=== PATIENT | female | born 1965 | race Caucasian/White ===

== ENCOUNTER 2019-10-27 08:00 | Outpatient (RCR) | payer BC, OTHER, SELFPAY ==
[2019-10-11 11:02] VITALS: BP 152/89; PULSE 72; RESP 18; TEMP 37.6; BMI 33.0
--- NOTE | 2019-10-11 12:11 | HP.PCM_ITS ---
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 Status: Acute Current Visit: Yes Code(s): Z92.29 - Personal history of other drug therapy (3) Peripheral arterial occlusive disease Status: Acute Current Visit: Yes Code(s): I77.9 - Disorder of arteries and arterioles, unspecified (4) Partial traumatic amputation of left foot Status: Acute Current Visit: Yes Code(s): S98.922A - Partial traumatic amputation of left foot, level unspecified, initial encounter (5) Smoking addiction Status: Acute Current Visit: Yes Code(s): F17.200 - Nicotine dependence, unspecified, uncomplicated (6) Nonhealing nonsurgical wound with necrosis of bone Status: Acute Current Visit: Yes Code(s): T14.8XXA - Other injury of unspecified body region, initial encounter; M87.9 - Osteonecrosis, unspecified (7) Infected wound Status: Acute Current Visit: Yes Code(s): T14.8XXA - Other injury of unspecified body region, initial encounter; L08.9 - Local infection of the skin and subcutaneous tissue, unspecified History of Present Illness Date of Service: 10/11/19 Chief Complaint: Follow-up on a left dorsal foot nonhealing surgical wound History of Wound: This is a 54-year-old white female that in approximately December 2016 had partial amputation of the left foot top of the ball of the foot through the toes removed. Her vascular study showed good posterior pedal pulses but no dorsal pulse or circulation to the toes. They think this was an involved with the blood clot that was in her lower leg. Eventually the toes became gangrene and the amputated. Because there was infection in the wound they did not close the dorsal foot and then a week later went back after IV antibiotics and reclosed the dorsal foot. All closed except the one little section that dehisced and his case stayed open this for the last 3 years. Patient was sent to Dr. Daniels a plastic surgeon that saw her and 2018 and was going to do a graft but never got back to her. He did start her on a wound VAC back in June through September 2018. Her insurance changed and she had to lose the wound VAC and then he never got back or there was miscommunication about the graft that was supposed to be done this last December. She and her daughter have been doing dressing changes through Dr. Guadarrama in [place] her family doctor and he did an x-ray of the foot and an MRI and found that there was no damage to the bone and we are waiting for the records. Also were going to the hospital for dressing changes and using Aquacel silver but never moisturizing it so the wound is extremely dry. Today we are going to change everything and put her on collagen and Adaptic and have her see Dr. Zaragoza next week and me the following week and in between we will have her start metronidazole for the distinct odor that is coming from the wound. we attained cultures today. We will also get records from all of her previous visits. Past Medical History Past Medical History: Nonhealing surgical wound left dorsal foot. Infected left dorsal foot long-term use of blood thinners. Chronic DVTs peripheral arterial occlusive disease Urschel amputation of the left foot Allergies/Adverse Reactions: Allergies codeine Allergy (Verified 10/11/19 10:58) Nausea Home Medications: Ambulatory Orders Medication Instructions Recorded Albuterol Aerosols [Ventolin 2.5 mg INHALATION Q6H PRN PRN 10/11/19 Aerosols] Atorvastatin Calcium 40 mg PO DAILY 10/11/19 Gabapentin [Neurontin] 300 mg PO 4X/DAY 10/11/19 Warfarin [Coumadin ([facility])] 2.5 mg PO QODAY 10/11/19 Warfarin [Coumadin ([facility])] 5 mg PO QODAY 10/11/19 Smoking Status: Former smoker Review of Systems Constitutional: Denies: Chills, Fever Eyes: Denies: Blurred vision, Drainage, Pain HEENT: Denies: Difficulty Hearing, Difficulty Swallowing, Sore Throat, Visual Changes Cardiovascular: Denies: Chest Pain, Palpitations, Syncope Respiratory: Denies: Cough, Shortness of Breath Gastrointestinal: Denies: Abdominal Pain, Nausea, Vomiting Genitourinary: Denies: Dysuria, Frequency Musculoskeletal: Denies: Joint Pain, Muscle pain Skin: Reports: Wounds - Left dorsal foot. Denies: Jaundice, Rash Neurological: Denies: Balance problems, Change in Speech, Difficulty swallowing, Focal weakness Psychiatric: Denies: Anxiety, Depression Endocrine: Denies: Change in Body Habitus Hematologic/ Lymphatic: Denies: Adenopathy - Physical Exam Vital Signs Temp Pulse Resp BP 99.6 F H 72 18 152/89 H 10/11/19 11:02 10/11/19 11:02 10/11/19 11:02 10/11/19 11:02 General: Oriented x3, Cooperative, Well developed HEENT: Atraumatic, PERRLA Oral: Moist Mucosa Neck: Supple, No JVD Lungs: Clear to auscultation, Normal air movement Cardiovascular: Regular rate, Regular Rhythm Abdomen: Bowel Sounds Present, Soft, Non Tender, No Hepato-splenomegaly Extremities: No clubbing, No edema, - - Left dorsal nonhealing surgical wound Wound Measurements and Assessment WC - Nurse 1 - General Ulcer Measurement Start: 10/11/19 10:53 Freq: Status: Active Protocol: Activity Type Activity Date Activity User E-Sign Co-Sign Detail Recorded Client Recorded Date Recorded By Document 10/11/19 11:02 [id number] 10/11/19 11:13 RB 10/11/19 11:02 Wound Center Nurse 1 [Ulcer Assessment] 1. L foot dorsal -Combined with other wound No -Current Size (cm) - Length 0.6 -Current Size (cm) - Width 0.5 -Current Size (cm) - Depth 0.3 -Total Square Cm 0.30 -Photo Taken Yes -Tunneling No -Undermining/Tunneling No -Circular Undermining No -Exudate Amt Small -Exudate Type Serosanguineous -Wound Margin Thickened & Rolled Under -Granulation Amt Small (1-33%) -Granulation Quality [place] -Slough/Fibrin Yes -Necrosis Amt Medium (34-66%) -Necrotic Tissue Type Eschar -Structure Exposed N/A -Texture (Shital-wound Skin Appearance) Assessed, Scarring -Moisture (Shital-wound Skin Appearance Assessed ) -Color (Shital-wound Skin Appearance) Assessed -Temperature (Shital-wound Skin No Abnormality Appearance) (Pt Warm) -Tenderness on Palpation (Shital-wound No Skin Appearance) -Ulcer Cleansing Wound Cleanser -Foul Odor after Cleansing No -Anesthetic Used 5% Lidocaine Gel [Edema Assessment] -Lower Limb Edema Present Yes -Right Calf (cm) 34.6 -Right Ankle (cm) 20.1 -Left Calf (cm) 34.1 -Left Ankle (cm) 19.1 WC - Nurse 2 - General Ulcer CM Notes Start: 10/11/19 10:53 Freq: Status: Active Protocol: Activity Type Activity Date Activity User E-Sign Co-Sign Detail Recorded Client Recorded Date Recorded By Document 10/11/19 11:34 MW [id number] 10/11/19 11:42 MW 10/11/19 11:34 Wound Center Nurse 2 [Procedure/Treatment] 1. L foot dorsal -Time 11:34 -Correct Patient Yes -Correct Side, Site, Position Yes -Correct Procedure Yes -Procedure Performed Yes -Type of Procedure Debridement -Clinical Debridement Subcutaneous -Post Debridement Size (cm) - Length 0.8 -Post Debridement Size (cm) - Width 0.8 -Post Debridement Size (cm) - Depth 0.3 -Total Square Cm 0.64 -Wound/Ulcer Outcome Not Healed -Ulcer Cleansing Rinsed/ Irrigated with Saline -Foul Odor after Cleansing No -Bioengineered Tissue No -Bleeding Controlled with Pressure -Offloading No -Treatment Response Procedure Tolerated Well [See Physician Procedure note for Specifics] Pain Scale: 0-10 Numeric [Pain] -Is Patient Pain Free? Yes Musculoskeletal: No Tenderness to Palpation of Joints or Extremities Lymphatic: No Cervical, Supraclavicular, or Inguinal Adenopathy Neurological: Cranial nerves II-XII grossly intact, Neuro grossly intact Psych/Mental Status: Normal Affect, Appropriate Debridement Note Post-Debridement Measurements/Treatment WC - Nurse 2 - General Ulcer CM Notes Start: 10/11/19 10:53 Freq: Status: Active Protocol: Activity Type Activity Date Activity User E-Sign Co-Sign Detail Recorded Client Recorded Date Recorded By Document 10/11/19 11:34 MW [id number] 10/11/19 11:42 MW 10/11/19 11:34 Wound Center Nurse 2 1. L foot dorsal -Time 11:34 -Correct Patient Yes -Correct Side, Site, Position Yes -Correct Procedure Yes -Procedure Performed Yes -Type of Procedure Debridement -Clinical Debridement Subcutaneous -Post Debridement Size (cm) - Length 0.8 -Post Debridement Size (cm) - Width 0.8 -Post Debridement Size (cm) - Depth 0.3 -Total Square Cm 0.64 -Wound/Ulcer Outcome Not Healed -Ulcer Cleansing Rinsed/ Irrigated with Saline -Foul Odor after Cleansing No -Bioengineered Tissue No -Bleeding Controlled with Pressure -Offloading No -Treatment Response Procedure Tolerated Well Pain Scale: 0-10 Numeric Is Patient Pain Free? 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 Ducted wound. Peripheral arterial occlusive disease. Long-term use of Coumadin. Chronic DVTs Plan: Wash foot and leg with Hibiclens. Apply hydrogel to open area cover with Adaptic gauze and tape day. Follow up [address] Lombardi. Follow-up in 2 weeks with Linda. We will obtain old records from family doctor and hospitalization
[2019-10-18 09:46] VITALS: BP 136/76; PULSE 72; RESP 16; TEMP 37; BMI 33.0
--- NOTE | 2019-10-18 10:20 | BON_PTH ---
PATIENT: ONDINA GAMINO LOC: [facility] U#:[id number] AGE/SX: 54/F ROOM: RE10/27/[address]: Dr. Mackenzie Manzano DPM : 1965 BED: DIS: 10/28/2019 SPEC #: [id number] RECD: 10/18/19 10:44 STATUS: CEDRIC REScar #: [id number] MERLYN: 10/18/19 10:[address]: Mackenzie Manzano DEPT: SURGICAL PATHOLOGY RECD BY: Ant Garber ENTERED: 10/18/19 12:22 SP TYPE: Bone OTHR DR: Dr. Darion Forbes MD Tissues: Bone of foot, NOS Procedures: Decalcification bone/plaque Surgery Specimen Level V HEADER OPERATION: Bone excision from right dorsal foot PRE-OP DIAGNOSIS: Nonhealing right foot ulcer, osteomyelitis TISSUE SUBMITTED: Bone biopsy right foot MICROSCOPIC DIAGNOSIS Bone of right foot, biopsy: Acute osteomyelitis. Fragment of skin with no significant pathologic change. AM:spenser 10/19/19 MICROSCOPIC DESCRIPTION Slides are reviewed. GROSS DESCRIPTION Received in fixative is one container labeled with the patient's name and designated right bone biopsy. The specimen consists of multiple fragments of bone that in aggregate measure 0.7 x 0.3 x 0.1 cm. The entire specimen is submitted in one cassette after decalcification. / SJ:spenser 10/18/19 TC:2 CPT: 48470, 48800
--- NOTE | 2019-10-18 10:55 | PN.PCM_ITS ---
(1) Chronic ulcer of left foot with necrosis of bone Status: Chronic Current Visit: Yes Code(s): L97.524 - Non-pressure chronic ulcer of other part of left foot with necrosis of bone (2) Osteomyelitis of left foot Status: Chronic Current Visit: Yes Code(s): M86.9 - Osteomyelitis, unspecified (3) Leg edema Status: Chronic Current Visit: Yes Code(s): R60.0 - Localized edema (4) Venous insufficiency Status: Suspected Current Visit: Yes Code(s): I87.2 - Venous insufficiency (chronic) (peripheral) (5) Malnutrition Status: Suspected Current Visit: Yes Code(s): E46 - Unspecified protein- calorie malnutrition (6) Deep vein thrombophlebitis of left leg Status: Chronic Current Visit: Yes Code(s): I80.202 - Phlebitis and thrombophlebitis of unspecified deep vessels of left lower extremity (7) 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 Status: Chronic Current Visit: Yes Code(s): Z92.29 - Personal history of other drug therapy (8) Partial traumatic amputation of left foot Status: Acute Current Visit: Yes Code(s): S98.922A - Partial traumatic amputation of left foot, level unspecified, initial encounter (9) Peripheral arterial occlusive disease Status: Suspected Current Visit: Yes Code(s): I77.9 - Disorder of arteries and arterioles, unspecified (10) Smoking addiction Status: Chronic Current Visit: Yes Code(s): F17.200 - Nicotine dependence, unspecified, uncomplicated Type of Wound Date of Service: 10/18/19 Chief Complaint: Follow-up on a left dorsal foot nonhealing ulcer History of Wound: This is a 54-year-old white female that in approximately December 2016 had chronic foot condition inlcuding wounds with subsequent transmetatarsal amputation of the left foot. Eventually the toes became gangrene and then amputated. Because there was infection in the wound they did not close the dorsal foot and then a week later went back after IV antibiotics and reclosed the dorsal foot. All closed except the one little section that te isced and his case stayed open this for the last 3 years. Patient was sent to Dr. Daniels a plastic surgeon that saw her. This patient was also seen by motorboat mechanic Dr. Jordan and Dr. Restrepo with several surgeries ranging from advanced wound healing product application such as epi cord and Integra bilayer matrix and bone biopsies. Relates Dr. Guadarrama in [place] her family doctor and he did an x-ray of the foot and an MRI within the past month. Her previous bone biopsies from 01/06/2018 were consistent with acute and chronic osteomyelitis and she relates she completed a course of a PICC line. This patient denies previous intervention or evaluation with the vascular specialist or motorboat mechanic. However there is different information reviewed in her medical record. Some of her medical records did come in for review and I do not see the vascular noninvasive arterial report. Per other record review it appears that she initially had critical limb ischemia and had vascular intervention in October 2017 including thrombolytic therapy with percutaneous angioplasty to the left anterior tibial, popliteal, and superficial femoral arteries. It is noted her past medical history on file includes chronic obstructive pulmonary disease, DVT and chronic Coumadin, hyperlipidemia, and peripheral vascular disease. When interviewed about anterior breast and proceeding with hyperbaric oxygen therapy she is concerned she may be claustrophobic. She is amendable to think about this over the next week. Progress of Wound: Stable - Physical Exam Vital Signs Temp Pulse Resp BP 98.6 F 72 16 136/76 H 10/18/19 09:46 10/18/19 09:46 10/18/19 09:46 10/18/19 09:46 General: Alert, Oriented x3, Cooperative, No apparent distress HEENT: Atraumatic Extremities: No cyanosis, Capillary Refill Less than 3 Seconds - Dorsal and plantar transmetatarsal amputation site, No Calf Tenderness - Negative Lucy and Ogmez sign, Diminished Peripheral Pulses - non palpable DP, left and 1/4 PT left, Edema - Mild with some varicosities left lower extremity, - - Active range of motion of left ankle is noted. Transmetatarsal amputation left. There is pain to palpation to the lateral peroneal area and lateral foot as she is subjectively reporting. Compartments soft to palpate. No laxity or increased warmth noted to the remainder of the left foot ankle or leg. No bogginess or fluctuance on palpation Skin: Ulcer/ Wound - There is no purulence, streaking, odor or ecchymosis noted. There is a full-thickness skin discontinuity with exposed black discolored soft bone to the dorsal left foot. There is some peripheral inflammation with pink discoloration I would not describe this as an infectious erythema at this time. Her skin is very atrophic, hairless. No other ulcers are noted. Wound Measurements and Assessment - Nurse 1 - General Ulcer Measurement Start: 10/11/19 10:53 Freq: Status: Active Protocol: Activity Type Activity Date Activity User E-Sign Co-Sign Detail Recorded Client Recorded Date Recorded By Document 10/18/19 09:46 [facility] [id number] 10/18/19 09:48 [facility] 10/18/19 09:46 Wound Center Nurse 1 [Ulcer Assessment] 1. L foot dorsal -Combined with other wound No -Current Size (cm) - Length 0.6 -Current Size (cm) - Width 0.7 -Current Size (cm) - Depth 0.3 -Total Square Cm 0.42 -Photo Taken No -Epithelialization None Present -Tunneling No -Undermining/Tunneling No -Circular Undermining No -Exudate Amt Small -Exudate Type Serous -Wound Margin Distinct, Outline Attached -Granulation Amt None Present (0 %) -Slough/Fibrin Yes -Necrosis Amt Large (67-100%) -Necrotic Tissue Type Adherent Slough -Structure Exposed Bone -Texture (Shital-wound Skin Appearance) Assessed, Scarring -Moisture (Shital-wound Skin Appearance Assessed ) -Color (Shital-wound Skin Appearance) Assessed, Erythema -Temperature (Shital-wound Skin No Abnormality Appearance) (Pt Warm) -Tenderness on Palpation (Shital-wound No Skin Appearance) -Ulcer Cleansing Rinsed/ Irrigated with Saline -Foul Odor after Cleansing No -Anesthetic Used 5% Lidocaine Gel - Nurse 2 - General Ulcer CM Notes Start: 10/11/19 10:53 Freq: Status: Active Protocol: Activity Type Activity Date Activity User E-Sign Co-Sign Detail Recorded Client Recorded Date Recorded By Document 10/18/19 10:39 [id number] 10/18/19 10:40 10/18/19 10:39 Wound Center Nurse 2 [Procedure/Treatment] -Time 10:39 -Correct Patient Yes -Correct Side, Site, Position Yes -Correct Procedure Yes -Procedure Performed Yes -Type of Procedure Debridement -Clinical Debridement Bone -Post Debridement Size (cm) - Length 0.7 -Post Debridement Size (cm) - Width 0.8 -Post Debridement Size (cm) - Depth 0.3 -Total Square Cm 0.56 -Wound/Ulcer Outcome Not Healed -Ulcer Cleansing Rinsed/ Irrigated with Saline -Foul Odor after Cleansing No -Bioengineered Tissue No -Bleeding Controlled with Pressure -Offloading No -Treatment Response Procedure Tolerated Well [See Physician Procedure note for Specifics] Pain Scale: 0-10 Numeric [Pain] -Is Patient Pain Free? Yes Musculoskeletal: No Tenderness to Palpation of Joints or Extremities, Muscle Wasting Neurological: - - Lack of normal epicritic sensation light touch consistent with neuropathy and it is and she is on gabapentin Psych/Mental Status: Normal Affect, Appropriate Debridement Note Post-Debridement Measurements/Treatment WC - Nurse 2 - General Ulcer CM Notes Start: 10/11/19 10:53 Freq: Status: Active Protocol: Activity Type Activity Date Activity User E-Sign Co-Sign Detail Recorded Client Recorded Date Recorded By Document 10/11/19 11:34 MW [id number] 10/11/19 11:42 MW Document 10/18/19 10:39 [id number] 10/18/19 10:40 10/11/19 10/18/19 11:34 10:39 Wound Center Nurse 2 1. L foot dorsal -Time 11:34 10:39 -Correct Patient Yes Yes -Correct Side, Site, Position Yes Yes -Correct Procedure Yes Yes -Procedure Performed Yes Yes -Type of Procedure Debridement Debridement -Clinical Debridement Subcutaneous Bone -Post Debridement Size (cm) - Length 0.8 0.7 -Post Debridement Size (cm) - Width 0.8 0.8 -Post Debridement Size (cm) - Depth 0.3 0.3 -Total Square Cm 0.64 0.56 -Wound/Ulcer Outcome Not Healed Not Healed -Ulcer Cleansing Rinsed/ Rinsed/ Irrigated with Irrigated with Saline Saline -Foul Odor after Cleansing No No -Bioengineered Tissue No No -Bleeding Controlled with Pressure Pressure -Offloading No No -Treatment Response Procedure Procedure Tolerated Well Tolerated Well Pain Scale: 0-10 Numeric Is Patient Pain Free? 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 Chronic osteomyelitis left foot. Peripheral arterial occlusive disease with prior intervention in 2017. Long-term use of Coumadin. Chronic DVTs. Malnutrition suspected. Left transmetatarsal amputation with delayed healing Plan: I reviewed and discussed with case, her previous medical records, and her recent microbiology report. To wash foot gently with soap and water. There does not appear to be any local acute signs of infection today and she was advised to complete her oral Flagyl. Her cultures did demonstrate strep and Pseudomonas. If her local signs of infection progress and she has systemic illness additional antibiotics will be considered. The devitalized tissue was excised including bone and this was sent for pathology and microbiology updated bone cultures. I would like to review her x-rays and recent MRI and these reports have already been requested but have not been received. The CD imaging will be requested as well. Clinically I suspect osteomyelitis and talked about surgical debridements as well as hyperbaric oxygen therapy and infectious disease updated referral. I would like to start with the bone biopsy today and a more aggressive local debridement was performed medically. We will gather the remainder of the information and consider if she is a candidate for hyperbaric oxygen therapy. I discussed the indications anticipated application and healing time. She is concerned she may be a little claustrophobic but would consider this treatment. She will think about this over the next week. Transportation requirements were discussed. If she elects to proceed forward she will go forward diagnostic data screening with a chest x-ray, EKG and clearance to proceed forward. Her history of peripheral vascular disease with critical limb ischemia and prior intervention 2017 as noted. An updated arterial venous study was ordered today to check her current status. Additional intervention or reevaluation by vascular specialist may be warranted. We will start with this test. Also pending these results more aggressive compression therapy and debridement will be considered and implemented. I recommend updating her lab work including CBC, CMP, ESR, CRP, and prealbumin to understand her baseline medical status, inflammatory nutrition status. She was also advised to offload the ulcer to keep pressure and friction to optimize healing. To avoid wearing shoes that press on the site and excessive walking activity. An aperture pad was fabricated to place around the ulcer site as well. To discontinue smoking activity. To maintain a healthy diet that is well-balanced and have adequate protein to optimize healing. Additional medical records will be requested as noted and her other outside facility notes were reviewed and placed in the paper chart. She will return to clinic next Wednesday in which door and I will follow along with her. The consultation is appreciated. To continue with hydrogel to open area cover with Adaptic gauze and tape daily basis.
[2019-10-18 12:01] LABS: Erythrocyte Sedimentation Rate 17 mm/hr (0-30)
[2019-10-18 12:04] LABS: Absolute Lymphocyte Count 3.19 X10^3/uL (0.83-4.51); Absolute Neutrophil Count 4.4 X10^3/uL (2.0-7.7); Basophil# 0.09 X10^3/uL; Eosinophil# 0.24 X10^3/uL; Eosinophils% 2.8 % (0-5); Hematocrit 47.3 % (37-47); Hemoglobin 15.5 g/dL (12.0-15.0); Lymphocyte # 3.19 X10^3/ul (4.0); Lymphocyte % 37.1 % (19-41); Mean Corp Hgb Conc 32.8 g/dL (32-36); Mean Corpuscular Hgb 31.6 pg (27.0-32.0); Mean Corpuscular Volume 96.3 fL (81-99); Mean Platelet Vol. 10.2 fl (6.2-12.0); Monocyte# 0.63 X10^3/uL; Monocyte% 7.3 % (0-10); NRBC Flagged by Analyzer 0 % (0-5); Neutrophil # 4.42 X10^3/uL (2.7-7.7); Neutrophil % 51.6 % (47-70); Platelet Count 380 K/mm3 (150-450); RBC Distribution Width CV 15.3 % (11.6-14.6); RBC Distribution Width SD 54.6 fl (35.1-43.9); Red Blood Count 4.91 M/mm3 (4.2-5.4); White Blood Count 8.6 K/mm3 (4.4-11.0)
[2019-10-18 12:54] LABS: ALB/GLOB Ratio 0.8 RATIO (0.9-2.4); AST(SGOT) 27 U/L (15-37); Alanine Aminotransfer ALT/SGPT 29 U/L (13-56); Albumin, Serum 3.3 g/dL (3.2-5.0); Alkaline Phosphatase 187 U/L (45-117); Anion Gap 5 (5-15); BUN 7 mg/dL (7-18); BUN/Creat Ratio 8.4 RATIO (10-20); Calcium,Total 8.8 mg/dL (8.5-10.1); Chloride 107 mmol/L (98-107); Creatinine, Serum 0.84 mg/dL (0.55-1.02); EST Glomerular Filtration Rate 76 mL/min (>60); Est Glom Filt Rate - Afr Amer 92 mL/min (>60); Estimated Creatinine Clearance 59.12 ml/min; Globulin 4.3 g/dL (2.2-4.2); Glucose 83 mg/dL (74-106); Potassium 4.3 mmol/L (3.5-5.1); Prealbumin 20.4 mg/dL (20.0-40.0); Protein, Total 7.6 g/dL (6.4-8.2); Sodium Level 140 mmol/L (136-145)
[2019-10-25 11:19] VITALS: BP 133/86; PULSE 81; RESP 18; TEMP 36.8; BMI 33.0
--- NOTE | 2019-10-25 12:42 | PN.PCM_ITS ---
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 Current Visit: Yes Code(s): Z92.29 - Personal history of other drug therapy (3) Peripheral arterial occlusive disease Status: Suspected Current Visit: Yes Code(s): I77.9 - Disorder of arteries and arterioles, unspecified (4) Partial traumatic amputation of left foot Status: Acute Current Visit: Yes Code(s): S98.922A - Partial traumatic amputation of left foot, level unspecified, initial encounter (5) Smoking addiction Status: Chronic Current Visit: Yes Code(s): F17.200 - Nicotine dependence, unspecified, uncomplicated (6) Nonhealing nonsurgical wound with necrosis of bone Status: Acute Current Visit: Yes Code(s): T14.8XXA - Other injury of unspecified body region, initial encounter; M87.9 - Osteonecrosis, unspecified (7) Infected wound Status: Acute Current Visit: Yes Code(s): T14.8XXA - Other injury of unspecified body region, initial encounter; L08.9 - Local infection of the skin and subcutaneous tissue, unspecified (8) Osteomyelitis of left foot Status: Chronic Current Visit: Yes Code(s): M86.9 - Osteomyelitis, unspecified (9) Malnutrition Status: Suspected Current Visit: Yes Code(s): E46 - Unspecified protein- calorie malnutrition Type of Wound Date of Service: 10/25/19 Chief Complaint: Follow-up on a left dorsal foot nonhealing ulcer History of Wound: This is a 54-year-old white female that in approximately December 2016 had chronic foot condition inlcuding wounds with subsequent transmetatarsal amputation of the left foot. Eventually the toes became gangrene and then amputated. Because there was infection in the wound they did not close the dorsal foot and then a week later went back after IV antibiotics and reclosed the dorsal foot. All closed except the one little section that dehisced and his case stayed open this for the last 3 years. Patient was sent t samir Daniels a plastic surgeon that saw her. This patient was also seen by associate of science in nursing Dr. Jordan and Dr. Restrepo with several surgeries ranging from advanced wound healing product application such as epi cord and Integra bilayer matrix and bone biopsies. Relates Dr. Guadarrama in [place] her family doctor and he did an x-ray of the foot and an MRI within the past month. Her previous bone biopsies from 01/06/2018 were consistent with acute and chronic osteomyelitis and she relates she completed a course of a PICC line. This patient denies previous intervention or evaluation with the vascular specialist or associate of science in nursing. However there is different information reviewed in her medical record. Some of her medical records did come in for review and I do not see the vascular noninvasive arterial report. Per other record review it appears that she initially had critical limb ischemia and had vascular intervention in October 2017 including thrombolytic therapy with percutaneous angioplasty to the left anterior tibial, popliteal, and superficial femoral arteries. It is noted her past medical history on file includes chronic obstructive pulmonary disease, DVT and chronic Coumadin, hyperlipidemia, and peripheral vascular disease. When interviewed about anterior breast and proceeding with hyperbaric oxygen therapy she is concerned she may be claustrophobic. She is amendable to think about this over the next week. Progress of Wound: Courtesy consult. Bone biopsy came back positive for osteomyelitis patient is already on antibiotics from Dr. Zaragoza. Discussed with Dr. goodman will be getting her MRI to study it and consult with infectious disease next week - Physical Exam Vital Signs Temp Pulse Resp BP 98.2 F 81 18 133/86 H 10/25/19 11:19 10/25/19 11:19 10/25/19 11:19 10/25/19 11:19 General: Oriented x3, Cooperative, Well developed HEENT: Atraumatic, PERRLA Oral: Moist Mucosa Neck: Supple, No JVD Lungs: Clear to auscultation, Normal air movement Cardiovascular: Regular rate, Regular Rhythm Abdomen: Bowel Sounds Present, Soft, Non Tender, No Hepato-splenomegaly Extremities: No clubbing, No edema Wound Measurements and Assessment WC - Nurse 1 - General Ulcer Measurement Start: 10/11/19 10:53 Freq: Status: Active Protocol: Activity Type Activity Date Activity User E-Sign Co-Sign Detail Recorded Client Recorded Date Recorded By Document 10/25/19 11:19 DL [id number] 10/25/19 11:26 DL 10/25/19 11:19 Wound Center Nurse 1 [Ulcer Assessment] 1. L foot dorsal -Current Size (cm) - Length 0.6 -Current Size (cm) - Width 0.7 -Current Size (cm) - Depth 0.4 -Total Square Cm 0.42 -Photo Taken No -Exudate Amt Small -Exudate Type Yellow/Green -Wound Margin Thickened & Rolled Under -Granulation Amt None Present (0 %) -Necrosis Amt Large (67-100%) -Necrotic Tissue Type Adherent Slough -Structure Exposed Bone -Texture (Shital-wound Skin Appearance) Scarring -Moisture (Shital-wound Skin Appearance No Abnormality ) -Color (Shital-wound Skin Appearance) Erythema,Rubor -Temperature (Shital-wound Skin No Abnormality Appearance) (Pt Warm) -Tenderness on Palpation (Shital-wound No Skin Appearance) -Ulcer Cleansing Rinsed/ Irrigated with Saline -Foul Odor after Cleansing No -Anesthetic Used 5% Lidocaine Gel WC - Nurse 2 - General Ulcer CM Notes Start: 10/11/19 10:53 Freq: Status: Active Protocol: Activity Type Activity Date Activity User E-Sign Co-Sign Detail Recorded Client Recorded Date Recorded By Document 10/25/19 12:09 LUCIA [id number] 10/25/19 12:10 LUCIA 10/25/19 12:09 Wound Center Nurse 2 [Procedure/Treatment] -Time 12:09 -Correct Patient Yes -Correct Side, Site, Position Yes -Correct Procedure Yes -Procedure Performed Yes -Type of Procedure Debridement -Clinical Debridement Selective -Post Debridement Size (cm) - Length 0.9 -Post Debridement Size (cm) - Width 0.5 -Post Debridement Size (cm) - Depth 0.4 -Total Square Cm 0.45 -Wound/Ulcer Outcome Not Healed -Ulcer Cleansing Rinsed/ Irrigated with Saline -Foul Odor after Cleansing No -Bioengineered Tissue No -Bleeding Controlled with Pressure -Offloading Yes -Type of Offloading Surgical Shoe -Treatment Response Procedure Tolerated Well [See Physician Procedure note for Specifics] Pain Scale: 0-10 Numeric [Pain] -Is Patient Pain Free? Yes Musculoskeletal: No Tenderness to Palpation of Joints or Extremities Lymphatic: No Cervical, Supraclavicular, or Inguinal Adenopathy Neurological: Cranial nerves II-XII grossly intact, Neuro grossly intact Psych/Mental Status: Normal Affect, Appropriate Debridement Note Post-Debridement Measurements/Treatment WC - Nurse 2 - General Ulcer CM Notes Start: 10/11/19 10:53 Freq: Status: Active Protocol: Activity Type Activity Date Activity User E-Sign Co-Sign Detail Recorded Client Recorded Date Recorded By Document 10/11/19 11:34 MW [id number] 10/11/19 11:42 MW Document 10/18/19 10:39 JF [id number] 10/18/19 10:40 JF Document 10/25/19 12:09 JF [id number] 10/25/19 12:10 JF 10/11/19 10/18/19 10/25/19 11:34 10:39 12:09 Wound Center Nurse 2 1. L foot dorsal -Time 11:34 10:39 12:09 -Correct Patient Yes Yes Yes -Correct Side, Site, Position Yes Yes Yes -Correct Procedure Yes Yes Yes -Procedure Performed Yes Yes Yes -Type of Procedure Debridement Debridement Debridement -Clinical Debridement Subcutaneous Bone Selective -Post Debridement Size (cm) - Length 0.8 0.7 0.9 -Post Debridement Size (cm) - Width 0.8 0.8 0.5 -Post Debridement Size (cm) - Depth 0.3 0.3 0.4 -Total Square Cm 0.64 0.56 0.45 -Wound/Ulcer Outcome Not Healed Not Healed Not Healed -Ulcer Cleansing Rinsed/ Rinsed/ Rinsed/ Irrigated with Irrigated with Irrigated with Saline Saline Saline -Foul Odor after Cleansing No No No -Bioengineered Tissue No No No -Bleeding Controlled with Pressure Pressure Pressure -Offloading No No Yes -Type of Offloading Surgical Shoe -Treatment Response Procedure Procedure Procedure Tolerated Well Tolerated Well Tolerated Well Pain Scale: 0-10 Numeric Is Patient Pain Free? 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 Chronic osteomyelitis left foot. Peripheral arterial occlusive disease with prior intervention in 2017. Long-term use of Coumadin. Chronic DVTs. Malnutrition. Malnutrition suspected. Left transmetatarsal amputation with delayed healing Plan: I reviewed and discussed with case, her previous medical records, and her recent microbiology report. To wash foot gently with soap and water. There does not appear to be any local acute signs of infection today and she was advised to complete her oral Flagyl. Her cultures did demonstrate strep and Pseudomonas. If her local signs of infection progress and she has systemic illness additional antibiotics will be considered. The devitalized tissue was excised including bone and this was sent for pathology and microbiology updated bone cultures. I would like to review her x-rays and recent MRI and these reports have already been requested but have not been received. The CD imaging will be requested as well. Clinically I suspect osteomyelitis and talked about surgical debridements as well as hyperbaric oxygen therapy and infectious disease updated referral. I would like to start with the bone biopsy today and a more aggressive local debridement was performed medically. We will gather the remainder of the information and consider if she is a candidate for hyperbaric oxygen therapy. I discussed the indications anticipated application and healing time. She is concerned she may be a little claustrophobic but would consider this treatment. She will think about this over the next week. Transportation requirements were discussed. If she elects to proceed forward she will go forward diagnostic data screening with a chest x-ray, EKG and clearance to proceed forward. Her history of peripheral vascular disease with critical limb ischemia and prior intervention 2017 as noted. An updated arterial venous study was ordered today to check her current status. Additional intervention or reevaluation by vascular specialist may be warranted. We will start with this test. Also pending these results more aggressive compression therapy and debridement will be considered and implemented. I recommend updating her lab work including CBC, CMP, ESR, CRP, and prealbumin to understand her baseline medical status, inflammatory nutrition status. She was also advised to offload the ulcer to keep pressure and friction to optimize healing. To avoid wearing shoes that press on the site and excessive walking activity. An aperture pad was fabricated to place around the ulcer site as well. To discontinue smoking activity. To maintain a healthy diet that is well-balanced and have adequate protein to optimize healing. Additional medical records will be requested as noted and her other outside facility notes were reviewed and placed in the paper chart. She will return to clinic next Wednesday in which door and I will follow along with her. The consultation is appreciated. To continue with hydrogel to open area cover with Adaptic gauze and tape daily basis.
--- NOTE | 2019-10-27 08:19 | ART_ITS ---
Reason For Study: ULCER Procedure A bilateral lower extremity continuous wave Doppler with analog waveform analysis,segmental pressures,and ankle brachial indexes without exercise. Left Segmental Pressures Left brachial= 125mmHg. Left thigh = 145mmHg. Left calf = 126mmHg. Left posterior tibial artery = 90mmHg. The left posterior tibial artery waveforms are monophasic. Left dorsalis pedis artery = 0mmHg. The left dorsalis pedis waveforms are absent. Left digit = 0 mmHg. Right Segmental Pressures Right brachial= 113mmHg. Right thigh = 137mmHg. Right calf = 145mmHg. Right posterior tibial artery = 117mmHg. The right posterior tibial artery waveforms are biphasic. Right dorsalis pedis artery = 103mmHg. The right dorsalis pedis waveforms are biphasic. Right digit = 100 mmHg. Indices The right ankle brachial index by the posterior tibial artery is .94. The right ankle brachial index by the dorsalis pedis is .82. The right digital-brachial index is .8. No flow found in Left DPA. Amputation of all toes of left foot d/t infection. The left ankle brachial index by the posterior tibial artery is .72. Interpretation Summary Biphasic Doppler waveforms are noted at ankle level bilaterally. Pulse-volume recording waveform amplitudes are normal at all levels on the right, but diminished at ankle level on the left. The resting right ankle-brachial index is low-normal. The resting left ankle-brachial index is moderately diminished. The right digital-brachial index is normal. The left digital-brachial index was not determined, as the patient has previously undergone left toe amputations. There is no evidence of significant arterial occlusive disease in the right lower extremity. There is evidence of moderate arterial occlusive disease in the left lower extremity, with moderate impairment of arterial flow at ankle level on the left. Ordering Physician: Mackenzie Manzano Referring Physician: LILY QUIÑONES Performed By: Rebecca Leonard, RDCS, RVT
--- NOTE | 2019-10-27 08:19 | VDLE_ITS ---
Reason For Study: ULCER RIGHT LEFT CFV is compressible, spontaneous, phasic, CFV is compressible, spontaneous, phasic, competent and demonstrates normal competent, and demonstrates normal augmentation. augmentation. FV is compressible, spontaneous, phasic, FV is compressible, spontaneous, phasic, competent and demonstrates normal competent and demonstrates normal augmentation. augmentation. POP V is compressible, spontaneous, phasic, POP V is compressible, spontaneous, phasic, competent and demonstrates normal competent and demonstrates normal augmentation. augmentation. T/P Trunk is compressible. T/P Trunk is compressible. PTV is compressible. PTV is compressible. RT PerV is compressible. LT PerV is compressible. Rt GSV is competent and compressible Left GSV is competent and compressible throughout. throughout. RT SSV is competent and compressible Left SSV is competent and compressible throughout. throughout. Procedure Exam performed in department. A preliminary report was called and/or faxed to [facility]. Interpretation Summary Deep veins of the lower extremities are bilaterally patent and compressible segmentally. There is no evidence of deep vein thrombosis on either side. Valvular competence appears intact within the proximal deep venous systems bilaterally. The great saphenous veins appear bilaterally patent and compressible segmentally. Valvular competence appears to be intact segmentally within the great saphenous veins bilaterally. The small saphenous veins are patent and competent bilaterally. Ordering Physician: Mackenzie Manzano Referring Physician: KAVIN QUIÑONES Performed By: Rebecca Leonard, EDWIN, RVT
== END 2019-10-28 23:59 | disposition home or self-care (01) ==
LOC: CVS 08:00
PROVIDERS: Family Provider Family Medicine; PCP Family Medicine; Referring Provider Podiatrist; Visit Provider Podiatrist
DX: T81.89XA Other complications of procedures, not elsewhere classified, initial encounter (principal); I77.9 Disorder of arteries and arterioles, unspecified; F17.200 Nicotine dependence, unspecified, uncomplicated; L97.522 Non-pressure chronic ulcer of other part of left foot with fat layer exposed; M87.80 Other osteonecrosis, unspecified bone; Y83.9 Surgical procedure, unspecified as the cause of abnormal reaction of the patient, or of later complication, without mention of misadventure at the time of the procedure; Z89.432 Acquired absence of left foot; Z86.718 Personal history of other venous thrombosis and embolism; Z79.01 Long term (current) use of anticoagulants; J44.9 Chronic obstructive pulmonary disease, unspecified; E78.5 Hyperlipidemia, unspecified; M86.672 Other chronic osteomyelitis, left ankle and foot
CPT/HCPCS: 11042; 11044; 36415; 80053; 84134; 85025; 85652; 86140; 87070; 87075; 87077; 87176; 87186; 87205; 88304; 88307; 88311; 93923; 93970; 97597; 99203; G0463

== ENCOUNTER → 2019-11-15 14:33 | Outpatient (CLI) | payer BC, OTHER, SELFPAY ==
[2019-11-15 11:40] VITALS: BMI 33.0
[2019-11-15 15:34] LABS: Absolute Lymphocyte Count 3.08 X10^3/uL (0.83-4.51); Absolute Neutrophil Count 4.6 X10^3/uL (2.0-7.7); Basophil# 0.07 X10^3/uL; Basophil% 0.8 % (0-1); Eosinophil# 0.25 X10^3/uL; Hemoglobin 14.6 g/dL (12.0-15.0); Lymphocyte # 3.08 X10^3/ul (4.0); Lymphocyte % 36.6 % (19-41); Mean Corp Hgb Conc 33.2 g/dL (32-36); Mean Corpuscular Hgb 31.3 pg (27.0-32.0); Mean Corpuscular Volume 94.4 fL (81-99); Mean Platelet Vol. 9.9 fl (6.2-12.0); Monocyte# 0.43 X10^3/uL; Monocyte% 5.1 % (0-10); NRBC Flagged by Analyzer 0 % (0-5); Neutrophil # 4.58 X10^3/uL (2.7-7.7); Neutrophil % 54.4 % (47-70); Platelet Count 341 K/mm3 (150-450); RBC Distribution Width CV 14.9 % (11.6-14.6); Red Blood Count 4.66 M/mm3 (4.2-5.4); White Blood Count 8.4 K/mm3 (4.4-11.0)
[2019-11-15 15:48] LABS: International Normalized Ratio 1.6; Prothrombin Time (Protime)PT. 18.7 SECONDS (11.7-14.9)
[2019-11-15 15:58] LABS: ALB/GLOB Ratio 0.7 RATIO (0.9-2.4); AST(SGOT) 16 U/L (15-37); Alanine Aminotransfer ALT/SGPT 19 U/L (13-56); Albumin, Serum 3.2 g/dL (3.2-5.0); Alkaline Phosphatase 186 U/L (45-117); Anion Gap 5 (5-15); BUN 8 mg/dL (7-18); BUN/Creat Ratio 10.1 RATIO (10-20); Calcium,Total 8.6 mg/dL (8.5-10.1); Chloride 106 mmol/L (98-107); Creatinine, Serum 0.79 mg/dL (0.55-1.02); EST Glomerular Filtration Rate 81 mL/min (>60); Est Glom Filt Rate - Afr Amer 98 mL/min (>60); Globulin 4.3 g/dL (2.2-4.2); Glucose 82 mg/dL (74-106); Potassium 3.8 mmol/L (3.5-5.1); Protein, Total 7.5 g/dL (6.4-8.2); Sodium Level 138 mmol/L (136-145)
== END ==
PROVIDERS: Family Provider Family Medicine; PCP Family Medicine; Referring Provider Family Medicine; Visit Provider Family Medicine
DX: Z01.818 Encounter for other preprocedural examination (principal)
CPT/HCPCS: 36415; 80053; 85025; 85610

== ENCOUNTER 2019-11-24 14:04 | Day surgery (SDC) | payer BC, OTHER, SELFPAY ==
[2019-11-01 16:00] VITALS: BMI 33.0
[2019-11-15 11:40] VITALS: BMI 33.0
--- NOTE | 2019-11-24 14:40 | SUR.PREOP ---
Patient states she speaks to her [employer] Attorney when feeling down, speaks with daughter.
[2019-11-24 14:41] VITALS: BP 115/63; PULSE 64; RESP 18; TEMP 36.6; O2SAT 94; BMI 32.8
[2019-11-24 14:49] LABS: International Normalized Ratio 1.1; Prothrombin Time (Protime)PT. 13.5 SECONDS (11.7-14.9)
[2019-11-24] MEDS: Lactated Ringers 1,000 ML 100 ML IV (14:51)
--- NOTE | 2019-11-24 15:10 | RAD_ITS ---
STUDY: Fluoroscopically guided the procedure of the ulcer debridement at the level of the left foot. CLINICAL: Female, 54 years old. ULCER DEBRIDEMENT, BONE BX OF LEFT FOOT COMPARISON: None. FINDINGS: Fluoroscopy was provided for operative procedure of debridement at the level of the left foot. The radiologist was not present in the room. Total fluoroscopy time was 0 minutes and 06 seconds. One image was provided revealing postoperative changes and radiopaque metallic structure. RAD/Foot min 3 Views IMPRESSION: Fluoroscopically guided debridement procedure as described above. For details please see operative report. Electronically Signed: Mouna Snow MD at 0:50 EST , Service support ,
--- NOTE | 2019-11-24 15:35 | BONBX_PTH ---
PATIENT: ONDINA GAMINO LOC: [facility] [place] U#:[id number] AGE/SX: 54/F ROOM: RE11/24/[address]: Dr. Mackenzie Manzano DPM : 1965 BED: DIS: 11/24/2019 SPEC #: [id number] RECD: 11/24/19 16:54 STATUS: CEDRIC AMARILYS #: [id number] MERLYN: 11/24/19 15:[address]: Mackenzie Manzano DEPT: SURGICAL PATHOLOGY RECD BY: Amalia Escamilla ENTERED: 11/27/19 10:05 SP TYPE: Bone OTHR DR: Dr. Darion Forbes MD Tissues: Bone of foot, NOS Procedures: Decalcification bone/plaque Surgery Specimen Level V HEADER OPERATION: Ulcer debridement including bone, bone biopsy, and application PRE-OP DIAGNOSIS: Osteomyelitis, chronic ulcer left foot TISSUE SUBMITTED: Left foot bone biopsy MICROSCOPIC DIAGNOSIS Left foot bone, biopsy: Focal reactive change. No evidence of osteomyelitis. AM:spenser 12/04/19 MICROSCOPIC DESCRIPTION Slides are reviewed. GROSS DESCRIPTION Received in fixative is one container labeled with the patient's name and designated bone biopsy left foot. The specimen consists of multiple minute fragments of light slater bone that in aggregate measure 0.5 x 0.2 x 0.1 cm. The specimen is totally submitted in one cassette after decalcification. / AM:spenser 11/27/19 TC:5 CPT: 30132, 37980
[2019-11-24] MEDS: Bupivacaine Mpf 0.5% 30 ML VIAL (15:45)
[2019-11-24] MEDS: Cefazolin 2 GM in 0.9% Normal Saline 100 ML IV (16:08)
--- NOTE | 2019-11-24 16:25 | DCINST_ITS ---
Discharge Diet: No Restrictions Discharge Activity: May not drive while taking narcotic pain medications. Weight Bearing Status: No weight bearing Keep extremity elevated above heart level: Left Leg Call your doctor if your incision/area has: Continuous Slow Oozing, Sudden Increased Bleeding, Increased Pain/ Swelling, Increased Redness, Foul Smelling Discharge, Swelling at the incision site Call your doctor if you observe: Fever of 101 or Higher, Calf discomfort, Uncontrolled pain Cleanse incision/area with: Keep Dressing Clean & Dry, - - keep splint intact Additional Instructions: It is ok to resume Coumadin this evening. Allergies/Adverse Reactions: Allergies codeine Allergy (Verified 11/24/19 14:37) Nausea tramadol Adverse Reaction (Verified 11/24/19 14:37) Does not like weaning process Medications to take at Discharge Albuterol Aerosols [Ventolin Aerosols] 2.5 mg INHALATION Q6H PRN PRN 10/11/19 Atorvastatin Calcium 40 mg PO QHS 10/11/19 Gabapentin [Neurontin] 300 mg PO 4X/DAY 10/11/19 Warfarin [Coumadin ([facility])] 2.5 mg PO SUTUTHSA 10/11/19 Warfarin [Coumadin ([facility])] 5 mg PO [id number] 10/11/19 Primary Care Physician: Darion Forbes MD [Primary Care Provider] - Test Results: Test results from this visit will be discussed in further detail at your follow- up appointment, if applicable. Please Follow Up With: Mackenzie Manzano DPM When: 1 week at wound healing center. call [phone] sooner if questions. Proposed Discharge Date: 11/24/19
--- NOTE | 2019-11-24 16:29 | OP.PCM_ITS ---
Problem List (1) Osteomyelitis of left foot Status: Chronic Qualifiers: (2) Chronic ulcer of left foot with necrosis of bone Status: Chronic Report of Operation Date of Procedure: 11/24/19 Pre-Operative Diagnosis: Nonhealing left foot ulcer with necrosis of bone and osteomyelitis Post-Operative Diagnosis: Nonhealing left foot ulcer with necrosis of bone and osteomyelitis Surgery/Procedure Performed:: Debridement of left foot ulcer including bone, bone biopsy of left midfoot, and application of advanced wound healing product amniofill Description of Surgical Findings:: Hemostasis: No tourniquet utilized. Anatomic dissection performed. Hemostasis controlled Materials: Adaptic, 3-0 nylon, amniofill Specimens sent The patient tolerated the procedure and anesthesia well. She was transported to the PACU with vital signs stable and vascular status intact to the left foot. She will be discharged home upon continued stability. Intraoperative fluoroscopy was utilized to confirm appropriate placement of bone biopsy. No purulence or necrosis was noted. Her postoperative orders were entered electronically. harvest supervisor: none - surgeon: Mackenzie Manzano DPM. Respiratory Equipment Assistant: Maurilio Wood PGY1 Type of Anesthesia:: General, Local - Pre-operative: One-to-one mixture of 1% lidocaine plain and 0.5% Marcaine plain administered with local and full treated manner to dorsal foot and wound, 10 cc Specimen's removed: 1. Bone left foot sent to microbiology for aerobic, anaerobic, acid-fast, fungal. 2. Bone left foot sent to pathology Estimated Blood Loss (mL): <100 mL Description of Procedure: Indications: This 54-year-old female with significant past medical history of deep venous thrombosis, current smoker, peripheral vascular disease status post intervention including balloon angioplasty of the superficial femoral artery, popliteal artery, and anterior tibial artery on the left lower extremity and history of osteomyelitis with previous transmetatarsal amputation has been dealing with a chronic nonhealing ulcer to the dorsal aspect of the left foot that has been present since approximately December 2016. She was initially treated at [facility] and has recently transferred her care to the [place] wound healing center. She has failed other conservative comprehensive and advanced therapies including surgical debridements and application of advanced wound healing products. She had an x-ray which did not demonstrate jackie osseous destruction foreign body or fractures. MRI was non-diagnostic for osteomyelitis. Upon initial exam it was noted she had black exposed bone and this was removed with instrumentation in clinic and was sent for bone biopsy which was positive for osteomyelitis. Clinically there is no purulence on expression. She does have atrophic and hairless skin however the perfusion does demonstrate capillary fill time less than 3 seconds to the chapincito-ulcer site and it is warm to touch. Her recent updated ankle-brachial index also had an KEARA of over 0.7 to the left foot. Her preoperative clearance, history physical exam and diagnostic data including CBC, CMP, PT/INR, and EKG were reviewed. The preoperative indications, planned procedure, possible benefits, risk, complications, and anticipated healing time management were discussed in detail with the patient. Informed surgical consent and limb were signed. She understands risk and complications include but are not limited to the following: Pain, swelling, scarring, need for further surgery, infection, chronic pain, continued non healing, further amputation, blood clot, allergic reaction, recurrent ulceration, loss of limb, function, life, chronic pain. Answered all of her questions. Procedure in detail: The patient was transported to the operating room via cart and placed on the operating table in supine position. Final verification the patient, surgery, limb designation was performed via the timeout procedure. General anesthesia was initiated by the anesthesia team and preoperative local anesthetic was initiated by the podiatry team. Preoperative antibiotics were held until after she obtained her culture, then 2 g of Ancef were administered. The left lower extremity was prepped and draped in the usual aseptic manner and surgery began as the following: Attention was first directed to the dorsal aspect of the left foot in which the ulcer measuring 0.6 x 0.5 x 0.3 cm in size was identified with exposed white bone. The adjacent skin is adhered to the underlying bone and is friable and devitalized. A 15 blade scalpel was used to perform excisional debridement of devitalized subcutaneous, fibrous, biofilm, and slough. Additional underlying bone was resected that was prominent and directly visualized in the wound bed including devitalized soft bone. The post debridement ulcer measurement was 1.8 cm x 1.3 cm x 0.5 cm. Healthy hematogenous drainage was noted. There is no purulence or necrosis. The new wound margin was gently mobilized from the underlying midfoot bones utilizing a tenotomy scissor. It is noted all wound margins had a healthy bleeding tissue. Copious saline irrigation was performed. Next a bone biopsy from the second cuneiform was obtained with a Jamshidi needle under fluoroscopy guidance. This was successfully obtained and was sent to both microbiology and pathology. Care was taken to enter the jamshidi biopsy need from the margin of the wound that was not previously exposed to the external environment to avoid contamination. Copious saline irrigation was performed again. Next advanced wound healing product, amnio fill, was applied according to standard protocol to the open deficit. This was also packed under the wound margins and into the remaining open area. This was secured in place with Adaptic and 3-0 nylon. It is noted no tourniquet was utilized and pressure was used to maintain hemostasis. Next the postoperative dressing consisting of gauze, Kerlix, abdominal pad were applied. An additional posterior mold was applied in a well-padded neutral manner taking care to bolster and protect the recent operative dorsal foot site. This was applied to reduce motion tension to this surgical site. After procedure: The patient tolerated the procedure and anesthesia well. She was transported to the PACU with vital signs stable and vascular status intact to the left lower extremity. She was advised to ice if needed for pain and inflammation management. I do not recommend elevation. She was advised to keep her dressing and splint clean, dry, and intact until follow-up visit next week at the wound healing center. She was advised to avoid smoking activity to optimize healing. There is no purulence or necrosis noted from an intraoperative evaluation standpoint. Her pathology and microbiology specimen results are pending. To continue with proper nutrition optimize healing. She was advised she is able to resume Coumadin use this evening. Her postoperative orders were entered electronically. Mackenzie Manzano DPM, [facility] Grafts/Implants Used: 250 mL amniofill - Complications none - Admit VTE Documentation VTE Present on Admission: No VTE Mechan Device Prophylaxis: SCD's VTE Pharm Prophylaxis ordered?: Yes
[2019-11-24 16:39] VITALS: BP 115/63; BP 118/68; PULSE 79; RESP 16; TEMP 36.3; O2SAT 95
[2019-11-24 16:45] VITALS: BP 106/85; BP 115/63; PULSE 76; RESP 16; O2SAT 96
[2019-11-24 16:50] VITALS: BP 115/60; BP 115/63; PULSE 63; RESP 16; O2SAT 94
[2019-11-24 16:57] VITALS: BP 105/68; BP 115/63; PULSE 70; RESP 16; TEMP 36.2; O2SAT 94
[2019-11-24 17:30] VITALS: BP 115/63
== END 2019-11-24 17:38 | disposition home or self-care (01) ==
LOC: SDC 14:05 → AC 14:06
PROVIDERS: Family Provider Family Medicine; PCP Family Medicine; Referring Provider Podiatrist; Visit Provider Podiatrist
PROC: (CPT 11044; principal; 2019-11-24 15:20)
DX: L97.524 Non-pressure chronic ulcer of other part of left foot with necrosis of bone (principal); I73.9 Peripheral vascular disease, unspecified; J44.9 Chronic obstructive pulmonary disease, unspecified; E78.00 Pure hypercholesterolemia, unspecified; F17.210 Nicotine dependence, cigarettes, uncomplicated; Z78.0 Asymptomatic menopausal state; Z79.01 Long term (current) use of anticoagulants; Z79.899 Other long term (current) drug therapy; Z86.718 Personal history of other venous thrombosis and embolism; Z98.62 Peripheral vascular angioplasty status
CPT/HCPCS: 11044; 20220; 36415; 73630; 76000; 85610; 87015; 87070; 87075; 87102; 87116; 87176; 87205; 87206; 88307; 88311; J7120; J2405

== ENCOUNTER 2019-11-28 15:30 | Outpatient (RCR) | payer BC, OTHER, SELFPAY ==
[2019-10-25 11:19] VITALS: BMI 33.0
[2019-10-29 01:16] VITALS: BP 133/86; PULSE 81; RESP 18; TEMP 36.8
[2019-11-01 16:00] VITALS: BP 123/80; PULSE 82; RESP 16; TEMP 37.2; BMI 33.0
--- NOTE | 2019-11-01 17:21 | PCM.WC.PN ---
(1) Peripheral arterial occlusive disease Status: Suspected Current Visit: Yes Code(s): I77.9 - Disorder of arteries and arterioles, unspecified (2) Smoking addiction Status: Chronic Current Visit: Yes Code(s): F17.200 - Nicotine dependence, unspecified, uncomplicated (3) Nonhealing nonsurgical wound with necrosis of bone Status: Acute Current Visit: Yes Code(s): T14.8XXA - Other injury of unspecified body region, initial encounter; M87.9 - Osteonecrosis, unspecified (4) Osteomyelitis of left foot Status: Chronic Current Visit: Yes Qualifiers: Osteomyelitis type: subacute Qualified Code(s): M86.272 - Subacute osteomyelitis, left ankle and foot Code(s): M86.9 - Osteomyelitis, unspecified (5) Venous insufficiency Status: Suspected Current Visit: Yes Code(s): I87.2 - Venous insufficiency (chronic) (peripheral) (6) Malnutrition Status: Suspected Current Visit: Yes Code(s): E46 - Unspecified protein-calorie malnutrition (7) Chronic ulcer of left foot with necrosis of bone Status: Chronic Current Visit: Yes Code(s): L97.524 - Non-pressure chronic ulcer of other part of left foot with necrosis of bone Type of Wound Date of Service: 11/01/19 Chief Complaint: Follow-up on a left dorsal foot nonhealing ulcer History of Wound: This is a 54-year-old white female that in approximately December 2016 had chronic foot condition inlcuding wounds with subsequent transmetatarsal amputation of the left foot. Eventually the toes became gangrene and then amputated. Because there was infection in the wound they did not close the dorsal foot and then a week later went back after IV antibiotics and reclosed the dorsal foot. All closed except the one little section that dehisced and his case stayed open this for the last 3 years. Patient was sent to Dr. Daniels a plastic surgeon that saw her. This patient was also seen by filler leaf cutter long Dr. Jordan and Dr. Restrepo with several surgeries ranging from advanced wound healing product application such as epi cord and Integra bilayer matrix and bone biopsies. Relates Dr. Guadarrama in [place] her family doctor and he did an x-ray of the foot and an MRI within the past month. Her previous bone biopsies from 01/06/2018 were consistent with acute and chronic osteomyelitis and she relates she completed a course of a PICC line. This patient denies previous intervention or evaluation with the vascular specialist or filler leaf cutter long. However there is different information reviewed in her medical record. Some of her medical records did come in for review and I do not see the vascular noninvasive arterial report. Per other record review it appears that she initially had critical limb ischemia and had vascular intervention in October 2017 including thrombolytic therapy with percutaneous angioplasty to the left anterior tibial, popliteal, and superficial femoral arteries. It is noted her past medical history on file includes chronic obstructive pulmonary disease, DVT and chronic Coumadin, hyperlipidemia, and peripheral vascular disease. She is not able to proceed with hyperbaric oxygen therapy at this time due to inability to transport to Center daily without family assistance. She will continue to look into this as an option and also reports she is claustrophobic. She will continue to think about this option. She obtained her foot MRI as advised and would like to go over the results. Progress of Wound: Stable - Physical Exam Vital Signs Temp Pulse Resp BP 98.9 F 82 16 123/80 H 11/01/19 16:00 11/01/19 16:00 11/01/19 16:00 11/01/19 16:00 General: Alert, Oriented x3, Cooperative, No apparent distress HEENT: Atraumatic Extremities: Capillary Refill Less than 3 Seconds, No Calf Tenderness, Diminished Peripheral Pulses, Edema - Mild, Peripheral Pulses Normal Skin: Ulcer/ Wound - No purulence, erythema, streaking, odor, necrosis, maceration or acute infection. There is exposed bone this is no longer black or discolored actually appears fairly white and firm to touch. There is no laxity at the adjacent midfoot joints. The skin is peripherally atrophic and hairless and is very friable with lack of subcutaneous soft tissue substance. Wound Measurements and Assessment WC - Nurse 1 - General Ulcer Measurement Start: 11/01/19 16:00 Freq: Status: Active Protocol: Activity Type Activity Date Activity User E-Sign Co-Sign Detail Recorded Client Recorded Date Recorded By Document 11/01/19 16:00 BM [id number] 11/01/19 16:04 BMF 11/01/19 16:00 Wound Center Nurse 1 [Ulcer Assessment] 1. L foot dorsal -Combined with other wound No -Current Size (cm) - Length 0.5 -Current Size (cm) - Width 0.6 -Current Size (cm) - Depth 0.5 -Total Square Cm 0.30 -Photo Taken No -Epithelialization None Present -Tunneling No -Undermining/Tunneling No -Circular Undermining No -Exudate Amt Small -Exudate Type Purulent -Wound Margin Distinct, Outline Attached -Granulation Amt None Present (0 %) -Slough/Fibrin Yes -Necrosis Amt Large (67-100%) -Necrotic Tissue Type Adherent Slough -Texture (Shital-wound Skin Appearance) Assessed, Scarring -Moisture (Shital-wound Skin Appearance Assessed ) -Color (Shital-wound Skin Appearance) Assessed -Temperature (Shital-wound Skin No Abnormality Appearance) (Pt Warm) -Tenderness on Palpation (Shital-wound No Skin Appearance) -Ulcer Cleansing Rinsed/ Irrigated with Saline -Foul Odor after Cleansing No -Anesthetic Used 5% Lidocaine Gel WC - Nurse 2 - General Ulcer CM Notes Start: 11/01/19 16:00 Freq: Status: Active Protocol: Activity Type Activity Date Activity User E-Sign Co-Sign Detail Recorded Client Recorded Date Recorded By Document 11/01/19 16:27 JF [id number] 11/01/19 16:29 11/01/19 16:27 Wound Center Nurse 2 [Procedure/Treatment] -Time 16:29 -Correct Patient Yes -Correct Side, Site, Position Yes -Correct Procedure Yes -Procedure Performed Yes -Type of Procedure Debridement -Clinical Debridement Subcutaneous -Post Debridement Size (cm) - Length 0.6 -Post Debridement Size (cm) - Width 0.6 -Post Debridement Size (cm) - Depth 0.5 -Total Square Cm 0.36 -Wound/Ulcer Outcome Not Healed -Ulcer Cleansing Rinsed/ Irrigated with Saline -Foul Odor after Cleansing No -Bioengineered Tissue No -Bleeding Controlled with Pressure -Offloading No -Treatment Response Procedure Tolerated Well [See Physician Procedure note for Specifics] Pain Scale: 0-10 Numeric [Pain] -Is Patient Pain Free? Yes Musculoskeletal: No Tenderness to Palpation of Joints or Extremities, Muscle Wasting, - - Transmetatarsal amputation of the proximal left Lymphatic: - Neurological: - - Lack of normal epicritic sensation light touch consistent with neuropathy Psych/Mental Status: Normal Affect, Appropriate Debridement Note Post-Debridement Measurements/Treatment WC - Nurse 2 - General Ulcer CM Notes Start: 11/01/19 16:00 Freq: Status: Active Protocol: Activity Type Activity Date Activity User E-Sign Co-Sign Detail Recorded Client Recorded Date Recorded By Document 11/01/19 16:27 JF [id number] 11/01/19 16:29 JF 11/01/19 16:27 Wound Center Nurse 2 1. L foot dorsal -Time 16:29 -Correct Patient Yes -Correct Side, Site, Position Yes -Correct Procedure Yes -Procedure Performed Yes -Type of Procedure Debridement -Clinical Debridement Subcutaneous -Post Debridement Size (cm) - Length 0.6 -Post Debridement Size (cm) - Width 0.6 -Post Debridement Size (cm) - Depth 0.5 -Total Square Cm 0.36 -Wound/Ulcer Outcome Not Healed -Ulcer Cleansing Rinsed/ Irrigated with Saline -Foul Odor after Cleansing No -Bioengineered Tissue No -Bleeding Controlled with Pressure -Offloading No -Treatment Response Procedure Tolerated Well Pain Scale: 0-10 Numeric Is Patient Pain Free? Yes Wound debrided: dorsal foot Laterality: Left Wound Grade/Stage: grade 3 Type of Debridement: Excisional debridement Anesthesia Used: 5% Lidocaine Gel Depth: in the subcutaneous layer Percentage of wound debrided: 100 Instrument Used: #15 blade Tissue Removed: fibrous, devitalized subcutaneous, biofilm, slough Severity: Fat Layer Exposed Amount of bleeding with debridement: Mild Bleeding Controlled with: Pressure Patient tolerated procedure well Assessment/Plan Active Problems Smoking addiction (Chronic) Nonhealing nonsurgical wound with necrosis of bone (Acute) Osteomyelitis of left foot (Chronic) 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 Chronic osteomyelitis left foot. Peripheral arterial occlusive disease with prior intervention in 2017. Long-term use of Coumadin. Chronic DVTs. Malnutrition. Malnutrition suspected. Left transmetatarsal amputation with delayed healing Plan: I reviewed and discussed with case, her previous medical records, and her recent microbiology report. To wash foot gently with soap and water. There does not appear to be any local acute signs of infection today and she was advised to complete her oral Flagyl. Her cultures did demonstrate strep and Pseudomonas. If her local signs of infection progress and she has systemic illness additional antibiotics will be considered. The devitalized tissue was excised including bone and this was sent for pathology and microbiology updated bone cultures. Her microbiology report did demonstrate Pseudomonas and the pathology report was positive for acute osteomyelitis. I recommend she sees infectious disease next week. I have also reviewed her x-rays and recent MRI and these reports have already been requested but have not been received. There was no osseous destruction, bone marrow edema, or signs of definitive osteomyelitis on his imaging studies however this is suspected clinically. There are no bone spurs noted adjacent to the ulcer site either. She still hyperbaric oxygen therapy candidate and she will consider this as a future treatment. I would also like to start with the bone biopsy today and a more aggressive local debridement was performed with application of advanced wound healing product and possible closure. The indications, planned procedure, benefits, risks, complications, and anticipated healing time is were discussed in detail with the patient. She would like to proceed forward with this and she is advised surgical nurse practitioner will contact her. No guarantees were made. Answer questions. Risk and complications were discussed including but not limited to the following: Pain, swelling, scarring, continued delayed or nonhealing, infection, blood clot, allergic reaction, loss of limb, function, life. This is the same day surgery with MAC and local anesthesia. I discussed the indications, anticipated application and healing time. Answer questions. She will be contacted by the surgical nurse practitioner. She understands preoperative clearance and diagnostic data will be needed prior to proceeding. . Her history of peripheral vascular disease with critical limb ischemia and prior intervention 2017 as noted. An updated arterial venous study was ordered today to check her current status. Additional intervention or reevaluation by vascular specialist may be warranted. We will start with this test. Also pending these results more aggressive compression therapy and debridement will be considered and implemented. I recommend updating her lab work including CBC, CMP, ESR, CRP, and prealbumin to understand her baseline medical status, inflammatory nutrition status. Her labs are reviewed including white blood cell count of 8.6, ESR 17, C-reactive protein, prealbumin 20.4. She was also advised to offload the ulcer to keep pressure and friction to optimize healing. To avoid wearing shoes that press on the site and excessive walking activity. An aperture pad was fabricated to place around the ulcer site as well. To discontinue smoking activity. To maintain a healthy diet that is well-balanced and have adequate protein to optimize healing. Additional medical records will be requested as noted and her other outside facility notes were reviewed and placed in the paper chart. To continue with hydrogel to open area cover with Adaptic gauze and tape daily basis.
[2019-11-08 11:06] VITALS: BP 145/85; PULSE 78; RESP 16; TEMP 37; BMI 33.0
--- NOTE | 2019-11-08 12:31 | PN.PCM_ITS ---
(1) Peripheral arterial occlusive disease Status: Suspected Current Visit: Yes Code(s): I77.9 - Disorder of arteries and arterioles, unspecified (2) Smoking addiction Status: Chronic Current Visit: Yes Code(s): F17.200 - Nicotine dependence, unspecified, uncomplicated (3) Nonhealing nonsurgical wound with necrosis of bone Status: Acute Current Visit: Yes Code(s): T14.8XXA - Other injury of unspecified body region, initial encounter; M87.9 - Osteonecrosis, unspecified (4) Osteomyelitis of left foot Status: Chronic Current Visit: Yes Qualifiers: Osteomyelitis type: subacute Qualified Code(s): M86.272 - Subacute osteomyelitis, left ankle and foot Code(s): M86.9 - Osteomyelitis, unspecified (5) Venous insufficiency Status: Suspected Current Visit: Yes Code(s): I87.2 - Venous insufficiency (chronic) (peripheral) (6) Malnutrition Status: Suspected Current Visit: Yes Code(s): E46 - Unspecified protein- calorie malnutrition (7) Chronic ulcer of left foot with necrosis of bone Status: Chronic Current Visit: Yes Code(s): L97.524 - Non-pressure chronic ulcer of other part of left foot with necrosis of bone Type of Wound Date of Service: 11/08/19 Chief Complaint: Follow-up on a left dorsal foot nonhealing ulcer History of Wound: This is a 54-year-old white female that in approximately December 2016 had chronic foot condition inlcuding wounds with subsequent transmetatarsal amputation of the left foot. Eventually the toes became gangrene and then amputated. Because there was infection in the wound they did not close the dorsal foot and then a week later went back after IV antibiotics and reclosed the dorsal foot. All closed except the one little section that dehisced and his case stayed open this for the last 3 years. Patient was sent to Dr. Daniels a plastic surgeon that saw her. This patient was also seen by support architect Dr. Jordan and Dr. Restrepo with several surgeries ranging from advanced wound healing product application such as epi cord and Integra bilayer matrix and bone biopsies. Relates Dr. Guadarrama in [place] her family doctor and he did an x-ray of the foot and an MRI within the past month. Her previous bone biopsies from 01/06/2018 were consistent with acute and chronic osteomyelitis and she relates she completed a course of a PICC line. This patient denies previous intervention or evaluation with the vascular specialist or support architect. However there is different information reviewed in her medical record. Some of her medical records did come in for review and I do not see the vascular noninvasive arterial report. Per other record review it appears that she initially had critical limb ischemia and had vascular intervention in October 2017 including thrombolytic therapy with percutaneous angioplasty to the left anterior tibial, popliteal, and superficial femoral arteries. It is noted her past medical history on file includes chronic obstructive pulmonary disease, DVT and chronic Coumadin, hyperlipidemia, and peripheral vascular disease. She is not able to proceed with hyperbaric oxygen therapy at this time due to inability to transport to Center daily without family assistance. She will continue to look into this as an option and also reports she is claustrophobic. She will continue to think about this option and is currently not ready to proceed forward when asked again today. She had a prior MRI completed. She presents today to review surgical consents. Progress of Wound: Stable - Physical Exam Vital Signs Temp Pulse Resp BP 98.6 F 78 16 145/85 H 11/08/19 11:06 11/08/19 11:06 11/08/19 11:06 11/08/19 11:06 General: Alert, Oriented x3, Cooperative, No apparent distress HEENT: Atraumatic Extremities: No cyanosis, Capillary Refill Less than 3 Seconds, No Calf Tenderness - Negative Lucy and Gomez, Diminished Peripheral Pulses, Edema - Scant left lower extremity, - - Left transmetatarsal amputation Skin: Ulcer/ Wound - No purulence, erythema, string, odor, infection. Bone is exposed in the ulcer bed and is firm to touch. The adjacent skin to the ulcer site is invaginated atrophic and with mild hyperpigmentation. There is no eschar or jackie necrosis Wound Measurements and Assessment WC - Nurse 1 - General Ulcer Measurement Start: 11/01/19 16:00 Freq: Status: Active Protocol: Activity Type Activity Date Activity User E-Sign Co-Sign Detail Recorded Client Recorded Date Recorded By Document 11/08/19 11:06 [facility] [id number] 11/08/19 11:12 [facility] 11/08/19 11:06 Wound Center Nurse 1 [Ulcer Assessment] 1. L foot dorsal -Combined with other wound No -Current Size (cm) - Length 0.5 -Current Size (cm) - Width 0.5 -Current Size (cm) - Depth 0.4 -Total Square Cm 0.25 -Photo Taken No -Epithelialization None Present -Tunneling No -Undermining/Tunneling No -Circular Undermining No -Exudate Amt Small -Exudate Type Serous -Wound Margin Thickened -Granulation Amt Medium (34-66%) -Granulation Quality Red -Slough/Fibrin Yes -Necrosis Amt Small (1-33%) -Necrotic Tissue Type Adherent Slough -Structure Exposed Bone -Texture (Shital-wound Skin Appearance) Assessed, Scarring -Moisture (Shital-wound Skin Appearance Assessed ) -Color (Shital-wound Skin Appearance) Assessed, Erythema -Temperature (Shital-wound Skin No Abnormality Appearance) (Pt Warm) -Tenderness on Palpation (Shital-wound No Skin Appearance) -Ulcer Cleansing Rinsed/ Irrigated with Saline -Foul Odor after Cleansing No -Anesthetic Used 5% Lidocaine Gel WC - Nurse 2 - General Ulcer CM Notes Start: 11/01/19 16:00 Freq: Status: Active Protocol: Activity Type Activity Date Activity User E-Sign Co-Sign Detail Recorded Client Recorded Date Recorded By Document 11/08/19 11:32 LUC[facility] [id number] 11/08/19 11:38 LUCIA 11/08/19 11:32 Wound Center Nurse 2 [Procedure/Treatment] -Time 11:33 -Correct Patient Yes -Correct Side, Site, Position Yes -Correct Procedure Yes -Procedure Performed Yes -Type of Procedure Debridement -Clinical Debridement Subcutaneous -Post Debridement Size (cm) - Length 0.6 -Post Debridement Size (cm) - Width 0.5 -Post Debridement Size (cm) - Depth 0.4 -Total Square Cm 0.30 -Wound/Ulcer Outcome Not Healed -Ulcer Cleansing Rinsed/ Irrigated with Saline -Foul Odor after Cleansing No -Bioengineered Tissue No -Bleeding Controlled with Pressure -Offloading No -Treatment Response Procedure Tolerated Well [See Physician Procedure note for Specifics] Pain Scale: 0-10 Numeric [Pain] -Is Patient Pain Free? Yes Musculoskeletal: No Tenderness to Palpation of Joints or Extremities, Muscle Wasting Neurological: - - Lack of normal epicritic sensation light touch consistent with neuropathy status Psych/Mental Status: Normal Affect, Appropriate Debridement Note Post-Debridement Measurements/Treatment WC - Nurse 2 - General Ulcer CM Notes Start: 11/01/19 16:00 Freq: Status: Active Protocol: Activity Type Activity Date Activity User E-Sign Co-Sign Detail Recorded Client Recorded Date Recorded By Document 11/01/19 16:27 [id number] 11/01/19 16:29 Document 11/08/19 11:32 [id number] 11/08/19 11:38 11/01/19 11/08/19 16:27 11:32 Wound Center Nurse 2 1. L foot dorsal -Time 16:29 11:33 -Correct Patient Yes Yes -Correct Side, Site, Position Yes Yes -Correct Procedure Yes Yes -Procedure Performed Yes Yes -Type of Procedure Debridement Debridement -Clinical Debridement Subcutaneous Subcutaneous -Post Debridement Size (cm) - Length 0.6 0.6 -Post Debridement Size (cm) - Width 0.6 0.5 -Post Debridement Size (cm) - Depth 0.5 0.4 -Total Square Cm 0.36 0.30 -Wound/Ulcer Outcome Not Healed Not Healed -Ulcer Cleansing Rinsed/ Rinsed/ Irrigated with Irrigated with Saline Saline -Foul Odor after Cleansing No No -Bioengineered Tissue No No -Bleeding Controlled with Pressure Pressure -Offloading No No -Treatment Response Procedure Procedure Tolerated Well Tolerated Well Pain Scale: 0-10 Numeric Is Patient Pain Free? Yes Yes Wound debrided: dorsal foot Laterality: Left Type of Debridement: Excisional debridement Anesthesia Used: 5% Lidocaine Gel Depth: in the subcutaneous layer Percentage of wound debrided: 100 Instrument Used: #15 blade Tissue Removed: fibrous, devitalized subcutaneous, biofilm, slough Severity: Fat Layer Exposed Amount of bleeding with debridement: Mild Bleeding Controlled with: Pressure Patient tolerated procedure well Assessment/Plan Active Problems Smoking addiction (Chronic) Nonhealing nonsurgical wound with necrosis of bone (Acute) Osteomyelitis of left foot (Chronic) 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 Chronic osteomyelitis left foot. Peripheral arterial occlusive disease with prior intervention in 2017. Long-term use of Coumadin. Chronic DVTs. Malnutrition. Malnutrition suspected. Left transmetatarsal amputation with delayed healing Plan: I reviewed and discussed with case, her previous medical records, and her recent microbiology report. To wash foot gently with soap and water. There does not appear to be any local acute signs of infection today and additional antibiotics are not recommended today. Her previous cultures did demonstrate strep and Pseudomonas. If her local signs of infection progress and she has systemic illness additional antibiotics will be considered. The devitalized tissue was excised including bone and this was sent for pathology and microbiology updated bone cultures. Her microbiology report did demonstrate Pseudomonas and the pathology report was positive for acute osteomyelitis. I recommend she sees infectious disease prior to her surgical intervention; this was rescheduled. I have also reviewed her previous x-rays and recent MRI from another facility and these reports have already been requested but have not been received. There was no osseous destruction, bone marrow edema, or signs of definitive osteomyelitis on his imaging studies however this is suspected clinically. There are no bone spurs noted adjacent to the ulcer site either. She still hyperbaric oxygen therapy candidate and she will consider this as a future treatment. She is currently not ready to proceed at this time. We discussed returning to the operating room for excisional Versajet debridement, mechanical debridement of soft tissue and bone including a bone biopsy and application of advanced wound healing product. If the skin is able to be mobilized and direct closure with sutures is possible this will also be considered. I would like to apply advanced wound healing product amnio fill which is a placental and umbilical cord derived product. The indications, planned procedure, benefits, risks, complications, and anticipated healing time is were discussed in detail with the patient. She would like to proceed forward with this and she is advised surgical instrument repair specialist has contacted her and she is scheduled for 11/24/2019 at [facility]. No guarantees were made. A Risk and complications were discussed including but not limited to the following: Pain, swelling, scarring, continued delayed or nonhealing, infection, blood clot, allergic reaction, loss of limb, function, life. This is the same day surgery with MAC and local anesthesia. I discussed the indications, anticipated application and healing time. Answered her questions. The surgical consents were signed today. She understands preoperative clearance, history and physical exam, and diagnostic data will be needed prior to proceeding. . Her history of peripheral vascular disease with critical limb ischemia and prior intervention 2017 as noted. An updated arterial study was ordered previously to check her current status. The noninvasive arterial studies were completed on October 27, 2019 in which a left KEARA of 0.72 is noted without gross impairment of perfusion. Pending continue response, additional intervention or reevaluation by vascular specialist may be warranted. Also pending these results more aggressive compression therapy and debridement will be considered and implemented. I recommend updating her lab work including CBC, CMP, ESR, CRP, and prealbumin to understand her baseline medical status, inflammatory nutrition status. Her labs are reviewed including white blood cell count of 8.6, ESR 17, C-reactive protein, prealbumin 20.4. She was also advised to offload the ulcer to keep pressure and friction to optimize healing. To avoid wearing shoes that press on the site and excessive walking activity. An aperture pad was fabricated to place around the ulcer site as well. To discontinue smoking activity. To maintain a healthy diet that is well-balanced and have adequate protein to optimize healing. Additional medical records will be requested as noted and her other outside facility notes were reviewed and placed in the paper chart. To continue with hydrogel to open area cover with Adaptic gauze and tape daily basis. I also recommend immobilization with a cam walker to prevent tension on this ulcer site. A prescription order was provided for her to obtain this at the [facility]. She understands the indications and anticipated use. She will call to schedule an appointment to get fitted.
[2019-11-15 11:40] VITALS: BP 125/81; PULSE 78; RESP 18; TEMP 36.4; BMI 33.0
--- NOTE | 2019-11-15 13:36 | PCM.WC.PN ---
(1) Chronic ulcer of left foot with necrosis of bone Status: Chronic Code(s): L97.524 - Non-pressure chronic ulcer of other part of left foot with necrosis of bone (2) Osteomyelitis of left foot Status: Chronic Qualifiers: Osteomyelitis type: subacute Qualified Code(s): M86.272 - Subacute osteomyelitis, left ankle and foot Code(s): M86.9 - Osteomyelitis, unspecified (3) Nonhealing nonsurgical wound with necrosis of bone Status: Acute Code(s): T14.8XXA - Other injury of unspecified body region, initial encounter; M87.9 - Osteonecrosis, unspecified (4) Peripheral arterial occlusive disease Status: Suspected Code(s): I77.9 - Disorder of arteries and arterioles, unspecified (5) Smoking addiction Status: Chronic Code(s): F17.200 - Nicotine dependence, unspecified, uncomplicated (6) Venous insufficiency Status: Suspected Code(s): I87.2 - Venous insufficiency (chronic) (peripheral) (7) Malnutrition Status: Suspected Code(s): E46 - Unspecified protein-calorie malnutrition Type of Wound Date of Service: 11/15/19 Chief Complaint: Follow-up on a left dorsal foot nonhealing ulcer History of Wound: This is a 54-year-old white female that in approximately December 2016 had chronic foot condition inlcuding wounds with subsequent transmetatarsal amputation of the left foot. Eventually the toes became gangrene and then amputated. Because there was infection in the wound they did not close the dorsal foot and then a week later went back after IV antibiotics and reclosed the dorsal foot. All closed except the one little section that dehisced and his case stayed open this for the last 3 years. Patient was sent to Dr. Daniels a plastic surgeon that saw her. This patient was also seen by business systems manager Dr. Jordan and Dr. Restrepo with several surgeries ranging from advanced wound healing product application such as epi cord and Integra bilayer matrix and bone biopsies. Relates Dr. Guadarrama in [place] her family doctor and he did an x-ray of the foot and an MRI within the past month. Her previous bone biopsies from 01/06/2018 were consistent with acute and chronic osteomyelitis and she relates she completed a course of a PICC line. This patient denies previous intervention or evaluation with the vascular specialist or business systems manager. However there is different information reviewed in her medical record. Some of her medical records did come in for review and I do not see the vascular noninvasive arterial report. Per other record review it appears that she initially had critical limb ischemia and had vascular intervention in October 2017 including thrombolytic therapy with percutaneous angioplasty to the left anterior tibial, popliteal, and superficial femoral arteries. It is noted her past medical history on file includes chronic obstructive pulmonary disease, DVT and chronic Coumadin, hyperlipidemia, and peripheral vascular disease. She is not able to proceed with hyperbaric oxygen therapy at this time due to inability to transport to Center daily without family assistance. She will continue to look into this as an option and also reports she is claustrophobic. She will continue to think about this option and is currently not ready to proceed forward when asked again today. She had a prior MRI completed. She is ready to proceed with surgical intervention as previously arranged for November 24. Progress of Wound: Stable - Physical Exam Vital Signs Temp Pulse Resp BP 97.6 F L 78 18 125/81 H 11/15/19 11:40 11/15/19 11:40 11/15/19 11:40 11/15/19 11:40 General: Alert, Oriented x3, Cooperative, No apparent distress Extremities: No cyanosis, No edema, Capillary Refill Less than 3 Seconds, No Calf Tenderness, Diminished Peripheral Pulses Skin: Ulcer/ Wound - No purulence, erythema, streaking, odor. There is exposed dorsal foot bone noted that is not discolored today. Her adjacent skin is hairless, atrophic, and on palpable touch appears to be non-mobilized from the deeper structures. There is also some hyperpigmentation around this ulcer site. Wound Measurements and Assessment WC - Nurse 1 - General Ulcer Measurement Start: 11/01/19 16:00 Freq: Status: Active Protocol: Activity Type Activity Date Activity User E-Sign Co-Sign Detail Recorded Client Recorded Date Recorded By Document 11/15/19 11:40 DL [id number] 11/15/19 11:43 DL 11/15/19 11:40 Wound Center Nurse 1 [Ulcer Assessment] 1. L foot dorsal -Current Size (cm) - Length 0.6 -Current Size (cm) - Width 0.5 -Current Size (cm) - Depth 0.3 -Total Square Cm 0.30 -Photo Taken No -Exudate Amt Small -Exudate Type Serosanguineous -Wound Margin Distinct, Outline Attached -Granulation Amt Small (1-33%) -Granulation Quality Red -Necrosis Amt Small (1-33%) -Necrotic Tissue Type Adherent Slough -Structure Exposed Bone -Texture (Shital-wound Skin Appearance) Scarring -Moisture (Shital-wound Skin Appearance No Abnormality ) -Color (Shital-wound Skin Appearance) Rubor -Temperature (Shital-wound Skin No Abnormality Appearance) (Pt Warm) -Tenderness on Palpation (Shital-wound No Skin Appearance) -Ulcer Cleansing Wound Cleanser -Foul Odor after Cleansing No -Anesthetic Used 5% Lidocaine Gel WC - Nurse 2 - General Ulcer CM Notes Start: 11/01/19 16:00 Freq: Status: Active Protocol: Activity Type Activity Date Activity User E-Sign Co-Sign Detail Recorded Client Recorded Date Recorded By Document 11/15/19 12:14 [id number] 11/15/19 12:15 11/15/19 12:14 Wound Center Nurse 2 [Procedure/Treatment] -Time 12:15 -Correct Patient Yes -Correct Side, Site, Position Yes -Correct Procedure Yes -Procedure Performed Yes -Type of Procedure Debridement -Clinical Debridement Selective -Post Debridement Size (cm) - Length 0.6 -Post Debridement Size (cm) - Width 0.5 -Post Debridement Size (cm) - Depth 0.3 -Total Square Cm 0.30 -Wound/Ulcer Outcome Not Healed -Ulcer Cleansing Rinsed/ Irrigated with Saline -Foul Odor after Cleansing No -Bioengineered Tissue No -Bleeding Controlled with Pressure -Offloading No -Treatment Response Procedure Tolerated Well [See Physician Procedure note for Specifics] Pain Scale: 0-10 Numeric [Pain] -Is Patient Pain Free? Yes Musculoskeletal: No Tenderness to Palpation of Joints or Extremities, Muscle Wasting, - - Compartments soft to palpate left foot. Amputation noticed Neurological: - - Lack of normal epicritic sensation Psych/Mental Status: Normal Affect, Appropriate Debridement Note Post-Debridement Measurements/Treatment - Nurse 2 - General Ulcer CM Notes Start: 11/01/19 16:00 Freq: Status: Active Protocol: Activity Type Activity Date Activity User E-Sign Co-Sign Detail Recorded Client Recorded Date Recorded By Document 11/01/19 16:27 [id number] [id number] 11/01/19 16:29 Document 11/08/19 11:32 [id number] 11/08/19 11:38 Document 11/15/19 12:14 [id number] 11/15/19 12:15 11/01/19 11/08/19 11/15/19 16:27 11:32 12:14 Wound Center Nurse 2 1. L foot dorsal -Time 16:29 11:33 12:15 -Correct Patient Yes Yes Yes -Correct Side, Site, Position Yes Yes Yes -Correct Procedure Yes Yes Yes -Procedure Performed Yes Yes Yes -Type of Procedure Debridement Debridement Debridement -Clinical Debridement Subcutaneous Subcutaneous Selective -Post Debridement Size (cm) - Length 0.6 0.6 0.6 -Post Debridement Size (cm) - Width 0.6 0.5 0.5 -Post Debridement Size (cm) - Depth 0.5 0.4 0.3 -Total Square Cm 0.36 0.30 0.30 -Wound/Ulcer Outcome Not Healed Not Healed Not Healed -Ulcer Cleansing Rinsed/ Rinsed/ Rinsed/ Irrigated with Irrigated with Irrigated with Saline Saline Saline -Foul Odor after Cleansing No No No -Bioengineered Tissue No No No -Bleeding Controlled with Pressure Pressure Pressure -Offloading No No No -Treatment Response Procedure Procedure Procedure Tolerated Well Tolerated Well Tolerated Well Pain Scale: 0-10 Numeric Is Patient Pain Free? Yes Yes Yes Wound debrided: dorsal foot Laterality: Left Type of Debridement: Selective debridement Anesthesia Used: 5% Lidocaine Gel Depth: in the subcutaneous layer Percentage of wound debrided: 100 Instrument Used: #15 blade Tissue Removed: fibrous, devitalized tissue, biofilm, slough Severity: Fat Layer Exposed Amount of bleeding with debridement: Mild - scant Bleeding Controlled with: Compression and gauze Patient tolerated procedure well Assessment/Plan Assessment: Open surgical wound left dorsal foot. Chronic osteomyelitis left foot. Peripheral arterial occlusive disease with prior intervention in 2017. Long-term use of Coumadin. Chronic DVTs. Malnutrition. Malnutrition suspected. Left transmetatarsal amputation with delayed healing Plan: I reviewed and discussed with case, her previous medical records, and her recent microbiology report. To wash foot gently with soap and water. There does not appear to be any local acute signs of infection today and additional antibiotics are not recommended today. Her previous cultures did demonstrate strep and Pseudomonas. If her local signs of infection progress and she has systemic illness additional antibiotics will be considered. The devitalized tissue was excised including bone and this was sent for pathology and microbiology updated bone cultures. Her microbiology report did demonstrate Pseudomonas and the pathology report was positive for acute osteomyelitis. I recommend she sees infectious disease prior to her surgical intervention. This consultation was completed today and an antibiotic regimen was selected if needed after her cultures are reviewed from her updated bone biopsy will be performed in surgery. Is also be considered if she demonstrates return of localized symptoms prior to surgery. Different or additional antibiotics will be considered pending the culture results as well. The case was discussed with Dr. Gray and the consultation is greatly appreciated. I have also reviewed her previous x-rays and recent MRI from another facility and these reports have already been requested but have not been received. There was no osseous destruction, bone marrow edema, or signs of definitive osteomyelitis on his imaging studies however this is suspected clinically. There are no bone spurs noted adjacent to the ulcer site either. She still hyperbaric oxygen therapy candidate and she will consider this as a future treatment. She is currently not ready to proceed at this time. We discussed returning to the operating room for excisional Versajet debridement, mechanical debridement of soft tissue and bone including a bone biopsy and application of advanced wound healing product. If the skin is able to be mobilized and direct closure with sutures is possible and this will also be considered. I would like to apply advanced wound healing product amnio fill which is a placental and umbilical cord derived product. The indications, planned procedure, benefits, risks, complications, and anticipated healing time is were discussed in detail with the patient. She would like to proceed forward with this and she is advised medical surgical tech has contacted her and she is scheduled for 11/24/2019 at [facility]. No guarantees were made. She understands that risks and complications were discussed including but not limited to the following: Pain, swelling, scarring, continued delayed or nonhealing, infection, blood clot, allergic reaction, loss of limb, function, life. This is the same day surgery with MAC and local anesthesia. I discussed the indications, anticipated application and healing time. I answered her questions. The surgical consents were signed at her previous visit. She understands preoperative clearance, history and physical exam, and diagnostic data will be needed prior to proceeding. Pre-and intraoperative anticoagulation medication use was discussed with her medical provider and she will be informed on proper use during this time. She is scheduled for outpatient surgery at [facility] on November 24. . Her history of peripheral vascular disease with critical limb ischemia and prior intervention 2017 as noted. An updated arterial study was ordered previously to check her current status. The noninvasive arterial studies were completed on October 27, 2019 in which a left KEARA of 0.72 is noted without gross impairment of perfusion. Pending continue response, additional intervention or reevaluation by vascular specialist may be warranted. Also pending these results more aggressive compression therapy and debridement will be considered and implemented. I recommend updating her lab work including CBC, CMP, ESR, CRP, and prealbumin to understand her baseline medical status, inflammatory nutrition status. Her labs are reviewed including white blood cell count of 8.6, ESR 17, C-reactive protein, prealbumin 20.4. She was also advised to offload the ulcer to keep pressure and friction to optimize healing. To avoid wearing shoes that press on the site and excessive walking activity. An aperture pad was fabricated to place around the ulcer site as well. To discontinue smoking activity. To maintain a healthy diet that is well-balanced and have adequate protein to optimize healing. Additional medical records will be requested as noted and her other outside facility notes were reviewed and placed in the paper chart. To continue with hydrogel to open area cover with Adaptic gauze and tape daily basis. I also recommend immobilization with a cam walker to prevent tension on this ulcer site. A prescription order was provided for her to obtain this at the foot and ankle center. She understands the indications and anticipated use. She will call to schedule an appointment to get fitted.
--- NOTE | 2019-11-15 22:52 | PCM.HP.ID ---
Problem List (1) Osteomyelitis of left foot Status: Chronic Qualifiers: Osteomyelitis type: subacute Qualified Code(s): M86.272 - Subacute osteomyelitis, left ankle and foot Reason for Consult: osteo Consulted by: Dr. Manzano History of Present Illness: The patient is a 54 year old F with h/o L foot osteo requiring TMA and home picc with abx. Now follows at wound care center for ongoing L foot exposed bone and osteo. Bone had turned black. No fever or chills. No recent abx except for course of flagyl earlier this month. Additional history obtained from family at bedside. Plan is for surgical debridement next week. Full ROS performed and neg except as noted above. 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) Smoking addiction (Chronic) Osteomyelitis of left foot (Chronic) Leg edema (Chronic) Chronic ulcer of left foot with necrosis of bone (Chronic) Chronic ulcer of left foot with necrosis of bone (Chronic) Allergies/Adverse Reactions: Allergies codeine Allergy (Verified 10/11/19 10:58) Nausea Home Medications: Ambulatory Orders Medication Instructions Recorded Albuterol Aerosols [Ventolin 2.5 mg INHALATION Q6H PRN PRN 10/11/19 Aerosols] Atorvastatin Calcium 40 mg PO DAILY 10/11/19 Gabapentin [Neurontin] 300 mg PO 4X/DAY 10/11/19 Warfarin [Coumadin ([facility])] 2.5 mg PO QODAY 10/11/19 Warfarin [Coumadin ([facility])] 5 mg PO QODAY 10/11/19 - Social History Tobacco Use: cigarettes Vital Signs Temp Pulse Resp BP 97.6 F L 78 18 125/81 H 11/15/19 11:40 11/15/19 11:40 11/15/19 11:40 11/15/19 11:40 Oxygen Delivery Method Room Air Weight: 79.379 kg Body Mass Index (BMI) 33.0 - Other Studies Radiology: [] reviewed Other Studies: [] Route of nutrition/ use of supplements: [] Nutritional Intake: [] IV Site: [] Jean Catheter: [] - Physical Exam General: Alert, Oriented x3, Cooperative, No apparent distress HEENT: Atraumatic, EOMI Neck: Supple, No Nodes Lungs: Clear to auscultation, Normal air movement Cardiovascular: Regular rate, Regular Rhythm Abdomen: Soft, Non Tender, Non-Distended Extremities: No edema Skin: Ulcer/ Wound - L foot exposed bone, no cellulitis Musculoskeletal: No Tenderness to Palpation of Joints or Extremities Neurological: Cranial nerves II-XII grossly intact - Assessment/Plan Antibiotics: [] Assessment/Plan: [] Active and Suspected Problems Peripheral arterial occlusive disease (Suspected) Nonhealing nonsurgical wound with necrosis of bone (Acute) Venous insufficiency (Suspected) Malnutrition (Suspected) L foot osteo - recent wound cxs with Pseudomonas, Actinomyces, strep anginosus, anaerobes. Stable off of abx. Surgery for debridement and coverage planned for 11/24/[address] Manzano. Repeat cxs to be sent at that point. Would recommend po cipro 500mg bid and augmentin 875mg bid for 4-6 week course at that point; may need to be adjusted once cxs are finalized. Return to clinic in 3 weeks. Thank you for this referral. D/w Dr. Manzano.
[2019-11-28 15:49] VITALS: BP 128/83; PULSE 80; RESP 18; TEMP 37.3; BMI 33.0
--- NOTE | 2019-11-28 15:50 | WC ---
sutures and adaptic left in place of wound.
--- NOTE | 2019-11-28 16:30 | PN.PCM_ITS ---
(1) Chronic ulcer of left foot with necrosis of bone Status: Chronic Code(s): L97.524 - Non-pressure chronic ulcer of other part of left foot with necrosis of bone (2) Osteomyelitis of left foot Status: Chronic Qualifiers: Code(s): M86.9 - Osteomyelitis, unspecified (3) Nonhealing nonsurgical wound with necrosis of bone Status: Acute Code(s): T14.8XXA - Other injury of unspecified body region, initial encounter; M87.9 - Osteonecrosis, unspecified (4) Peripheral arterial occlusive disease Status: Suspected Code(s): I77.9 - Disorder of arteries and arterioles, unspecified (5) Smoking addiction Status: Chronic Code(s): F17.200 - Nicotine dependence, unspecified, uncomplicated (6) Venous insufficiency Status: Suspected Code(s): I87.2 - Venous insufficiency (chronic) (peripheral) (7) Malnutrition Status: Suspected Code(s): E46 - Unspecified protein-calorie malnutrition Type of Wound Date of Service: 11/28/19 Chief Complaint: Follow-up on a left dorsal foot nonhealing ulcer History of Wound: This is a 54-year-old white female that in approximately December 2016 had chronic foot condition inlcuding wounds with subsequent transmetatarsal amputation of the left foot. Eventually the toes became gangre ne and then amputated. Because there was infection in the wound they did not close the dorsal foot and then a week later went back after IV antibiotics and reclosed the dorsal foot. All closed except the one little section that dehisced and his case stayed open this for the last 3 years. Patient was sent to Dr. Daniels a plastic surgeon that saw her. This patient was also seen by supervisor whipped topping Dr. Jordan and Dr. Restrepo with several surgeries ranging from advanced wound healing product application such as epi cord and Integra bilayer matrix and bone biopsies. Relates Dr. Guadarrama in [place] her family doctor and he did an x-ray of the foot and an MRI within the past month. Her previous bone biopsies from 01/06/2018 were consistent with acute and chronic osteomyelitis and she relates she completed a course of a PICC line. This patient denies previous intervention or evaluation with the vascular specialist or supervisor whipped topping. However there is different information reviewed in her medical record. Per other record review it appears that she initially had critical limb ischemia and had vascular intervention in October 2017 including thrombolytic therapy with percutaneous angioplasty to the left anterior tibial, popliteal, and superficial femoral arteries. It is noted her past medical history on file includes chronic obstructive pulmonary disease, DVT and chronic Coumadin, hyperlipidemia, and peripheral vascular disease. She is not able to proceed with hyperbaric oxygen therapy at this time due to inability to transport to Center daily without family assistance. She will continue to look into this as an option and also reports she is claustrophobic. She will continue to think about this option and is currently not ready to proceed forward when asked again today. She had a pr ior MRI completed. She had surgical intervention performed at [facility] on November 24, 2019 in which ulcer debridement was performed, bone biopsy, and application of advanced wound healing product amnio fill. She denies fever, chill, nausea, vomiting. She has been wearing her splint and has kept her dressing intact as advised. Progress of Wound: Stable - Physical Exam Vital Signs Temp Pulse Resp BP 99.1 F 80 18 128/83 H 11/28/19 15:49 11/28/19 15:49 11/28/19 15:49 11/28/19 15:49 General: Alert, Oriented x3, Cooperative, No apparent distress Extremities: No cyanosis, Capillary Refill Less than 3 Seconds, No Calf Tenderness, Diminished Peripheral Pulses, Edema Skin: Ulcer/ Wound - No purulence, erythema, string, odor, infection. The advanced wound healing product has remained intact with overlying sutures Ada ptic. This appears to be incorporating and was not removed today. The adjacent skin is hairless and atrophic without necrosis or streaking. There are no new ulcers noted. Wound Measurements and Assessment WC - Nurse 1 - General Ulcer Measurement Start: 11/01/19 16:00 Freq: Status: Active Protocol: Activity Type Activity Date Activity User E-Sign Co-Sign Detail Recorded Client Recorded Date Recorded By Document 11/28/19 15:49 RB [id number] 11/28/19 15:54 RB 11/28/19 15:49 Wound Center Nurse 1 [Ulcer Assessment] 1. L foot dorsal -Exudate Amt Small -Exudate Type Serosanguineous -Wound Margin Flat & Intact -Texture (Shital-wound Skin Appearance) Assessed -Moisture (Shital-wound Skin Appearance Assessed ) -Color (Shital-wound Skin Appearance) Assessed -Temperature (Shital-wound Skin No Abnormality Appearance) (Pt Warm) -Tenderness on Palpation (Shital-wound No Skin Appearance) - Nurse 2 - General Ulcer CM Notes Start: 11/01/19 16:00 Freq: Status: Active Protocol: Activity Type Activity Date Activity User E-Sign Co-Sign Detail Recorded Client Recorded Date Recorded By Document 11/28/19 16:03 [id number] 11/28/19 16:05 11/28/19 16:03 Wound Center Nurse 2 [Procedure/Treatment] -Correct Patient No -Correct Side, Site, Position No -Correct Procedure No -Procedure Performed No -Wound/Ulcer Outcome Not Healed [See Physician Procedure note for Specifics] Pain Scale: 0-10 Numeric [Pain] -Is Patient Pain Free? Yes Musculoskeletal: No Tenderness to Palpation of Joints or Extremities, Muscle Wasting Neurological: - - Lack of normal epicritic sensation light touch consistent with neuropathy status Psych/Mental Status: Normal Affect, Appropriate Debridement Note Post-Debridement Measurements/Treatment - Nurse 2 - General Ulcer CM Notes Start: 11/01/19 16:00 Freq: Status: Active Protocol: Activity Type Activity Date Activity User E-Sign Co-Sign Detail Recorded Client Recorded Date Recorded By Document 11/01/19 16:27 [id number] 11/01/19 16:29 Document 11/08/19 11:32 [id number] 11/08/19 11:38 Document 11/15/19 12:14 [id number] 11/15/19 12:15 Document 11/28/19 16:03 [id number] 11/28/19 16:05 11/01/19 11/08/19 11/15/19 16:27 11:32 12:14 Wound Center Nurse 2 1. L foot dorsal -Time 16:29 11:33 12:15 -Correct Patient Yes Yes Yes -Correct Side, Site, Position Yes Yes Yes -Correct Procedure Yes Yes Yes -Procedure Performed Yes Yes Yes -Type of Procedure Debridement Debridement Debridement -Clinical Debridement Subcutaneous Subcutaneous Selective -Post Debridement Size (cm) - Length 0.6 0.6 0.6 -Post Debridement Size (cm) - Width 0.6 0.5 0.5 -Post Debridement Size (cm) - Depth 0.5 0.4 0.3 -Total Square Cm 0.36 0.30 0.30 -Wound/Ulcer Outcome Not Healed Not Healed Not Healed -Ulcer Cleansing Rinsed/ Rinsed/ Rinsed/ Irrigated with Irrigated with Irrigated with Saline Saline Saline -Foul Odor after Cleansing No No No -Bioengineered Tissue No No No -Bleeding Controlled with Pressure Pressure Pressure -Offloading No No No -Treatment Response Procedure Procedure Procedure Tolerated Well Tolerated Well Tolerated Well Pain Scale: 0-10 Numeric Is Patient Pain Free? Yes Yes Yes 11/28/19 16:03 Wound Center Nurse 2 1. L foot dorsal -Time -Correct Patient No -Correct Side, Site, Position No -Correct Procedure No -Procedure Performed No -Type of Procedure -Clinical Debridement -Post Debridement Size (cm) - Length -Post Debridement Size (cm) - Width -Post Debridement Size (cm) - Depth -Total Square Cm -Wound/Ulcer Outcome Not Healed -Ulcer Cleansing -Foul Odor after Cleansing -Bioengineered Tissue -Bleeding Controlled with -Offloading -Treatment Response Pain Scale: 0-10 Numeric Is Patient Pain Free? Yes No debridement was completed today Assessment/Plan Assessment: Status post left dorsal foot debridement with bone biopsy and application of advanced wound healing product amnio fill; 11/24/2019. Chronic osteomyelitis left foot. Peripheral arterial occlusive disease with prior intervention in 2017. Long-term use of Coumadin. Chronic DVTs. Malnutrition. Malnutrition suspected. Left transmetatarsal amputation with delayed healing Plan: I reviewed and discussed with case. Her recent surgical intervention is noted from 11/24/2018. The devitalized tissue was excised including bone and this was sent for pathology and microbiology and an additional deeper bone biopsy with the Jamshidi needle was obtained. So far the microbiology report is negative for bacterial growth. The pathology findings are still pending. Antibiotic administration will be considered pending these results and her clinical response. There are no local signs of infection today and she was reassured that it appears the advanced product is incorporating in as expected. A new secondary dressing was applied and she is advised to keep this clean and intact until follow-up next week. A new well-padded posterior mold was applied to prevent tension on the ulcer site. It is okay for her to transition to a cam walker at home but to remain nonweightbearing. She is also advised to be cautious and avoiding strap pressure over the ulcer site. She is previously known to infectious disease and input is greatly appreciated. I answered her questions. I also recommend she considers undergoing hyperbaric oxygen therapy treatment. She is not able to proceed forward at this time due to inability to arrive at the wound healing center on a daily basis. . Her history of peripher al vascular disease with critical limb ischemia and prior intervention 2017 as noted. An updated arterial study was ordered previously to check her current status. The noninvasive arterial studies were completed on October 27, 2019 in which a left KEARA of 0.72 is noted without gross impairment of perfusion. Pending continue response, additional intervention or reevaluation by vascular specialist may be warranted. Also pending these results more aggressive compression therapy and debridement will be considered and implemented. I recommend updating her lab work including CBC, CMP, ESR, CRP, and prealbumin to understand her baseline medical status, inflammatory nutrition status. Her labs are reviewed including white blood cell count of 8.6, ESR 17, C-reactive protein, prealbumin 20.4. She was also advised to offload the ulcer to keep pressure and friction to optimize healing. To avoid wearing shoes that press on the site and excessive walking activity. An aperture pad was fabricated to place around the ulcer site as well. To discontinue smoking activity. To maintain a healthy diet that is well-balanced and have adequate protein to optimize healing. To return to the wound healing center in 1 week or call sooner if she has any questions or concerns.
== END 2019-11-28 23:59 ==
LOC: WC 15:30
PROVIDERS: Family Provider Family Medicine; PCP Family Medicine; Referring Provider Podiatrist; Visit Provider Podiatrist
DX: T81.89XA Other complications of procedures, not elsewhere classified, initial encounter (principal); Y83.9 Surgical procedure, unspecified as the cause of abnormal reaction of the patient, or of later complication, without mention of misadventure at the time of the procedure; F17.200 Nicotine dependence, unspecified, uncomplicated; L97.522 Non-pressure chronic ulcer of other part of left foot with fat layer exposed; I77.9 Disorder of arteries and arterioles, unspecified; Z86.718 Personal history of other venous thrombosis and embolism; E78.5 Hyperlipidemia, unspecified; Z79.01 Long term (current) use of anticoagulants; J44.9 Chronic obstructive pulmonary disease, unspecified; M86.672 Other chronic osteomyelitis, left ankle and foot
CPT/HCPCS: 11042; 97597; 99213; G0463

== ENCOUNTER 2019-12-27 10:15 | Outpatient (RCR) | payer BC, OTHER, SELFPAY ==
[2019-11-29 00:53] VITALS: BP 128/83; PULSE 80; RESP 18; TEMP 37.3; BMI 32.8
[2019-12-13 10:08] VITALS: BP 124/68; PULSE 79; RESP 16; TEMP 36.3; BMI 32.8
--- NOTE | 2019-12-13 11:41 | PCM.WC.PN ---
(1) Chronic ulcer of left foot with necrosis of bone Status: Chronic Current Visit: Yes Code(s): L97.524 - Non-pressure chronic ulcer of other part of left foot with necrosis of bone (2) Peripheral arterial occlusive disease Status: Suspected Current Visit: Yes Code(s): I77.9 - Disorder of arteries and arterioles, unspecified (3) Partial traumatic amputation of left foot Status: Acute Current Visit: Yes Code(s): S98.922A - Partial traumatic amputation of left foot, level unspecified, initial encounter (4) Nonhealing nonsurgical wound with necrosis of bone Status: Acute Current Visit: Yes Code(s): T14.8XXA - Other injury of unspecified body region, initial encounter; M87.9 - Osteonecrosis, unspecified (5) Malnutrition Status: Suspected Current Visit: Yes Code(s): E46 - Unspecified protein-calorie malnutrition Type of Wound Date of Service: 12/13/19 Chief Complaint: Follow-up on a left dorsal foot nonhealing ulcer History of Wound: This is a 54-year-old white female that in approximately December 2016 had chronic foot condition in which she recently underwent recent operating room debridement with bone biopsy and application of advanced wound healing product to left foot at [facility]. Prior to her transfer of care to [facility] she has been undergoing a comprehensive wound healing plan at a different facility including vascular intervention, surgical debridements, infectious disease management, ect. Per other record review it appears that she had prior critical limb ischemia and had vascular intervention in October 2017 including thrombolytic therapy with percutaneous angioplasty to the left anterior tibial, popliteal, and superficial femoral arteries. It is noted her past medical history on file includes chronic obstructive pulmonary disease, DVT and chronic Coumadin, hyperlipidemia, and peripheral vascular disease. She relates her vascular surgeon has moved out of the state and she no longer would like to follow-up at that other facility. She is amendable to go for a local vascular surgery referral. She has been offloading as advised. She denies fever, chill, nausea, vomiting, loss of appetite. Progress of Wound: Stable - Physical Exam Vital Signs Temp Pulse Resp BP 97.4 F L 79 16 124/68 H 12/13/19 10:08 12/13/19 10:08 12/13/19 10:08 12/13/19 10:08 General: Alert, Oriented x3, Cooperative, No apparent distress HEENT: Atraumatic Extremities: No edema, Capillary Refill Less than 3 Seconds, No Calf Tenderness, Diminished Peripheral Pulses Skin: Ulcer/ Wound - No purulence, erythema, string, odor, infection. Part of the wound bed has some incorporating advanced wound healing products still noted and there is some exposed clean white bone noted at the proximal margin of the wound bed. This is not soft or discolored. The adjacent skin is hairless and atrophic. Wound Measurements and Assessment - Nurse 1 - General Ulcer Measurement Start: 12/13/19 10:08 Freq: Status: Active Protocol: Activity Type Activity Date Activity User E-Sign Co-Sign Detail Recorded Client Recorded Date Recorded By Document 12/13/19 10:08 [facility] [id number] 12/13/19 10:13 [facility] 12/13/19 10:08 Wound Center Nurse 1 [Ulcer Assessment] 1. L foot dorsal -Combined with other wound No -Current Size (cm) - Length 0.1 -Current Size (cm) - Width 0.1 -Current Size (cm) - Depth 0.1 -Total Square Cm 0.01 -Photo Taken No -Tunneling No -Undermining/Tunneling No -Circular Undermining No -Texture (Shital-wound Skin Appearance) Assessed, Scarring -Moisture (Shital-wound Skin Appearance Assessed,Dry/ ) Scaly -Color (Shital-wound Skin Appearance) Assessed -Temperature (Shital-wound Skin No Abnormality Appearance) (Pt Warm) -Tenderness on Palpation (Shital-wound Yes Skin Appearance) -Ulcer Cleansing soapy water -Foul Odor after Cleansing No -Anesthetic Used 4% Lidocaine Solution - Nurse 2 - General Ulcer CM Notes Start: 12/13/19 10:08 Freq: Status: Active Protocol: Activity Type Activity Date Activity User E-Sign Co-Sign Detail Recorded Client Recorded Date Recorded By Document 12/13/19 10:37 [id number] 12/13/19 10:42 12/13/19 10:37 Wound Center Nurse 2 [Procedure/Treatment] -Time 10:37 -Correct Patient Yes -Correct Side, Site, Position Yes -Correct Procedure Yes -Procedure Performed Yes -Type of Procedure Debridement -Clinical Debridement Subcutaneous -Post Debridement Size (cm) - Length 1.2 -Post Debridement Size (cm) - Width 1.2 -Post Debridement Size (cm) - Depth 0.8 -Total Square Cm 1.44 -Wound/Ulcer Outcome Not Healed -Ulcer Cleansing Rinsed/ Irrigated with Saline -Foul Odor after Cleansing No -Bioengineered Tissue No -Bleeding Controlled with Pressure -Offloading Yes -Type of Offloading Knee Walker -Treatment Response Procedure Tolerated Well [See Physician Procedure note for Specifics] Pain Scale: 0-10 Numeric [Pain] -Is Patient Pain Free? Yes Musculoskeletal: No Tenderness to Palpation of Joints or Extremities, Muscle Wasting, - - Transmetatarsal amputation left Neurological: - - Lack of normal epicritic sensation light touch is consistent with neuropathy status Psych/Mental Status: Normal Affect, Appropriate Debridement Note Post-Debridement Measurements/Treatment WC - Nurse 2 - General Ulcer CM Notes Start: 12/13/19 10:08 Freq: Status: Active Protocol: Activity Type Activity Date Activity User E-Sign Co-Sign Detail Recorded Client Recorded Date Recorded By Document 12/13/19 10:37 LUCIA [id number] 12/13/19 10:42 LUCIA 12/13/19 10:37 Wound Center Nurse 2 1. L foot dorsal -Time 10:37 -Correct Patient Yes -Correct Side, Site, Position Yes -Correct Procedure Yes -Procedure Performed Yes -Type of Procedure Debridement -Clinical Debridement Subcutaneous -Post Debridement Size (cm) - Length 1.2 -Post Debridement Size (cm) - Width 1.2 -Post Debridement Size (cm) - Depth 0.8 -Total Square Cm 1.44 -Wound/Ulcer Outcome Not Healed -Ulcer Cleansing Rinsed/ Irrigated with Saline -Foul Odor after Cleansing No -Bioengineered Tissue No -Bleeding Controlled with Pressure -Offloading Yes -Type of Offloading Knee Walker -Treatment Response Procedure Tolerated Well Pain Scale: 0-10 Numeric Is Patient Pain Free? Yes Wound debrided: dorsal foot Laterality: Left Type of Debridement: Excisional debridement Anesthesia Used: 5% Lidocaine Gel Depth: in the subcutaneous layer Percentage of wound debrided: 100 Instrument Used: #15 blade Tissue Removed: fibrous, devitalized subcutaneous, biofilm, slough Severity: Fat Layer Exposed Amount of bleeding with debridement: Mild Bleeding Controlled with: Pressure Patient tolerated procedure well Assessment/Plan Active Problems Partial traumatic amputation of left foot (Acute) Nonhealing nonsurgical wound with necrosis of bone (Acute) Chronic ulcer of left foot with necrosis of bone (Chronic) Assessment: Status post left dorsal foot debridement with bone biopsy and application of advanced wound healing product amnio fill; 11/24/2019. Chronic osteomyelitis left foot. Peripheral arterial occlusive disease with prior intervention in 2017. Long-term use of Coumadin. Chronic DVTs. Malnutrition. Malnutrition suspected. Left transmetatarsal amputation with delayed healing Plan: I reviewed and discussed with case. Her recent surgical intervention is noted from 11/24/2018. The devitalized tissue was excised including bone and this was sent for pathology and microbiology and an additional deeper bone biopsy with the Jamshidi needle was obtained. So far the microbiology report is negative for bacterial growth. The pathology findings were also negative for osteomyelitis. I do not recommend antibiotics at this time. There are no local signs of infection today and she was reassured that it appears the advanced product is incorporating in as expected. Debridement was performed as noted in the clinical panel. This was further covered with Adaptic and secured in place with Steri-Strips to allow continued cooperation of the remaining advanced wound healing product, amnio fill that was applied in the operating room. A new secondary dressing was applied and she is advised to keep this clean and intact until follow-up next week. It is okay for her to transition to a cam walker at home but to remain nonweightbearing. She is also advised to be cautious and avoiding strap pressure over the ulcer site. She is previously known to infectious disease and input is greatly appreciated. I answered her questions. . Her history of peripheral vascular disease with critical limb ischemia and prior intervention 2017 as noted. An updated arterial study was ordered previously to check her current status. The noninvasive arterial studies were completed on October 27, 2019 in which a left KEARA of 0.72 is noted without gross impairment of perfusion. Pending continue response, additional intervention or reevaluation by vascular specialist may be warranted. I recommend referral to Dr. Gomez at this time and she is amendable to proceed. An aperture pad was fabricated to place around the ulcer site as well. To discontinue smoking activity. To maintain a healthy diet that is well-balanced and have adequate protein to optimize healing. To return to the wound healing center in 1 week or call sooner if she has any questions or concerns.
[2019-12-20 10:20] VITALS: BP 143/78; PULSE 71; RESP 18; TEMP 36.1; BMI 32.8
--- NOTE | 2019-12-20 11:11 | PCM.WC.PN ---
(1) Chronic ulcer of left foot with necrosis of bone Status: Chronic Code(s): L97.524 - Non-pressure chronic ulcer of other part of left foot with necrosis of bone (2) Peripheral arterial occlusive disease Status: Suspected Code(s): I77.9 - Disorder of arteries and arterioles, unspecified (3) Partial traumatic amputation of left foot Status: Acute Code(s): S98.922A - Partial traumatic amputation of left foot, level unspecified, initial encounter (4) Nonhealing nonsurgical wound with necrosis of bone Status: Acute Code(s): T14.8XXA - Other injury of unspecified body region, initial encounter; M87.9 - Osteonecrosis, unspecified (5) Malnutrition Status: Suspected Code(s): E46 - Unspecified protein-calorie malnutrition Type of Wound Date of Service: 12/20/19 Chief Complaint: Follow-up on a left dorsal foot nonhealing ulcer History of Wound: This is a 54-year-old white female that in approximately December 2016 had chronic foot condition in which she recently underwent recent operating room debridement with bone biopsy and application of advanced wound healing product to left foot at [facility]. Prior to her transfer of care to [facility] she has been undergoing a comprehensive wound healing plan at a different facility including vascular intervention, surgical debridements, infectious disease management, ect. Per other record review it appears that she had prior critical limb ischemia and had vascular intervention in October 2017 including thrombolytic therapy with percutaneous angioplasty to the left anterior tibial, popliteal, and superficial femoral arteries. It is noted her past medical history on file includes chronic obstructive pulmonary disease, DVT and chronic Coumadin, hyperlipidemia, and peripheral vascular disease. She relates her vascular surgeon has moved out of the [facility] and she no longer would like to follow-up at that other facility. She is amendable to go for a local vascular surgery referral. This has not been completed yet. She has been offloading as advised. She denies fever, chill, nausea, vomiting, loss of appetite. Progress of Wound: Stable - Physical Exam Vital Signs Temp Pulse Resp BP 97 F L 71 18 143/78 H 12/20/19 10:20 12/20/19 10:20 12/20/19 10:20 12/20/19 10:20 General: Alert, Oriented x3, Cooperative, No apparent distress Extremities: No cyanosis, No edema, Capillary Refill Less than 3 Seconds, No Calf Tenderness, Diminished Peripheral Pulses Skin: Ulcer/ Wound - No purulence, erythema, string, odor, infection. Skin is atrophic. There is bone and joint (midfoot ) exposed in the wound bed it is healthy white and firm. Wound Measurements and Assessment WC - Nurse 1 - General Ulcer Measurement Start: 12/13/19 10:08 Freq: Status: Active Protocol: Activity Type Activity Date Activity User E-Sign Co-Sign Detail Recorded Client Recorded Date Recorded By Document 12/20/19 10:20 RB [id number] 12/20/19 10:22 RB 12/20/19 10:20 Wound Center Nurse 1 [Ulcer Assessment] 1. L foot dorsal -Combined with other wound No -Current Size (cm) - Length 1.7 -Current Size (cm) - Width 1.2 -Current Size (cm) - Depth 0.7 -Total Square Cm 2.04 -Tunneling No -Undermining/Tunneling No -Circular Undermining No -Exudate Amt Medium -Exudate Type Serosanguineous -Wound Margin Thickened & Rolled Under -Granulation Amt Medium (34-66%) -Granulation Quality [place] -Slough/Fibrin Yes -Necrosis Amt Small (1-33%) -Necrotic Tissue Type Adherent Slough -Structure Exposed N/A -Texture (Shital-wound Skin Appearance) Scarring -Moisture (Shital-wound Skin Appearance Assessed ) -Color (Shital-wound Skin Appearance) Assessed -Temperature (Shital-wound Skin No Abnormality Appearance) (Pt Warm) -Tenderness on Palpation (Shital-wound No Skin Appearance) -Ulcer Cleansing Wound Cleanser -Foul Odor after Cleansing No -Anesthetic Used 4% Lidocaine Solution - Nurse 2 - General Ulcer CM Notes Start: 12/13/19 10:08 Freq: Status: Active Protocol: Activity Type Activity Date Activity User E-Sign Co-Sign Detail Recorded Client Recorded Date Recorded By Document 12/20/19 10:31 LUCIA [id number] 12/20/19 10:31 LUCIA 12/20/19 10:31 Wound Center Nurse 2 [Procedure/Treatment] -Time 10:31 -Correct Patient Yes -Correct Side, Site, Position Yes -Correct Procedure Yes -Procedure Performed Yes -Type of Procedure Debridement -Clinical Debridement Selective -Post Debridement Size (cm) - Length 1.7 -Post Debridement Size (cm) - Width 1.2 -Post Debridement Size (cm) - Depth 0.7 -Total Square Cm 2.04 -Wound/Ulcer Outcome Not Healed -Ulcer Cleansing Rinsed/ Irrigated with Saline -Foul Odor after Cleansing No -Bioengineered Tissue No -Bleeding Controlled with Pressure -Offloading Yes -Type of Offloading Knee Walker -Treatment Response Procedure Tolerated Well [See Physician Procedure note for Specifics] Pain Scale: 0-10 Numeric [Pain] -Is Patient Pain Free? Yes Musculoskeletal: No Tenderness to Palpation of Joints or Extremities, Muscle Wasting, - - Left transmetatarsal amputation Neurological: Sensory exam intact to light touch and pain - Lack of normal epicritic sensation with debridement light touch Psych/Mental Status: Normal Affect, Appropriate Debridement Note Post-Debridement Measurements/Treatment WC - Nurse 2 - General Ulcer CM Notes Start: 12/13/19 10:08 Freq: Status: Active Protocol: Activity Type Activity Date Activity User E-Sign Co-Sign Detail Recorded Client Recorded Date Recorded By Document 12/13/19 10:37 [id number] 12/13/19 10:42 Document 12/20/19 10:31 [id number] 12/20/19 10:31 12/13/19 12/20/19 10:37 10:31 Wound Center Nurse 2 1. L foot dorsal -Time 10:37 10:31 -Correct Patient Yes Yes -Correct Side, Site, Position Yes Yes -Correct Procedure Yes Yes -Procedure Performed Yes Yes -Type of Procedure Debridement Debridement -Clinical Debridement Subcutaneous Selective -Post Debridement Size (cm) - Length 1.2 1.7 -Post Debridement Size (cm) - Width 1.2 1.2 -Post Debridement Size (cm) - Depth 0.8 0.7 -Total Square Cm 1.44 2.04 -Wound/Ulcer Outcome Not Healed Not Healed -Ulcer Cleansing Rinsed/ Rinsed/ Irrigated with Irrigated with Saline Saline -Foul Odor after Cleansing No No -Bioengineered Tissue No No -Bleeding Controlled with Pressure Pressure -Offloading Yes Yes -Type of Offloading Knee Walker Knee Walker -Treatment Response Procedure Procedure Tolerated Well Tolerated Well Pain Scale: 0-10 Numeric Is Patient Pain Free? Yes Yes Wound debrided: dorsal foot Laterality: Left Type of Debridement: Selective debridement Anesthesia Used: 5% Lidocaine Gel Depth: in the subcutaneous layer Percentage of wound debrided: 100 Instrument Used: #15 blade Tissue Removed: fibrous, devitalized tissue, biofilm, slough Severity: Fat Layer Exposed Amount of bleeding with debridement: Mild Bleeding Controlled with: Pressure Patient tolerated procedure well Assessment/Plan Assessment: Status post left dorsal foot debridement with bone biopsy and application of advanced wound healing product amnio fill; 11/24/2019. Chronic osteomyelitis left foot. Peripheral arterial occlusive disease with prior intervention in 2017. Long-term use of Coumadin. Chronic DVTs. Malnutrition. Malnutrition suspected. Left transmetatarsal amputation with delayed healing Plan: I reviewed and discussed with case. Her recent surgical intervention is noted from 11/24/2018. The devitalized tissue was excised including bone and this was sent for pathology and microbiology and an additional deeper bone biopsy with the Jamshidi needle was obtained. So far the microbiology report is negative for bacterial growth. The pathology findings were also negative for osteomyelitis. I do not recommend antibiotics at this time. There are no local signs of infection today and she was reassured that it appears the advanced product is incorporating in as expected. Debridement was performed as noted in the clinical panel. This was further covered with Aquacel. It is noted she had recent application of advanced wound healing product that was placental derived. I recommend application of collagen silver product that has increased tensile strength; [employer] primatrix [employer]. This is medically necessary for limb salvage and insurance prior authorization will be completed. She is at risk for continued limb loss condition. It is okay for her to transition to a cam walker at home but to remain nonweightbearing. She is also advised to be cautious and avoiding strap pressure over the ulcer site. She is previously known to infectious disease and input is greatly appreciated. It is noted she has discontinued CAM Walker use and we discussed the importance of resuming this to prevent tension on the ulcer while she is moving her limb around. I answered her questions. . Her history of peripheral vascular disease with critical limb ischemia and prior intervention 2017 as noted. An updated arterial study was ordered previously to check her current status. The noninvasive arterial studies were completed on October 27, 2019 in which a left KEARA of 0.72 is noted without gross impairment of perfusion. Pending continue response, additional intervention or reevaluation by vascular specialist may be warranted. I recommend referral to Dr. Gomez at this time and she is amendable to proceed. She is encouraged to proceed forward with the scheduled appointment. An aperture pad was fabricated to place around the ulcer site as well. To discontinue smoking activity. To maintain a healthy diet that is well-balanced and have adequate protein to optimize healing. To return to the wound healing center in 1 week or call sooner if she has any questions or concerns.
[2019-12-27 10:38] VITALS: BP 139/82; PULSE 76; RESP 18; TEMP 36.6; BMI 32.8
--- NOTE | 2019-12-27 13:51 | PN.PCM_ITS ---
(1) Chronic ulcer of left foot with necrosis of bone Status: Chronic Current Visit: Yes Code(s): L97.524 - Non-pressure chronic ulcer of other part of left foot with necrosis of bone (2) Peripheral arterial occlusive disease Status: Suspected Current Visit: Yes Code(s): I77.9 - Disorder of arteries and arterioles, unspecified (3) Partial traumatic amputation of left foot Status: Acute Current Visit: Yes Code(s): S98.922A - Partial traumatic amputation of left foot, level unspecified, initial encounter (4) Nonhealing nonsurgical wound with necrosis of bone Status: Acute Current Visit: Yes Code(s): T14.8XXA - Other injury of unspecified body region, initial encounter; M87.9 - Osteonecrosis, unspecified (5) Malnutrition Status: Suspected Current Visit: Yes Code(s): E46 - Unspecified protein- calorie malnutrition Type of Wound Date of Service: 12/27/19 Chief Complaint: Follow-up on a left dorsal foot nonhealing ulcer History of Wound: This is a 54-year-old white female that in approximately December 2016 had chronic foot condition in which she recently underwent recent operating room debridement with bone biopsy and application of advanced wound healing product to left foot at [facility]. Prior to her transfer of care to [facility] she has been undergoing a comprehensive wound healing plan at a different facility including vascular intervention, surgical debridements, infectious disease management, ect. Per other record review it appears that she had prior critical limb ischemia and had vascular intervention in October 2017 including thrombolytic therapy with percutaneous angioplasty to the left anterior tibial, popliteal, and superficial femoral arteries. It is noted her past medical history on file includes chronic obstructive pulmonary disease, DVT and chronic Coumadin, hyperlipidemia, and peripheral vascular disease. She relates her vascular surgeon has moved out of the state and she no longer would like to follow-up at that other facility. She is amendable to go for a local vascular surgery referral. This has not been completed yet. She has been offloading as advised. She denies fever, chill, nausea, vomiting, loss of appetite. She continues to smoke on a daily basis. Progress of Wound: Stable -improving at distal aspect - Physical Exam Vital Signs Temp Pulse Resp BP 97.8 F 76 18 139/82 H 12/27/19 10:38 12/27/19 10:38 12/27/19 10:38 12/27/19 10:38 General: Alert, Oriented x3, Cooperative, No apparent distress Extremities: No cyanosis, Capillary Refill Less than 3 Seconds, No Calf Tenderness, Diminished Peripheral Pulses, Edema Skin: Ulcer/ Wound - No purulence, erythema, string, odor, infection. There is some peripheral epithelialization and deep wound bed granular progression which is an improvement. There continues to be exposed white healthy firm bone to the proximal aspect and some midfoot joint is visualized. The adjacent skin is hairless and atrophic Wound Measurements and Assessment WC - Nurse 1 - General Ulcer Measurement Start: 12/13/19 10:08 Freq: Status: Active Protocol: Activity Type Activity Date Activity User E-Sign Co-Sign Detail Recorded Client Recorded Date Recorded By Document 12/27/19 10:38 RB [id number] 12/27/19 10:41 RB 12/27/19 10:38 Wound Center Nurse 1 [Ulcer Assessment] 1. L foot dorsal -Combined with other wound No -Current Size (cm) - Length 1.6 -Current Size (cm) - Width 1 -Current Size (cm) - Depth 0.6 -Total Square Cm 1.6 -Tunneling No -Undermining/Tunneling No -Circular Undermining No -Exudate Amt Medium -Exudate Type Serosanguineous -Wound Margin Thickened & Rolled Under -Granulation Amt Medium (34-66%) -Granulation Quality [place] -Slough/Fibrin Yes -Necrosis Amt Small (1-33%) -Necrotic Tissue Type Adherent Slough -Structure Exposed Bone -Texture (Shital-wound Skin Appearance) Scarring -Moisture (Shital-wound Skin Appearance Assessed ) -Color (Shital-wound Skin Appearance) Assessed -Temperature (Shital-wound Skin No Abnormality Appearance) (Pt Warm) -Tenderness on Palpation (Shital-wound No Skin Appearance) -Ulcer Cleansing Wound Cleanser -Foul Odor after Cleansing No -Anesthetic Used 5% Lidocaine Gel [Edema Assessment] -Lower Limb Edema Present Yes -Left Calf (cm) 33.4 -Left Ankle (cm) 18.6 WC - Nurse 2 - General Ulcer CM Notes Start: 12/13/19 10:08 Freq: Status: Active Protocol: Activity Type Activity Date Activity User E-Sign Co-Sign Detail Recorded Client Recorded Date Recorded By Document 12/27/19 10:54 [id number] 12/27/19 10:55 12/27/19 10:54 Wound Center Nurse 2 [Procedure/Treatment] 1. L foot dorsal -Time 10:54 -Correct Patient Yes -Correct Side, Site, Position Yes -Correct Procedure Yes -Procedure Performed Yes -Type of Procedure Debridement -Clinical Debridement Subcutaneous -Post Debridement Size (cm) - Length 1.6 -Post Debridement Size (cm) - Width 1.1 -Post Debridement Size (cm) - Depth 0.6 -Total Square Cm 1.76 -Wound/Ulcer Outcome Not Healed -Ulcer Cleansing Rinsed/ Irrigated with Saline -Foul Odor after Cleansing No -Bioengineered Tissue No -Bleeding Controlled with Pressure -Offloading Yes -Type of Offloading Knee Walker -Treatment Response Procedure Tolerated Well [See Physician Procedure note for Specifics] Pain Scale: 0-10 Numeric [Pain] -Is Patient Pain Free? Yes Musculoskeletal: No Tenderness to Palpation of Joints or Extremities, Muscle Wasting, - - Transmetatarsal amputation noted Neurological: - - Lack of normal epicritic sensation light touch Psych/Mental Status: Normal Affect, Appropriate Debridement Note Post-Debridement Measurements/Treatment WC - Nurse 2 - General Ulcer CM Notes Start: 12/13/19 10:08 Freq: Status: Active Protocol: Activity Type Activity Date Activity User E-Sign Co-Sign Detail Recorded Client Recorded Date Recorded By Document 12/13/19 10:37 [id number] 12/13/19 10:42 Document 12/20/19 10:31 [id number] 12/20/19 10:31 Document 12/27/19 10:54 [id number] 12/27/19 10:55 12/13/19 12/20/19 12/27/19 10:37 10:31 10:54 Wound Center Nurse 2 1. L foot dorsal -Time 10:37 10:31 10:54 -Correct Patient Yes Yes Yes -Correct Side, Site, Position Yes Yes Yes -Correct Procedure Yes Yes Yes -Procedure Performed Yes Yes Yes -Type of Procedure Debridement Debridement Debridement -Clinical Debridement Subcutaneous Selective Subcutaneous -Post Debridement Size (cm) - Length 1.2 1.7 1.6 -Post Debridement Size (cm) - Width 1.2 1.2 1.1 -Post Debridement Size (cm) - Depth 0.8 0.7 0.6 -Total Square Cm 1.44 2.04 1.76 -Wound/Ulcer Outcome Not Healed Not Healed Not Healed -Ulcer Cleansing Rinsed/ Rinsed/ Rinsed/ Irrigated with Irrigated with Irrigated with Saline Saline Saline -Foul Odor after Cleansing No No No -Bioengineered Tissue No No No -Bleeding Controlled with Pressure Pressure Pressure -Offloading Yes Yes Yes -Type of Offloading Knee Walker Knee Walker Knee Walker -Treatment Response Procedure Procedure Procedure Tolerated Well Tolerated Well Tolerated Well Pain Scale: 0-10 Numeric Is Patient Pain Free? Yes Yes Yes Wound debrided: dorsal foot Laterality: Left Type of Debridement: Excisional debridement Anesthesia Used: 5% Lidocaine Gel Depth: in the subcutaneous layer Percentage of wound debrided: 100 Instrument Used: #15 blade Tissue Removed: fibrous, devitalized subcutaneous, biofilm, slough Severity: Fat Layer Exposed Amount of bleeding with debridement: Mild Bleeding Controlled with: Pressure Patient tolerated procedure well Assessment/Plan Active Problems Partial traumatic amputation of left foot (Acute) Nonhealing nonsurgical wound with necrosis of bone (Acute) Chronic ulcer of left foot with necrosis of bone (Chronic) Assessment: Status post left dorsal foot debridement with bone biopsy and application of advanced wound healing product amnio fill; 11/24/2019. Chronic osteomyelitis left foot. Peripheral arterial occlusive disease with prior intervention in 2017. Long-term use of Coumadin. Chronic DVTs. Malnutrition. Malnutrition suspected. Left transmetatarsal amputation with delayed healing Plan: I reviewed and discussed with case. Her recent surgical intervention is noted from 11/24/2018. The devitalized tissue was excised including bone and this was sent for pathology and microbiology and an additional deeper bone biopsy with the Jamshidi needle was obtained. So far the microbiology report is negative for bacterial growth. The pathology findings were also negative for osteomyelitis. I do not recommend antibiotics at this time. There are no local signs of infection today and she was reassured that it appears the advanced product is incorporating in as expected. Debridement was performed as noted in the clinical panel. This was further covered with Aquacel. It is noted she had recent application of advanced wound healing product that was placental derived. I recommend application of collagen silver product that has increased tensile strength; [employer]. She was approved for this however her [id number] initial cost is too high and she is not able to proceed forward with this in outpatient setting. I offered to return to the operating room for additional debridement and application of advanced wound healing product in the operating room setting to help cover this exposed healthy bone and promote granulation tissue formation. A wound VAC such as a jazmine would also be considered in conjunction with this. We can also consider doing this procedure under local anesthetic. No need to confirm she is amendable to this to avoid further anesthesia and also to confirm if this epi-cord product is available for application in the surgical setting. This is medically necessary for limb salvage and insurance prior authorization will be completed. She is at risk for continued limb loss condition. It is okay for her to transition to a cam walker at home but to remain nonweightbearing. She is also advised to be cautious and avoiding strap pressure over the ulcer site. She is previously known to infectious disease and input is greatly appreciated. It is noted she has discontinued CAM Walker use and we discussed the importance of resuming this to prevent tension on the ulcer while she is moving her limb around. I answered her questions. . Her history of peripheral vascular disease with critical limb ischemia and prior intervention 2017 as noted. An updated arterial study was ordered previously to check her current status. The noninvasive arterial studies were completed on October 27, 2019 in which a left KEARA of 0.72 is noted without gross impairment of perfusion. Pending continue response, additional intervention or reevaluation by vascular specialist may be warranted. I recommend referral to Dr. Gomez at this time and she is amendable to proceed. She is encouraged to proceed forward with the scheduled appointment. An aperture pad was fabricated to place around the ulcer site as well. To discontinue smoking activity. To maintain a healthy diet that is well-balanced and have adequate protein to optimize healing. To return to the wound healing center in 1 week or call sooner if she has any questions or concerns.
== END 2019-12-29 23:59 ==
LOC: WC 10:15
PROVIDERS: Family Provider Family Medicine; PCP Family Medicine; Referring Provider Podiatrist; Visit Provider Podiatrist
DX: I73.9 Peripheral vascular disease, unspecified (principal); L97.512 Non-pressure chronic ulcer of other part of right foot with fat layer exposed; J44.9 Chronic obstructive pulmonary disease, unspecified; Z86.718 Personal history of other venous thrombosis and embolism; Z79.01 Long term (current) use of anticoagulants; E87.5 Hyperkalemia; M86.672 Other chronic osteomyelitis, left ankle and foot
CPT/HCPCS: 11042; 97597

== ENCOUNTER 2020-01-24 11:00 | Outpatient (RCR) | payer BC, OTHER, SELFPAY ==
[2019-12-30 00:48] VITALS: BP 139/82; PULSE 76; RESP 18; TEMP 36.6
[2020-01-03 09:50] VITALS: BP 110/72; PULSE 78; RESP 18; TEMP 36.9; BMI 32.8
--- NOTE | 2020-01-03 11:47 | PN.PCM_ITS ---
(1) Chronic ulcer of left foot with necrosis of bone Status: Chronic Current Visit: Yes Code(s): L97.524 - Non-pressure chronic ulcer of other part of left foot with necrosis of bone (2) Delayed wound healing Status: Acute Current Visit: Yes Code(s): T14.8XXD - Other injury of unspecified body region, subsequent encounter (3) Peripheral arterial occlusive disease Status: Suspected Current Visit: Yes Code(s): I77.9 - Disorder of arteries and arterioles, unspecified (4) Smoking addiction Status: Chronic Current Visit: Yes Code(s): F17.200 - Nicotine dependence, unspecified, uncomplicated (5) Malnutrition Status: Suspected Current Visit: Yes Code(s): E46 - Unspecified protein- calorie malnutrition (6) Non-compliance Status: Chronic Current Visit: Yes Code(s): Z91.19 - Patient's noncompliance with other medical treatment and regimen Type of Wound Date of Service: 01/03/20 Chief Complaint: Follow-up on a left dorsal foot nonhealing ulcer History of Wound: This is a 54-year-old white female that in approximately December 2016 had chronic foot condition in which she recently underwent recent operating room debridement with bone biopsy and application of advanced wound healing product to left foot at [facility]. Prior to her transfer of care to [facility] she has been undergoing a comprehensive wound healing plan at a different facility including vascular intervention, surgical debridements, infectious disease management, ect. Per other record review it appears that she had prior critical limb ischemia and had vascular intervention in October 2017 including thrombolytic therapy with percutaneous angioplasty to the left anterior tibial, popliteal, and superficial femoral arteries. It is noted her past medical history on file includes chronic obstructive pulmonary disease, DVT and chronic Coumadin, hyperlipidemia, and peripheral vascular disease. She relates her vascular surgeon has moved out of the state and she no longer would like to follow-up at that other facility. She is amendable to go for a local vascular surgery referral. This has not been completed yet. She has been offloading as advised. She denies fever, chill, nausea, vomiting, loss of appetite. She continues to smoke on a daily basis. She continues to avoid wearing her cam walker as recommended. She does not recall a lot of her prior treatment interventions and it is challenging to remember information. Progress of Wound: Stable -improving at distal aspect - Physical Exam Vital Signs Temp Pulse Resp BP 98.5 F 78 18 110/72 01/03/20 09:50 01/03/20 09:50 01/03/20 09:50 01/03/20 09:50 General: Alert, Oriented x3, Cooperative, No apparent distress Extremities: No cyanosis, Capillary Refill Less than 3 Seconds, No Calf Tenderness, Diminished Peripheral Pulses, Edema - Mild, - - Transmetatarsal amputation Skin: Ulcer/ Wound - No purulence, odor, necrosis, eschar, proximal streaking, adjacent bogginess or fluctuance noted. There is some distal continued granulation tissue. The proximal aspect of the wound does probe deep and there is visualized bone and joint which appears healthy and white in color Wound Measurements and Assessment WC - Nurse 1 - General Ulcer Measurement Start: 01/03/20 09:50 Freq: Status: Active Protocol: Activity Type Activity Date Activity User E-Sign Co-Sign Detail Recorded Client Recorded Date Recorded By Document 01/03/20 09:50 RB [id number] 01/03/20 09:52 RB 01/03/20 09:50 Wound Center Nurse 1 [Ulcer Assessment] 1. L foot dorsal -Combined with other wound No -Current Size (cm) - Length 1.9 -Current Size (cm) - Width 1 -Current Size (cm) - Depth 0.7 -Total Square Cm 1.9 -Tunneling No -Undermining/Tunneling No -Circular Undermining No -Exudate Amt Small -Exudate Type Serosanguineous -Wound Margin Thickened & Rolled Under -Granulation Amt Medium (34-66%) -Granulation Quality [place] -Slough/Fibrin Yes -Necrosis Amt Medium (34-66%) -Necrotic Tissue Type Adherent Slough -Structure Exposed N/A -Texture (Shital-wound Skin Appearance) Assessed -Moisture (Shital-wound Skin Appearance Assessed ) -Color (Shital-wound Skin Appearance) Assessed -Temperature (Shital-wound Skin No Abnormality Appearance) (Pt Warm) -Tenderness on Palpation (Shital-wound No Skin Appearance) -Ulcer Cleansing Wound Cleanser -Foul Odor after Cleansing No -Anesthetic Used 4% Lidocaine Solution WC - Nurse 2 - General Ulcer CM Notes Start: 01/03/20 09:50 Freq: Status: Active Protocol: Activity Type Activity Date Activity User E-Sign Co-Sign Detail Recorded Client Recorded Date Recorded By Document 01/03/20 10:01 JF [id number] 01/03/20 10:13 JF 01/03/20 10:01 Wound Center Nurse 2 [Procedure/Treatment] -Time 10:01 -Correct Patient Yes -Correct Side, Site, Position Yes -Correct Procedure Yes -Procedure Performed Yes -Type of Procedure Debridement -Clinical Debridement Subcutaneous -Post Debridement Size (cm) - Length 2.0 -Post Debridement Size (cm) - Width 1 -Post Debridement Size (cm) - Depth 0.7 -Total Square Cm 2.0 -Wound/Ulcer Outcome Not Healed -Ulcer Cleansing Rinsed/ Irrigated with Saline -Foul Odor after Cleansing No -Bioengineered Tissue No -Bleeding Controlled with Pressure -Offloading No -Treatment Response Procedure Tolerated Well [See Physician Procedure note for Specifics] Pain Scale: 0-10 Numeric [Pain] -Is Patient Pain Free? Yes Musculoskeletal: No Tenderness to Palpation of Joints or Extremities, Muscle Wasting Neurological: - - Lack of normal sensation to light touch Psych/Mental Status: Normal Affect, Appropriate Debridement Note Post-Debridement Measurements/Treatment - Nurse 2 - General Ulcer CM Notes Start: 01/03/20 09:50 Freq: Status: Active Protocol: Activity Type Activity Date Activity User E-Sign Co-Sign Detail Recorded Client Recorded Date Recorded By Document 01/03/20 10: JF [id number] 01/03/20 10:13 01/03/20 10:01 Wound Center Nurse 2 1. L foot dorsal -Time 10:01 -Correct Patient Yes -Correct Side, Site, Position Yes -Correct Procedure Yes -Procedure Performed Yes -Type of Procedure Debridement -Clinical Debridement Subcutaneous -Post Debridement Size (cm) - Length 2.0 -Post Debridement Size (cm) - Width 1 -Post Debridement Size (cm) - Depth 0.7 -Total Square Cm 2.0 -Wound/Ulcer Outcome Not Healed -Ulcer Cleansing Rinsed/ Irrigated with Saline -Foul Odor after Cleansing No -Bioengineered Tissue No -Bleeding Controlled with Pressure -Offloading No -Treatment Response Procedure Tolerated Well Pain Scale: 0-10 Numeric Is Patient Pain Free? Yes Wound debrided: dorsal foot Laterality: Left Type of Debridement: Excisional debridement Anesthesia Used: 5% Lidocaine Gel Depth: in the subcutaneous layer Percentage of wound debrided: 100 Instrument Used: #15 blade Tissue Removed: fibrous, devitalized subcutaneous, biofilm, slough Severity: Fat Layer Exposed Amount of bleeding with debridement: Mild Bleeding Controlled with: Pressure Patient tolerated procedure well Assessment/Plan Active Problems Non-compliance (Chronic) Delayed wound healing (Acute) Smoking addiction (Chronic) 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 Chronic osteomyelitis left foot. Peripheral arterial occlusive disease with prior intervention in 2017. Long-term use of Coumadin. Chronic DVT. Malnutrition suspected. Left tra nsmetatarsal amputation with delayed healing Plan: I reviewed and discussed with case. Her recent surgical intervention is noted from 11/24/2018. The devitalized tissue was excised including bone and this was sent for pathology and microbiology and an additional deeper bone biopsy with the Jamshidi needle was obtained. the microbiology report is negative for bacterial growth. The pathology findings were also negative for osteomyelitis. I do not recommend antibiotics at this time. There are no local signs of infection today. Debridement was performed as noted in the clinical panel. This was further covered with Aquacel. It is noted she had recent application of advanced wound healing product that was placental derived. 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 She is not being covered appropriately for this in the outpatient setting we will consider if there are additional operating room opportunities. She is amendable to proceed with this if there is better coverage under local anesthetic on a same-day surgery basis. Consents were signed today for this procedure and she demonstrates understanding of the indications, benefits, risk, complications, and anticipated healing time management. She understands this is a staged process and other wound care basic treatment recommendations need to be followed as well. She was approved for this however her [id number] initial cost is too high and she is not able to proceed forward with this in outpatient setting. In addition to advance mobility placement, I also recommend the application of a wound VAC such as a jazmine. This is medically necessary for limb salvage and insurance prior authorization will be completed. She is at risk for continued limb loss condition. It is okay for her to transition to a cam walker at home but to remain nonweightbearing most of the time. We discussed that it is okay for her to put her foot down for partial weightbearing for transfers and for limited walking in house. One of the main purpose is wearing a cam walker is to reduce tension applied on the adjacent ulcer skin to help promote healing. She is also advised to be cautious and avoiding strap pressure over the ulcer site. She is previously known to infectious disease and input is greatly appreciated. She is not demonstrating appropriate compliance with a cam walker immobilization or smoking cessation. We discussed the accountability needed from her at home in order to see more progress. The patient as well as her daughter are also struggling to remember previously reviewed information and expressed a lot of frustration with her prior care at [facility]. I recommend focusing on the current plan and encourage compliance. . Her history of peripheral vascular disease with critical limb ischemia and prior intervention 2017 as noted. An updated ar terial study was ordered previously to check her current status. The noninvasive arterial studies were completed on October 27, 2019 in which a left KEARA of 0.72 is noted without gross impairment of perfusion. I recommend referral to Dr. Gomez at this time and she is amendable to proceed. She is encouraged to proceed forward with the scheduled appointment. To maintain a healthy diet that is well-balanced and have adequate protein to optimize healing. It is noted she reports she drinks coffee a lot and only eats 1 meal a day if that. We discussed the importance of appropriate nutrition to allow her body to heal. I also offered her nutrition referral. We agreed we would like to focus on the vascular referral first. To return to the wound healing center in 1 week or call sooner if she has any questions or concerns.
[2020-01-10 09:48] VITALS: RESP 16; TEMP 35.9; BMI 32.8
--- NOTE | 2020-01-10 12:13 | PCM.WC.PN ---
(1) Chronic ulcer of left foot with necrosis of bone Status: Chronic Current Visit: Yes Code(s): L97.524 - Non-pressure chronic ulcer of other part of left foot with necrosis of bone (2) Delayed wound healing Status: Chronic Current Visit: Yes Code(s): T14.8XXD - Other injury of unspecified body region, subsequent encounter (3) Peripheral arterial occlusive disease Status: Chronic Current Visit: Yes Code(s): I77.9 - Disorder of arteries and arterioles, unspecified (4) Smoking addiction Status: Chronic Current Visit: Yes Code(s): F17.200 - Nicotine dependence, unspecified, uncomplicated (5) Malnutrition Status: Chronic Current Visit: Yes Code(s): E46 - Unspecified protein-calorie malnutrition (6) Non-compliance Status: Chronic Current Visit: Yes Code(s): Z91.19 - Patient's noncompliance with other medical treatment and regimen Type of Wound Date of Service: 01/10/20 Chief Complaint: Follow-up on a left dorsal foot nonhealing ulcer History of Wound: This is a 54-year-old white female that in approximately December 2016 had chronic foot condition in which she recently underwent recent operating room debridement with bone biopsy and application of advanced wound healing product to left foot at [facility]. Prior to her transfer of care to [facility] she has been undergoing a comprehensive wound healing plan at a different facility including vascular intervention, surgical debridements, infectious disease management, ect. Per other record review it appears that she had prior critical limb ischemia and had vascular intervention in October 2017 including thrombolytic therapy with percutaneous angioplasty to the left anterior tibial, popliteal, and superficial femoral arteries. It is noted her past medical history on file includes chronic obstructive pulmonary disease, DVT and chronic Coumadin, hyperlipidemia, and peripheral vascular disease. She relates her vascular surgeon has moved out of the state and she no longer would like to follow-up at that other facility. She is amendable to go for a local vascular surgery referral. This has not been completed yet. She has been offloading as advised. She denies fever, chill, nausea, vomiting, loss of appetite. She continues to smoke on a daily basis. She continues to avoid wearing her cam walker as recommended. She does not recall a lot of her prior treatment interventions and it is challenging to remember information. Progress of Wound: Stable -improving at distal aspect - Physical Exam Vital Signs Temp Pulse Resp BP 96.6 F L 78 16 110/72 01/10/20 09:48 01/03/20 09:50 01/10/20 09:48 01/03/20 09:50 General: Alert, Oriented x3, Cooperative, No apparent distress Extremities: No cyanosis, Capillary Refill Less than 3 Seconds, No Calf Tenderness, Diminished Peripheral Pulses, Edema - Mild Skin: Ulcer/ Wound - No purulence, erythema, streaking, odor, infection. There is no wound discoloration and the distal aspect continues to granulate and appears healthy. The proximal aspect has continued exposed bone and joint which is white, healthy, and firm. The adjacent skin is hairless and atrophic Wound Measurements and Assessment WC - Nurse 1 - General Ulcer Measurement Start: 01/03/20 09:50 Freq: Status: Active Protocol: Activity Type Activity Date Activity User E-Sign Co-Sign Detail Recorded Client Recorded Date Recorded By Document 01/10/20 09:48 [id number] 01/10/20 09:52 01/10/20 09:48 Wound Center Nurse 1 [Ulcer Assessment] 1. L foot dorsal -Combined with other wound No -Current Size (cm) - Length 1.3 -Current Size (cm) - Width 1.1 -Current Size (cm) - Depth 0.5 -Total Square Cm 1.43 -Photo Taken No -Epithelialization None Present -Tunneling No -Undermining/Tunneling No -Circular Undermining No -Exudate Amt Small -Exudate Type Serous -Wound Margin Distinct, Outline Attached -Granulation Amt Small (1-33%) -Granulation Quality Red -Slough/Fibrin Yes -Necrosis Amt Large (67-100%) -Necrotic Tissue Type Adherent Slough -Structure Exposed Bone -Texture (Shital-wound Skin Appearance) Assessed, Scarring -Moisture (Shital-wound Skin Appearance Assessed,Dry/ ) Scaly -Color (Shital-wound Skin Appearance) Assessed -Temperature (Shital-wound Skin No Abnormality Appearance) (Pt Warm) -Tenderness on Palpation (Shital-wound No Skin Appearance) -Ulcer Cleansing Rinsed/ Irrigated with Saline -Foul Odor after Cleansing No -Anesthetic Used 4% Lidocaine Solution WC - Nurse 2 - General Ulcer CM Notes Start: 01/03/20 09:50 Freq: Status: Active Protocol: Activity Type Activity Date Activity User E-Sign Co-Sign Detail Recorded Client Recorded Date Recorded By Document 01/10/20 10:23 [id number] 01/10/20 10:25 01/10/20 10:23 Wound Center Nurse 2 [Procedure/Treatment] -Time 10:24 -Correct Patient Yes -Correct Side, Site, Position Yes -Correct Procedure Yes -Procedure Performed Yes -Type of Procedure Debridement -Clinical Debridement Subcutaneous -Post Debridement Size (cm) - Length 1.3 -Post Debridement Size (cm) - Width 1.2 -Post Debridement Size (cm) - Depth 0.5 -Total Square Cm 1.56 -Wound/Ulcer Outcome Not Healed -Ulcer Cleansing Rinsed/ Irrigated with Saline -Foul Odor after Cleansing No -Bioengineered Tissue No -Bleeding Controlled with Pressure -Offloading Yes -Type of Offloading Knee Walker -Treatment Response Procedure Tolerated Well [See Physician Procedure note for Specifics] Pain Scale: 0-10 Numeric [Pain] -Is Patient Pain Free? Yes Musculoskeletal: No Tenderness to Palpation of Joints or Extremities, Muscle Wasting, - - Transmetatarsal amputation Neurological: - - Lack of normal epicritic sensation light touch Psych/Mental Status: Normal Affect, Appropriate, Depressed - Tearful Debridement Note Post-Debridement Measurements/Treatment WC - Nurse 2 - General Ulcer CM Notes Start: 01/03/20 09:50 Freq: Status: Active Protocol: Activity Type Activity Date Activity User E-Sign Co-Sign Detail Recorded Client Recorded Date Recorded By Document 01/03/20 10:01 [id number] 01/03/20 10:13 Document 01/10/20 10:23 [id number] 01/10/20 10:25 01/03/20 01/10/20 10:01 10:23 Wound Center Nurse 2 1. L foot dorsal -Time 10:01 10:24 -Correct Patient Yes Yes -Correct Side, Site, Position Yes Yes -Correct Procedure Yes Yes -Procedure Performed Yes Yes -Type of Procedure Debridement Debridement -Clinical Debridement Subcutaneous Subcutaneous -Post Debridement Size (cm) - Length 2.0 1.3 -Post Debridement Size (cm) - Width 1 1.2 -Post Debridement Size (cm) - Depth 0.7 0.5 -Total Square Cm 2.0 1.56 -Wound/Ulcer Outcome Not Healed Not Healed -Ulcer Cleansing Rinsed/ Rinsed/ Irrigated with Irrigated with Saline Saline -Foul Odor after Cleansing No No -Bioengineered Tissue No No -Bleeding Controlled with Pressure Pressure -Offloading No Yes -Type of Offloading Knee Walker -Treatment Response Procedure Procedure Tolerated Well Tolerated Well Pain Scale: 0-10 Numeric Is Patient Pain Free? Yes Yes Wound debrided: dorsal foot Laterality: Left Type of Debridement: Excisional debridement Anesthesia Used: 5% Lidocaine Gel Depth: in the subcutaneous layer Percentage of wound debrided: 100 Instrument Used: #15 blade Tissue Removed: Fibrous, devitalized subcutaneous, biofilm, slough Severity: Fat Layer Exposed Amount of bleeding with debridement: Mild Bleeding Controlled with: Pressure Patient tolerated procedure well Assessment/Plan Active Problems Non-compliance (Chronic) Delayed wound healing (Chronic) Peripheral arterial occlusive disease (Chronic) Smoking addiction (Chronic) Malnutrition (Chronic) 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 Chronic osteomyelitis left foot. Peripheral arterial occlusive disease with prior intervention in 2017. Long-term use of Coumadin. Chronic DVT. Malnutrition suspected. Left transmetatarsal amputation with delayed healing Plan: I reviewed and discussed with case. Her recent surgical intervention is noted from 11/24/2018. The devitalized tissue was excised including bone and this was sent for pathology and microbiology and an additional deeper bone biopsy with the Jamshidi needle was obtained. the microbiology report is negative for bacterial growth. The pathology findings were also negative for osteomyelitis. I do not recommend antibiotics at this time. There are no local signs of infection today. Debridement was performed as noted in the clinical panel. This was further covered with Aquacel. It is noted she had recent application of advanced wound healing product that was placental derived. 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 She is not being covered appropriately for this in the outpatient setting we will consider if there are additional operating room opportunities. She is amendable to proceed with this if there is better coverage under local anesthetic on a same-day surgery basis. It was confirmed the coverage is the same in both scenarios and therefore we will not proceed with this plan at this time. At this time, I recommend the application of a wound VAC such as a jazmine. This is medically necessary for limb salvage and insurance prior authorization will be completed. She is at risk for continued limb loss condition. Prior authorization will be started and I am hopeful we will be able to start this next week. It is okay for her to transition to a cam walker at home but to remain nonweightbearing most of the time. We discussed that it is okay for her to put her foot down for partial weightbearing for transfers and for limited walking in house. One of the main purpose is wearing a cam walker is to reduce tension applied on the adjacent ulcer skin to help promote healing. She is also advised to be cautious and avoiding strap pressure over the ulcer site. She is previously known to infectious disease and input is greatly appreciated. She is not demonstrating appropriate compliance with a cam walker immobilization or smoking cessation. We discussed the accountability needed from her at home in order to see more progress. . Her history of peripheral vascular disease with critical limb ischemia and prior intervention 2017 as noted. An updated arterial study was ordered previously to check her current status. The noninvasive arterial studies were completed on October 27, 2019 in which a left KEARA of 0.72 is noted without gross impairment of perfusion. I recommend referral to Dr. Gomez at this time and she is amendable to proceed. She is encouraged to proceed forward with the scheduled appointment. To maintain a healthy diet that is well-balanced and have adequate protein to optimize healing. It is noted she reports she drinks coffee a lot and only eats 1 meal a day if that. We discussed the importance of appropriate nutrition to allow her body to heal. I also offered her nutrition referral. We agreed we would like to focus on the vascular referral first. To return to the wound healing center in 1 week or call sooner if she has any questions or concerns.
[2020-01-17 11:16] VITALS: BP 132/79; PULSE 83; RESP 16; TEMP 36.3; BMI 32.8
--- NOTE | 2020-01-17 16:49 | PCM.WC.PN ---
(1) Chronic ulcer of left foot with necrosis of bone Status: Chronic Current Visit: Yes Code(s): L97.524 - Non-pressure chronic ulcer of other part of left foot with necrosis of bone (2) Delayed wound healing Status: Chronic Current Visit: Yes Code(s): T14.8XXD - Other injury of unspecified body region, subsequent encounter (3) Peripheral arterial occlusive disease Status: Chronic Current Visit: Yes Code(s): I77.9 - Disorder of arteries and arterioles, unspecified (4) Smoking addiction Status: Chronic Current Visit: Yes Code(s): F17.200 - Nicotine dependence, unspecified, uncomplicated (5) Malnutrition Status: Chronic Current Visit: Yes Code(s): E46 - Unspecified protein-calorie malnutrition (6) Non-compliance Status: Chronic Current Visit: Yes Code(s): Z91.19 - Patient's noncompliance with other medical treatment and regimen Type of Wound Date of Service: 01/17/20 Chief Complaint: Follow-up on a left dorsal foot nonhealing ulcer History of Wound: This is a [age]-year-old white female that in approximately December 2016 had chronic foot condition in which she recently underwent recent operating room debridement with bone biopsy and application of advanced wound healing product to left foot at [facility]. Prior to her transfer of care to [facility] she has been undergoing a comprehensive wound healing plan at a different facility including vascular intervention, surgical debridements, infectious disease management, ect. Per other record review it appears that she had prior critical limb ischemia and had vascular intervention in October 2017 including thrombolytic therapy with percutaneous angioplasty to the left anterior tibial, popliteal, and superficial femoral arteries. It is noted her past medical history on file includes chronic obstructive pulmonary disease, DVT and chronic Coumadin, hyperlipidemia, and peripheral vascular disease. She relates her vascular surgeon has moved out of the state and she no longer would like to follow-up at that other facility. She is amendable to go for a local vascular surgery referral. She follow-up with Dr. Gomez and has additional testing and surgical intervention planned. She is very happy with her tentative plan. She has been offloading as advised. She denies fever, chill, nausea, vomiting, loss of appetite. She continues to smoke on a daily basis. She continues to avoid wearing her cam walker as recommended. Progress of Wound: Stable -improving at distal aspect - Physical Exam Vital Signs Temp Pulse Resp BP 97.4 F L 83 16 132/79 H 01/17/20 11:16 01/17/20 11:16 01/17/20 11:16 01/17/20 11:16 General: Alert, Oriented x3, Cooperative, No apparent distress Extremities: No cyanosis, Capillary Refill Less than 3 Seconds, No Calf Tenderness, Diminished Peripheral Pulses, Edema Skin: Ulcer/ Wound - No purulence, erythema, streaking, odor, infection. There is still exposed bone and this is white and healthy in appearance. The adjacent skin is atrophic and hairless Wound Measurements and Assessment WC - Nurse 1 - General Ulcer Measurement Start: 01/03/20 09:50 Freq: Status: Active Protocol: Activity Type Activity Date Activity User E-Sign Co-Sign Detail Recorded Client Recorded Date Recorded By Document 01/17/20 11:16 [facility] [id number] 01/17/20 11:20 [facility] 01/17/20 11:16 Wound Center Nurse 1 [Ulcer Assessment] 1. L foot dorsal -Combined with other wound No -Current Size (cm) - Length 1.3 -Current Size (cm) - Width 0.7 -Current Size (cm) - Depth 0.4 -Total Square Cm 0.91 -Photo Taken No -Epithelialization None Present -Tunneling No -Undermining/Tunneling No -Circular Undermining No -Exudate Amt Small -Exudate Type Serosanguineous -Wound Margin Distinct, Outline Attached -Granulation Amt Small (1-33%) -Granulation Quality Red -Slough/Fibrin Yes -Necrosis Amt Large (67-100%) -Necrotic Tissue Type Adherent Slough -Texture (Shital-wound Skin Appearance) Assessed,Callus ,Scarring -Moisture (Shital-wound Skin Appearance Assessed,Dry/ ) Scaly -Temperature (Shital-wound Skin No Abnormality Appearance) (Pt Warm) -Tenderness on Palpation (Shital-wound No Skin Appearance) -Ulcer Cleansing Rinsed/ Irrigated with Saline -Foul Odor after Cleansing No -Anesthetic Used 5% Lidocaine Gel WC - Nurse 2 - General Ulcer CM Notes Start: 01/03/20 09:50 Freq: Status: Active Protocol: Activity Type Activity Date Activity User E-Sign Co-Sign Detail Recorded Client Recorded Date Recorded By Document 01/17/20 11:33 [id number] 01/17/20 11:39 01/17/20 11:33 Wound Center Nurse 2 [Procedure/Treatment] -Time 11:33 -Correct Patient Yes -Correct Side, Site, Position Yes -Correct Procedure Yes -Procedure Performed Yes -Type of Procedure Debridement -Clinical Debridement Subcutaneous -Post Debridement Size (cm) - Length 1.4 -Post Debridement Size (cm) - Width 0.8 -Post Debridement Size (cm) - Depth 0.4 -Total Square Cm 1.12 -Wound/Ulcer Outcome Not Healed -Ulcer Cleansing Rinsed/ Irrigated with Saline -Foul Odor after Cleansing No -Bioengineered Tissue No -Bleeding Controlled with Pressure -Offloading No -Treatment Response Procedure Tolerated Well [See Physician Procedure note for Specifics] Pain Scale: 0-10 Numeric [Pain] -Is Patient Pain Free? Yes Musculoskeletal: No Tenderness to Palpation of Joints or Extremities, Muscle Wasting Neurological: - - Lack of full epicritic sensation light touch Psych/Mental Status: Normal Affect, Appropriate Debridement Note Post-Debridement Measurements/Treatment WC - Nurse 2 - General Ulcer CM Notes Start: 01/03/20 09:50 Freq: Status: Active Protocol: Activity Type Activity Date Activity User E-Sign Co-Sign Detail Recorded Client Recorded Date Recorded By Document 01/03/20 10:01 [id number] 01/03/20 10:13 Document 01/10/20 10:23 [id number] 01/10/20 10:25 Document 01/17/20 11:33 [id number] 01/17/20 11:39 01/03/20 01/10/20 01/17/20 10:01 10:23 11:33 Wound Center Nurse 2 1. L foot dorsal -Time 10:01 10:24 11:33 -Correct Patient Yes Yes Yes -Correct Side, Site, Position Yes Yes Yes -Correct Procedure Yes Yes Yes -Procedure Performed Yes Yes Yes -Type of Procedure Debridement Debridement Debridement -Clinical Debridement Subcutaneous Subcutaneous Subcutaneous -Post Debridement Size (cm) - Length 2.0 1.3 1.4 -Post Debridement Size (cm) - Width 1 1.2 0.8 -Post Debridement Size (cm) - Depth 0.7 0.5 0.4 -Total Square Cm 2.0 1.56 1.12 -Wound/Ulcer Outcome Not Healed Not Healed Not Healed -Ulcer Cleansing Rinsed/ Rinsed/ Rinsed/ Irrigated with Irrigated with Irrigated with Saline Saline Saline -Foul Odor after Cleansing No No No -Bioengineered Tissue No No No -Bleeding Controlled with Pressure Pressure Pressure -Offloading No Yes No -Type of Offloading Knee Walker -Treatment Response Procedure Procedure Procedure Tolerated Well Tolerated Well Tolerated Well Pain Scale: 0-10 Numeric Is Patient Pain Free? Yes Yes Yes Wound debrided: dorsal foot Laterality: Left Type of Debridement: Selective debridement Anesthesia Used: 5% Lidocaine Gel Depth: Down to and including healthy tissue Percentage of wound debrided: 100 Instrument Used: #15 blade Tissue Removed: fibrous, devitalized tissue, biofilm, slough Severity: Necrosis of Bone Amount of bleeding with debridement: Mild Bleeding Controlled with: Pressure Patient tolerated procedure well Assessment/Plan Active Problems Non-compliance (Chronic) Delayed wound healing (Chronic) Peripheral arterial occlusive disease (Chronic) Smoking addiction (Chronic) Malnutrition (Chronic) 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 Chronic osteomyelitis left foot. Peripheral arterial occlusive disease with prior intervention in 2017. Long-term use of Coumadin. Chronic DVT. Malnutrition suspected. Left transmetatarsal amputation with delayed healing Plan: I reviewed and discussed with case. Her recent surgical intervention is noted from 11/24/2018. The devitalized tissue was excised including bone and this was sent for pathology and microbiology and an additional deeper bone biopsy with the Jamshidi needle was obtained. the microbiology report is negative for bacterial growth. The pathology findings were also negative for osteomyelitis. I do not recommend antibiotics at this time. There are no local signs of infection today. Debridement was performed as noted in the clinical panel. This was further covered with Aquacel. It is noted she had recent application of advanced wound healing product that was placental derived. 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 She is amendable to proceed with this if there is better coverage under local anesthetic on a same-day surgery basis. It was confirmed the coverage is the same in both scenarios and therefore we will not proceed with this plan at this time. At this time, I recommend the application of a wound VAC such as a jazmine. This is medically necessary for limb salvage and insurance prior authorization will be completed. She is at risk for continued limb loss condition. Prior authorization has been started and this is pending. It is okay for her to transition to a cam walker at home but to remain nonweightbearing most of the time. We discussed that it is okay for her to put her foot down for partial weightbearing for transfers and for limited walking in house. One of the main purpose is wearing a cam walker is to reduce tension applied on the adjacent ulcer skin to help promote healing. She is also advised to be cautious and avoiding strap pressure over the ulcer site. She is previously known to infectious disease and input is greatly appreciated. She is not demonstrating appropriate compliance with a cam walker immobilization or smoking cessation. We discussed the accountability needed from her at home in order to see more progress. . Her history of peripheral vascular disease with critical limb ischemia and prior intervention 2017 as noted. An updated arterial study was ordered previously to check her current status. The noninvasive arterial studies were completed on October 27, 2019 in which a left KEARA of 0.72 is noted without gross impairment of perfusion. I recommend referral to Dr. Gomez at this time and she is amendable to proceed. She followed up with her vascular surgery referral and plans to undergo additional testing and intervention. Dr. Gomez's evaluation greatly appreciated. To maintain a healthy diet that is well-balanced and have adequate protein to optimize healing. It is noted she reports she drinks coffee a lot and only eats 1 meal a day if that. We discussed the importance of appropriate nutrition to allow her body to heal. I also offered her nutrition referral. We agreed we would like to focus on the vascular referral first. To return to the wound healing center in 1 week or call sooner if she has any questions or concerns.
[2020-01-24 11:08] VITALS: BP 131/75; PULSE 70; RESP 18; TEMP 37.2; BMI 32.8
--- NOTE | 2020-01-24 23:32 | PN.PCM_ITS ---
(1) Chronic ulcer of left foot with necrosis of bone Status: Chronic Current Visit: Yes Code(s): L97.524 - Non-pressure chronic ulcer of other part of left foot with necrosis of bone (2) Delayed wound healing Status: Chronic Current Visit: Yes Code(s): T14.8XXD - Other injury of unspecified body region, subsequent encounter (3) Peripheral arterial occlusive disease Status: Chronic Current Visit: Yes Code(s): I77.9 - Disorder of arteries and arterioles, unspecified (4) Smoking addiction Status: Chronic Current Visit: Yes Code(s): F17.200 - Nicotine dependence, unspecified, uncomplicated (5) Malnutrition Status: Chronic Current Visit: Yes Code(s): E46 - Unspecified protein- calorie malnutrition (6) Non-compliance Status: Chronic Current Visit: Yes Code(s): Z91.19 - Patient's noncompliance with other medical treatment and regimen Type of Wound Date of Service: 01/24/20 Chief Complaint: Follow-up on a left dorsal foot nonhealing ulcer History of Wound: This is a 55-year-old white female that in approximately December 2016 had chronic foot condition in which she recently underwent recent operating room debridement with bone biopsy and application of advanced wound healing product to left foot at [facility]. Prior to her transfer of care to [facility] she has been undergoing a comprehensive wound healing plan at a different facility including vascular intervention, surgical debridements, infectious disease management, ect. Per other record review it appears that she had prior critical limb ischemia and had vascular intervention in October 2017 including thrombolytic therapy with percutaneous angioplasty to the left anterior tibial, popliteal, and superficial femoral arteries. It is noted her past medical history on file includes chronic obstructive pulmonary disease, DVT and chronic Coumadin, hyperlipidemia, and peripheral vascular disease. She relates her vascular surgeon has moved out of the state and she no longer would like to follow-up at that other facility. She is amendable to go for a local vascular surgery referral. She follow-up with Dr. Gomez and has additional testing and surgical intervention planned. She is very happy with her tentative plan. She has been offloading as advised. She denies fever, chill, nausea, vomiting, loss of appetite. She continues to smoke on a daily basis. She continues to avoid wearing her cam walker as recommended. Progress of Wound: Stable -improving at distal aspect - Physical Exam Vital Signs Temp Pulse Resp BP 99.0 F 70 18 131/75 H 01/24/20 11:08 01/24/20 11:08 01/24/20 11:08 01/24/20 11:08 General: Alert, Oriented x3, Cooperative, No apparent distress Extremities: No cyanosis, Capillary Refill Less than 3 Seconds, No Calf Tenderness, Diminished Peripheral Pulses, Edema - Mild Skin: Ulcer/ Wound - No purulence, erythema, string, odor, infection. The adjacent skin is hairless, thin, and without hair. She does have some exposed bone at the proximal aspect of the ulcer bed however this is reduced compared to prior visits. There is some peripheral granulation noted distally Wound Measurements and Assessment WC - Nurse 1 - General Ulcer Measurement Start: 01/03/20 09:50 Freq: Status: Active Protocol: Activity Type Activity Date Activity User E-Sign Co-Sign Detail Recorded Client Recorded Date Recorded By Document 01/24/20 11:08 DV [id number] 01/24/20 11:17 DV 01/24/20 11:08 Wound Center Nurse 1 [Ulcer Assessment] 1. L foot dorsal -Combined with other wound No -Current Size (cm) - Length 1.0 -Current Size (cm) - Width 0.4 -Current Size (cm) - Depth 0.5 -Total Square Cm 0.40 -Photo Taken No -Epithelialization None Present -Tunneling No -Undermining/Tunneling No -Circular Undermining No -Classification - Thickness Full Thickness without Exposed Support Structure -Exudate Amt Large -Exudate Type Yellow/Green -Wound Margin Thickened -Granulation Amt None Present (0 %) -Granulation Quality N/A -Slough/Fibrin No -Necrosis Amt Large (67-100%) -Necrotic Tissue Type Adherent Slough -Structure Exposed Bone,None/ Limited to Skin Breakdown -Texture (Shital-wound Skin Appearance) Assessed, Scarring -Moisture (Shital-wound Skin Appearance Assessed,Dry/ ) Scaly -Color (Shital-wound Skin Appearance) No Abnormality, Assessed -Temperature (Shital-wound Skin No Abnormality Appearance) (Pt Warm) -Tenderness on Palpation (Shital-wound No Skin Appearance) -Ulcer Cleansing Rinsed/ Irrigated with Saline -Foul Odor after Cleansing No -Anesthetic Used 4% Lidocaine Solution WC - Nurse 2 - General Ulcer CM Notes Start: 01/03/20 09:50 Freq: Status: Active Protocol: Activity Type Activity Date Activity User E-Sign Co-Sign Detail Recorded Client Recorded Date Recorded By Document 01/24/20 11:28 [id number] 01/24/20 11:30 01/24/20 11:28 Wound Center Nurse 2 [Procedure/Treatment] -Time 11:30 -Correct Patient Yes -Correct Side, Site, Position Yes -Correct Procedure Yes -Procedure Performed Yes -Type of Procedure Debridement -Clinical Debridement Subcutaneous -Post Debridement Size (cm) - Length 1 -Post Debridement Size (cm) - Width 0.5 -Post Debridement Size (cm) - Depth 0.5 -Total Square Cm 0.5 -Wound/Ulcer Outcome Not Healed -Ulcer Cleansing Rinsed/ Irrigated with Saline -Foul Odor after Cleansing No -Bioengineered Tissue No -Bleeding Controlled with Pressure -Offloading Yes -Type of Offloading Knee Walker -Treatment Response Procedure Tolerated Well [See Physician Procedure note for Specifics] Pain Scale: 0-10 Numeric [Pain] -Is Patient Pain Free? Yes Musculoskeletal: No Tenderness to Palpation of Joints or Extremities, Muscle Wasting, - - Transmetatarsal amputation left Neurological: Sensory exam intact to light touch and pain, - Psych/Mental Status: Normal Affect, Appropriate Debridement Note Post-Debridement Measurements/Treatment WC - Nurse 2 - General Ulcer CM Notes Start: 01/03/20 09:50 Freq: Status: Active Protocol: Activity Type Activity Date Activity User E-Sign Co-Sign Detail Recorded Client Recorded Date Recorded By Document 01/03/20 10:01 [id number] 01/03/20 10:13 Document 01/10/20 10:23 [id number] 01/10/20 10:25 Document 01/17/20 11:33 [id number] 01/17/20 11:39 Document 01/24/20 11:28 [id number] 01/24/20 11:30 01/03/20 01/10/20 01/17/20 10:01 10:23 11:33 Wound Center Nurse 2 1. L foot dorsal -Time 10:01 10:24 11:33 -Correct Patient Yes Yes Yes -Correct Side, Site, Position Yes Yes Yes -Correct Procedure Yes Yes Yes -Procedure Performed Yes Yes Yes -Type of Procedure Debridement Debridement Debridement -Clinical Debridement Subcutaneous Subcutaneous Subcutaneous -Post Debridement Size (cm) - Length 2.0 1.3 1.4 -Post Debridement Size (cm) - Width 1 1.2 0.8 -Post Debridement Size (cm) - Depth 0.7 0.5 0.4 -Total Square Cm 2.0 1.56 1.12 -Wound/Ulcer Outcome Not Healed Not Healed Not Healed -Ulcer Cleansing Rinsed/ Rinsed/ Rinsed/ Irrigated with Irrigated with Irrigated with Saline Saline Saline -Foul Odor after Cleansing No No No -Bioengineered Tissue No No No -Bleeding Controlled with Pressure Pressure Pressure -Offloading No Yes No -Type of Offloading Knee Walker -Treatment Response Procedure Procedure Procedure Tolerated Well Tolerated Well Tolerated Well Pain Scale: 0-10 Numeric Is Patient Pain Free? Yes Yes Yes 01/24/20 11:28 Wound Center Nurse 2 1. L foot dorsal -Time 11:30 -Correct Patient Yes -Correct Side, Site, Position Yes -Correct Procedure Yes -Procedure Performed Yes -Type of Procedure Debridement -Clinical Debridement Subcutaneous -Post Debridement Size (cm) - Length 1 -Post Debridement Size (cm) - Width 0.5 -Post Debridement Size (cm) - Depth 0.5 -Total Square Cm 0.5 -Wound/Ulcer Outcome Not Healed -Ulcer Cleansing Rinsed/ Irrigated with Saline -Foul Odor after Cleansing No -Bioengineered Tissue No -Bleeding Controlled with Pressure -Offloading Yes -Type of Offloading Knee Walker -Treatment Response Procedure Tolerated Well Pain Scale: 0-10 Numeric Is Patient Pain Free? Yes Wound debrided: dorsal foot Laterality: Left Type of Debridement: Excisional debridement Anesthesia Used: 5% Lidocaine Gel Depth: in the subcutaneous layer Percentage of wound debrided: 100 Instrument Used: #15 blade Tissue Removed: fibrous, devitalized subcutaneous, biofilm, slough Severity: Fat Layer Exposed Amount of bleeding with debridement: Mild Bleeding Controlled with: Pressure Patient tolerated procedure well Assessment/Plan Active Problems Non-compliance (Chronic) Delayed wound healing (Chronic) Peripheral arterial occlusive disease (Chronic) Smoking addiction (Chronic) Malnutrition (Chronic) 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 Chronic osteomyelitis left foot. Peripheral arterial occlusive disease with prior intervention in 2017. Long-term use of Coumadin. Chronic DVT. Malnutrition suspected. Left transmetatarsal amputation with delayed healing Plan: I reviewed and discussed with case. Her recent surgical intervention is noted from 11/24/2018. The devitalized tissue was excised including bone and this was sent for pathology and microbiology and an additional deeper bone biopsy with the Jamshidi needle was obtained. the microbiology report is negative for bacterial growth. The pathology findings were also negative for osteomyelitis. I do not recommend antibiotics at this time. There are no local signs of infection today. Debridement was performed as noted in the clinical panel. This was further covered with Aquacel. It is noted she had recent application of advanced wound healing product that was placental derived. 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 She is amendable to proceed with this if there is better coverage under local anesthetic on a same-day surgery basis. It was confirmed the coverage is the same in both scenarios and therefore we will not proceed with this plan at this time. At this time, I recommend the application of a wound VAC such as a jazmine. This is medically necessary for limb salvage and insurance prior authorization will be completed. She is at risk for continued limb loss condition. Prior authorization has been performed and this service was denied by insurance. We will continue with our current wound care plan. It is okay for her to transition to a cam walker at home but to remain nonweightbearing most of the time. We discussed that it is okay for her to put her foot down for partial weightbearing for transfers and for limited walking in house. One of the main purpose is wearing a cam walker is to reduce tension applied on the adjacent ulcer skin to help promote healing. She is also advised to be cautious and avoiding strap pressure over the ulcer site. She is previously known to infectious disease and input is greatly appreciated. She is not demonstrating appropriate compliance with a cam walker immobilization or smoking cessation. We discussed the accountability needed from her at home in order to see more progress. . Her history of peripheral vascular disease with critical limb ischemia and prior intervention 2017 as noted. An updated arterial study was ordered previously to check her current status. The noninvasive arterial studies were completed on October 27, 2019 in which a left KEARA of 0.72 is noted without gross impairment of perfusion. I recommend referral to Dr. Gomez at this time and she is amendable to proceed. She followed up with her vascular surgery referral and plans to undergo additional testing and intervention. Dr. Gomez's evaluation greatly appreciated. She was approved to get a CT performed for Dr. Gomez's surgical planning and will proceed as he recommends. To maintain a healthy diet that is well-balanced and have adequate protein to optimize healing. It is noted she reports she drinks coffee a lot and only eats 1 meal a day if that. We discussed the importance of appropriate nutrition to allow her body to heal. I also offered her nutrition referral. We agreed we would like to focus on the vascular referral first. To return to the wound healing center in 1 week or call sooner if she has any questions or concerns.
== END 2020-01-27 23:59 ==
LOC: WC 11:00
PROVIDERS: Family Provider Family Medicine; PCP Family Medicine; Referring Provider Podiatrist; Visit Provider Podiatrist
DX: I73.9 Peripheral vascular disease, unspecified (principal); F17.200 Nicotine dependence, unspecified, uncomplicated; E78.5 Hyperlipidemia, unspecified; J44.9 Chronic obstructive pulmonary disease, unspecified; L97.522 Non-pressure chronic ulcer of other part of left foot with fat layer exposed; M86.672 Other chronic osteomyelitis, left ankle and foot; L97.524 Non-pressure chronic ulcer of other part of left foot with necrosis of bone; Z91.19 Patient's noncompliance with other medical treatment and regimen; Z86.718 Personal history of other venous thrombosis and embolism; Z79.01 Long term (current) use of anticoagulants
CPT/HCPCS: 11042

== ENCOUNTER → 2020-01-31 11:45 | Outpatient (CLI) | payer BC, OTHER, SELFPAY ==
[2020-01-17 11:16] VITALS: BMI 32.8
[2020-01-31 11:14] VITALS: BMI 32.8
--- NOTE | 2020-01-31 11:51 | CT_ITS ---
STUDY: CTA OF THE ABDOMINAL AORTA AND BILATERAL LOWER EXTREMITIES REASON FOR EXAM: Female, 55 years old. ATHEROSCLEROSIS OF ARTERIES,LEG ULCERS RADIATION DOSAGE (If Supplied By Facility): CTDIvol = ( 7.96 ) mGy, DLP = ( 1297.03 ) mGycm TECHNIQUE: Axial CT angiography multi-detector data acquisition was obtained from the diaphragm to the feet following intravenous administration of 100 CC ISOVUE 370. Axial images and MIP images were reconstructed from the axial data set. Post-processing of the angiographic images was performed, with multiplanar reformation and 3D reconstruction. Individualized dose optimization techniques were used for this CT. TECHNICAL QUALITY: Good COMPARISON: None. Descriptors of Narrowing: None (0%) Mild (< 50%) Moderate (50-70%) Severe (70-90%) Subtotal/Total Occlusion (90-100%) Non-Evaluable (technically non-diagnostic FINDINGS: Abdominal aorta: Mild plaque of the infrarenal aorta mostly at the bifurcation without aneurysm, dissection or significant narrowing of the aortic lumen. Celiac and superior mesenteric arteries: No demonstrated narrowing. Inferior mesenteric artery: No demonstrated narrowing. Right renal artery(arteries): No demonstrated narrowing. Left renal artery(arteries): No demonstrated narrowing. Right common iliac artery: Mild plaque with less than 50% stenosis. Right external iliac artery: Mild plaque with less than 50% stenosis. Right internal iliac artery: Mild plaque with less than 50% stenosis. Left common iliac artery: Mild plaque with less than 50% stenosis. Left external iliac artery: Mild plaque with less than 50% stenosis. Left internal iliac artery: Mild plaque with less than 50% stenosis. RIGHT LOWER EXTREMITY Right common femoral artery: Mild plaque with less than 50% stenosis. Right profundus femoris: No demonstrated narrowing. Right superficial femoral: No demonstrated narrowing. Right popliteal artery: No demonstrated narrowing. Right tibioperoneal trunk: No demonstrated narrowing. Right anterior tibial artery: No demonstrated narrowing. Right posterior tibial artery: No demonstrated narrowing. Right peroneal artery: No demonstrated narrowing. LEFT LOWER EXTREMITY Left common femoral artery: Mild plaque with less than 50% stenosis. Left profundus femoris: No demonstrated narrowing. Left superficial femoral: No demonstrated narrowing. Left popliteal artery: No demonstrated narrowing. Left tibioperoneal trunk: No demonstrated narrowing. Left anterior tibial artery: Occluded proximally. Left posterior tibial artery: Occluded proximally. Distal reconstitution. Left peroneal artery: Patent to the ankle. Osteopenia left foot status post toe amputations. Ulceration of the foot stump. Calcified granuloma of the spleen. CT/CTA Abd w/Runoff W/WO Contrast IMPRESSION: Mild to moderate calcified plaque of the infrarenal aorta, mostly at the bifurcation without significant stenosis. Negative for a significant stenosis of the iliac arteries. Right lower extremity. Mild plaque of the common femoral artery with a patent profunda artery. Minimal superficial femoral artery with a patent popliteal artery and tibial peroneal trunk with 3 vessel runoff to the foot. Left lower extremity: Mild plaque of the common femoral artery with a patent profunda artery. Normal superficial femoral artery popliteal artery and tibioperoneal trunk. Normal peroneal artery to the foot and ankle. Anterior and posterior tibial arteries are occluded proximally with some distal reconstitution of the posterior tibial artery. Osteopenic left foot status post toe amputations. Ulceration of the stump. Electronically Signed: Jeimy Jones MD at 21:52 EST , Service support ,
== END ==
LOC: CT 11:47
PROVIDERS: PCP Family Medicine; Referring Provider Surgery Vascular Surgery; Visit Provider Surgery Vascular Surgery
DX: I70.245 Atherosclerosis of native arteries of left leg with ulceration of other part of foot (principal)
CPT/HCPCS: 75635; Q9967

== ENCOUNTER 2020-02-21 11:30 | Outpatient (RCR) | payer BC, OTHER, SELFPAY ==
[2020-01-28 00:36] VITALS: BP 131/75; PULSE 70; RESP 18; TEMP 37.2
[2020-01-31 11:14] VITALS: BP 119/73; PULSE 70; RESP 18; TEMP 36.3; BMI 32.8
--- NOTE | 2020-01-31 12:22 | PCM.WC.PN ---
(1) Delayed wound healing Status: Chronic Code(s): T14.8XXD - Other injury of unspecified body region, subsequent encounter (2) Peripheral arterial occlusive disease Status: Chronic Code(s): I77.9 - Disorder of arteries and arterioles, unspecified (3) Smoking addiction Status: Chronic Code(s): F17.200 - Nicotine dependence, unspecified, uncomplicated (4) Malnutrition Status: Chronic Code(s): E46 - Unspecified protein-calorie malnutrition (5) Chronic ulcer of left foot with necrosis of bone Status: Chronic Code(s): L97.524 - Non-pressure chronic ulcer of other part of left foot with necrosis of bone Type of Wound Date of Service: 01/31/20 Chief Complaint: Follow-up on a left dorsal foot nonhealing ulcer History of Wound: This is a 55-year-old white female that in approximately December 2016 had chronic foot condition in which she recently underwent recent operating room debridement with bone biopsy and application of advanced wound healing product to left foot at [facility]. Prior to her transfer of care to [facility] she has been undergoing a comprehensive wound healing plan at a different facility including vascular intervention, surgical debridements, infectious disease management, ect. Per other record review it appears that she had prior critical limb ischemia and had vascular intervention in October 2017 including thrombolytic therapy with percutaneous angioplasty to the left anterior tibial, popliteal, and superficial femoral arteries. It is noted her past medical history on file includes chronic obstructive pulmonary disease, DVT and chronic Coumadin, hyperlipidemia, and peripheral vascular disease. She relates her vascular surgeon has moved out of the state and she no longer would like to follow-up at that other facility. She is amendable to go for a local vascular surgery referral. She follow-up with Dr. Gomez and has additional testing and surgical intervention planned. She is actually scheduled for CT arterial exam today and is tentatively scheduling for an angiogram in the near future. She is very happy with her tentative plan. She has been offloading as advised. She denies fever, chill, nausea, vomiting, loss of appetite. She continues to smoke on a daily basis. She is with her dog today. Progress of Wound: Stable -improving at distal aspect - Physical Exam Vital Signs Temp Pulse Resp BP 97.4 F L 70 18 119/73 01/31/20 11:14 01/31/20 11:14 01/31/20 11:14 01/31/20 11:14 General: Alert, Oriented x3, Cooperative, No apparent distress Extremities: No cyanosis, Capillary Refill Less than 3 Seconds, No Calf Tenderness, Diminished Peripheral Pulses, Edema, - - Transmetatarsal amputation stump Skin: Ulcer/ Wound - No purulence, erythema tension, odor, infection. There is no exposed bone to the dorsal foot. There is continued peripheral epithelialization noted at the distal aspect. There is no jackie eschar. The adjacent skin is hairless and atrophic Wound Measurements and Assessment WC - Nurse 1 - General Ulcer Measurement Start: 01/31/20 11:14 Freq: Status: Active Protocol: Activity Type Activity Date Activity User E-Sign Co-Sign Detail Recorded Client Recorded Date Recorded By Document 01/31/20 11:14 DL [id number] 01/31/20 11:19 DL 01/31/20 11:14 Wound Center Nurse 1 [Ulcer Assessment] 1. L foot dorsal -Current Size (cm) - Length 0.8 -Current Size (cm) - Width 0.6 -Current Size (cm) - Depth 0.3 -Total Square Cm 0.48 -Photo Taken No -Exudate Amt Small -Exudate Type Yellow/Green -Wound Margin Thickened -Granulation Amt Small (1-33%) -Granulation Quality Atco -Necrosis Amt Large (67-100%) -Necrotic Tissue Type Adherent Slough -Structure Exposed Bone -Texture (Shital-wound Skin Appearance) Scarring -Moisture (Shital-wound Skin Appearance No Abnormality ) -Color (Shital-wound Skin Appearance) Rubor -Temperature (Shital-wound Skin No Abnormality Appearance) (Pt Warm) -Tenderness on Palpation (Shital-wound No Skin Appearance) -Ulcer Cleansing Rinsed/ Irrigated with Saline -Foul Odor after Cleansing No -Anesthetic Used 4% Lidocaine Solution WC - Nurse 2 - General Ulcer CM Notes Start: 01/31/20 11:14 Freq: Status: Active Protocol: Activity Type Activity Date Activity User E-Sign Co-Sign Detail Recorded Client Recorded Date Recorded By Document 01/31/20 11:26 LUCIA [id number] 01/31/20 11:28 LUCIA 01/31/20 11:26 Wound Center Nurse 2 [Procedure/Treatment] -Time 11:27 -Correct Patient Yes -Correct Side, Site, Position Yes -Correct Procedure Yes -Procedure Performed Yes -Type of Procedure Debridement -Clinical Debridement Subcutaneous -Post Debridement Size (cm) - Length 1.0 -Post Debridement Size (cm) - Width 0.5 -Post Debridement Size (cm) - Depth 0.4 -Total Square Cm 0.50 -Wound/Ulcer Outcome Not Healed -Ulcer Cleansing Rinsed/ Irrigated with Saline -Foul Odor after Cleansing No -Bioengineered Tissue No -Bleeding Controlled with Pressure -Offloading Yes -Type of Offloading Camwalker -Treatment Response Procedure Tolerated Well [See Physician Procedure note for Specifics] Pain Scale: 0-10 Numeric [Pain] -Is Patient Pain Free? Yes Musculoskeletal: No Tenderness to Palpation of Joints or Extremities, Muscle Wasting, - - Compartment soft to palpation Neurological: Sensory exam intact to light touch and pain Psych/Mental Status: Normal Affect, Appropriate Debridement Note Post-Debridement Measurements/Treatment WC - Nurse 2 - General Ulcer CM Notes Start: 01/31/20 11:14 Freq: Status: Active Protocol: Activity Type Activity Date Activity User E-Sign Co-Sign Detail Recorded Client Recorded Date Recorded By Document 01/31/20 11:26 LUCIA [id number] 01/31/20 11:28 LUCIA 01/31/20 11:26 Wound Center Nurse 2 1. L foot dorsal -Time 11:27 -Correct Patient Yes -Correct Side, Site, Position Yes -Correct Procedure Yes -Procedure Performed Yes -Type of Procedure Debridement -Clinical Debridement Subcutaneous -Post Debridement Size (cm) - Length 1.0 -Post Debridement Size (cm) - Width 0.5 -Post Debridement Size (cm) - Depth 0.4 -Total Square Cm 0.50 -Wound/Ulcer Outcome Not Healed -Ulcer Cleansing Rinsed/ Irrigated with Saline -Foul Odor after Cleansing No -Bioengineered Tissue No -Bleeding Controlled with Pressure -Offloading Yes -Type of Offloading Camwalker -Treatment Response Procedure Tolerated Well Pain Scale: 0-10 Numeric Is Patient Pain Free? Yes Wound debrided: dorsal foot Laterality: Left Type of Debridement: Excisional debridement Anesthesia Used: 5% Lidocaine Gel Depth: in the subcutaneous layer Percentage of wound debrided: 100 Instrument Used: #15 blade Tissue Removed: fibrous, devitalized subcuteaneous, biofilm, slough Severity: Fat Layer Exposed Amount of bleeding with debridement: Mild Bleeding Controlled with: Pressure Patient tolerated procedure well Assessment/Plan Assessment: Open surgical wound left dorsal foot. Chronic osteomyelitis left foot. Peripheral arterial occlusive disease with prior intervention in 2017. Long-term use of Coumadin. Chronic DVT. Malnutrition suspected. Left transmetatarsal amputation with delayed healing Plan: I reviewed and discussed with case. Her recent surgical intervention is noted from 11/24/2018. The devitalized tissue was excised including bone and this was sent for pathology and microbiology and an additional deeper bone biopsy with the Jamshidi needle was obtained. the microbiology report is negative for bacterial growth. The pathology findings were also negative for osteomyelitis. I do not recommend antibiotics at this time. There are no local signs of infection today. Debridement was performed as noted in the clinical panel. This was further covered with Aquacel. It is noted she had recent application of advanced wound healing product that was placental derived. 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 She is amendable to proceed with this if there is better coverage under local anesthetic on a same-day surgery basis. It was confirmed the coverage is the same in both scenarios and therefore we will not proceed with this plan at this time. I offered her negative pressure therapy and this was not approved by her insurance either. We will continue with our current wound care plan. It is okay for her to transition to a cam walker at home but to remain nonweightbearing most of the time. We discussed that it is okay for her to put her foot down for partial weightbearing for transfers and for limited walking in house. One of the main purpose is wearing a cam walker is to reduce tension applied on the adjacent ulcer skin to help promote healing. She is also advised to be cautious and avoiding strap pressure over the ulcer site. She is previously known to infectious disease and input is greatly appreciated. She is not demonstrating appropriate compliance with a cam walker immobilization or smoking cessation. We discussed the accountability needed from her at home in order to see more progress. . Her history of peripheral vascular disease with critical limb ischemia and prior intervention 2017 as noted. An updated arterial study was ordered previously to check her current status. The noninvasive arterial studies were completed on October 27, 2019 in which a left KEARA of 0.72 is noted without gross impairment of perfusion. I recommend referral to Dr. Gomez at this time and she is amendable to proceed. She followed up with her vascular surgery referral and plans to undergo additional testing (CT) and intervention (angiogram). Dr. Gomez's evaluation greatly appreciated. To maintain a healthy diet that is well-balanced and have adequate protein to optimize healing. It is noted she reports she drinks coffee a lot and only eats 1 meal a day if that. We discussed the importance of appropriate nutrition to allow her body to heal. I also offered her nutrition referral. We agreed we would like to focus on the vascular referral first. To return to the wound healing center in 1 week or call sooner if she has any questions or concerns.
[2020-02-07 11:10] VITALS: BP 118/82; PULSE 71; RESP 18; TEMP 36.2; BMI 32.8
--- NOTE | 2020-02-07 13:14 | PCM.WC.PN ---
(1) Chronic ulcer of left foot with necrosis of bone Status: Chronic Code(s): L97.524 - Non-pressure chronic ulcer of other part of left foot with necrosis of bone (2) Delayed wound healing Status: Chronic Code(s): T14.8XXD - Other injury of unspecified body region, subsequent encounter (3) Peripheral arterial occlusive disease Status: Chronic Code(s): I77.9 - Disorder of arteries and arterioles, unspecified (4) Smoking addiction Status: Chronic Code(s): F17.200 - Nicotine dependence, unspecified, uncomplicated (5) Malnutrition Status: Chronic Code(s): E46 - Unspecified protein-calorie malnutrition Type of Wound Date of Service: 02/07/20 Chief Complaint: Follow-up on a left dorsal foot nonhealing ulcer History of Wound: This is a 55-year-old white female that in approximately December 2016 had chronic foot condition in which she recently underwent recent operating room debridement with bone biopsy and application of advanced wound healing product to left foot at [facility]. Prior to her transfer of care to [facility] she has been undergoing a comprehensive wound healing plan at a different facility including vascular intervention, surgical debridements, infectious disease management, ect. Per other record review it appears that she had prior critical limb ischemia and had vascular intervention in October 2017 including thrombolytic therapy with percutaneous angioplasty to the left anterior tibial, popliteal, and superficial femoral arteries. It is noted her past medical history on file includes chronic obstructive pulmonary disease, DVT and chronic Coumadin, hyperlipidemia, and peripheral vascular disease. She relates her vascular surgeon has moved out of the state and she no longer would like to follow-up at that other facility. She is amendable to go for a local vascular surgery referral. She follow-up with Dr. Gomez and has additional testing and surgical intervention planned. She is actually scheduled for CT arterial exam today and is tentatively scheduling for an angiogram in the near future. She is very happy with her tentative plan. She has been offloading as advised. She denies fever, chill, nausea, vomiting, loss of appetite. She continues to smoke on a daily basis. She is with her daughter today. Progress of Wound: Stable -improving at distal aspect - Physical Exam Vital Signs Temp Pulse Resp BP 97.1 F L 71 18 118/82 H 02/07/20 11:10 02/07/20 11:10 02/07/20 11:10 02/07/20 11:10 General: Alert, Oriented x3, Cooperative, No apparent distress Extremities: No cyanosis, Capillary Refill Less than 3 Seconds, No Calf Tenderness, Diminished Peripheral Pulses, Edema Skin: Ulcer/ Wound - no redness, no odor, no purulence noted. bone is exposed . there is minor distal granulation tissue, - - peripheral skin is atrophic Wound Measurements and Assessment WC - Nurse 1 - General Ulcer Measurement Start: 01/31/20 11:14 Freq: Status: Active Protocol: Activity Type Activity Date Activity User E-Sign Co-Sign Detail Recorded Client Recorded Date Recorded By Document 02/07/20 11:10 RB [id number] 02/07/20 11:13 RB 02/07/20 11:10 Wound Center Nurse 1 [Ulcer Assessment] 1. L foot dorsal -Combined with other wound No -Current Size (cm) - Length 0.9 -Current Size (cm) - Width 0.5 -Current Size (cm) - Depth 0.4 -Total Square Cm 0.45 -Tunneling No -Undermining/Tunneling No -Circular Undermining No -Exudate Amt Small -Exudate Type Serosanguineous -Wound Margin Thickened -Granulation Amt Medium (34-66%) -Granulation Quality [place] -Slough/Fibrin Yes -Necrosis Amt Small (1-33%) -Necrotic Tissue Type Adherent Slough -Structure Exposed N/A -Texture (Shital-wound Skin Appearance) Assessed, Scarring -Moisture (Shital-wound Skin Appearance Assessed ) -Color (Shital-wound Skin Appearance) Assessed -Temperature (Shital-wound Skin No Abnormality Appearance) (Pt Warm) -Tenderness on Palpation (Shital-wound No Skin Appearance) -Ulcer Cleansing Wound Cleanser -Foul Odor after Cleansing No -Anesthetic Used 5% Lidocaine Gel WC - Nurse 2 - General Ulcer CM Notes Start: 01/31/20 11:14 Freq: Status: Active Protocol: Activity Type Activity Date Activity User E-Sign Co-Sign Detail Recorded Client Recorded Date Recorded By Document 02/07/20 11:21 LUCIA [id number] 02/07/20 11:24 JF 02/07/20 11:21 Wound Center Nurse 2 [Procedure/Treatment] -Time 11:22 -Correct Patient Yes -Correct Side, Site, Position Yes -Correct Procedure Yes -Procedure Performed Yes -Type of Procedure Debridement -Clinical Debridement Subcutaneous -Post Debridement Size (cm) - Length 1.0 -Post Debridement Size (cm) - Width 0.4 -Post Debridement Size (cm) - Depth 0.3 -Total Square Cm 0.40 -Wound/Ulcer Outcome Not Healed -Ulcer Cleansing Rinsed/ Irrigated with Saline -Foul Odor after Cleansing No -Bioengineered Tissue No -Bleeding Controlled with Pressure -Offloading Yes -Type of Offloading Knee Walker -Treatment Response Procedure Tolerated Well [See Physician Procedure note for Specifics] Pain Scale: 0-10 Numeric [Pain] -Is Patient Pain Free? Yes Musculoskeletal: No Tenderness to Palpation of Joints or Extremities, Muscle Wasting Neurological: Sensory exam intact to light touch and pain Psych/Mental Status: Normal Affect, Appropriate Debridement Note Post-Debridement Measurements/Treatment WC - Nurse 2 - General Ulcer CM Notes Start: 01/31/20 11:14 Freq: Status: Active Protocol: Activity Type Activity Date Activity User E-Sign Co-Sign Detail Recorded Client Recorded Date Recorded By Document 01/31/20 11:26 [id number] 01/31/20 11:28 Document 02/07/20 11:21 [id number] 02/07/20 11:24 01/31/20 02/07/20 11:26 11:21 Wound Center Nurse 2 1. L foot dorsal -Time 11:27 11:22 -Correct Patient Yes Yes -Correct Side, Site, Position Yes Yes -Correct Procedure Yes Yes -Procedure Performed Yes Yes -Type of Procedure Debridement Debridement -Clinical Debridement Subcutaneous Subcutaneous -Post Debridement Size (cm) - Length 1.0 1.0 -Post Debridement Size (cm) - Width 0.5 0.4 -Post Debridement Size (cm) - Depth 0.4 0.3 -Total Square Cm 0.50 0.40 -Wound/Ulcer Outcome Not Healed Not Healed -Ulcer Cleansing Rinsed/ Rinsed/ Irrigated with Irrigated with Saline Saline -Foul Odor after Cleansing No No -Bioengineered Tissue No No -Bleeding Controlled with Pressure Pressure -Offloading Yes Yes -Type of Offloading Camwalker Knee Walker -Treatment Response Procedure Procedure Tolerated Well Tolerated Well Pain Scale: 0-10 Numeric Is Patient Pain Free? Yes Yes Wound debrided: dorsal foot Laterality: Left Type of Debridement: Excisional debridement Anesthesia Used: 5% Lidocaine Gel Depth: in the subcutaneous layer Percentage of wound debrided: 100 Instrument Used: #15 blade Tissue Removed: fibrous, devitalized subcutaneous, biofilm, slough Severity: Fat Layer Exposed Amount of bleeding with debridement: Mild Bleeding Controlled with: Compression and gauze Assessment/Plan Assessment: Open surgical wound left dorsal foot. Chronic osteomyelitis left foot. Peripheral arterial occlusive disease with prior intervention in 2017. Long-term use of Coumadin. Chronic DVT. Malnutrition suspected. Left transmetatarsal amputation with delayed healing Plan: I reviewed and discussed with case. Her recent surgical intervention is noted from 11/24/2018. The devitalized tissue was excised including bone and this was sent for pathology and microbiology and an additional deeper bone biopsy with the Jamshidi needle was obtained. the microbiology report is negative for bacterial growth. The pathology findings were also negative for osteomyelitis. I do not recommend antibiotics at this time. There are no local signs of infection today. Debridement was performed as noted in the clinical panel. This was further covered with Aquacel. It is noted she had recent application of advanced wound healing product that was placental derived. 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 She is amendable to proceed with this if there is better coverage under local anesthetic on a same-day surgery basis. It was confirmed the coverage is the same in both scenarios and therefore we will not proceed with this plan at this time. I offered her negative pressure therapy and this was not approved by her insurance either. We will continue with our current wound care plan. It is okay for her to transition to a cam walker at home but to remain nonweightbearing most of the time. We discussed that it is okay for her to put her foot down for partial weightbearing for transfers and for limited walking in house. One of the main purpose is wearing a cam walker is to reduce tension applied on the adjacent ulcer skin to help promote healing. She is also advised to be cautious and avoiding strap pressure over the ulcer site. She is previously known to infectious disease and input is greatly appreciated. She is not demonstrating appropriate compliance with a cam walker immobilization or smoking cessation. We discussed the accountability needed from her at home in order to see more progress. . Her history of peripheral vascular disease with critical limb ischemia and prior intervention 2017 as noted. An updated arterial study was ordered previously to check her current status. The noninvasive arterial studies were completed on October 27, 2019 in which a left KEARA of 0.72 is noted without gross impairment of perfusion. I recommend referral to Dr. Gomez at this time and she is amendable to proceed. She followed up with her vascular surgery referral and plans to undergo additional testing (CT) and intervention (angiogram). Dr. Gomez's evaluation greatly appreciated. To maintain a healthy diet that is well-balanced and have adequate protein to optimize healing. It is noted she reports she drinks coffee a lot and only eats 1 meal a day if that. We discussed the importance of appropriate nutrition to allow her body to heal. I also offered her nutrition referral. We agreed we would like to focus on the vascular referral first. To return to the wound healing center in 1 week or call sooner if she has any questions or concerns.
[2020-02-14 11:07] VITALS: BP 135/107; PULSE 88; RESP 16; TEMP 36.2; BMI 32.8
--- NOTE | 2020-02-14 11:59 | PN.PCM_ITS ---
(1) Chronic ulcer of left foot with necrosis of bone Status: Chronic Current Visit: Yes Code(s): L97.524 - Non-pressure chronic ulcer of other part of left foot with necrosis of bone (2) Delayed wound healing Status: Chronic Current Visit: Yes Code(s): T14.8XXD - Other injury of unspecified body region, subsequent encounter (3) Peripheral arterial occlusive disease Status: Chronic Current Visit: Yes Code(s): I77.9 - Disorder of arteries and arterioles, unspecified (4) Smoking addiction Status: Chronic Current Visit: Yes Code(s): F17.200 - Nicotine dependence, unspecified, uncomplicated (5) Malnutrition Status: Chronic Current Visit: Yes Code(s): E46 - Unspecified protein- calorie malnutrition Type of Wound Date of Service: 02/14/20 Chief Complaint: Follow-up on a left dorsal foot nonhealing ulcer History of Wound: This is a 55-year-old white female that in approximately December 2016 had chronic foot condition in which she recently underwent recent operating room debridement with bone biopsy and application of advanced wound healing product to left foot at [facility]. Prior to her transfer of care to [facility] she has been undergoing a comprehensive wound healing plan at a different facility including vascular intervention, surgical debridements, infectious disease management, ect. Per other record review it appears that she had prior critical limb ischemia and had vascular intervention in October 2017 including thrombolytic therapy with percutaneous angioplasty to the left anterior tibial, popliteal, and superficial femoral arteries. It is noted her past medical history on file includes chronic obstructive pulmonary disease, DVT and chronic Coumadin, hyperlipidemia, and peripheral vascular disease. She relates her vascular surgeon has moved out of the state and she no longer would like to follow-up at that other facility. She is amendable to go for a local vascular surgery referral. She follows up with Dr. Gomez and has additional testing and surgical intervention planned. She was advised to follow-up in 6 weeks in which intervention will be performed if there is still lack of ulcer healing. She denies fever, chill, nausea, vomiting , loss of appetite. Progress of Wound: Stable -improving at distal aspect - Physical Exam Vital Signs Temp Pulse Resp BP 97.2 F L 88 16 135/107 H 02/14/20 11:07 02/14/20 11:07 02/14/20 11:07 02/14/20 11:07 General: Alert, Oriented x3, Cooperative, No apparent distress Extremities: No cyanosis, Capillary Refill Less than 3 Seconds, No Calf Tenderness, Diminished Peripheral Pulses, Edema Skin: Ulcer/ Wound - No purulence, erythema, string, odor, infection. There is exposed bone still noted to dorsal foot is white, firm, and without discoloration. The adjacent skin is hairless and atrophic. Wound Measurements and Assessment - Nurse 1 - General Ulcer Measurement Start: 01/31/20 11:14 Freq: Status: Active Protocol: Activity Type Activity Date Activity User E-Sign Co-Sign Detail Recorded Client Recorded Date Recorded By Document 02/14/20 11:07 [facility] [id number] 02/14/20 11:12 [facility] 02/14/20 11:07 Wound Center Nurse 1 [Ulcer Assessment] 1. L foot dorsal -Combined with other wound No -Current Size (cm) - Length 0.5 -Current Size (cm) - Width 0.4 -Current Size (cm) - Depth 0.3 -Total Square Cm 0.20 -Photo Taken No -Epithelialization None Present -Tunneling No -Undermining/Tunneling No -Circular Undermining No -Exudate Amt Small -Exudate Type Purulent -Wound Margin Distinct, Outline Attached -Granulation Amt Medium (34-66%) -Granulation Quality [place] -Slough/Fibrin Yes -Necrosis Amt Small (1-33%) -Necrotic Tissue Type Adherent Slough -Texture (Shital-wound Skin Appearance) Assessed, Scarring -Moisture (Shital-wound Skin Appearance Assessed,Dry/ ) Scaly -Color (Shital-wound Skin Appearance) Assessed -Temperature (Shital-wound Skin No Abnormality Appearance) (Pt Warm) -Tenderness on Palpation (Shital-wound No Skin Appearance) -Ulcer Cleansing Rinsed/ Irrigated with Saline -Foul Odor after Cleansing No -Anesthetic Used 5% Lidocaine Gel - Nurse 2 - General Ulcer CM Notes Start: 01/31/20 11:14 Freq: Status: Active Protocol: Activity Type Activity Date Activity User E-Sign Co-Sign Detail Recorded Client Recorded Date Recorded By Document 02/14/20 11:26 [id number] 02/14/20 11:28 02/14/20 11:26 Wound Center Nurse 2 [Procedure/Treatment] -Time 11:26 -Correct Patient Yes -Correct Side, Site, Position Yes -Correct Procedure Yes -Procedure Performed Yes -Type of Procedure Debridement -Clinical Debridement Subcutaneous -Post Debridement Size (cm) - Length 0.5 -Post Debridement Size (cm) - Width 0.4 -Post Debridement Size (cm) - Depth 0.3 -Total Square Cm 0.20 -Wound/Ulcer Outcome Not Healed -Ulcer Cleansing Rinsed/ Irrigated with Saline -Foul Odor after Cleansing No -Bioengineered Tissue No -Bleeding Controlled with Pressure -Type of Offloading Camwalker -Treatment Response Procedure Tolerated Well [See Physician Procedure note for Specifics] Pain Scale: 0-10 Numeric [Pain] -Is Patient Pain Free? Yes Musculoskeletal: No Tenderness to Palpation of Joints or Extremities, Muscle Wasting, - - Transmetatarsal amputation left Neurological: - - Lack of normal epicritic sensation light touch Psych/Mental Status: Normal Affect, Appropriate Debridement Note Post-Debridement Measurements/Treatment WC - Nurse 2 - General Ulcer CM Notes Start: 01/31/20 11:14 Freq: Status: Active Protocol: Activity Type Activity Date Activity User E-Sign Co-Sign Detail Recorded Client Recorded Date Recorded By Document 01/31/20 11:26 [id number] 01/31/20 11:28 Document 02/07/20 11:21 [id number] 02/07/20 11:24 Document 02/14/20 11:26 [id number] 02/14/20 11:28 01/31/20 02/07/20 02/14/20 11:26 11:21 11:26 Wound Center Nurse 2 1. L foot dorsal -Time 11:27 11:22 11:26 -Correct Patient Yes Yes Yes -Correct Side, Site, Position Yes Yes Yes -Correct Procedure Yes Yes Yes -Procedure Performed Yes Yes Yes -Type of Procedure Debridement Debridement Debridement -Clinical Debridement Subcutaneous Subcutaneous Subcutaneous -Post Debridement Size (cm) - Length 1.0 1.0 0.5 -Post Debridement Size (cm) - Width 0.5 0.4 0.4 -Post Debridement Size (cm) - Depth 0.4 0.3 0.3 -Total Square Cm 0.50 0.40 0.20 -Wound/Ulcer Outcome Not Healed Not Healed Not Healed -Ulcer Cleansing Rinsed/ Rinsed/ Rinsed/ Irrigated with Irrigated with Irrigated with Saline Saline Saline -Foul Odor after Cleansing No No No -Bioengineered Tissue No No No -Bleeding Controlled with Pressure Pressure Pressure -Offloading Yes Yes -Type of Offloading Camwalker Knee Walker Camwalker -Treatment Response Procedure Procedure Procedure Tolerated Well Tolerated Well Tolerated Well Pain Scale: 0-10 Numeric Is Patient Pain Free? Yes Yes Yes Wound debrided: dorsal foot Laterality: Left Type of Debridement: Excisional debridement Anesthesia Used: 5% Lidocaine Gel Depth: in the subcutaneous layer Percentage of wound debrided: 100 Instrument Used: #15 blade Tissue Removed: fibrous, devitalized subcutaneous, biofilm, slough Severity: Fat Layer Exposed Amount of bleeding with debridement: Mild Bleeding Controlled with: Pressure Patient tolerated procedure well Assessment/Plan Active Problems Delayed wound healing (Chronic) Peripheral arterial occlusive disease (Chronic) Smoking addiction (Chronic) Malnutrition (Chronic) 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 Chronic osteomyelitis left foot. Peripheral arterial occlusive disease with prior intervention in 2017. Long-term use of Coumadin. Chronic DVT. Malnutrition suspected. Left transmetatarsal amputation with delayed healing Plan: I reviewed and discussed her case. Her recent surgical intervention is noted from 11/24/2018. The devitalized tissue was excised including bone and this was sent for pathology and microbiology and an additional deeper bone biopsy with the Jamshidi needle was obtained. the microbiology report is negative for bacterial growth. The pathology findings were also negative for osteomyelitis. I do not recommend antibiotics at this time. There are no local signs of infection today. Debridement was performed as noted in the clinical panel. This was further covered with Aquacel. It is noted she had recent application of advanced wound healing product that was placental derived. 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 She is amendable to proceed with this if there is better coverage under local anesthetic on a same-day surgery basis. It was confirmed the coverage is the same in both scenarios and therefore we will not proceed with this plan at this time. I offered her negative pressure therapy and this was not approved by her insurance either. We will continue with our current wound care plan. It is okay for her to transition to a cam walker at home but to remain nonweightbearing most of the time. We discussed that it is okay for her to put her foot down for partial weightbearing for transfers and for limited walking in house. One of the main purpose is wearing a cam walker is to reduce tension applied on the adjacent ulcer skin to help promote healing. She is also advised to be cautious and avoiding strap pressure over the ulcer site. She is previously known to infectious disease and input is greatly appreciated. She is not demonstrating appropriate compliance with a cam walker immobilization or smoking cessation. We discussed the accountability needed from her at home in order to see more progress. . Her history of peripheral vascular disease with critical limb ischemia and prior intervention 2017 as noted. An updated arterial study was ordered previously to check her current status. The noninvasive arterial studies were completed on October 27, 2019 in which a left KEARA of 0.72 is noted without gross impairment of perfusion. I recommend referral to Dr. Gomez at this time and she is amendable to proceed. She followed up with her vascular surgery referral and plans to undergo additional testing (CT) and intervention (angiogram). Dr. Gomez's evaluation greatly appreciated. To maintain a healthy diet that is well-balanced and have adequate protein to optimize healing. It is noted she reports she drinks coffee a lot and only eats 1 meal a day if that. We discussed the importance of appropriate nutrition to allow her body to heal. I also offered her nutrition referral. We agreed we would like to focus on the vascular referral first. To return to the wound healing center in 1 week or call sooner if she has any questions or concerns.
[2020-02-21 11:35] VITALS: BP 117/65; PULSE 69; RESP 20; TEMP 36.8; BMI 32.8
--- NOTE | 2020-02-21 12:05 | PCM.WC.PN ---
(1) Chronic ulcer of left foot with necrosis of bone Status: Chronic Current Visit: Yes Code(s): L97.524 - Non-pressure chronic ulcer of other part of left foot with necrosis of bone (2) Delayed wound healing Status: Chronic Current Visit: Yes Code(s): T14.8XXD - Other injury of unspecified body region, subsequent encounter (3) Peripheral arterial occlusive disease Status: Chronic Current Visit: Yes Code(s): I77.9 - Disorder of arteries and arterioles, unspecified (4) Smoking addiction Status: Chronic Current Visit: Yes Code(s): F17.200 - Nicotine dependence, unspecified, uncomplicated (5) Malnutrition Status: Chronic Current Visit: Yes Code(s): E46 - Unspecified protein-calorie malnutrition Type of Wound Date of Service: 02/21/20 Chief Complaint: Follow-up on a left dorsal foot nonhealing ulcer History of Wound: This is a 55-year-old white female that in approximately December 2016 had chronic foot condition in which she recently underwent recent operating room debridement with bone biopsy and application of advanced wound healing product to left foot at [facility]. Prior to her transfer of care to [facility] she has been undergoing a comprehensive wound healing plan at a different facility including vascular intervention, surgical debridements, infectious disease management, ect. Per other record review it appears that she had prior critical limb ischemia and had vascular intervention in October 2017 including thrombolytic therapy with percutaneous angioplasty to the left anterior tibial, popliteal, and superficial femoral arteries. It is noted her past medical history on file includes chronic obstructive pulmonary disease, DVT and chronic Coumadin, hyperlipidemia, and peripheral vascular disease. She relates her vascular surgeon has moved out of the state and she no longer would like to follow-up at that other facility. She is amendable to go for a local vascular surgery referral. She follows up with Dr. Gomez and has additional testing and surgical intervention planned. She was advised to follow-up in 6 weeks in which intervention will be performed if there is still lack of ulcer healing. She denies fever, chill, nausea, vomiting, loss of appetite. Progress of Wound: Stable -improving at distal aspect - Physical Exam Vital Signs Temp Pulse Resp BP 98.2 F 69 20 H 117/65 02/21/20 11:35 02/21/20 11:35 02/21/20 11:35 02/21/20 11:35 General: Alert, Oriented x3, Cooperative, No apparent distress Extremities: No cyanosis, Capillary Refill Less than 3 Seconds, No Calf Tenderness, Diminished Peripheral Pulses, Edema Skin: Ulcer/ Wound - No purulence, erythema, streaking, odor, infection. Epithelialization is minor to the distal central aspect of the ulcer and there is still exposed bone Wound Measurements and Assessment WC - Nurse 1 - General Ulcer Measurement Start: 01/31/20 11:14 Freq: Status: Active Protocol: Activity Type Activity Date Activity User E-Sign Co-Sign Detail Recorded Client Recorded Date Recorded By Document 02/21/20 11:35 DL [id number] 02/21/20 11:38 DL 02/21/20 11:35 Wound Center Nurse 1 [Ulcer Assessment] 1. L foot dorsal -Current Size (cm) - Length 0.5 -Current Size (cm) - Width 0.7 -Current Size (cm) - Depth 0.3 -Total Square Cm 0.35 -Photo Taken No -Undermining/Tunneling Starts (O' 9 clock) -Undermining/Tunneling Ends (O'clock) 12 -Maximum Distance (cm) 0.2 -Circular Undermining No -Exudate Amt Small -Exudate Type Serosanguineous -Wound Margin Thickened -Granulation Amt Small (1-33%) -Granulation Quality Pale -Necrosis Amt Small (1-33%) -Necrotic Tissue Type Adherent Slough -Structure Exposed Bone,N/A -Texture (Shital-wound Skin Appearance) Scarring -Moisture (Shital-wound Skin Appearance No Abnormality ) -Color (Shital-wound Skin Appearance) No Abnormality -Temperature (Shital-wound Skin No Abnormality Appearance) (Pt Warm) -Tenderness on Palpation (Shital-wound No Skin Appearance) -Ulcer Cleansing Rinsed/ Irrigated with Saline -Foul Odor after Cleansing No -Anesthetic Used 4% Lidocaine Solution Musculoskeletal: No Tenderness to Palpation of Joints or Extremities, Muscle Wasting Neurological: - - Lack of epicritic sensation light touch is consistent with neuropathy status Psych/Mental Status: Normal Affect, Appropriate Debridement Note Post-Debridement Measurements/Treatment WC - Nurse 2 - General Ulcer CM Notes Start: 01/31/20 11:14 Freq: Status: Active Protocol: Activity Type Activity Date Activity User E-Sign Co-Sign Detail Recorded Client Recorded Date Recorded By Document 01/31/20 11:26 [id number] 01/31/20 11:28 Document 02/07/20 11:21 [id number] 02/07/20 11:24 Document 02/14/20 11:26 [id number] 02/14/20 11:28 01/31/20 02/07/20 02/14/20 11:26 11:21 11:26 Wound Center Nurse 2 1. L foot dorsal -Time 11: 11:22 11:26 -Correct Patient Yes Yes Yes -Correct Side, Site, Position Yes Yes Yes -Correct Procedure Yes Yes Yes -Procedure Performed Yes Yes Yes -Type of Procedure Debridement Debridement Debridement -Clinical Debridement Subcutaneous Subcutaneous Subcutaneous -Post Debridement Size (cm) - Length 1.0 1.0 0.5 -Post Debridement Size (cm) - Width 0.5 0.4 0.4 -Post Debridement Size (cm) - Depth 0.4 0.3 0.3 -Total Square Cm 0.50 0.40 0.20 -Wound/Ulcer Outcome Not Healed Not Healed Not Healed -Ulcer Cleansing Rinsed/ Rinsed/ Rinsed/ Irrigated with Irrigated with Irrigated with Saline Saline Saline -Foul Odor after Cleansing No No No -Bioengineered Tissue No No No -Bleeding Controlled with Pressure Pressure Pressure -Offloading Yes Yes -Type of Offloading Camwalker Knee Walker Camwalker -Treatment Response Procedure Procedure Procedure Tolerated Well Tolerated Well Tolerated Well Pain Scale: 0-10 Numeric Is Patient Pain Free? Yes Yes Yes Wound debrided: dorsal foot Laterality: Left Type of Debridement: Excisional debridement Anesthesia Used: 5% Lidocaine Gel Depth: in the subcutaneous layer Percentage of wound debrided: 100 Instrument Used: 3mm curette Tissue Removed: fibrous, devitalized subcutaneous, biofilm, slough Severity: Fat Layer Exposed Amount of bleeding with debridement: Mild Bleeding Controlled with: Pressure Patient tolerated procedure well Assessment/Plan Active Problems Delayed wound healing (Chronic) Peripheral arterial occlusive disease (Chronic) Smoking addiction (Chronic) Malnutrition (Chronic) 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 Chronic osteomyelitis left foot. Peripheral arterial occlusive disease with prior intervention in 2017. Long-term use of Coumadin. Chronic DVT. Malnutrition suspected. Left transmetatarsal amputation with delayed healing Plan: I reviewed and discussed her case. Her recent surgical intervention is noted from 11/24/2018. The devitalized tissue was excised including bone and this was sent for pathology and microbiology and an additional deeper bone biopsy with the Jamshidi needle was obtained. the microbiology report is negative for bacterial growth. The pathology findings were also negative for osteomyelitis. I do not recommend antibiotics at this time. There are no local signs of infection today. Debridement was performed as noted in the clinical panel. This was further covered with Aquacel. It is noted she had recent application of advanced wound healing product that was placental derived. 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 She is amendable to proceed with this if there is better coverage under local anesthetic on a same-day surgery basis. It was confirmed the coverage is the same in both scenarios and therefore we will not proceed with this plan at this time. I offered her negative pressure therapy and this was not approved by her insurance either. We will continue with our current wound care plan. It is okay for her to transition to a cam walker at home but to remain nonweightbearing most of the time. We discussed that it is okay for her to put her foot down for partial weightbearing for transfers and for limited walking in house. One of the main purpose is wearing a cam walker is to reduce tension applied on the adjacent ulcer skin to help promote healing. She is also advised to be cautious and avoiding strap pressure over the ulcer site. She is previously known to infectious disease and input is greatly appreciated. She is not demonstrating appropriate compliance with a cam walker immobilization or smoking cessation. We discussed the accountability needed from her at home in order to see more progress. . Her history of peripheral vascular disease with critical limb ischemia and prior intervention 2017 as noted. An updated arterial study was ordered previously to check her current status. The noninvasive arterial studies were completed on October 27, 2019 in which a left KEARA of 0.72 is noted without gross impairment of perfusion. I recommend referral to Dr. Gomez at this time and she is amendable to proceed. She followed up with her vascular surgery referral and plans to undergo additional testing (CT) and intervention (angiogram). Dr. Gomez's evaluation greatly appreciated. To maintain a healthy diet that is well-balanced and have adequate protein to optimize healing. It is noted she reports she drinks coffee a lot and only eats 1 meal a day if that. We discussed the importance of appropriate nutrition to allow her body to heal. I also offered her nutrition referral. We agreed we would like to focus on the vascular referral first. To return to the wound healing center in 1 week or call sooner if she has any questions or concerns.
== END 2020-02-27 23:59 ==
LOC: WC 11:30
PROVIDERS: Family Provider Family Medicine; PCP Family Medicine; Referring Provider Podiatrist; Visit Provider Podiatrist
DX: I73.9 Peripheral vascular disease, unspecified (principal); I77.9 Disorder of arteries and arterioles, unspecified; L97.522 Non-pressure chronic ulcer of other part of left foot with fat layer exposed; F17.200 Nicotine dependence, unspecified, uncomplicated; Z86.718 Personal history of other venous thrombosis and embolism; E78.5 Hyperlipidemia, unspecified; Z79.01 Long term (current) use of anticoagulants; J44.9 Chronic obstructive pulmonary disease, unspecified; M86.672 Other chronic osteomyelitis, left ankle and foot
CPT/HCPCS: 11042

== ENCOUNTER 2020-03-20 14:30 | Outpatient (RCR) | payer BC, OTHER, SELFPAY ==
[2020-02-28 00:30] VITALS: BP 117/65; PULSE 69; RESP 20; TEMP 36.8
[2020-02-28 10:38] VITALS: BP 128/74; PULSE 69; RESP 18; TEMP 36.8; BMI 32.8
--- NOTE | 2020-02-28 14:38 | PCM.WC.PN ---
(1) Chronic ulcer of left foot with necrosis of bone Status: Chronic Code(s): L97.524 - Non-pressure chronic ulcer of other part of left foot with necrosis of bone (2) Non-compliance Status: Chronic Code(s): Z91.19 - Patient's noncompliance with other medical treatment and regimen (3) Delayed wound healing Status: Chronic Code(s): T14.8XXD - Other injury of unspecified body region, subsequent encounter (4) Smoking addiction Status: Chronic Code(s): F17.200 - Nicotine dependence, unspecified, uncomplicated (5) Malnutrition Status: Chronic Code(s): E46 - Unspecified protein-calorie malnutrition Type of Wound Date of Service: 02/28/20 Chief Complaint: Follow-up on a left dorsal foot nonhealing ulcer History of Wound: This is a 55-year-old white female that in approximately December 2016 had chronic foot condition in which she recently underwent recent operating room debridement with bone biopsy and application of advanced wound healing product to left foot at [facility]. Prior to her transfer of care to [facility] she has been undergoing a comprehensive wound healing plan at a different facility including vascular intervention, surgical debridements, infectious disease management, ect. Per other record review it appears that she had prior critical limb ischemia and had vascular intervention in October 2017 including thrombolytic therapy with percutaneous angioplasty to the left anterior tibial, popliteal, and superficial femoral arteries. It is noted her past medical history on file includes chronic obstructive pulmonary disease, DVT and chronic Coumadin, hyperlipidemia, and peripheral vascular disease. She relates her vascular surgeon has moved out of the state and she no longer would like to follow-up at that other facility. She is amendable to go for a local vascular surgery referral. She follows up with Dr. Gomez and has additional testing and surgical intervention planned. She was advised to follow-up in 6 weeks in which intervention will be performed if there is still lack of ulcer healing. She denies fever, chill, nausea, vomiting, loss of appetite. Progress of Wound: Stable -improving at distal and lateral aspect - Physical Exam Vital Signs Temp Pulse Resp BP 98.2 F 69 18 128/74 H 02/28/20 10:38 02/28/20 10:38 02/28/20 10:38 02/28/20 10:38 General: Alert, Oriented x3, Cooperative, No apparent distress Extremities: No cyanosis, Capillary Refill Less than 3 Seconds, No Calf Tenderness, Diminished Peripheral Pulses, Edema Skin: Ulcer/ Wound - No purulence, erythema, streaking, odor, infection. Peripheral granulation tissue migration is noted at the distal and lateral aspect of the ulcer. There is still exposed bone and this is not discolored. Wound Measurements and Assessment - Nurse 1 - General Ulcer Measurement Start: 02/28/20 10:37 Freq: Status: Active Protocol: Activity Type Activity Date Activity User E-Sign Co-Sign Detail Recorded Client Recorded Date Recorded By Document 02/28/20 10:38 DL [id number] 02/28/20 10:40 DL 02/28/20 10:38 Wound Center Nurse 1 [Ulcer Assessment] 1. L foot dorsal -Current Size (cm) - Length 0.8 -Current Size (cm) - Width 0.5 -Current Size (cm) - Depth 0.5 -Total Square Cm 0.40 -Photo Taken No -Exudate Amt Small -Exudate Type Yellow/Green -Wound Margin Thickened -Granulation Amt Small (1-33%) -Granulation Quality Red -Necrosis Amt Small (1-33%) -Necrotic Tissue Type Adherent Slough -Structure Exposed N/A -Texture (Shital-wound Skin Appearance) Scarring -Moisture (Shital-wound Skin Appearance Dry/Scaly ) -Color (Shital-wound Skin Appearance) No Abnormality -Temperature (Shital-wound Skin No Abnormality Appearance) (Pt Warm) -Tenderness on Palpation (Shital-wound No Skin Appearance) -Ulcer Cleansing Wound Cleanser -Foul Odor after Cleansing No -Anesthetic Used 4% Lidocaine Solution - Nurse 2 - General Ulcer CM Notes Start: 02/28/20 10:37 Freq: Status: Active Protocol: Activity Type Activity Date Activity User E-Sign Co-Sign Detail Recorded Client Recorded Date Recorded By Document 02/28/20 11:07 LUCIA [id number] 02/28/20 11:10 LUCIA 02/28/20 11:07 Wound Center Nurse 2 [Procedure/Treatment] -Time 11:08 -Correct Patient Yes -Correct Side, Site, Position Yes -Correct Procedure Yes -Procedure Performed Yes -Type of Procedure Debridement -Clinical Debridement Subcutaneous -Post Debridement Size (cm) - Length 0.7 -Post Debridement Size (cm) - Width 0.4 -Post Debridement Size (cm) - Depth 0.3 -Total Square Cm 0.28 -Wound/Ulcer Outcome Not Healed -Ulcer Cleansing Rinsed/ Irrigated with Saline -Foul Odor after Cleansing No -Bioengineered Tissue No -Bleeding Controlled with Pressure -Offloading Yes -Type of Offloading Surgical Shoe -Treatment Response Procedure Tolerated Well [See Physician Procedure note for Specifics] Pain Scale: 0-10 Numeric [Pain] -Is Patient Pain Free? Yes Musculoskeletal: No Tenderness to Palpation of Joints or Extremities, Muscle Wasting, - - Transmetatarsal amputation Neurological: Sensory exam intact to light touch and pain Psych/Mental Status: Normal Affect, Appropriate Debridement Note Post-Debridement Measurements/Treatment WC - Nurse 2 - General Ulcer CM Notes Start: 02/28/20 10:37 Freq: Status: Active Protocol: Activity Type Activity Date Activity User E-Sign Co-Sign Detail Recorded Client Recorded Date Recorded By Document 02/28/20 11:07 LUCIA [id number] 02/28/20 11:10 LUCIA 02/28/20 11:07 Wound Center Nurse 2 1. L foot dorsal -Time 11:08 -Correct Patient Yes -Correct Side, Site, Position Yes -Correct Procedure Yes -Procedure Performed Yes -Type of Procedure Debridement -Clinical Debridement Subcutaneous -Post Debridement Size (cm) - Length 0.7 -Post Debridement Size (cm) - Width 0.4 -Post Debridement Size (cm) - Depth 0.3 -Total Square Cm 0.28 -Wound/Ulcer Outcome Not Healed -Ulcer Cleansing Rinsed/ Irrigated with Saline -Foul Odor after Cleansing No -Bioengineered Tissue No -Bleeding Controlled with Pressure -Offloading Yes -Type of Offloading Surgical Shoe -Treatment Response Procedure Tolerated Well Pain Scale: 0-10 Numeric Is Patient Pain Free? Yes Wound debrided: dorsal foot Laterality: Left Type of Debridement: Excisional debridement Anesthesia Used: 5% Lidocaine Gel Depth: in the subcutaneous layer Percentage of wound debrided: 100 Instrument Used: #15 blade Tissue Removed: fibrous, devitalized subcutaneous, biofilm, slough Severity: Fat Layer Exposed Amount of bleeding with debridement: Mild Bleeding Controlled with: Pressure Patient tolerated procedure well Assessment/Plan Assessment: Open surgical wound left dorsal foot. Chronic osteomyelitis left foot. Peripheral arterial occlusive disease with prior intervention in 2017. Long-term use of Coumadin. Chronic DVT. Malnutrition suspected. Left transmetatarsal amputation with delayed healing Plan: I reviewed and discussed her case. Her recent surgical intervention is noted from 11/24/2018. The devitalized tissue was excised including bone and this was sent for pathology and microbiology and an additional deeper bone biopsy with the Jamshidi needle was obtained. the microbiology report is negative for bacterial growth. The pathology findings were also negative for osteomyelitis. I do not recommend antibiotics at this time. There are no local signs of infection today. Debridement was performed as noted in the clinical panel. This was further covered with Aquacel. It is noted she had recent application of advanced wound healing product that was placental derived. 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 She is amendable to proceed with this if there is better coverage under local anesthetic on a same-day surgery basis. It was confirmed the coverage is the same in both scenarios and therefore we will not proceed with this plan at this time. I offered her negative pressure therapy and this was not approved by her insurance either. We will continue with our current wound care plan. It is okay for her to transition to a cam walker at home but to remain nonweightbearing most of the time. We discussed that it is okay for her to put her foot down for partial weightbearing for transfers and for limited walking in house. One of the main purpose is wearing a cam walker is to reduce tension applied on the adjacent ulcer skin to help promote healing. She is also advised to be cautious and avoiding strap pressure over the ulcer site. She is previously known to infectious disease and input is greatly appreciated. She is not demonstrating appropriate compliance with a cam walker immobilization or smoking cessation. We discussed the accountability needed from her at home in order to see more progress. . Her history of peripheral vascular disease with critical limb ischemia and prior intervention 2017 as noted. An updated arterial study was ordered previously to check her current status. The noninvasive arterial studies were completed on October 27, 2019 in which a left KEARA of 0.72 is noted without gross impairment of perfusion. I recommend referral to Dr. Gomez at this time and she is amendable to proceed. She followed up with her vascular surgery referral and plans to undergo additional testing (CT) and intervention (angiogram). Dr. Gomez's evaluation greatly appreciated. To maintain a healthy diet that is well-balanced and have adequate protein to optimize healing. It is noted she reports she drinks coffee a lot and only eats 1 meal a day if that. We discussed the importance of appropriate nutrition to allow her body to heal. I also offered her nutrition referral. We agreed we would like to focus on the vascular referral first. To return to the wound healing center in 1 week or call sooner if she has any questions or concerns. We discussed potentially stretching out her appointments due to the coronavirus pandemic and she is adamant that she needs to come in every week for debridement. She relates she went a long time without serial debridements and this tends to be when the ulcer site is infected. She is very tearful today. After further discussion we will keep her on her routine.
[2020-03-06 10:26] VITALS: BP 122/82; PULSE 86; RESP 18; TEMP 37; BMI 32.8
--- NOTE | 2020-03-06 11:04 | PCM.WC.PN ---
(1) Chronic ulcer of left foot with necrosis of bone Status: Chronic Current Visit: Yes Code(s): L97.524 - Non-pressure chronic ulcer of other part of left foot with necrosis of bone (2) Non-compliance Status: Chronic Current Visit: Yes Code(s): Z91.19 - Patient's noncompliance with other medical treatment and regimen (3) Delayed wound healing Status: Chronic Current Visit: Yes Code(s): T14.8XXD - Other injury of unspecified body region, subsequent encounter (4) Smoking addiction Status: Chronic Current Visit: Yes Code(s): F17.200 - Nicotine dependence, unspecified, uncomplicated (5) Malnutrition Status: Chronic Current Visit: Yes Code(s): E46 - Unspecified protein-calorie malnutrition Type of Wound Date of Service: 03/06/20 Chief Complaint: Follow-up on a left dorsal foot nonhealing ulcer History of Wound: This is a 55-year-old white female that in approximately December 2016 had chronic foot condition in which she recently underwent recent operating room debridement with bone biopsy and application of advanced wound healing product to left foot at [facility]. Prior to her transfer of care to [facility] she has been undergoing a comprehensive wound healing plan at a different facility including vascular intervention, surgical debridements, infectious disease management, ect. Per other record review it appears that she had prior critical limb ischemia and had vascular intervention in October 2017 including thrombolytic therapy with percutaneous angioplasty to the left anterior tibial, popliteal, and superficial femoral arteries. It is noted her past medical history on file includes chronic obstructive pulmonary disease, DVT and chronic Coumadin, hyperlipidemia, and peripheral vascular disease. She relates her vascular surgeon has moved out of the state and she no longer would like to follow-up at that other facility. She is amendable to go for a local vascular surgery referral. She follows up with Dr. Gomez and has additional testing and surgical intervention planned. She was advised to follow-up in 6 weeks in which intervention will be performed if there is still lack of ulcer healing. She denies fever, chill, nausea, vomiting, loss of appetite. Progress of Wound: Stable - Physical Exam Vital Signs Temp Pulse Resp BP 98.6 F 86 18 122/82 H 03/06/20 10:26 03/06/20 10:26 03/06/20 10:03/06/20 10:26 General: Alert, Oriented x3, Cooperative, No apparent distress Extremities: No cyanosis, Capillary Refill Less than 3 Seconds, No Calf Tenderness, Diminished Peripheral Pulses, Edema Skin: Ulcer/ Wound - No purulence, erythema, streaking, odor, infection. The adjacent skin is hairless and atrophic. There is exposed bone that is healthy in appearance. Wound Measurements and Assessment WC - Nurse 1 - General Ulcer Measurement Start: 02/28/20 10:37 Freq: Status: Active Protocol: Activity Type Activity Date Activity User E-Sign Co-Sign Detail Recorded Client Recorded Date Recorded By Document 03/06/20 10:26 JF [id number] 03/06/20 10:28 03/06/20 10:26 Wound Center Nurse 1 [Ulcer Assessment] 1. L foot dorsal -Combined with other wound No -Current Size (cm) - Length 0.8 -Current Size (cm) - Width 0.5 -Current Size (cm) - Depth 0.3 -Total Square Cm 0.40 -Photo Taken Yes -Epithelialization Small 1-33% -Tunneling No -Undermining/Tunneling No -Circular Undermining No -Exudate Amt Small -Exudate Type Serosanguineous -Wound Margin Flat & Intact -Granulation Amt None Present (0 %) -Slough/Fibrin Yes -Necrosis Amt Large (67-100%) -Necrotic Tissue Type Adherent Slough -Structure Exposed N/A -Texture (Shital-wound Skin Appearance) Assessed -Moisture (Shital-wound Skin Appearance Assessed,Dry/ ) Scaly -Color (Shital-wound Skin Appearance) Assessed -Temperature (Shital-wound Skin No Abnormality Appearance) (Pt Warm) -Tenderness on Palpation (Shital-wound No Skin Appearance) -Ulcer Cleansing Rinsed/ Irrigated with Saline -Foul Odor after Cleansing No -Anesthetic Used 4% Lidocaine Solution [Edema Assessment] -Lower Limb Edema Present No WC - Nurse 2 - General Ulcer CM Notes Start: 02/28/20 10:37 Freq: Status: Active Protocol: Activity Type Activity Date Activity User E-Sign Co-Sign Detail Recorded Client Recorded Date Recorded By Document 03/06/20 10:36 JF [id number] 03/06/20 10:37 JF 03/06/20 10:36 Wound Center Nurse 2 [Procedure/Treatment] 1. L foot dorsal -Time 10:36 -Correct Patient Yes -Correct Side, Site, Position Yes -Correct Procedure Yes -Procedure Performed Yes -Type of Procedure Debridement -Clinical Debridement Subcutaneous -Post Debridement Size (cm) - Length 0.9 -Post Debridement Size (cm) - Width 0.5 -Post Debridement Size (cm) - Depth 0.3 -Total Square Cm 0.45 -Wound/Ulcer Outcome Not Healed -Ulcer Cleansing Rinsed/ Irrigated with Saline -Foul Odor after Cleansing No -Bioengineered Tissue No -Bleeding Controlled with Pressure -Offloading No -Treatment Response Procedure Tolerated Well [See Physician Procedure note for Specifics] Pain Scale: 0-10 Numeric [Pain] -Is Patient Pain Free? Yes Musculoskeletal: No Tenderness to Palpation of Joints or Extremities, Muscle Wasting, - - Transmetatarsal amputation Neurological: - - Lack of normal epicritic sensation light touch is consistent with her neuropathy status Psych/Mental Status: Normal Affect, Appropriate Debridement Note Post-Debridement Measurements/Treatment WC - Nurse 2 - General Ulcer CM Notes Start: 02/28/20 10:37 Freq: Status: Active Protocol: Activity Type Activity Date Activity User E-Sign Co-Sign Detail Recorded Client Recorded Date Recorded By Document 02/28/20 11:07 [id number] 02/28/20 11:10 Document 03/06/20 10:36 [id number] 03/06/20 10:37 02/28/20 03/06/20 11:07 10:36 Wound Center Nurse 2 1. L foot dorsal -Time 11:08 10:36 -Correct Patient Yes Yes -Correct Side, Site, Position Yes Yes -Correct Procedure Yes Yes -Procedure Performed Yes Yes -Type of Procedure Debridement Debridement -Clinical Debridement Subcutaneous Subcutaneous -Post Debridement Size (cm) - Length 0.7 0.9 -Post Debridement Size (cm) - Width 0.4 0.5 -Post Debridement Size (cm) - Depth 0.3 0.3 -Total Square Cm 0.28 0.45 -Wound/Ulcer Outcome Not Healed Not Healed -Ulcer Cleansing Rinsed/ Rinsed/ Irrigated with Irrigated with Saline Saline -Foul Odor after Cleansing No No -Bioengineered Tissue No No -Bleeding Controlled with Pressure Pressure -Offloading Yes No -Type of Offloading Surgical Shoe -Treatment Response Procedure Procedure Tolerated Well Tolerated Well Pain Scale: 0-10 Numeric Is Patient Pain Free? Yes Yes Wound debrided: dorsal foot Laterality: Left Type of Debridement: Excisional debridement Anesthesia Used: 5% Lidocaine Gel Depth: in the subcutaneous layer Percentage of wound debrided: 100 Instrument Used: #15 blade Tissue Removed: fibrous, devitalized subcutaneous, biofilm, slough Severity: Fat Layer Exposed Amount of bleeding with debridement: Mild Bleeding Controlled with: Pressure Patient tolerated procedure well Assessment/Plan Active Problems Non-compliance (Chronic) Delayed wound healing (Chronic) Smoking addiction (Chronic) Malnutrition (Chronic) 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 Chronic osteomyelitis left foot. Peripheral arterial occlusive disease with prior intervention in 2017. Long-term use of Coumadin. Chronic DVT. Malnutrition suspected. Left transmetatarsal amputation with delayed healing Plan: I reviewed and discussed her case. Her recent surgical intervention is noted from 11/24/2018. The devitalized tissue was excised including bone and this was sent for pathology and microbiology and an additional deeper bone biopsy with the Jamshidi needle was obtained. the microbiology report is negative for bacterial growth. The pathology findings were also negative for osteomyelitis. I do not recommend antibiotics at this time. There are no local signs of infection today. Debridement was performed as noted in the clinical panel. This was further covered with Aquacel. This will be changed to hydrogel and Adaptic this upcoming week due to reports of the wound being very dry. It is okay for her to transition to a cam walker at home but to remain nonweightbearing most of the time. We discussed that it is okay for her to put her foot down for partial weightbearing for transfers and for limited walking in house. One of the main purpose is wearing a cam walker is to reduce tension applied on the adjacent ulcer skin to help promote healing. She is also advised to be cautious and avoiding strap pressure over the ulcer site. She is previously known to infectious disease and input is greatly appreciated. She is not demonstrating appropriate compliance with a cam walker immobilization or smoking cessation. We discussed the accountability needed from her at home in order to see more progress. . Her history of peripheral vascular disease with critical limb ischemia and prior intervention 2017 as noted. An updated arterial study was ordered previously to check her current status. The noninvasive arterial studies were completed on October 27, 2019 in which a left KEARA of 0.72 is noted without gross impairment of perfusion. I recommend referral to Dr. Gomez at this time and she is amendable to proceed. She followed up with her vascular surgery referral and plans to undergo additional testing (CT) and intervention (angiogram). Dr. Gomez's evaluation greatly appreciated. To maintain a healthy diet. We discussed the importance of appropriate nutrition to allow her body to heal. I also offered her nutrition referral. We agreed we would like to focus on the vascular referral first. To return to the wound healing center in 1 week or call sooner if she has any questions or concerns. We discussed potentially stretching out her appointments due to the coronavirus pandemic and she is adamant that she needs to come in every week for debridement. She relates she went a long time without serial debridements and this tends to be when the ulcer site is infected. She was also offered telehealth visit opportunity.
[2020-03-13 16:09] VITALS: BP 133/81; PULSE 74; RESP 18; TEMP 36.5; BMI 32.8
--- NOTE | 2020-03-13 16:52 | PCM.WC.PN ---
(1) Chronic ulcer of left foot with necrosis of bone Status: Chronic Current Visit: Yes Code(s): L97.524 - Non-pressure chronic ulcer of other part of left foot with necrosis of bone (2) Non-compliance Status: Chronic Current Visit: Yes Code(s): Z91.19 - Patient's noncompliance with other medical treatment and regimen (3) Delayed wound healing Status: Chronic Current Visit: Yes Code(s): T14.8XXD - Other injury of unspecified body region, subsequent encounter (4) Smoking addiction Status: Chronic Current Visit: Yes Code(s): F17.200 - Nicotine dependence, unspecified, uncomplicated (5) Malnutrition Status: Chronic Current Visit: Yes Code(s): E46 - Unspecified protein-calorie malnutrition Type of Wound Date of Service: 03/13/20 Chief Complaint: Follow-up on a left dorsal foot nonhealing ulcer History of Wound: This is a 55-year-old white female that in approximately December 2016 had chronic foot condition in which she recently underwent recent operating room debridement with bone biopsy and application of advanced wound healing product to left foot at [facility]. Prior to her transfer of care to [facility] she has been undergoing a comprehensive wound healing plan at a different facility including vascular intervention, surgical debridements, infectious disease management, ect. Per other record review it appears that she had prior critical limb ischemia and had vascular intervention in October 2017 including thrombolytic therapy with percutaneous angioplasty to the left anterior tibial, popliteal, and superficial femoral arteries. It is noted her past medical history on file includes chronic obstructive pulmonary disease, DVT and chronic Coumadin, hyperlipidemia, and peripheral vascular disease. She relates her vascular surgeon has moved out of the state and she no longer would like to follow-up at that other facility. She is amendable to go for a local vascular surgery referral. She follows up with Dr. Gomez and has additional testing and surgical intervention planned. She was advised to follow-up in 6 weeks in which intervention will be performed if there is still lack of ulcer healing. She denies fever, chill, nausea, vomiting, loss of appetite. She denies new pedal complaints at this time. Progress of Wound: Stable - Physical Exam Vital Signs Temp Pulse Resp BP 97.7 F L 74 18 133/81 H 03/13/20 16:09 03/13/20 16:09 03/13/20 16:09 03/13/20 16:09 General: Alert, Oriented x3, Cooperative, No apparent distress HEENT: Atraumatic Extremities: No cyanosis, Capillary Refill Less than 3 Seconds, No Calf Tenderness, Diminished Peripheral Pulses, Edema Skin: Ulcer/ Wound - No purulence, erythema, streaking, odor, infection. There is exposed bone however it appears to be healthy and white. The adjacent skin is hairless and atrophic Wound Measurements and Assessment WC - Nurse 1 - General Ulcer Measurement Start: 02/28/20 10:37 Freq: Status: Active Protocol: Activity Type Activity Date Activity User E-Sign Co-Sign Detail Recorded Client Recorded Date Recorded By Document 03/13/20 16:09 PL [id number] 03/13/20 16:18 PL 03/13/20 16:09 Wound Center Nurse 1 [Ulcer Assessment] 1. L foot dorsal -Combined with other wound No -Current Size (cm) - Length 0.8 -Current Size (cm) - Width 0.7 -Current Size (cm) - Depth 0.2 -Total Square Cm 0.56 -Photo Taken No -Epithelialization None Present -Tunneling No -Undermining/Tunneling No -Circular Undermining No -Exudate Amt Medium -Exudate Type Serosanguineous -Granulation Amt None Present (0 %) -Slough/Fibrin Yes -Necrosis Amt Large (67-100%) -Necrotic Tissue Type Adherent Slough -Texture (Shital-wound Skin Appearance) No Abnormality -Moisture (Shital-wound Skin Appearance No Abnormality ) -Color (Shital-wound Skin Appearance) No Abnormality -Temperature (Shital-wound Skin No Abnormality Appearance) (Pt Warm) -Ulcer Cleansing Rinsed/ Irrigated with Saline -Anesthetic Used 4% Lidocaine Solution WC - Nurse 2 - General Ulcer CM Notes Start: 02/28/20 10:37 Freq: Status: Active Protocol: Activity Type Activity Date Activity User E-Sign Co-Sign Detail Recorded Client Recorded Date Recorded By Document 03/13/20 16:31 [email or web address] [id number] 03/13/20 16:32 JF 03/13/20 16:31 Wound Center Nurse 2 [Procedure/Treatment] -Time 16:31 -Correct Patient Yes -Correct Side, Site, Position Yes -Correct Procedure Yes -Procedure Performed Yes -Type of Procedure Debridement -Clinical Debridement Subcutaneous -Post Debridement Size (cm) - Length 0.8 -Post Debridement Size (cm) - Width 0.8 -Post Debridement Size (cm) - Depth 0.3 -Total Square Cm 0.64 -Wound/Ulcer Outcome Not Healed -Ulcer Cleansing Rinsed/ Irrigated with Saline -Foul Odor after Cleansing No -Bioengineered Tissue No -Bleeding Controlled with Pressure -Offloading Yes -Type of Offloading Knee Walker -Treatment Response Procedure Tolerated Well [See Physician Procedure note for Specifics] Pain Scale: 0-10 Numeric [Pain] -Is Patient Pain Free? Yes Musculoskeletal: No Tenderness to Palpation of Joints or Extremities, Muscle Wasting, - - Transmetatarsal amputation Neurological: - - Lack of epicritic sensation is consistent with neuropathy Psych/Mental Status: Normal Affect, Appropriate Debridement Note Post-Debridement Measurements/Treatment WC - Nurse 2 - General Ulcer CM Notes Start: 02/28/20 10:37 Freq: Status: Active Protocol: Activity Type Activity Date Activity User E-Sign Co-Sign Detail Recorded Client Recorded Date Recorded By Document 02/28/20 11:07 [id number] 02/28/20 11:10 Document 03/06/20 10:36 [id number] 03/06/20 10:37 Document 03/13/20 16:31 [id number] 03/13/20 16:32 02/28/20 03/06/20 03/13/20 11:07 10:36 16:31 Wound Center Nurse 2 1. L foot dorsal -Time 11:08 10:36 16:31 -Correct Patient Yes Yes Yes -Correct Side, Site, Position Yes Yes Yes -Correct Procedure Yes Yes Yes -Procedure Performed Yes Yes Yes -Type of Procedure Debridement Debridement Debridement -Clinical Debridement Subcutaneous Subcutaneous Subcutaneous -Post Debridement Size (cm) - Length 0.7 0.9 0.8 -Post Debridement Size (cm) - Width 0.4 0.5 0.8 -Post Debridement Size (cm) - Depth 0.3 0.3 0.3 -Total Square Cm 0.28 0.45 0.64 -Wound/Ulcer Outcome Not Healed Not Healed Not Healed -Ulcer Cleansing Rinsed/ Rinsed/ Rinsed/ Irrigated with Irrigated with Irrigated with Saline Saline Saline -Foul Odor after Cleansing No No No -Bioengineered Tissue No No No -Bleeding Controlled with Pressure Pressure Pressure -Offloading Yes No Yes -Type of Offloading Surgical Shoe Knee Walker -Treatment Response Procedure Procedure Procedure Tolerated Well Tolerated Well Tolerated Well Pain Scale: 0-10 Numeric Is Patient Pain Free? Yes Yes Yes Wound debrided: dorsal foot Laterality: Left Type of Debridement: Excisional debridement Anesthesia Used: 5% Lidocaine Gel Depth: in the subcutaneous layer Percentage of wound debrided: 100 Instrument Used: #15 blade Tissue Removed: fibrous, devitalized subcutaneous, biofilm, slough Severity: Fat Layer Exposed Amount of bleeding with debridement: Mild Bleeding Controlled with: Pressure Patient tolerated procedure well Assessment/Plan Active Problems Non-compliance (Chronic) Delayed wound healing (Chronic) Smoking addiction (Chronic) Malnutrition (Chronic) 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 Chronic osteomyelitis left foot. Peripheral arterial occlusive disease with prior intervention in 2017. Long-term use of Coumadin. Chronic DVT. Malnutrition suspected. Left transmetatarsal amputation with delayed healing Plan: I reviewed and discussed her case. Her recent surgical intervention is noted from 11/24/2018. The devitalized tissue was excised including bone and this was sent for pathology and microbiology and an additional deeper bone biopsy with the Jamshidi needle was obtained. the microbiology report is negative for bacterial growth. The pathology findings were also negative for osteomyelitis. I do not recommend antibiotics at this time. There are no local signs of infection today. Debridement was performed as noted in the clinical panel. This was further covered with Aquacel. This will be changed to hydrogel and Adaptic this upcoming week due to reports of the wound being very dry. It is okay for her to transition to a cam walker at home but to remain nonweightbearing most of the time. We discussed that it is okay for her to put her foot down for partial weightbearing for transfers and for limited walking in house. One of the main purpose is wearing a cam walker is to reduce tension applied on the adjacent ulcer skin to help promote healing. She is also advised to be cautious and avoiding strap pressure over the ulcer site. She is previously known to infectious disease and input is greatly appreciated. She is not demonstrating appropriate compliance with a cam walker immobilization or smoking cessation. We discussed the accountability needed from her at home in order to see more progress. . Her history of peripheral vascular disease with critical limb ischemia and prior intervention 2017 as noted. An updated arterial study was ordered previously to check her current status. The noninvasive arterial studies were completed on October 27, 2019 in which a left KEARA of 0.72 is noted without gross impairment of perfusion. I recommend referral to Dr. Gomez at this time and she is amendable to proceed. She followed up with her vascular surgery referral and plans to undergo additional testing (CT) and intervention (angiogram). Dr. Gomez's evaluation greatly appreciated. To maintain a healthy diet. We discussed the importance of appropriate nutrition to allow her body to heal. I also offered her nutrition referral. We agreed we would like to focus on the vascular referral first. To return to the wound healing center in 1 week or call sooner if she has any questions or concerns. We discussed potentially stretching out her appointments due to the coronavirus pandemic and she is adamant that she needs to come in every week for debridement. She relates she went a long time without serial debridements and this tends to be when the ulcer site is infected. She was also offered telehealth visit opportunity.
[2020-03-20 14:50] VITALS: BP 126/70; PULSE 80; RESP 16; TEMP 36.9; BMI 32.8
--- NOTE | 2020-03-20 16:47 | PN.PCM_ITS ---
(1) Chronic ulcer of left foot with necrosis of bone Status: Chronic Current Visit: Yes Code(s): L97.524 - Non-pressure chronic ulcer of other part of left foot with necrosis of bone (2) Non-compliance Status: Chronic Current Visit: Yes Code(s): Z91.19 - Patient's noncompliance with other medical treatment and regimen (3) Delayed wound healing Status: Chronic Current Visit: Yes Code(s): T14.8XXD - Other injury of unspecified body region, subsequent encounter (4) Smoking addiction Status: Chronic Current Visit: Yes Code(s): F17.200 - Nicotine dependence, unspecified, uncomplicated (5) Malnutrition Status: Chronic Current Visit: Yes Code(s): E46 - Unspecified protein- calorie malnutrition Type of Wound Date of Service: 03/20/20 Chief Complaint: Follow-up on a left dorsal foot nonhealing ulcer History of Wound: This is a 55-year-old white female that in approximately December 2016 had chronic foot condition in which she recently underwent recent operating room debridement with bone biopsy and application of advanced wound healing product to left foot at [facility]. Prior to her transfer of care to [facility] she has been undergoing a comprehensive wound healing plan at a different facility including vascular intervention, surgical debridements, infectious disease management, ect. Per other record review it appears that she had prior critical limb ischemia and had vascular intervention in October 2017 including thrombolytic therapy with percutaneous angioplasty to the left anterior tibial, popliteal, and superficial femoral arteries. It is noted her past medical history on file includes chronic obstructive pulmonary disease, DVT and chronic Coumadin, hyperlipidemia, and peripheral vascular disease. She relates her vascular surgeon has moved out of the state and she no longer would like to follow-up at that other facility. She is amendable to go for a local vascular surgery referral. She follows up with Dr. Gomez and has additional testing and surgical intervention planned. She was advised to follow-up in 6 weeks in which intervention will be performed if there is still lack of ulcer healing. This is been delayed due to the coronavirus pandemic. She denies fever, chill, nausea, vomiting, loss of appetite. She reports some color changes to the adjacent site of her ulcer. She is not sure if the strap in her boot is rubbing on this area. She does admit she has been walking a decent amount at home. She denies new injuries. Progress of Wound: Stable - Physical Exam Vital Signs Temp Pulse Resp BP 98.4 F 80 16 126/70 H 03/20/20 14:50 03/20/20 14:50 03/20/20 14:50 03/20/20 14:50 General: Alert, Oriented x3, Cooperative, No apparent distress HEENT: Atraumatic Extremities: No cyanosis, Capillary Refill Less than 3 Seconds, No Calf Tenderness, Diminished Peripheral Pulses, Edema Skin: Ulcer/ Wound - No purulence, erythema, streaking, odor, infection. There is still exposed bone that is not discolored. The adjacent skin is hairless and atrophic. She does have some some hemorrhagic tissue changes to the lateral aspect and she is not certain if the strap of her boot is sitting on the site however she has been walking more. Wound Measurements and Assessment WC - Nurse 1 - General Ulcer Measurement Start: 02/28/20 10:37 Freq: Status: Active Protocol: Activity Type Activity Date Activity User E-Sign Co-Sign Detail Recorded Client Recorded Date Recorded By Document 03/20/20 14:50 [id number] 03/20/20 14:54 03/20/20 14:50 Wound Center Nurse 1 [Ulcer Assessment] 1. L foot dorsal -Combined with other wound No -Current Size (cm) - Length 1.2 -Current Size (cm) - Width 0.6 -Current Size (cm) - Depth 0.3 -Total Square Cm 0.72 -Photo Taken No -Epithelialization None Present -Tunneling No -Undermining/Tunneling No -Circular Undermining No -Exudate Amt Small -Exudate Type Serosanguineous -Wound Margin Distinct, Outline Attached -Granulation Amt None Present (0 %) -Granulation Quality N/A -Necrosis Amt None Present (0 %) -Necrotic Tissue Type Adherent Slough -Structure Exposed Bone -Texture (Shital-wound Skin Appearance) No Abnormality, Assessed -Moisture (Shital-wound Skin Appearance No Abnormality, ) Assessed -Color (Shital-wound Skin Appearance) No Abnormality, Assessed -Temperature (Shital-wound Skin No Abnormality Appearance) (Pt Warm) -Tenderness on Palpation (Shital-wound No Skin Appearance) -Ulcer Cleansing Rinsed/ Irrigated with Saline -Foul Odor after Cleansing No -Anesthetic Used 4% Lidocaine Solution [Edema Assessment] -Lower Limb Edema Present NA - Nurse 2 - General Ulcer CM Notes Start: 02/28/20 10:37 Freq: Status: Active Protocol: Activity Type Activity Date Activity User E-Sign Co-Sign Detail Recorded Client Recorded Date Recorded By Document 03/20/20 15:16 [id number] 03/20/20 15:18 03/20/20 15:16 Wound Center Nurse 2 [Procedure/Treatment] 1. L foot dorsal -Time 15:17 -Correct Patient Yes -Correct Side, Site, Position Yes -Correct Procedure Yes -Procedure Performed Yes -Type of Procedure Debridement -Clinical Debridement Subcutaneous -Post Debridement Size (cm) - Length 1.1 -Post Debridement Size (cm) - Width 0.6 -Post Debridement Size (cm) - Depth 0.3 -Total Square Cm 0.66 -Wound/Ulcer Outcome Not Healed -Ulcer Cleansing Rinsed/ Irrigated with Saline -Foul Odor after Cleansing No -Bioengineered Tissue No -Bleeding Controlled with Pressure -Offloading Yes -Type of Offloading Knee Walker -Treatment Response Procedure Tolerated Well [See Physician Procedure note for Specifics] Pain Scale: 0-10 Numeric [Pain] -Is Patient Pain Free? Yes Musculoskeletal: No Tenderness to Palpation of Joints or Extremities, Muscle Wasting, - - Left foot amputation Neurological: - - Lack of normal epicritic sensation light touch is consistent with neuropathy status Psych/Mental Status: Normal Affect, Appropriate Debridement Note Post-Debridement Measurements/Treatment - Nurse 2 - General Ulcer CM Notes Start: 02/28/20 10:37 Freq: Status: Active Protocol: Activity Type Activity Date Activity User E-Sign Co-Sign Detail Recorded Client Recorded Date Recorded By Document 02/28/20 11:07 [id number] 02/28/20 11:10 Document 03/06/20 10:36 [id number] 03/06/20 10:37 Document 03/13/20 16:31 [id number] 03/13/20 16:32 Document 03/20/20 15:16 [id number] 03/20/20 15:18 02/28/20 03/06/20 03/13/20 11:07 10:36 16:31 Wound Center Nurse 2 1. L foot dorsal -Time 11:08 10:36 16:31 -Correct Patient Yes Yes Yes -Correct Side, Site, Position Yes Yes Yes -Correct Procedure Yes Yes Yes -Procedure Performed Yes Yes Yes -Type of Procedure Debridement Debridement Debridement -Clinical Debridement Subcutaneous Subcutaneous Subcutaneous -Post Debridement Size (cm) - Length 0.7 0.9 0.8 -Post Debridement Size (cm) - Width 0.4 0.5 0.8 -Post Debridement Size (cm) - Depth 0.3 0.3 0.3 -Total Square Cm 0.28 0.45 0.64 -Wound/Ulcer Outcome Not Healed Not Healed Not Healed -Ulcer Cleansing Rinsed/ Rinsed/ Rinsed/ Irrigated with Irrigated with Irrigated with Saline Saline Saline -Foul Odor after Cleansing No No No -Bioengineered Tissue No No No -Bleeding Controlled with Pressure Pressure Pressure -Offloading Yes No Yes -Type of Offloading Surgical Shoe Knee Walker -Treatment Response Procedure Procedure Procedure Tolerated Well Tolerated Well Tolerated Well Pain Scale: 0-10 Numeric Is Patient Pain Free? Yes Yes Yes 03/20/20 15:16 Wound Center Nurse 2 1. L foot dorsal -Time 15:17 -Correct Patient Yes -Correct Side, Site, Position Yes -Correct Procedure Yes -Procedure Performed Yes -Type of Procedure Debridement -Clinical Debridement Subcutaneous -Post Debridement Size (cm) - Length 1.1 -Post Debridement Size (cm) - Width 0.6 -Post Debridement Size (cm) - Depth 0.3 -Total Square Cm 0.66 -Wound/Ulcer Outcome Not Healed -Ulcer Cleansing Rinsed/ Irrigated with Saline -Foul Odor after Cleansing No -Bioengineered Tissue No -Bleeding Controlled with Pressure -Offloading Yes -Type of Offloading Knee Walker -Treatment Response Procedure Tolerated Well Pain Scale: 0-10 Numeric Is Patient Pain Free? Yes Wound debrided: dorsal foot Laterality: Left Type of Debridement: Excisional debridement Anesthesia Used: 5% Lidocaine Gel Depth: in the subcutaneous layer Percentage of wound debrided: 100 Instrument Used: #15 blade Tissue Removed: fibrous, devitalized subcutaneous, biofilm, slough Severity: Fat Layer Exposed Amount of bleeding with debridement: Mild Bleeding Controlled with: Pressure Patient tolerated procedure well Assessment/Plan Active Problems Non-compliance (Chronic) Delayed wound healing (Chronic) Smoking addiction (Chronic) Malnutrition (Chronic) 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 Chronic osteomyelitis left foot. Peripheral arterial occlusive disease with prior intervention in 2017. L bernadette-term use of Coumadin. Chronic DVT. Malnutrition suspected. Left transmetatarsal amputation with delayed healing Plan: I reviewed and discussed her case. Her surgical intervention is noted from 11/24/2018. The devitalized tissue was excised including bone and this was sent for pathology and microbiology and an additional deeper bone biopsy with the Jamshidi needle was obtained. the microbiology report is negative for bacterial growth. The pathology findings were also negative for osteomyelitis. I do not recommend antibiotics at this time. There are no local signs of infection today. Debridement was performed as noted in the clinical panel. This was further covered with Aquacel. This will be changed to hydrogel and Adaptic this upcoming week due to reports of the wound being very dry. It is okay for her to transition to a cam walker at home but to remain nonweightbearing most of the time. To avoid excessive activity. We discussed that it is okay for her to put her foot down for partial weightbearing for transfers and for limited walking in house. One of the main purpose is wearing a cam walker is to reduce tension applied on the adjacent ulcer skin to help promote healing. She is also advised to be cautious and avoiding strap pressure over the ulcer site. She is previously known to infectious disease and input is greatly appreciated. She is not demonstrating appropriate compliance with a cam walker immobilization or smoking cessation. We discussed the accountability needed from her at home in order to see more progress. . Her history of peripheral vascular disease with critical limb ischemia and prior intervention 2017 as noted. An updated arterial study was ordered previously to check her current status. The noninvasive arterial studies were completed on October 27, 2019 in which a left KEARA of 0.72 is noted without gross impairment of perfusion. I recommend referral to Dr. Gomez at this time and she is amendable to proceed. She followed up with her vascular surgery referral and plans to undergo additional testing (CT) and intervention (angiogram). Dr. Gomez's evaluation greatly appreciated. To maintain a healthy diet. We discussed the importance of appropriate nutrition to allow her body to heal. I also offered her nutrition referral. We agreed we would like to focus on the vascular referral first. She has been informed that there is an opportunity to apply a donated advanced wound healing product. She will follow-up next week at [facility] center to have this applied if her foot still looks stable and is not infected. She will then return to the wound healing center in 2 weeks or call sooner if she has any questions or concerns. She understands she is at risk for continued limb loss.
== END 2020-03-28 23:59 ==
LOC: WC 14:30
PROVIDERS: Family Provider Family Medicine; PCP Family Medicine; Referring Provider Podiatrist; Visit Provider Podiatrist
DX: L97.524 Non-pressure chronic ulcer of other part of left foot with necrosis of bone (principal); Z91.19 Patient's noncompliance with other medical treatment and regimen; M86.672 Other chronic osteomyelitis, left ankle and foot; E46 Unspecified protein-calorie malnutrition; J44.9 Chronic obstructive pulmonary disease, unspecified; E78.5 Hyperlipidemia, unspecified; I73.9 Peripheral vascular disease, unspecified; F17.200 Nicotine dependence, unspecified, uncomplicated; Z79.01 Long term (current) use of anticoagulants; Z86.718 Personal history of other venous thrombosis and embolism; T14.8XXD Other injury of unspecified body region, subsequent encounter
CPT/HCPCS: 11042

== ENCOUNTER 2020-04-24 15:00 | Outpatient (RCR) | payer BC, OTHER, SELFPAY ==
[2020-03-29 00:11] VITALS: BP 126/70; PULSE 80; RESP 16; TEMP 36.9
[2020-04-03 15:39] VITALS: BP 153/75; PULSE 67; RESP 16; TEMP 36.7; BMI 32.8
--- NOTE | 2020-04-03 16:03 | PN.PCM_ITS ---
(1) Delayed wound healing Status: Chronic Current Visit: Yes Code(s): T14.8XXD - Other injury of unspecified body region, subsequent encounter (2) Peripheral arterial occlusive disease Status: Chronic Current Visit: Yes Code(s): I77.9 - Disorder of arteries and arterioles, unspecified (3) Chronic ulcer of left foot with necrosis of bone Status: Chronic Current Visit: Yes Code(s): L97.524 - Non-pressure chronic ulcer of other part of left foot with necrosis of bone Type of Wound Date of Service: 04/03/20 Chief Complaint: Follow-up on a left dorsal foot nonhealing ulcer History of Wound: This is a 55-year-old white female that in approximately December 2016 had chronic foot condition in which she recently underwent recent operating room debridement with bone biopsy and application of advanced wound he aling product to left foot at [facility]. Prior to her transfer of care to [facility] she has been undergoing a comprehensive wound healing plan at a different facility including vascular intervention, surgical debridements, infectious disease management, ect. Per other record review it appears that she had prior critical limb ischemia and had vascular intervention in October 2017 including thrombolytic therapy with percutaneous angioplasty to the left anterior tibial, popliteal, and superficial femoral arteries. It is noted her past medical history on file includes chronic obstructive pulmonary disease, DVT and chronic Coumadin, hyperlipidemia, and peripheral vascular disease. She relates her vascular surgeon has moved out of the state and she no longer would like to follow-up at that other facility. She is amendable to go for a local vascular surgery referral. She follows up with Dr. Gomez and has additional testing and surgical intervention planned. She was advised to follow-up in 6 weeks in which intervention will be performed if there is still lack of ulcer healing. This is been delayed due to the coronavirus pandemic. She is afraid to have any intervention surgery and is apprehensive about scheduling. She denies fever, chill, nausea, vomiting, loss of appetite. She reports some color changes to the adjacent site of her ulcer. She does admit she has been walking a decent amount at home. She denies new injuries. She had a donated epi-fix applied last week and kept this clean, dry, and intact as advised. Progress of Wound: Stable - Physical Exam Vital Signs Temp Pulse Resp BP 98.0 F 67 16 153/75 H 04/03/20 15:39 04/03/20 15:39 04/03/20 15:39 04/03/20 15:39 General: Alert, Oriented x3, Cooperative, No apparent distress Extremities: No cyanosis, Capillary Refill Less than 3 Seconds, No Calf Tenderness, Diminished Peripheral Pulses, Edema Skin: Ulcer/ Wound - No purulence, erythema, string, odor, infection. There is no chapincito-ulcer inflammation. The adjacent skin is hairless and atrophic. The bone is exposed firm white and healthy looking Wound Measurements and Assessment WC - Nurse 1 - General Ulcer Measurement Start: 04/03/20 15:39 Freq: Status: Active Protocol: Activity Type Activity Date Activity User E-Sign Co-Sign Detail Recorded Client Recorded Date Recorded By Document 04/03/20 15:39 [id number] 04/03/20 15:40 04/03/20 15:39 Wound Center Nurse 1 [Ulcer Assessment] 1. L foot dorsal -Combined with other wound No -Current Size (cm) - Length 0.4 -Current Size (cm) - Width 0.8 -Current Size (cm) - Depth 0.3 -Total Square Cm 0.32 -Photo Taken No -Epithelialization None Present -Tunneling No -Undermining/Tunneling No -Circular Undermining No -Exudate Amt Small -Exudate Type Serosanguineous -Wound Margin Flat & Intact -Granulation Amt None Present (0 %) -Slough/Fibrin Yes -Necrosis Amt Large (67-100%) -Necrotic Tissue Type Adherent Slough -Structure Exposed Bone -Texture (Chapincito-wound Skin Appearance) Assessed -Moisture (Chapincito-wound Skin Appearance Assessed,Dry/ ) Scaly -Color (Chap[place]ito-wound Skin Appearance) Assessed -Temperature ([place]-wound Skin No Abnormality Appearance) (Pt Warm) -Tenderness on Palpation (Chap[place]-wound No Skin Appearance) -Ulcer Cleansing Rinsed/ Irrigated with Saline -Foul Odor after Cleansing No -Anesthetic Used 5% Lidocaine Gel [Edema Assessment] -Lower Limb Edema Present No WC - Nurse 2 - General Ulcer CM Notes Start: 04/03/20 15:39 Freq: Status: Active Protocol: Activity Type Activity Date Activity User E-Sign Co-Sign Detail Recorded Client Recorded Date Recorded By Document 04/03/20 15:41 [id number] 04/03/20 15:42 04/03/20 15:41 Wound Center Nurse 2 [Procedure/Treatment] 1. L foot dorsal -Time 15:41 -Correct Patient Yes -Correct Side, Site, Position Yes -Correct Procedure Yes -Procedure Performed Yes -Type of Procedure Debridement -Clinical Debridement Subcutaneous -Post Debridement Size (cm) - Length 0.5 -Post Debridement Size (cm) - Width 0.8 -Post Debridement Size (cm) - Depth 0.3 -Total Square Cm 0.40 -Wound/Ulcer Outcome Not Healed -Ulcer Cleansing Rinsed/ Irrigated with Saline -Foul Odor after Cleansing No -Bioengineered Tissue No -Bleeding Controlled with Pressure -Offloading Yes -Type of Offloading Knee Walker -Treatment Response Procedure Tolerated Well [See Physician Procedure note for Specifics] Pain Scale: 0-10 Numeric [Pain] -Is Patient Pain Free? Yes Musculoskeletal: No Tenderness to Palpation of Joints or Extremities, Muscle Wasting, - - Left transmetatarsal amputation. No bogginess or fluctuance on palpation Neurological: Sensory exam intact to light touch and pain, - Psych/Mental Status: Normal Affect, Appropriate, Anxious Debridement Note Post-Debridement Measurements/Treatment WC - Nurse 2 - General Ulcer CM Notes Start: 04/03/20 15:39 Freq: Status: Active Protocol: Activity Type Activity Date Activity User E-Sign Co-Sign Detail Recorded Client Recorded Date Recorded By Document 04/03/20 15:41 [id number] 04/03/20 15:42 04/03/20 15:41 Wound Center Nurse 2 1. L foot dorsal -Time 15:41 -Correct Patient Yes -Correct Side, Site, Position Yes -Correct Procedure Yes -Procedure Performed Yes -Type of Procedure Debridement -Clinical Debridement Subcutaneous -Post Debridement Size (cm) - Length 0.5 -Post Debridement Size (cm) - Width 0.8 -Post Debridement Size (cm) - Depth 0.3 -Total Square Cm 0.40 -Wound/Ulcer Outcome Not Healed -Ulcer Cleansing Rinsed/ Irrigated with Saline -Foul Odor after Cleansing No -Bioengineered Tissue No -Bleeding Controlled with Pressure -Offloading Yes -Type of Offloading Knee Walker -Treatment Response Procedure Tolerated Well Pain Scale: 0-10 Numeric Is Patient Pain Free? Yes Wound debrided: dorsal foot Laterality: Left Type of Debridement: Excisional debridement Anesthesia Used: 5% Lidocaine Gel Depth: in the subcutaneous layer Percentage of wound debrided: 100 Instrument Used: #15 blade Tissue Removed: fibrous, devitalized subcutaneous, biofilm, slough Severity: Fat Layer Exposed Amount of bleeding with debridement: Mild Bleeding Controlled with: Pressure Patient tolerated procedure well Assessment/Plan Active Problems Delayed wound healing (Chronic) Peripheral arterial occlusive disease (Chronic) 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 Chronic osteomyelitis left foot. Peripheral arterial occlusive disease with prior intervention in 2017. Long-term use of Coumadin. Chronic DVT. Malnutrition suspected. Left transmetatarsal amputation with delayed healing Plan: I reviewed and discussed her case. Her surgical intervention is noted from 11/24/2018. The devitalized tissue was excised including bone and this was sent for pathology and microbiology and an additional deeper bone biopsy with the Jamshidi needle was obtained. the microbiology report is negative for bacterial growth. The pathology findings were also negative for osteomyelitis. I do not recommend antibiotics at this time. There are no local signs of infection today. Debridement was performed as noted in the clinical panel. T his was further covered with hydrogel and Adaptic. T it is okay for her to transition to a cam walker at home but to remain nonweightbearing most of the time. To avoid excessive activity. We discussed that it is okay for her to put her foot down for partial weightbearing for transfers and for limited walking in house. One of the main purpose is wearing a cam walker is to reduce tension applied on the adjacent ulcer skin to help promote healing. She is also advised to be cautious and avoiding strap pressure over the ulcer site. She is previously known to infectious disease and input is greatly appreciated. She is not demonstrating appropriate compliance with a cam walker immobilization or smoking cessation. We discussed the accountability needed from her at home in order to see more progress. . Her history of peripheral vascular disease with critical limb ischemia and prior intervention 2017 as noted. An updated arterial study was ordered previously to check her current status. The noninvasive arterial studies were completed on October 27, 2019 in which a left KEARA of 0.72 is noted without gross impairment of perfusion. I recommend referral to Dr. Gomez at this time and she is amendable to proceed. She followed up with her vascular surgery referral and plans to undergo additional testing (CT) and intervention (angiogram). Dr. Gomez's evaluation greatly appreciated. To maintain a healthy diet. We discussed the importance of appropriate nutrition to allow her body to heal. I also offered her nutrition referral. We agreed we would like to focus on the vascular referral first even though she relates she has apprehensive. She will then return to the wound healing center in 1 week or call sooner if she has any questions or concerns. She understands she is at risk for continued limb loss.
[2020-04-10 15:16] VITALS: BP 139/82; PULSE 75; RESP 18; TEMP 36.8; BMI 32.8
--- NOTE | 2020-04-10 23:42 | PN.PCM_ITS ---
(1) Delayed wound healing Status: Chronic Code(s): T14.8XXD - Other injury of unspecified body region, subsequent encounter (2) Peripheral arterial occlusive disease Status: Chronic Code(s): I77.9 - Disorder of arteries and arterioles, unspecified (3) Chronic ulcer of left foot with necrosis of bone Status: Chronic Code(s): L97.524 - Non-pressure chronic ulcer of other part of left foot with necrosis of bone Type of Wound Date of Service: 04/10/20 Chief Complaint: Follow-up on a left dorsal foot nonhealing ulcer History of Wound: This is a 55-year-old white female that in approximately December 2016 had chronic foot condition in which she recently underwent recent operating room debridement with bone biopsy and application of advanced wound healing product to left foot at [facility]. Prior to her transfer of care to [facility] she has been undergoing a comprehensive wound healing plan at a different facility including vascular intervention, surgical debridements, infectious disease management, ect. Per other record review it appears that she had prior critical limb ischemia and had vascular intervention in October 2017 including thrombolytic therapy with percutaneous angioplasty to the left anterior tibial, popliteal, and superficial femoral arteries. It is noted her past medical history on file includes chronic obstructive pulmonary disease, DVT and chronic Coumadin, hyperlipidemia, and peripheral vascular disease. She relates her vascular surgeon has moved out of the state and she no longer would like to follow-up at that other facility. She is amendable to go for a local vascular surgery referral. She follows up with Dr. Gomez and has additional testing and surgical intervention planned. She was advised to follow-up in 6 weeks in which intervention will be performed if there is still lack of ulcer healing. This is been delayed due to the coronavirus pandemic. She is afraid to have any intervention surgery and is apprehensive about scheduling. She denies fever, chill, nausea, vomiting, loss of appetite. She denies new injuries or status change. She is with her daughter. Progress of Wound: Stable - Physical Exam Vital Signs Temp Pulse Resp BP 98.3 F 75 18 139/82 H 04/10/20 15:16 04/10/20 15:16 04/10/20 15:16 04/10/20 15:16 General: Alert, Oriented x3, Cooperative, No apparent distress HEENT: Atraumatic Extremities: No cyanosis, Capillary Refill Less than 3 Seconds, No Calf Tenderness, Diminished Peripheral Pulses, Edema Skin: Ulcer/ Wound - No purulence, erythema, streaking, odor, infection. Exposed bone is still noted in the ulcer bed and this appears to be healthy and white Wound Measurements and Assessment WC - Nurse 1 - General Ulcer Measurement Start: 04/03/20 15:39 Freq: Status: Active Protocol: Activity Type Activity Date Activity User E-Sign Co-Sign Detail Recorded Client Recorded Date Recorded By Document 04/10/20 15:16 LISE [id number] 04/10/20 15:29 PL 04/10/20 15:16 Wound Center Nurse 1 [Ulcer Assessment] 1. L foot dorsal -Combined with other wound No -Current Size (cm) - Length 0.8 -Current Size (cm) - Width 0.7 -Current Size (cm) - Depth 0.3 -Total Square Cm 0.56 -Photo Taken No -Epithelialization None Present -Tunneling No -Undermining/Tunneling No -Circular Undermining No -Exudate Amt Small -Exudate Type Serosanguineous -Granulation Amt Medium (34-66%) -Granulation Quality Odin -Slough/Fibrin Yes -Necrosis Amt Medium (34-66%) -Necrotic Tissue Type Adherent Slough -Structure Exposed Bone -Temperature (Shital-wound Skin No Abnormality Appearance) (Pt Warm) -Ulcer Cleansing Rinsed/ Irrigated with Saline -Foul Odor after Cleansing No -Anesthetic Used 4% Lidocaine Solution WC - Nurse 2 - General Ulcer CM Notes Start: 04/03/20 15:39 Freq: Status: Active Protocol: Activity Type Activity Date Activity User E-Sign Co-Sign Detail Recorded Client Recorded Date Recorded By Document 04/10/20 15:41 [id number] 04/10/20 15:44 04/10/20 15:41 Wound Center Nurse 2 [Procedure/Treatment] -Time 15:42 -Correct Patient Yes -Correct Side, Site, Position Yes -Correct Procedure Yes -Procedure Performed Yes -Type of Procedure Debridement -Clinical Debridement Subcutaneous -Post Debridement Size (cm) - Length 1.0 -Post Debridement Size (cm) - Width 0.6 -Post Debridement Size (cm) - Depth 0.2 -Total Square Cm 0.60 -Wound/Ulcer Outcome Not Healed -Ulcer Cleansing Rinsed/ Irrigated with Saline -Foul Odor after Cleansing No -Bioengineered Tissue No -Bleeding Controlled with Pressure -Offloading Yes -Type of Offloading Knee Walker -Treatment Response Procedure Tolerated Well [See Physician Procedure note for Specifics] Pain Scale: 0-10 Numeric [Pain] -Is Patient Pain Free? Yes Musculoskeletal: No Tenderness to Palpation of Joints or Extremities, Muscle Wasting, - - Amputation foot noted, left Neurological: - - Lack of epicritic sensation light touch is consistent with n europathy status Psych/Mental Status: Normal Affect, Appropriate Debridement Note Post-Debridement Measurements/Treatment WC - Nurse 2 - General Ulcer CM Notes Start: 04/03/20 15:39 Freq: Status: Active Protocol: Activity Type Activity Date Activity User E-Sign Co-Sign Detail Recorded Client Recorded Date Recorded By Document 04/03/20 15:41 [id number] 04/03/20 15:42 Document 04/10/20 15:41 [id number] 04/10/20 15:44 04/03/20 04/10/20 15:41 15:41 Wound Center Nurse 2 1. L foot dorsal -Time 15:41 15:42 -Correct Patient Yes Yes -Correct Side, Site, Position Yes Yes -Correct Procedure Yes Yes -Procedure Performed Yes Yes -Type of Procedure Debridement Debridement -Clinical Debridement Subcutaneous Subcutaneous -Post Debridement Size (cm) - Length 0.5 1.0 -Post Debridement Size (cm) - Width 0.8 0.6 -Post Debridement Size (cm) - Depth 0.3 0.2 -Total Square Cm 0.40 0.60 -Wound/Ulcer Outcome Not Healed Not Healed -Ulcer Cleansing Rinsed/ Rinsed/ Irrigated with Irrigated with Saline Saline -Foul Odor after Cleansing No No -Bioengineered Tissue No No -Bleeding Controlled with Pressure Pressure -Offloading Yes Yes -Type of Offloading Knee Walker Knee Walker -Treatment Response Procedure Procedure Tolerated Well Tolerated Well Pain Scale: 0-10 Numeric Is Patient Pain Free? Yes Yes Wound debrided: dorsal foot Laterality: Left Type of Debridement: Excisional debridement Anesthesia Used: 5% Lidocaine Gel Depth: in the subcutaneous layer Percentage of wound debrided: 100 Instrument Used: #15 blade Tissue Removed: fibrous, devitalized subcutaneous, biofilm, slough Severity: Fat Layer Exposed Amount of bleeding with debridement: Mild Bleeding Controlled with: Pressure Patient tolerated procedure well Assessment/Plan Assessment: Open surgical wound left dorsal foot. Chronic osteomyelitis left foot. Peripheral arterial occlusive disease with prior intervention in 2017. Long-term use of Coumadin. Chronic DVT. Malnutrition suspected. Left t ransmetatarsal amputation with delayed healing Plan: I reviewed and discussed her case. Her surgical intervention is noted from 11/24/2018. The devitalized tissue was excised including bone and this was sent for pathology and microbiology and an additional deeper bone biopsy with the Jamshidi needle was obtained. the microbiology report is negative for bacterial growth. The pathology findings were also negative for osteomyelitis. I do not recommend antibiotics at this time. There are no local signs of infection today. Debridement was performed as noted in the clinical panel. This was further covered with hydrogel and Adaptic. T it is okay for her to transition to a cam walker at home but to remain nonweightbearing most of the time. To avoid excessive activity. We discussed that it is okay for her to put her foot down for partial weightbearing for transfers and for limited walking in house. One of the main purpose is wearing a cam walker is to reduce tension applied on the adjacent ulcer skin to help promote healing. She is also advised to be cautious and avoiding strap pressure over the ulcer site. She is previously known to infectious disease and input is greatly appreciated. She is not demonstrating appropriate compliance with a cam walker immobilization or smoking cessation. We discussed the accountability needed from her at home in order to see more progress. . Her history of peripheral vascular disease with critical limb ischemia and prior intervention 2017 as noted. An updated arterial study was ordered previously to check her current status. The noninvasive arterial studies were completed on October 27, 2019 in which a left KEARA of 0.72 is noted without gross impairment of perfusion. I recommend referral to Dr. Gomez at this time and she is amendable to proceed. She followed up with her vascular surgery referral and plans to undergo additional testing (CT) and intervention (angiogram). Dr. Gomez's evaluation greatly appreciated. To maintain a healthy diet. We discussed the importance of appropriate nutrition to allow her body to heal. I also offered her nutrition referral. We agreed we would like to focus on the vascular referral first even though she relates she has apprehensive. She will then return to the wound healing center in 1 week or call sooner if she has any questions or concerns. She understands she is at risk for continued limb loss.
[2020-04-17 08:52] VITALS: BP 123/92; PULSE 87; RESP 18; TEMP 36.9; BMI 32.8
--- NOTE | 2020-04-17 13:06 | PCM.WC.PN ---
(1) Delayed wound healing Status: Chronic Code(s): T14.8XXD - Other injury of unspecified body region, subsequent encounter (2) Peripheral arterial occlusive disease Status: Chronic Code(s): I77.9 - Disorder of arteries and arterioles, unspecified (3) Chronic ulcer of left foot with necrosis of bone Status: Chronic Code(s): L97.524 - Non-pressure chronic ulcer of other part of left foot with necrosis of bone Type of Wound Date of Service: 04/17/20 Chief Complaint: Follow-up on a left dorsal foot nonhealing ulcer History of Wound: This is a 55-year-old white female that in approximately December 2016 had chronic foot condition in which she recently underwent recent operating room debridement with bone biopsy and application of advanced wound healing product to left foot at [facility]. Prior to her transfer of care to [facility] she has been undergoing a comprehensive wound healing plan at a different facility including vascular intervention, surgical debridements, infectious disease management, ect. Per other record review it appears that she had prior critical limb ischemia and had vascular intervention in October 2017 including thrombolytic therapy with percutaneous angioplasty to the left anterior tibial, popliteal, and superficial femoral arteries. It is noted her past medical history on file includes chronic obstructive pulmonary disease, DVT and chronic Coumadin, hyperlipidemia, and peripheral vascular disease. She relates her vascular surgeon has moved out of the state and she no longer would like to follow-up at that other facility. She is amendable to go for a local vascular surgery referral. She follows up with Dr. Gomez and has additional testing and surgical intervention planned. She was advised to follow-up in 6 weeks in which intervention will be performed if there is still lack of ulcer healing. This is been delayed due to the coronavirus pandemic. She is afraid to have any intervention surgery and is apprehensive about scheduling. She is following up later today with Dr. Gomez. She denies fever, chill, nausea, vomiting, loss of appetite. She denies new injuries or status change. She is with her daughter. She continues to smoke. Progress of Wound: Stable - Physical Exam Vital Signs Temp Pulse Resp BP 98.4 F 87 18 123/92 H 04/17/20 08:52 04/17/20 08:52 04/17/20 08:52 04/17/20 08:52 General: Alert, Oriented x3, Cooperative, No apparent distress Extremities: No cyanosis, Capillary Refill Less than 3 Seconds, No Calf Tenderness, Diminished Peripheral Pulses Skin: Ulcer/ Wound - no purulence, no erythema, no streaking, no infection. bone is still exposed Wound Measurements and Assessment WC - Nurse 1 - General Ulcer Measurement Start: 04/03/20 15:39 Freq: Status: Active Protocol: Activity Type Activity Date Activity User E-Sign Co-Sign Detail Recorded Client Recorded Date Recorded By Document 04/17/20 08:52 [email or web address] [id number] 04/17/20 08:55 BS 04/17/20 08:52 Wound Center Nurse 1 [Ulcer Assessment] 1. L foot dorsal -Combined with other wound No -Current Size (cm) - Length 1.0 -Current Size (cm) - Width 0.6 -Current Size (cm) - Depth 0.6 -Total Square Cm 0.60 -Undermining/Tunneling No -Exudate Amt Small -Exudate Type Purulent -Granulation Quality [place] -Necrosis Amt Small (1-33%) -Necrotic Tissue Type Adherent Slough -Texture (Shital-wound Skin Appearance) No Abnormality, Assessed -Moisture (Shital-wound Skin Appearance No Abnormality, ) Assessed -Color (Shital-wound Skin Appearance) No Abnormality, Assessed -Temperature (Shital-wound Skin No Abnormality Appearance) (Pt Warm) -Tenderness on Palpation (Shital-wound No Skin Appearance) -Ulcer Cleansing Soap and water -Foul Odor after Cleansing No -Anesthetic Used 4% Lidocaine Solution WC - Nurse 2 - General Ulcer CM Notes Start: 04/03/20 15:39 Freq: Status: Active Protocol: Activity Type Activity Date Activity User E-Sign Co-Sign Detail Recorded Client Recorded Date Recorded By Document 04/17/20 09:27 LUCIA [id number] 04/17/20 09:28 LUCIA 04/17/20 09:27 Wound Center Nurse 2 [Procedure/Treatment] -Time 09:27 -Correct Patient Yes -Correct Side, Site, Position Yes -Correct Procedure Yes -Procedure Performed Yes -Type of Procedure Debridement -Clinical Debridement Subcutaneous -Post Debridement Size (cm) - Length 0.6 -Post Debridement Size (cm) - Width 0.7 -Post Debridement Size (cm) - Depth 0.3 -Total Square Cm 0.42 -Wound/Ulcer Outcome Not Healed -Ulcer Cleansing Rinsed/ Irrigated with Saline -Foul Odor after Cleansing No -Bioengineered Tissue No -Bleeding Controlled with Pressure -Offloading Yes -Type of Offloading Knee Walker -Treatment Response Procedure Tolerated Well [See Physician Procedure note for Specifics] Pain Scale: 0-10 Numeric [Pain] -Is Patient Pain Free? Yes Musculoskeletal: No Tenderness to Palpation of Joints or Extremities, Muscle Wasting, - - amputation Neurological: - - lack of normal sesnation Psych/Mental Status: Normal Affect, Appropriate Debridement Note Post-Debridement Measurements/Treatment WC - Nurse 2 - General Ulcer CM Notes Start: 04/03/20 15:39 Freq: Status: Active Protocol: Activity Type Activity Date Activity User E-Sign Co-Sign Detail Recorded Client Recorded Date Recorded By Document 04/03/20 15:41 [id number] 04/03/20 15:42 Document 04/10/20 15:41 [id number] 04/10/20 15:44 Document 04/17/20 09:27 [id number] 04/17/20 09:28 04/03/20 04/10/20 04/17/20 15:41 15:41 09:27 Wound Center Nurse 2 1. L foot dorsal -Time 15:41 15:42 09:27 -Correct Patient Yes Yes Yes -Correct Side, Site, Position Yes Yes Yes -Correct Procedure Yes Yes Yes -Procedure Performed Yes Yes Yes -Type of Procedure Debridement Debridement Debridement -Clinical Debridement Subcutaneous Subcutaneous Subcutaneous -Post Debridement Size (cm) - Length 0.5 1.0 0.6 -Post Debridement Size (cm) - Width 0.8 0.6 0.7 -Post Debridement Size (cm) - Depth 0.3 0.2 0.3 -Total Square Cm 0.40 0.60 0.42 -Wound/Ulcer Outcome Not Healed Not Healed Not Healed -Ulcer Cleansing Rinsed/ Rinsed/ Rinsed/ Irrigated with Irrigated with Irrigated with Saline Saline Saline -Foul Odor after Cleansing No No No -Bioengineered Tissue No No No -Bleeding Controlled with Pressure Pressure Pressure -Offloading Yes Yes Yes -Type of Offloading Knee Walker Knee Walker Knee Walker -Treatment Response Procedure Procedure Procedure Tolerated Well Tolerated Well Tolerated Well Pain Scale: 0-10 Numeric Is Patient Pain Free? Yes Yes Yes Wound debrided: dorsal foot Laterality: Left Type of Debridement: Excisional debridement Anesthesia Used: 5% Lidocaine Gel Depth: in the subcutaneous layer Percentage of wound debrided: 100 Instrument Used: #15 blade Tissue Removed: fibrous, devitalized subcutaneous, biofilm, slough Severity: Fat Layer Exposed Amount of bleeding with debridement: Mild Bleeding Controlled with: Pressure Patient tolerated procedure well Assessment/Plan Assessment: Open surgical wound left dorsal foot. Chronic osteomyelitis left foot. Peripheral arterial occlusive disease with prior intervention in 2017. Long-term use of Coumadin. Chronic DVT. Malnutrition suspected. Left transmetatarsal amputation with delayed healing Plan: I reviewed and discussed her case. Her surgical intervention is noted from 11/24/2018. The devitalized tissue was excised including bone and this was sent for pathology and microbiology and an additional deeper bone biopsy with the Jamshidi needle was obtained. the microbiology report is negative for bacterial growth. The pathology findings were also negative for osteomyelitis. I do not recommend antibiotics at this time. There are no local signs of infection today. Debridement was performed as noted in the clinical panel. This was further covered with hydrogel and Adaptic. T it is okay for her to transition to a cam walker at home but to remain nonweightbearing most of the time. To avoid excessive activity. We discussed that it is okay for her to put her foot down for partial weightbearing for transfers and for limited walking in house. One of the main purpose is wearing a cam walker is to reduce tension applied on the adjacent ulcer skin to help promote healing. She is also advised to be cautious and avoiding strap pressure over the ulcer site. She is previously known to infectious disease and input is greatly appreciated. She is not demonstrating appropriate compliance with a cam walker immobilization or smoking cessation. We discussed the accountability needed from her at home in order to see more progress. . Her history of peripheral vascular disease with critical limb ischemia and prior intervention 2017 as noted. An updated arterial study was ordered previously to check her current status. The noninvasive arterial studies were completed on October 27, 2019 in which a left KEARA of 0.72 is noted without gross impairment of perfusion. I recommend referral to Dr. Gomez at this time and she is amendable to proceed. She followed up with her vascular surgery referral and plans to undergo additional testing (CT) and intervention (angiogram). Dr. Gomez's evaluation greatly appreciated. She is scheduled today. To maintain a healthy diet. We discussed the importance of appropriate nutrition to allow her body to heal. I also offered her nutrition referral. We agreed we would like to focus on the vascular referral first even though she relates she has apprehensive. She will then return to the wound healing center in 1 week or call sooner if she has any questions or concerns. She understands she is at risk for continued limb loss.
[2020-04-24 15:07] VITALS: BP 128/77; PULSE 72; RESP 16; TEMP 36.1; BMI 32.8
--- NOTE | 2020-04-24 16:41 | PCM.WC.PN ---
(1) Delayed wound healing Status: Chronic Code(s): T14.8XXD - Other injury of unspecified body region, subsequent encounter (2) Peripheral arterial occlusive disease Status: Chronic Code(s): I77.9 - Disorder of arteries and arterioles, unspecified (3) Chronic ulcer of left foot with necrosis of bone Status: Chronic Code(s): L97.524 - Non-pressure chronic ulcer of other part of left foot with necrosis of bone Type of Wound Date of Service: 04/24/20 Chief Complaint: Follow-up on a left dorsal foot nonhealing ulcer History of Wound: This is a 55-year-old white female that in approximately December 2016 had chronic foot condition in which she recently underwent recent operating room debridement with bone biopsy and application of advanced wound healing product to left foot at [facility]. Prior to her transfer of care to [facility] she has been undergoing a comprehensive wound healing plan at a different facility including vascular intervention, surgical debridements, infectious disease management, ect. Per other record review it appears that she had prior critical limb ischemia and had vascular intervention in October 2017 including thrombolytic therapy with percutaneous angioplasty to the left anterior tibial, popliteal, and superficial femoral arteries. It is noted her past medical history on file includes chronic obstructive pulmonary disease, DVT and chronic Coumadin, hyperlipidemia, and peripheral vascular disease. She relates her vascular surgeon has moved out of the state and she no longer would like to follow-up at that other facility. She is amendable to go for a local vascular surgery referral. She follows up with Dr. Gomez and has additional testing and surgical intervention planned. She is waiting to get scheduled. She denies fever, chill, nausea, vomiting, loss of appetite. She denies new injuries or status change. She is with her daughter. She continues to smoke. She is interested in stretching out the wound center visits because she has significant delays in healing, has not proceeded with the recommendations, and each visit has an associated fee. Progress of Wound: Stable - Physical Exam Vital Signs Temp Pulse Resp BP 97.0 F L 72 16 128/77 H 04/24/20 15:07 04/24/20 15:07 04/24/20 15:07 04/24/20 15:07 General: Alert, Oriented x3, Cooperative, No apparent distress HEENT: Atraumatic Extremities: No cyanosis, No edema, Capillary Refill Less than 3 Seconds, No Calf Tenderness, Diminished Peripheral Pulses Skin: Ulcer/ Wound - No purulence, erythema, streaking, odor, infection. The adjacent skin is hairless and atrophic. There is still exposed bone that appears to be healthy and firm and white Wound Measurements and Assessment WC - Nurse 1 - General Ulcer Measurement Start: 04/03/20 15:39 Freq: Status: Active Protocol: Activity Type Activity Date Activity User E-Sign Co-Sign Detail Recorded Client Recorded Date Recorded By Document 04/24/20 15:07 PL [id number] 04/24/20 15:14 PL 04/24/20 15:07 Wound Center Nurse 1 [Ulcer Assessment] 1. L foot dorsal -Combined with other wound No -Current Size (cm) - Length 0.8 -Current Size (cm) - Width 0.5 -Current Size (cm) - Depth 0.2 -Total Square Cm 0.40 -Photo Taken No -Epithelialization None Present -Tunneling No -Undermining/Tunneling Yes -Undermining/Tunneling Starts (O' 1 clock) -Undermining/Tunneling Ends (O'clock) 5 -Maximum Distance (cm) 0.2 -Circular Undermining No -Exudate Amt Medium -Exudate Type Serosanguineous -Granulation Amt Small (1-33%) -Granulation Quality [place] -Slough/Fibrin No -Necrosis Amt Large (67-100%) -Necrotic Tissue Type Adherent Slough -Texture (Shital-wound Skin Appearance) No Abnormality -Moisture (Shital-wound Skin Appearance No Abnormality ) -Color (Shital-wound Skin Appearance) No Abnormality -Temperature (Shital-wound Skin No Abnormality Appearance) (Pt Warm) -Tenderness on Palpation (Shital-wound No Skin Appearance) -Ulcer Cleansing Rinsed/ Irrigated with Saline -Anesthetic Used 4% Lidocaine Solution WC - Nurse 2 - General Ulcer CM Notes Start: 04/03/20 15:39 Freq: Status: Active Protocol: Activity Type Activity Date Activity User E-Sign Co-Sign Detail Recorded Client Recorded Date Recorded By Document 04/24/20 15:27 JF [id number] 04/24/20 15:28 JF 04/24/20 15:27 Wound Center Nurse 2 [Procedure/Treatment] -Time 15:27 -Correct Patient Yes -Correct Side, Site, Position Yes -Correct Procedure Yes -Procedure Performed Yes -Type of Procedure Debridement -Clinical Debridement Subcutaneous -Post Debridement Size (cm) - Length 0.8 -Post Debridement Size (cm) - Width 0.6 -Post Debridement Size (cm) - Depth 0.3 -Total Square Cm 0.48 -Wound/Ulcer Outcome Not Healed -Ulcer Cleansing Rinsed/ Irrigated with Saline -Foul Odor after Cleansing No -Bioengineered Tissue No -Bleeding Controlled with Pressure -Offloading Yes -Type of Offloading Knee Walker -Treatment Response Procedure Tolerated Well [See Physician Procedure note for Specifics] Pain Scale: 0-10 Numeric [Pain] -Is Patient Pain Free? Yes Musculoskeletal: No Tenderness to Palpation of Joints or Extremities, Muscle Wasting, - - Transmetatarsal amputation left Neurological: - - Lack of normal sensation Psych/Mental Status: Normal Affect, Appropriate Debridement Note Post-Debridement Measurements/Treatment WC - Nurse 2 - General Ulcer CM Notes Start: 04/03/20 15:39 Freq: Status: Active Protocol: Activity Type Activity Date Activity User E-Sign Co-Sign Detail Recorded Client Recorded Date Recorded By Document 04/03/20 15:41 [id number] 04/03/20 15:42 Document 04/10/20 15:41 [id number] 04/10/20 15:44 Document 04/17/20 09:27 [id number] 04/17/20 09:28 Document 04/24/20 15:27 [id number] 04/24/20 15:28 04/03/20 04/10/20 04/17/20 15:41 15:41 09:27 Wound Center Nurse 2 1. L foot dorsal -Time 15:41 15:42 09:27 -Correct Patient Yes Yes Yes -Correct Side, Site, Position Yes Yes Yes -Correct Procedure Yes Yes Yes -Procedure Performed Yes Yes Yes -Type of Procedure Debridement Debridement Debridement -Clinical Debridement Subcutaneous Subcutaneous Subcutaneous -Post Debridement Size (cm) - Length 0.5 1.0 0.6 -Post Debridement Size (cm) - Width 0.8 0.6 0.7 -Post Debridement Size (cm) - Depth 0.3 0.2 0.3 -Total Square Cm 0.40 0.60 0.42 -Wound/Ulcer Outcome Not Healed Not Healed Not Healed -Ulcer Cleansing Rinsed/ Rinsed/ Rinsed/ Irrigated with Irrigated with Irrigated with Saline Saline Saline -Foul Odor after Cleansing No No No -Bioengineered Tissue No No No -Bleeding Controlled with Pressure Pressure Pressure -Offloading Yes Yes Yes -Type of Offloading Knee Walker Knee Walker Knee Walker -Treatment Response Procedure Procedure Procedure Tolerated Well Tolerated Well Tolerated Well Pain Scale: 0-10 Numeric Is Patient Pain Free? Yes Yes Yes 04/24/20 15:27 Wound Center Nurse 2 1. L foot dorsal -Time 15:27 -Correct Patient Yes -Correct Side, Site, Position Yes -Correct Procedure Yes -Procedure Performed Yes -Type of Procedure Debridement -Clinical Debridement Subcutaneous -Post Debridement Size (cm) - Length 0.8 -Post Debridement Size (cm) - Width 0.6 -Post Debridement Size (cm) - Depth 0.3 -Total Square Cm 0.48 -Wound/Ulcer Outcome Not Healed -Ulcer Cleansing Rinsed/ Irrigated with Saline -Foul Odor after Cleansing No -Bioengineered Tissue No -Bleeding Controlled with Pressure -Offloading Yes -Type of Offloading Knee Walker -Treatment Response Procedure Tolerated Well Pain Scale: 0-10 Numeric Is Patient Pain Free? Yes Wound debrided: dorsal foot Laterality: Left Type of Debridement: Excisional debridement Anesthesia Used: 5% Lidocaine Gel Depth: in the subcutaneous layer Percentage of wound debrided: 100 Instrument Used: 3mm curette Tissue Removed: fibrous, devitalized subcutaneous, biofilm, slough Severity: Fat Layer Exposed Amount of bleeding with debridement: Mild Bleeding Controlled with: Pressure Patient tolerated procedure well Assessment/Plan Assessment: Open surgical wound left dorsal foot. Chronic osteomyelitis left foot. Peripheral arterial occlusive disease with prior intervention in 2017. Long-term use of Coumadin. Chronic DVT. Malnutrition suspected. Left transmetatarsal amputation with delayed healing Plan: I reviewed and discussed her case. Her surgical intervention is noted from 11/24/2018. The devitalized tissue was excised including bone and this was sent for pathology and microbiology and an additional deeper bone biopsy with the Jamshidi needle was obtained. the microbiology report is negative for bacterial growth. The pathology findings were also negative for osteomyelitis. I do not recommend antibiotics at this time. There are no local signs of infection today. Debridement was performed as noted in the clinical panel today. This was further covered with hydrogel and Adaptic. It is okay for her to transition to a cam walker at home but to remain nonweightbearing most of the time. To avoid excessive activity. We discussed that it is okay for her to put her foot down for partial weightbearing for transfers and for limited walking in house. One of the main purpose is wearing a cam walker is to reduce tension applied on the adjacent ulcer skin to help promote healing. She is also advised to be cautious and avoiding strap pressure over the ulcer site. She is previously known to infectious disease and input is greatly appreciated. She is not demonstrating appropriate compliance with a cam walker immobilization or smoking cessation. We discussed the accountability needed from her at home in order to see more progress. . Her history of peripheral vascular disease with critical limb ischemia and prior intervention 2017 as noted. An updated arterial study was ordered previously to check her current status. The noninvasive arterial studies were completed on October 27, 2019 in which a left KEARA of 0.72 is noted without gross impairment of perfusion. I recommend referral to Dr. Gomez at this time and she is amendable to proceed. She followed up with her vascular surgery referral and plans to undergo additional testing (CT) and intervention (angiogram). Dr. Gomez's evaluation greatly appreciated. She is scheduled to go for an additional procedure and needs to get this scheduled. To maintain a healthy diet. We discussed the importance of appropriate nutrition to allow her body to heal. I also offered her nutrition referral. She has not been amenable to proceed yet. She will then return to the wound healing center in 2 weeks or call sooner if she has any questions or concerns. She understands she is at risk for continued limb loss.
== END 2020-04-28 23:59 ==
LOC: WC 15:00
PROVIDERS: Family Provider Family Medicine; PCP Family Medicine; Referring Provider Podiatrist; Visit Provider Podiatrist
DX: L97.524 Non-pressure chronic ulcer of other part of left foot with necrosis of bone (principal); I77.9 Disorder of arteries and arterioles, unspecified; T14.8XXD Other injury of unspecified body region, subsequent encounter; E78.5 Hyperlipidemia, unspecified; J44.9 Chronic obstructive pulmonary disease, unspecified; M86.672 Other chronic osteomyelitis, left ankle and foot; Z79.01 Long term (current) use of anticoagulants; Z86.718 Personal history of other venous thrombosis and embolism
CPT/HCPCS: 11042

== ENCOUNTER 2020-05-22 15:30 | Outpatient (RCR) | payer BC, OTHER, SELFPAY ==
[2020-04-29 00:23] VITALS: BP 128/77; PULSE 72; RESP 16; TEMP 36.1
[2020-05-08 15:12] VITALS: BP 150/82; PULSE 83; RESP 16; TEMP 37.1; BMI 32.8
--- NOTE | 2020-05-08 21:14 | PN.PCM_ITS ---
(1) Chronic ulcer of left foot with necrosis of bone Status: Chronic Code(s): L97.524 - Non-pressure chronic ulcer of other part of left foot with necrosis of bone (2) Non-compliance Status: Chronic Code(s): Z91.19 - Patient's noncompliance with other medical treatment and regimen (3) Delayed wound healing Status: Chronic Code(s): T14.8XXD - Other injury of unspecified body region, subsequent encounter (4) Peripheral arterial occlusive disease Status: Chronic Code(s): I77.9 - Disorder of arteries and arterioles, unspecified (5) Malnutrition Status: Chronic Code(s): E46 - Unspecified protein-calorie malnutrition Type of Wound Date of Service: 05/08/20 Chief Complaint: Follow-up on a left dorsal foot nonhealing ulcer History of Wound: This is a 55-year-old white female that in approximately December 2016 had chronic foot condition in which she previously underwent recent operating room debridement with bone biopsy and application of advanced wound healing product to left foot at [facility]. Prior to her transfer of care to [facility] she has been undergoing a comprehensive wound healing plan at a different facility including vascular intervention, surgical debridements, infectious disease management, ect. She has seen Dr. Gomez, vascular surgeon who recommends intervention. She is in the process of getting the schedule and is very apprehensive due to the coronavirus pandemic. She is tearful. She denies fever, chill, nausea, vomiting. Progress of Wound: Stable - Physical Exam Vital Signs Temp Pulse Resp BP 98.7 F 83 16 150/82 H 05/08/20 15:12 05/08/20 15:12 05/08/20 15:12 05/08/20 15:12 General: Alert, Oriented x3, Cooperative, No apparent distress HEENT: Atraumatic Extremities: No cyanosis, Capillary Refill Less than 3 Seconds, No Calf Tenderness, Diminished Peripheral Pulses, Edema Skin: Ulcer/ Wound - No purulence, erythema, streaking, odor, infection. Exposed bone. Adjacent skin is hairless and atrophic Wound Measurements and Assessment WC - Nurse 1 - General Ulcer Measurement Start: 05/08/20 15:11 Freq: Status: Active Protocol: Activity Type Activity Date Activity User E-Sign Co-Sign Detail Recorded Client Recorded Date Recorded By Document 05/08/20 15:12 [facility] [id number] 05/08/20 15:17 [facility] 05/08/20 15:12 Wound Center Nurse 1 [Ulcer Assessment] 1. L foot dorsal -Combined with other wound No -Current Size (cm) - Length 0.9 -Current Size (cm) - Width 0.8 -Current Size (cm) - Depth 0.4 -Total Square Cm 0.72 -Photo Taken No -Epithelialization None Present -Tunneling No -Undermining/Tunneling No -Circular Undermining No -Exudate Amt Small -Exudate Type Serosanguineous -Wound Margin Distinct, Outline Attached -Granulation Amt None Present (0 %) -Slough/Fibrin Yes -Necrosis Amt Large (67-100%) -Necrotic Tissue Type Adherent Slough -Texture (Shital-wound Skin Appearance) Assessed, Scarring -Moisture (Shital-wound Skin Appearance Assessed, ) Maceration -Color (Shital-wound Skin Appearance) Assessed, Erythema,Palor -Temperature (Shital-wound Skin No Abnormality Appearance) (Pt Warm) -Tenderness on Palpation (Shital-wound No Skin Appearance) -Ulcer Cleansing Rinsed/ Irrigated with Saline -Foul Odor after Cleansing No -Anesthetic Used 5% Lidocaine Gel WC - Nurse 2 - General Ulcer CM Notes Start: 05/08/20 15:11 Freq: Status: Active Protocol: Activity Type Activity Date Activity User E-Sign Co-Sign Detail Recorded Client Recorded Date Recorded By Document 05/08/20 15:51 [id number] 05/08/20 15:52 05/08/20 15:51 Wound Center Nurse 2 [Procedure/Treatment] -Time 15:51 -Correct Patient Yes -Correct Side, Site, Position Yes -Correct Procedure Yes -Procedure Performed Yes -Type of Procedure Debridement -Clinical Debridement Selective -Post Debridement Size (cm) - Length 0.9 -Post Debridement Size (cm) - Width 0.8 -Post Debridement Size (cm) - Depth 0.4 -Total Square Cm 0.72 -Wound/Ulcer Outcome Not Healed -Ulcer Cleansing Rinsed/ Irrigated with Saline -Foul Odor after Cleansing No -Bioengineered Tissue No -Bleeding Controlled with Pressure -Offloading Yes -Type of Offloading Knee Walker -Treatment Response Procedure Tolerated Well [See Physician Procedure note for Specifics] Pain Scale: 0-10 Numeric [Pain] -Is Patient Pain Free? Yes Musculoskeletal: No Tenderness to Palpation of Joints or Extremities, Muscle Wasting, - - Transmetatarsal amputation Neurological: - - Lack of normal sensation to the ulcer site with exposed bone Psych/Mental Status: Normal Affect, Appropriate Debridement Note Post-Debridement Measurements/Treatment WC - Nurse 2 - General Ulcer CM Notes Start: 05/08/20 15:11 Freq: Status: Active Protocol: Activity Type Activity Date Activity User E-Sign Co-Sign Detail Recorded Client Recorded Date Recorded By Document 05/08/20 15:51 [id number] 05/08/20 15:52 05/08/20 15:51 Wound Center Nurse 2 1. L foot dorsal -Time 15:51 -Correct Patient Yes -Correct Side, Site, Position Yes -Correct Procedure Yes -Procedure Performed Yes -Type of Procedure Debridement -Clinical Debridement Selective -Post Debridement Size (cm) - Length 0.9 -Post Debridement Size (cm) - Width 0.8 -Post Debridement Size (cm) - Depth 0.4 -Total Square Cm 0.72 -Wound/Ulcer Outcome Not Healed -Ulcer Cleansing Rinsed/ Irrigated with Saline -Foul Odor after Cleansing No -Bioengineered Tissue No -Bleeding Controlled with Pressure -Offloading Yes -Type of Offloading Knee Walker -Treatment Response Procedure Tolerated Well Pain Scale: 0-10 Numeric Is Patient Pain Free? Yes Wound debrided: dorsal foot Laterality: Right Type of Debridement: Selective debridement Anesthesia Used: 5% Lidocaine Gel Depth: in the subcutaneous layer Percentage of wound debrided: 100 Instrument Used: #15 blade Tissue Removed: fibrous, devitalized subcutaneous, biofilm, slough Severity: Fat Layer Exposed Amount of bleeding with debridement: Mild Bleeding Controlled with: Pressure Patient tolerated procedure well Assessment/Plan Assessment: Open surgical wound left dorsal foot. Chronic osteomyelitis left foot. Peripheral arterial occlusive disease with prior intervention in 2017. Long-term use of Coumadin. Chronic DVT. Malnutrition suspected. Left transmetatarsal amputation with delayed healing Plan: I reviewed and discussed her case. Debridement was performed as noted in the clinical panel today. This was further covered with hydrogel and Adaptic. It is okay for her to use a cam walker at home but to remain nonweightbearing most of the time. To avoid excessive activity. We discussed that it is okay for her to put her foot down for partial weightbearing for transfers and for limited walking in house. One of the main purpose is wearing a cam walker is to reduce tension applied on the adjacent ulcer skin to help promote healing. She is also advised to be cautious and avoiding strap pressure over the ulcer site. She is previously known to infectious disease and input is greatly appreciated. She is not demonstrating appropriate compliance with a cam walker immobilization or smoking cessation. We discussed the accountability needed from her at home in order to see more progress. . Her history of peripheral vascular disease with critical limb ischemia and prior intervention 2017 as noted. An updated arterial study was ordered previously to check her current status. The noninvasive arterial studies were completed on October 27, 2019 in which a left KEARA of 0.72 is noted without gross impairment of perfusion. I recommend referral to Dr. Gomez at this time and she is amendable to proceed. She followed up with her vascular surgery referral and plans to undergo additional testing (CT) and intervention (angiogram). Dr. Gomez's evaluation greatly appreciated. She is scheduled to go for an additional procedure and needs to get this scheduled still at this time. To maintain a healthy diet. We discussed the importance of appropriate nutrition to allow her body to heal. I also offered her nutrition referral. She has not been amenable to proceed yet. She will then return to the wound healing center in 2 weeks or call sooner if she has any questions or concerns. She understands she is at risk for continued limb loss.
[2020-05-22 15:41] VITALS: BP 145/78; PULSE 83; RESP 16; TEMP 37.4; BMI 32.8
--- NOTE | 2020-05-22 16:17 | PCM.WC.PN ---
(1) Chronic ulcer of left foot with necrosis of bone Status: Chronic Code(s): L97.524 - Non-pressure chronic ulcer of other part of left foot with necrosis of bone (2) Non-compliance Status: Chronic Code(s): Z91.19 - Patient's noncompliance with other medical treatment and regimen (3) Delayed wound healing Status: Chronic Code(s): T14.8XXD - Other injury of unspecified body region, subsequent encounter (4) Peripheral arterial occlusive disease Status: Chronic Code(s): I77.9 - Disorder of arteries and arterioles, unspecified (5) Malnutrition Status: Chronic Code(s): E46 - Unspecified protein-calorie malnutrition Type of Wound Date of Service: 05/22/20 Chief Complaint: Follow-up on a left dorsal foot nonhealing ulcer History of Wound: This is a 55-year-old white female that in approximately December 2016 had chronic foot condition in which she previously underwent recent operating room debridement with bone biopsy and application of advanced wound healing product to left foot at [facility]. Prior to her transfer of care to [facility] she has been undergoing a comprehensive wound healing plan at a different facility including vascular intervention, surgical debridements, infectious disease management, ect. She has seen Dr. Gomez, vascular surgeon who recommends intervention. She is in the process of getting the schedule and is very apprehensive due to the coronavirus pandemic. She is tearful. She denies fever, chill, nausea, vomiting. Progress of Wound: Stable - Physical Exam Vital Signs Temp Pulse Resp BP 99.4 F H 83 16 145/78 H 05/22/20 15:41 05/22/20 15:41 05/22/20 15:41 05/22/20 15:41 General: Alert, Oriented x3, Cooperative, No apparent distress Extremities: No cyanosis, No edema, Capillary Refill Less than 3 Seconds, No Calf Tenderness, Diminished Peripheral Pulses Skin: Ulcer/ Wound - No purulence, erythema, streaking, odor, acute signs infection. There is continued exposed bone to the dorsal foot. The adjacent skin is hairless and atrophic Wound Measurements and Assessment WC - Nurse 1 - General Ulcer Measurement Start: 05/08/20 15:11 Freq: Status: Active Protocol: Activity Type Activity Date Activity User E-Sign Co-Sign Detail Recorded Client Recorded Date Recorded By Document 05/22/20 15:41 [facility] [id number] 05/22/20 15:44 [facility] 05/22/20 15:41 Wound Center Nurse 1 [Ulcer Assessment] 1. L foot dorsal -Combined with other wound No -Current Size (cm) - Length 0.8 -Current Size (cm) - Width 0.7 -Current Size (cm) - Depth 0.3 -Total Square Cm 0.56 -Photo Taken No -Epithelialization None Present -Tunneling No -Undermining/Tunneling No -Circular Undermining No -Exudate Amt Small -Exudate Type Serosanguineous -Wound Margin Distinct, Outline Attached -Granulation Amt None Present (0 %) -Slough/Fibrin Yes -Necrosis Amt Large (67-100%) -Necrotic Tissue Type Adherent Slough -Texture (Shital-wound Skin Appearance) Assessed, Scarring -Moisture (Shital-wound Skin Appearance Assessed, ) Maceration -Color (Shital-wound Skin Appearance) Assessed, Erythema,Palor -Temperature (Shital-wound Skin No Abnormality Appearance) (Pt Warm) -Tenderness on Palpation (Shital-wound No Skin Appearance) -Ulcer Cleansing Rinsed/ Irrigated with Saline -Foul Odor after Cleansing No -Anesthetic Used 5% Lidocaine Gel WC - Nurse 2 - General Ulcer CM Notes Start: 05/08/20 15:11 Freq: Status: Active Protocol: Activity Type Activity Date Activity User E-Sign Co-Sign Detail Recorded Client Recorded Date Recorded By Document 05/22/20 16:04 [id number] 05/22/20 16:05 05/22/20 16:04 Wound Center Nurse 2 [Procedure/Treatment] -Time 16:05 -Correct Patient Yes -Correct Side, Site, Position Yes -Correct Procedure Yes -Procedure Performed Yes -Type of Procedure Debridement -Clinical Debridement Selective -Post Debridement Size (cm) - Length 0.8 -Post Debridement Size (cm) - Width 0.7 -Post Debridement Size (cm) - Depth 0.3 -Total Square Cm 0.56 -Wound/Ulcer Outcome Not Healed -Ulcer Cleansing Rinsed/ Irrigated with Saline -Foul Odor after Cleansing No -Bioengineered Tissue No -Bleeding Controlled with Pressure -Offloading No -Treatment Response Procedure Tolerated Well [See Physician Procedure note for Specifics] Pain Scale: 0-10 Numeric [Pain] -Is Patient Pain Free? Yes Musculoskeletal: No Tenderness to Palpation of Joints or Extremities, Muscle Wasting, - - Transmetatarsal amputation noted Neurological: - - Lack of normal epicritic sensation Psych/Mental Status: Normal Affect, Appropriate, Anxious Debridement Note Post-Debridement Measurements/Treatment WC - Nurse 2 - General Ulcer CM Notes Start: 05/08/20 15:11 Freq: Status: Active Protocol: Activity Type Activity Date Activity User E-Sign Co-Sign Detail Recorded Client Recorded Date Recorded By Document 05/08/20 15:51 [id number] 05/08/20 15:52 Document 05/22/20 16:04 [id number] 05/22/20 16:05 05/08/20 05/22/20 15:51 16:04 Wound Center Nurse 2 1. L foot dorsal -Time 15:51 16:05 -Correct Patient Yes Yes -Correct Side, Site, Position Yes Yes -Correct Procedure Yes Yes -Procedure Performed Yes Yes -Type of Procedure Debridement Debridement -Clinical Debridement Selective Selective -Post Debridement Size (cm) - Length 0.9 0.8 -Post Debridement Size (cm) - Width 0.8 0.7 -Post Debridement Size (cm) - Depth 0.4 0.3 -Total Square Cm 0.72 0.56 -Wound/Ulcer Outcome Not Healed Not Healed -Ulcer Cleansing Rinsed/ Rinsed/ Irrigated with Irrigated with Saline Saline -Foul Odor after Cleansing No No -Bioengineered Tissue No No -Bleeding Controlled with Pressure Pressure -Offloading Yes No -Type of Offloading Knee Walker -Treatment Response Procedure Procedure Tolerated Well Tolerated Well Pain Scale: 0-10 Numeric Is Patient Pain Free? Yes Yes Wound debrided: dorsal foot Laterality: Left Type of Debridement: Selective debridement Anesthesia Used: 4% Lidocaine Solution Depth: Down to and including healthy tissue Percentage of wound debrided: 100 Instrument Used: #15 blade Tissue Removed: fibrous, devitalized tissue, biofilm, slough Severity: Limited To Skin Breakdown - bone exposed Amount of bleeding with debridement: None - scant hematogenous drainage Bleeding Controlled with: Pressure Patient tolerated procedure well Assessment/Plan Assessment: Open surgical wound left dorsal foot. Chronic osteomyelitis left foot. Peripheral arterial occlusive disease with prior intervention in 2017. Long-term use of Coumadin. Chronic DVT. Malnutrition suspected. Left transmetatarsal amputation with delayed healing Plan: I reviewed and discussed her case. Debridement was performed as noted in the clinical panel today. This was further covered with hydrogel and Adaptic. It is okay for her to use a cam walker at home but to remain nonweightbearing most of the time. To avoid excessive activity. We discussed that it is okay for her to put her foot down for partial weightbearing for transfers and for limited walking in house. One of the main purpose is wearing a cam walker is to reduce tension applied on the adjacent ulcer skin to help promote healing. She is also advised to be cautious and avoiding strap pressure over the ulcer site. She is previously known to infectious disease and input is greatly appreciated. She is not demonstrating appropriate compliance with a cam walker immobilization or smoking cessation. We discussed the accountability needed from her at home in order to see more progress. . Her history of peripheral vascular disease with critical limb ischemia and prior intervention 2017 as noted. An updated arterial study was ordered previously to check her current status. The noninvasive arterial studies were completed on October 27, 2019 in which a left KEARA of 0.72 is noted without gross impairment of perfusion. I recommend referral to Dr. Gomez at this time and she is amendable to proceed. She followed up with her vascular surgery referral and plans to undergo additional testing (CT) and intervention (angiogram). Dr. Gomez's evaluation greatly appreciated. She is scheduled to go for an additional procedure and needs to get this scheduled still at this time. To maintain a healthy diet. We discussed the importance of appropriate nutrition to allow her body to heal. I also offered her nutrition referral. She has not been amenable to proceed yet. She will then return to the wound healing center in 2 weeks or call sooner if she has any questions or concerns. She understands she is at risk for continued limb loss.
== END 2020-05-28 23:59 ==
LOC: WC 15:30
PROVIDERS: Family Provider Family Medicine; PCP Family Medicine; Referring Provider Podiatrist; Visit Provider Podiatrist
DX: L97.524 Non-pressure chronic ulcer of other part of left foot with necrosis of bone (principal); M86.672 Other chronic osteomyelitis, left ankle and foot; I82.509 Chronic embolism and thrombosis of unspecified deep veins of unspecified lower extremity; Z91.19 Patient's noncompliance with other medical treatment and regimen; T14.8XXD Other injury of unspecified body region, subsequent encounter; I77.9 Disorder of arteries and arterioles, unspecified; I73.9 Peripheral vascular disease, unspecified; Z79.01 Long term (current) use of anticoagulants; I99.8 Other disorder of circulatory system
CPT/HCPCS: 97597

== ENCOUNTER 2020-07-01 09:45 | Outpatient (RCR) | payer BC, OTHER, SELFPAY ==
[2020-05-29 00:23] VITALS: BP 145/78; PULSE 83; RESP 16; TEMP 37.4
[2020-06-19 15:43] VITALS: BP 122/77; PULSE 71; RESP 18; TEMP 36.9; BMI 32.8
--- NOTE | 2020-06-19 16:42 | PCM.WC.PN ---
(1) Delayed wound healing Status: Chronic Code(s): T14.8XXD - Other injury of unspecified body region, subsequent encounter (2) Hx of nursing home use of blood thinners Status: Chronic Code(s): Z92.29 - Personal history of other drug therapy (3) Peripheral arterial occlusive disease Status: Chronic Code(s): I77.9 - Disorder of arteries and arterioles, unspecified (4) Osteomyelitis of left foot Status: Chronic Qualifiers: Code(s): M86.9 - Osteomyelitis, unspecified (5) Malnutrition Status: Chronic Code(s): E46 - Unspecified protein-calorie malnutrition (6) Chronic ulcer of left foot with necrosis of bone Status: Chronic Code(s): L97.524 - Non-pressure chronic ulcer of other part of left foot with necrosis of bone Type of Wound Date of Service: 06/19/20 Chief Complaint: Follow-up on a left dorsal foot nonhealing ulcer History of Wound: This is a 55-year-old white female that in approximately December 2016 had chronic foot condition in which she previously underwent previous operating room debridement with bone biopsy and application of advanced wound healing product to left foot at [facility]. Prior to her transfer of care to [facility] she has been undergoing a comprehensive wound healing plan at a different facility including vascular intervention, surgical debridements, infectious disease management, ect. She has seen Dr. Gomez, vascular surgeon who recommends intervention. She is in the process of getting the schedule and is very apprehensive due to the coronavirus pandemic. She has recently scheduled this procedure. She denies fever, chill, nausea, vomiting. Progress of Wound: Stable - Physical Exam Vital Signs Temp Pulse Resp BP 98.5 F 71 18 122/77 H 06/19/20 15:43 06/19/20 15:43 06/19/20 15:43 06/19/20 15:43 General: Alert, Oriented x3, Cooperative, No apparent distress HEENT: Atraumatic Extremities: No cyanosis, No edema, Capillary Refill Less than 3 Seconds, No Calf Tenderness, Diminished Peripheral Pulses Skin: Ulcer/ Wound - No purulence, erythema, string, odor, infection. Peripheral skin is hairless and atrophic. There is exposed white healthy firm bone and this is consistent with prior visits Wound Measurements and Assessment WC - Nurse 1 - General Ulcer Measurement Start: 06/19/20 15:43 Freq: Status: Active Protocol: Activity Type Activity Date Activity User E-Sign Co-Sign Detail Recorded Client Recorded Date Recorded By Document 06/19/20 15:43 RB [id number] 06/19/20 15:46 RB 06/19/20 15:43 Wound Center Nurse 1 [Ulcer Assessment] 1. L foot dorsal -Combined with other wound No -Current Size (cm) - Length 1 -Current Size (cm) - Width 0.5 -Current Size (cm) - Depth 0.3 -Total Square Cm 0.5 -Tunneling No -Undermining/Tunneling No -Circular Undermining No -Exudate Amt Small -Exudate Type Serosanguineous -Wound Margin Fibrotic Scar, Thickened Scar -Granulation Amt Medium (34-66%) -Granulation Quality [place] -Slough/Fibrin Yes -Necrosis Amt Small (1-33%) -Necrotic Tissue Type Adherent Slough -Structure Exposed N/A -Texture (Shital-wound Skin Appearance) Assessed, Scarring -Moisture (Shital-wound Skin Appearance Assessed ) -Color (Shital-wound Skin Appearance) Assessed -Temperature (Shital-wound Skin No Abnormality Appearance) (Pt Warm) -Tenderness on Palpation (Shital-wound No Skin Appearance) -Ulcer Cleansing Wound Cleanser -Foul Odor after Cleansing No -Anesthetic Used 4% Lidocaine Solution WC - Nurse 2 - General Ulcer CM Notes Start: 06/19/20 15:43 Freq: Status: Active Protocol: Activity Type Activity Date Activity User E-Sign Co-Sign Detail Recorded Client Recorded Date Recorded By Document 06/19/20 15:50 LUCIA [id number] 06/19/20 15:51 06/19/20 15:50 Wound Center Nurse 2 [Procedure/Treatment] -Time 15:50 -Correct Patient Yes -Correct Side, Site, Position Yes -Correct Procedure Yes -Procedure Performed Yes -Type of Procedure Debridement -Clinical Debridement Selective -Post Debridement Size (cm) - Length 1.0 -Post Debridement Size (cm) - Width 0.5 -Post Debridement Size (cm) - Depth 0.3 -Total Square (cm) 0.50 -Wound/Ulcer Outcome Not Healed -Ulcer Cleansing Rinsed/ Irrigated with Saline -Foul Odor after Cleansing No -Bioengineered Tissue No -Bleeding Controlled with Pressure -Offloading Yes -Type of Offloading Knee Walker -Treatment Response Procedure Tolerated Well [See Physician Procedure note for Specifics] Pain Scale: 0-10 Numeric [Pain] -Is Patient Pain Free? Yes Musculoskeletal: No Tenderness to Palpation of Joints or Extremities, Muscle Wasting, - - Transmetatarsal amputation Neurological: Sensory exam intact to light touch and pain, - Psych/Mental Status: Normal Affect, Appropriate Debridement Note Post-Debridement Measurements/Treatment WC - Nurse 2 - General Ulcer CM Notes Start: 06/19/20 15:43 Freq: Status: Active Protocol: Activity Type Activity Date Activity User E-Sign Co-Sign Detail Recorded Client Recorded Date Recorded By Document 06/19/20 15:50 [email or web address] [id number] 06/19/20 15:51 LUCIA 06/19/20 15:50 Wound Center Nurse 2 1. L foot dorsal -Time 15:50 -Correct Patient Yes -Correct Side, Site, Position Yes -Correct Procedure Yes -Procedure Performed Yes -Type of Procedure Debridement -Clinical Debridement Selective -Post Debridement Size (cm) - Length 1.0 -Post Debridement Size (cm) - Width 0.5 -Post Debridement Size (cm) - Depth 0.3 -Total Square (cm) 0.50 -Wound/Ulcer Outcome Not Healed -Ulcer Cleansing Rinsed/ Irrigated with Saline -Foul Odor after Cleansing No -Bioengineered Tissue No -Bleeding Controlled with Pressure -Offloading Yes -Type of Offloading Knee Walker -Treatment Response Procedure Tolerated Well Pain Scale: 0-10 Numeric Is Patient Pain Free? Yes Wound debrided: dorsal foot Laterality: Left Type of Debridement: Selective debridement Anesthesia Used: 5% Lidocaine Gel Depth: in the subcutaneous layer Percentage of wound debrided: 100 Instrument Used: 5mm curette Tissue Removed: fibrous, devitalized subcutaneous , biofilm, slough Severity: Fat Layer Exposed Amount of bleeding with debridement: Mild Bleeding Controlled with: Pressure Patient tolerated procedure well Assessment/Plan Assessment: Open surgical wound left dorsal foot. Chronic osteomyelitis left foot. Peripheral arterial occlusive disease with prior intervention in 2017. Long-term use of Coumadin. Chronic DVT. Malnutrition suspected. Left transmetatarsal amputation with delayed healing Plan: I reviewed and discussed her case. Debridement was performed as noted in the clinical panel today. This was further covered with hydrogel and Adaptic. It is okay for her to use a cam walker at home but to remain nonweightbearing most of the time. To avoid excessive activity. We discussed that it is okay for her to put her foot down for partial weightbearing for transfers and for limited walking in house. One of the main purpose is wearing a cam walker is to reduce tension applied on the adjacent ulcer skin to help promote healing. She is also advised to be cautious and avoiding strap pressure over the ulcer site. She is previously known to infectious disease and input is greatly appreciated. She is not demonstrating appropriate compliance with a cam walker immobilization or smoking cessation. We discussed the accountability needed from her at home in order to see more progress. . Her history of peripheral vascular disease with critical limb ischemia and prior intervention 2017 as noted. An updated arterial study was ordered previously to check her current status. The noninvasive arterial studies were completed on October 27, 2019 in which a left KEARA of 0.72 is noted without gross impairment of perfusion. I recommend referral to Dr. Gomez at this time and she is amendable to proceed. She followed up with her vascular surgery referral and plans to undergo additional testing (CT) and intervention (angiogram). Dr. Gomez's evaluation greatly appreciated. She is scheduled to go for an additional procedure and has recently confirmed the date and time in the upcoming weeks. To maintain a healthy diet. We discussed the importance of appropriate nutrition to allow her body to heal. I also offered her nutrition referral. She has not been amenable to proceed yet. She will then return to the wound healing center in 2 weeks or call sooner if she has any questions or concerns. She will go for her vascular procedure next week on Wednesday. She understands she is at risk for continued limb loss.
== END 2020-07-29 23:59 ==
LOC: WC 09:45
PROVIDERS: Family Provider Family Medicine; PCP Family Medicine; Referring Provider Podiatrist; Visit Provider Podiatrist
DX: L97.524 Non-pressure chronic ulcer of other part of left foot with necrosis of bone (principal); M86.672 Other chronic osteomyelitis, left ankle and foot; I77.9 Disorder of arteries and arterioles, unspecified; Z79.01 Long term (current) use of anticoagulants; Z79.899 Other long term (current) drug therapy
CPT/HCPCS: 97597

== ENCOUNTER 2020-07-03 08:36 | Outpatient (RCR) | payer BC, OTHER, SELFPAY ==
[2020-06-19 15:43] VITALS: BMI 32.8
[2020-07-03 15:21] VITALS: BP 115/81; PULSE 76; RESP 16; TEMP 37; BMI 32.8
--- NOTE | 2020-07-03 16:30 | PN.PCM_ITS ---
(1) Delayed wound healing Status: Chronic Code(s): T14.8XXD - Other injury of unspecified body region, subsequent encounter (2) Peripheral arterial occlusive disease Status: Chronic Code(s): I77.9 - Disorder of arteries and arterioles, unspecified (3) Leg edema Status: Chronic Code(s): R60.0 - Localized edema (4) Chronic ulcer of left foot with necrosis of bone Status: Chronic Code(s): L97.524 - Non-pressure chronic ulcer of other part of left foot with necrosis of bone Type of Wound Date of Service: 07/03/20 Chief Complaint: Follow-up on a left dorsal foot nonhealing ulcer History of Wound: This is a 55-year-old white female that in approximately December 2016 had chronic foot condition in which she previously underwent previous operating room debridement with bone biopsy and application of advanced wound healing product to left foot at [facility]. She denies fever, chill, nausea, vomiting. She had recent intervention with Dr. Gomez, vascular specialist, last week and relates went well. She has been performing dressing changes with her daughter daily and tries to offload. Progress of Wound: Improving with size reduction - Physical Exam Vital Signs Temp Pulse Resp BP 98.6 F 76 16 115/81 H 07/03/20 15:21 07/03/20 15:21 07/03/20 15:21 07/03/20 15:21 General: Alert, Oriented x3, Cooperative, No apparent distress Extremities: No cyanosis, Capillary Refill Less than 3 Seconds, No Calf Tenderness, Diminished Peripheral Pulses, Edema Skin: Ulcer/ Wound - No purulence, erythema, streaking, odor, infection. Exposed white firm bone is still noted. The ulcer with has decreased and is more narrow in appearance. There is no eschar or necrosis noted. The adjacent skin is hairless and atrophic Wound Measurements and Assessment WC - Nurse 1 - General Ulcer Measurement Start: 07/03/20 15:21 Freq: Status: Active Protocol: Activity Type Activity Date Activity User E-Sign Co-Sign Detail Recorded Client Recorded Date Recorded By Document 07/03/20 15:21 [facility] [id number] 07/03/20 15:27 [facility] 07/03/20 15:21 Wound Center Nurse 1 [Ulcer Assessment] 1. L foot dorsal -Combined with other wound No -Current Size (cm) - Length 0.6 -Current Size (cm) - Width 0.7 -Current Size (cm) - Depth 0.2 -Total Square Cm 0.42 -Photo Taken No -Epithelialization None Present -Tunneling No -Undermining/Tunneling No -Circular Undermining No -Exudate Amt Small -Exudate Type Serosanguineous -Wound Margin Distinct, Outline Attached -Granulation Amt None Present (0 %) -Slough/Fibrin Yes -Necrosis Amt Large (67-100%) -Necrotic Tissue Type Adherent Slough -Structure Exposed Bone -Texture (Shital-wound Skin Appearance) Assessed -Moisture (Shital-wound Skin Appearance Assessed ) -Color (Shital-wound Skin Appearance) Assessed -Temperature (Shital-wound Skin No Abnormality Appearance) (Pt Warm) -Tenderness on Palpation (Shital-wound No Skin Appearance) -Ulcer Cleansing Rinsed/ Irrigated with Saline -Foul Odor after Cleansing No -Anesthetic Used 5% Lidocaine Gel WC - Nurse 2 - General Ulcer CM Notes Start: 07/03/20 15:21 Freq: Status: Active Protocol: Activity Type Activity Date Activity User E-Sign Co-Sign Detail Recorded Client Recorded Date Recorded By Document 07/03/20 15:40 LUCIA [id number] 07/03/20 15:42 LUCIA 07/03/20 15:40 Wound Center Nurse 2 [Procedure/Treatment] -Time 15:40 -Correct Patient Yes -Correct Side, Site, Position Yes -Correct Procedure Yes -Procedure Performed Yes -Type of Procedure Debridement -Clinical Debridement Subcutaneous -Post Debridement Size (cm) - Length 0.6 -Post Debridement Size (cm) - Width 0.5 -Post Debridement Size (cm) - Depth 0.3 -Total Square (cm) 0.30 -Wound/Ulcer Outcome Not Healed -Ulcer Cleansing Rinsed/ Irrigated with Saline -Foul Odor after Cleansing No -Bioengineered Tissue No -Bleeding Controlled with Pressure -Offloading Yes -Type of Offloading Knee Walker -Treatment Response Procedure Tolerated Well [See Physician Procedure note for Specifics] Pain Scale: 0-10 Numeric [Pain] -Is Patient Pain Free? Yes Musculoskeletal: No Tenderness to Palpation of Joints or Extremities, Muscle Was ting, - - Transmetatarsal amputation. Compartments are soft. No bogginess or fluctuance on palpation. Neurological: Sensory exam intact to light touch and pain Psych/Mental Status: Normal Affect, Appropriate Debridement Note Post-Debridement Measurements/Treatment WC - Nurse 2 - General Ulcer CM Notes Start: 07/03/20 15:21 Freq: Status: Active Protocol: Activity Type Activity Date Activity User E-Sign Co-Sign Detail Recorded Client Recorded Date Recorded By Document 07/03/20 15:40 LUCIA [id number] 07/03/20 15:42 LUCIA 07/03/20 15:40 Wound Center Nurse 2 1. L foot dorsal -Time 15:40 -Correct Patient Yes -Correct Side, Site, Position Yes -Correct Procedure Yes -Procedure Performed Yes -Type of Procedure Debridement -Clinical Debridement Subcutaneous -Post Debridement Size (cm) - Length 0.6 -Post Debridement Size (cm) - Width 0.5 -Post Debridement Size (cm) - Depth 0.3 -Total Square (cm) 0.30 -Wound/Ulcer Outcome Not Healed -Ulcer Cleansing Rinsed/ Irrigated with Saline -Foul Odor after Cleansing No -Bioengineered Tissue No -Bleeding Controlled with Pressure -Offloading Yes -Type of Offloading Knee Walker -Treatment Response Procedure Tolerated Well Pain Scale: 0-10 Numeric Is Patient Pain Free? Yes Wound debrided: dorsal foot Laterality: Left Type of Debridement: Excisional debridement Anesthesia Used: 5% Lidocaine Gel Depth: in the subcutaneous layer Percentage of wound debrided: 100 Instrument Used: #15 blade Tissue Removed: fibrous, devitalized subcutaneous, biofilm, slough Severity: Fat Layer Exposed Amount of bleeding with debridement: Mild Bleeding Controlled with: Pressure Patient tolerated procedure well Assessment/Plan Assessment: Open surgical wound left dorsal foot. Chronic osteomyelitis left foot. Peripheral arterial occlusive disease with prior intervention in 2017. Long-term use of Coumadin. Chronic DVT. Malnutrition suspected. Left transmetatarsal amputation with delayed healing Plan: I reviewed and discussed her case. Debridement was performed as noted in the clinical panel today. This was further covered with hydrogel and Adaptic. It is okay for her to use a cam walker at home but to remain nonweightbearing most of the time. To avoid excessive activity. We discussed that it is okay for her to put her foot down for partial weightbearing for transfers and for limited walking in house. One of the main purpose is wearing a cam walker is to reduce tension applied on the adjacent ulcer skin to help promote healing. She is also advised to be cautious and avoiding strap pressure over the ulcer site. She is previously known to infectious disease and input is greatly appreciated. She is not demonstrating appropriate compliance with a cam walker immobilization or smoking cessation. We discussed the accountability needed from her at home in order to see more progress. . Her history of peripheral vascular disease with critical limb ischemia and prior intervention 2017 as noted. An updated arterial study was ordered previously to check her current status. The noninvasive arterial studies were completed on October 27, 2019 in which a left KEARA of 0.72 is noted without gross impairment of perfusion. I recommend referral to Dr. Gomez at this time and she is amendable to proceed. She did have recent surgical intervention and reports it went well. I will request the formal documentation to see exactly what procedure was performed. Dr. Gomez's evaluation greatly appreciated. To maintain a healthy diet. We discussed the importance of appropriate nutrition to allow her body to heal. I also offered her nutrition referral. She has not been amenable to proceed yet. She will then return to the wound healing center in 2 weeks or call sooner if she has any questions or concerns. She understands she is at risk for continued limb loss.
== END 2020-07-29 23:59 ==
LOC: WC 08:36
PROVIDERS: PCP Family Medicine; Visit Provider Podiatrist
DX: L97.524 Non-pressure chronic ulcer of other part of left foot with necrosis of bone (principal); M86.672 Other chronic osteomyelitis, left ankle and foot; I77.9 Disorder of arteries and arterioles, unspecified; R60.0 Localized edema; Z79.01 Long term (current) use of anticoagulants; Z79.899 Other long term (current) drug therapy
CPT/HCPCS: 11042

== ENCOUNTER 2020-08-14 15:00 | Outpatient (RCR) | payer BC, OTHER, SELFPAY ==
[2020-07-31 15:09] VITALS: BP 135/74; PULSE 84; RESP 16; TEMP 37; BMI 32.8
--- NOTE | 2020-07-31 22:25 | PCM.WC.PN ---
(1) Chronic ulcer of left foot with necrosis of bone Status: Chronic Code(s): L97.524 - Non-pressure chronic ulcer of other part of left foot with necrosis of bone (2) Nonhealing nonsurgical wound with necrosis of bone Status: Chronic Code(s): T14.8XXA - Other injury of unspecified body region, initial encounter; M87.9 - Osteonecrosis, unspecified (3) Partial traumatic amputation of left foot Status: Chronic Code(s): S98.922A - Partial traumatic amputation of left foot, level unspecified, initial encounter (4) Delayed wound healing Status: Chronic Code(s): T14.8XXD - Other injury of unspecified body region, subsequent encounter (5) Malnutrition Status: Chronic Code(s): E46 - Unspecified protein-calorie malnutrition (6) Non-compliance Status: Chronic Code(s): Z91.19 - Patient's noncompliance with other medical treatment and regimen (7) Peripheral arterial occlusive disease Status: Chronic Code(s): I77.9 - Disorder of arteries and arterioles, unspecified (8) Smoking addiction Status: Chronic Code(s): F17.200 - Nicotine dependence, unspecified, uncomplicated Type of Wound Date of Service: 07/31/20 Chief Complaint: Follow-up on a left dorsal foot nonhealing ulcer History of Wound: This is a 55-year-old white female that in approximately December 2016 had chronic foot condition in which she previously underwent previous operating room debridement with bone biopsy and application of advanced wound healing product to left foot at [facility]. She denies fever, chill, nausea, vomiting. She had recent intervention with Dr. Gomez, vascular specialist. She did not attend her surgical follow-up session because she wanted to bring her grandchildren into the visit and this is restricted at this time due to the coronavirus [facility] guidelines. She continues to smoke approximately 13 cigarettes a day. She has been performing dressing changes with her daughter daily and tries to offload. Progress of Wound: Stable - Physical Exam Vital Signs Temp Pulse Resp BP 98.6 F 84 16 135/74 H 07/31/20 15:09 07/31/20 15:09 07/31/20 15:07/31/20 15:09 General: Alert, Oriented x3, Cooperative HEENT: Atraumatic Extremities: No cyanosis, Capillary Refill Less than 3 Seconds, No Calf Tenderness, Diminished Peripheral Pulses, Edema Skin: Ulcer/ Wound - No purulence, erythema, string, odor, infection. Healthy white bone is still noted and exposed to the ulcer bed. The adjacent skin is hairless and atrophic. There is no bogginess or fluctuance on palpation Wound Measurements and Assessment - Nurse 1 - General Ulcer Measurement Start: 07/31/20 15:09 Freq: Status: Active Protocol: Activity Type Activity Date Activity User E-Sign Co-Sign Detail Recorded Client Recorded Date Recorded By Document 07/31/20 15:09 [facility] [id number] 07/31/20 15:14 [facility] 07/31/20 15:09 Wound Center Nurse 1 [Ulcer Assessment] 1. L foot dorsal -Combined with other wound No -Current Size (cm) - Length 0.7 -Current Size (cm) - Width 0.4 -Current Size (cm) - Depth 0.3 -Total Square Cm 0.28 -Photo Taken No -Epithelialization None Present -Tunneling No -Undermining/Tunneling No -Circular Undermining No -Exudate Amt Small -Exudate Type Serous -Wound Margin Thickened -Granulation Amt None Present (0 %) -Slough/Fibrin Yes -Necrosis Amt Large (67-100%) -Necrotic Tissue Type Adherent Slough -Structure Exposed Bone -Texture (Shital-wound Skin Appearance) Assessed -Moisture (Shital-wound Skin Appearance Assessed, ) Maceration -Color (Shital-wound Skin Appearance) Assessed,Palor -Temperature (Shital-wound Skin No Abnormality Appearance) (Pt Warm) -Tenderness on Palpation (Shital-wound No Skin Appearance) -Ulcer Cleansing Rinsed/ Irrigated with Saline -Foul Odor after Cleansing No -Anesthetic Used 5% Lidocaine Gel WC - Nurse 2 - General Ulcer CM Notes Start: 07/31/20 15:09 Freq: Status: Active Protocol: Activity Type Activity Date Activity User E-Sign Co-Sign Detail Recorded Client Recorded Date Recorded By Document 07/31/20 15:38 [id number] 07/31/20 15:40 07/31/20 15:38 Wound Center Nurse 2 [Procedure/Treatment] -Time 15:39 -Correct Patient Yes -Correct Side, Site, Position Yes -Correct Procedure Yes -Procedure Performed Yes -Type of Procedure Debridement -Clinical Debridement Subcutaneous -Tissue Removed Subcutaneous -Post Debridement (cm) - Length 0.8 -Post Debridement (cm) - Width 0.4 -Post Debridement (cm) - Depth 0.3 -Total Square (Post) (cm) 0.32 -Area of Debridement (cm) - Length 0.8 -Area of Debridement (cm) - Width 0.4 -Total Square (Area) (cm) 0.32 -Tunneling No -Undermining/Tunneling No -Circular Undermining No -Wound/Ulcer Outcome Not Healed -Ulcer Cleansing Rinsed/ Irrigated with Saline -Foul Odor after Cleansing No -Bioengineered Tissue No -Bleeding Controlled with Pressure -Offloading Yes -Type of Offloading Surgical Shoe -Treatment Response Procedure Tolerated Well -Debridement - Subq, 1st 20sq cm Yes [See Physician Procedure note for Specifics] Pain Scale: 0-10 Numeric [Pain] -Is Patient Pain Free? Yes - Nurse 3 - General Ulcer D/C NN Start: 07/31/20 15:09 Freq: Status: Active Protocol: Activity Type Activity Date Activity User E-Sign Co-Sign Detail Recorded Client Recorded Date Recorded By Document 07/31/20 15:48 RB [id number] 07/31/20 15:49 RB 07/31/20 15:48 Wound Care Nurse 3 [Wound Dressing] 1. L foot dorsal -Ulcer Cleansing Rinsed/ Irrigated with Saline -Primary Dressing Applied C Hydrogel ($) -Other Dressing hydrogel -Primary Dressing Covered/Secured Dry Gauze,Dry with Gauze & Roll Gauze,Secured with Tape [Post Procedure Tolerated] -Treatment Response Procedure Tolerated Well Pain Scale: 0-10 Numeric [Pain] -Is Patient Pain Free? Yes - Visit Discharge [Visit Discharge Information] -Discharge Condition Stable -Ambulatory Status Ambulatory -Transportation Private Auto -Medication Reconcilliation completed No & provided to patient/care provider -Clinical Summary of Care Provided Yes Musculoskeletal: No Tenderness to Palpation of Joints or Extremities, Muscle Wasting, - - Prior transmetatarsal amputation noted Neurological: Sensory exam intact to light touch and pain, - Psych/Mental Status: Normal Affect, Appropriate Debridement Note Post-Debridement Measurements/Treatment SHANA - Nurse 2 - General Ulcer CM Notes Start: 07/31/20 15:09 Freq: Status: Active Protocol: Activity Type Activity Date Activity User E-Sign Co-Sign Detail Recorded Client Recorded Date Recorded By Document 07/31/20 15:38 [id number] 07/31/20 15:40 07/31/20 15:38 Wound Center Nurse 2 1. L foot dorsal -Time 15:39 -Correct Patient Yes -Correct Side, Site, Position Yes -Correct Procedure Yes -Procedure Performed Yes -Type of Procedure Debridement -Clinical Debridement Subcutaneous -Tissue Removed Subcutaneous -Post Debridement (cm) - Length 0.8 -Post Debridement (cm) - Width 0.4 -Post Debridement (cm) - Depth 0.3 -Total Square (Post) (cm) 0.32 -Area of Debridement (cm) - Length 0.8 -Area of Debridement (cm) - Width 0.4 -Total Square (Area) (cm) 0.32 -Tunneling No -Undermining/Tunneling No -Circular Undermining No -Wound/Ulcer Outcome Not Healed -Ulcer Cleansing Rinsed/ Irrigated with Saline -Foul Odor after Cleansing No -Bioengineered Tissue No -Bleeding Controlled with Pressure -Offloading Yes -Type of Offloading Surgical Shoe -Treatment Response Procedure Tolerated Well -Debridement - Subq, 1st 20sq cm Yes Pain Scale: 0-10 Numeric Is Patient Pain Free? Yes - Nurse 3 - General Ulcer D/C NN Start: 07/31/20 15:09 Freq: Status: Active Protocol: Activity Type Activity Date Activity User E-Sign Co-Sign Detail Recorded Client Recorded Date Recorded By Document 07/31/20 15:48 [id number] 07/31/20 15:49 07/31/20 15:48 Wound Care Nurse 3 1. L foot dorsal -Ulcer Cleansing Rinsed/ Irrigated with Saline -Primary Dressing Applied C Hydrogel ($) -Other Dressing hydrogel -Primary Dressing Covered/Secured with Dry Gauze,Dry Gauze & Roll Gauze,Secured with Tape Treatment Response Procedure Tolerated Well Pain Scale: 0-10 Numeric Is Patient Pain Free? Yes - Visit Discharge Discharge Condition Stable Ambulatory Status Ambulatory Transportation Private Auto Medication Reconcilliation completed & No provided to patient/care provider Clinical Summary of Care Provided Yes Wound debrided: dorsal foot Laterality: Left Type of Debridement: Excisional debridement Anesthesia Used: 5% Lidocaine Gel Depth: in the subcutaneous layer Percentage of wound debrided: 100 Instrument Used: #15 blade Tissue Removed: fibrous, devitalized subcutaneous, biofilm, slough Severity: Fat Layer Exposed Amount of bleeding with debridement: Mild Bleeding Controlled with: Pressure Patient tolerated procedure well Assessment/Plan Assessment: Open surgical wound left dorsal foot. Chronic osteomyelitis left foot. Peripheral arterial occlusive disease with prior intervention in 2017 and recent 2019. Long-term use of Coumadin. Chronic DVT. Malnutrition suspected. Left transmetatarsal amputation with delayed healing Plan: I reviewed and discussed her case. Debridement was performed as noted in the clinical panel today. This was further covered with hydrogel and Adaptic. It is okay for her to use a cam walker at home but to remain nonweightbearing most of the time. To avoid excessive activity. We discussed that it is okay for her to put her foot down for partial weightbearing for transfers and for limited walking in house. One of the main purpose is wearing a cam walker is to reduce tension applied on the adjacent ulcer skin to help promote healing. She is also advised to be cautious and avoiding strap pressure over the ulcer site. She is previously known to infectious disease and input is greatly appreciated. She is not demonstrating appropriate compliance with a cam walker immobilization or smoking cessation. We discussed the accountability needed from her at home in order to see more progress. . Her history of peripheral vascular disease with critical limb ischemia and prior intervention 2017 as noted. An updated arterial study was ordered previously to check her current status. The noninvasive arterial studies were completed on October 27, 2019 in which a left KEARA of 0.72 is noted without gross impairment of perfusion. I recommend referral to Dr. Gomez at this time and she is amendable to proceed. She did have recent surgical intervention and reports it went well. She missed her follow-up surgical appointment and she is advised to reschedule. Dr. Gomez's evaluation greatly appreciated. To maintain a healthy diet. We discussed the importance of appropriate nutrition to allow her body to heal. I also offered her nutrition referral. She has not been amenable to proceed yet. Her ongoing smoking was discussed today and this is likely a contribution to her lack of healing. She understands additional vascular and podiatric surgical intervention is not recommended. An amputation is recommended if failure continues or she can enter into a palliative care plan where she lives with the wound and the goal is to avoid infections. She will then return to the wound healing center in 2 weeks or call sooner if she has any questions or concerns. She understands she is at risk for continued limb loss.
[2020-08-14 15:10] VITALS: BP 137/76; PULSE 80; RESP 16; TEMP 36.2; BMI 32.8
--- NOTE | 2020-08-14 15:50 | PN.PCM_ITS ---
(1) Chronic ulcer of left foot with necrosis of bone Status: Chronic Code(s): L97.524 - Non-pressure chronic ulcer of other part of left foot with necrosis of bone (2) Nonhealing nonsurgical wound with necrosis of bone Status: Chronic Code(s): T14.8XXA - Other injury of unspecified body region, initial encounter; M87.9 - Osteonecrosis, unspecified (3) Partial traumatic amputation of left foot Status: Chronic Code(s): S98.922A - Partial traumatic amputation of left foot, level unspecified, initial encounter (4) Delayed wound healing Status: Chronic Code(s): T14.8XXD - Other injury of unspecified body region, subsequent encounter (5) Malnutrition Status: Chronic Code(s): E46 - Unspecified protein-calorie malnutrition (6) Non-compliance Status: Chronic Code(s): Z91.19 - Patient's noncompliance with other medical treatment and regimen (7) Peripheral arterial occlusive disease Status: Chronic Code(s): I77.9 - Disorder of arteries and arterioles, unspecified (8) Smoking addiction Status: Chronic Code(s): F17.200 - Nicotine dependence, unspecified, uncomplicated Type of Wound Date of Service: 08/14/20 Chief Complaint: Follow-up on a left dorsal foot nonhealing ulcer History of Wound: This is a 55-year-old white female that in approximately December 2016 had chronic foot condition in which she previously underwent previous operating room debridement with bone biopsy and application of advanced wound healing product to left foot at [facility]. She denies fever, chill, nausea, vomiting. She had recent intervention with Dr. Gomez, vascular specialist. She did not attend her surgical follow-up session still. She continues to smoke approximately 13 cigarettes a day. She has been performing dressing changes with her daughter daily and tries to offload. Progress of Wound: Stable - Physical Exam Vital Signs Temp Pulse Resp BP 98.6 F 84 16 135/74 H 07/31/20 15:07/31/20 15:07/31/20 15:07/31/20 15:09 General: Alert, Oriented x3, Cooperative, No apparent distress HEENT: Atraumatic Extremities: No cyanosis, Capillary Refill Less than 3 Seconds, Diminished Peripheral Pulses, Edema Skin: Ulcer/ Wound - No purulence, erythema, streaking, odor, infection. Exposed bone still visualized. Her skin is atrophic and hairless Wound Measurements and Assessment - Nurse 3 - General Ulcer D/C NN Start: 07/31/20 15:09 Freq: Status: Active Protocol: Activity Type Activity Date Activity User E-Sign Co-Sign Detail Recorded Client Recorded Date Recorded By Document 08/14/20 15:47 [facility] [id number] 08/14/20 15:48 [facility] 08/14/20 15:47 Wound Care Nurse 3 [Wound Dressing] 1. L foot dorsal -Ulcer Cleansing Rinsed/ Irrigated with Saline -Foul Odor after Cleansing No -Primary Dressing Applied Other -Other Dressing hydrogel -Primary Dressing Covered/Secured Dry Gauze & with Roll Gauze, Secured with Tape [Post Procedure Tolerated] -Treatment Response Procedure Tolerated Well Pain Scale: 0-10 Numeric [Pain] -Is Patient Pain Free? Yes - Visit Discharge [Visit Discharge Information] -Discharge Condition Stable -Ambulatory Status Ambulatory, Walker -Transportation Private Auto -Accompanied by daughter -Notes: knee walker Musculoskeletal: No Tenderness to Palpation of Joints or Extremities, Muscle Wasting, - - Transmetatarsal amputation Neurological: - - Lack of normal epicritic sensation light touch is consistent with neuropathy status Psych/Mental Status: Normal Affect, Appropriate Debridement Note Post-Debridement Measurements/Treatment - Nurse 2 - General Ulcer CM Notes Start: 07/31/20 15:09 Freq: Status: Active Protocol: Activity Type Activity Date Activity User E-Sign Co-Sign Detail Recorded Client Recorded Date Recorded By Document 07/31/20 15:38 [id number] 07/31/20 15:40 07/31/20 15:38 Wound Center Nurse 2 1. L foot dorsal -Time 15:39 -Correct Patient Yes -Correct Side, Site, Position Yes -Correct Procedure Yes -Procedure Performed Yes -Type of Procedure Debridement -Clinical Debridement Subcutaneous -Tissue Removed Subcutaneous -Post Debridement (cm) - Length 0.8 -Post Debridement (cm) - Width 0.4 -Post Debridement (cm) - Depth 0.3 -Total Square (Post) (cm) 0.32 -Area of Debridement (cm) - Length 0.8 -Area of Debridement (cm) - Width 0.4 -Total Square (Area) (cm) 0.32 -Tunneling No -Undermining/Tunneling No -Circular Undermining No -Wound/Ulcer Outcome Not Healed -Ulcer Cleansing Rinsed/ Irrigated with Saline -Foul Odor after Cleansing No -Bioengineered Tissue No -Bleeding Controlled with Pressure -Offloading Yes -Type of Offloading Surgical Shoe -Treatment Response Procedure Tolerated Well -Debridement - Subq, 1st 20sq cm Yes Pain Scale: 0-10 Numeric Is Patient Pain Free? Yes WC - Nurse 3 - General Ulcer D/C NN Start: 07/31/20 15:09 Freq: Status: Active Protocol: Activity Type Activity Date Activity User E-Sign Co-Sign Detail Recorded Client Recorded Date Recorded By Document 07/31/20 15:48 RB [id number] 07/31/20 15:49 RB Document 08/14/20 15:47 BM [id number] 08/14/20 15:48 BMF 07/31/20 08/14/20 15:48 15:47 Wound Care Nurse 3 1. L foot dorsal -Ulcer Cleansing Rinsed/ Rinsed/ Irrigated with Irrigated with Saline Saline -Foul Odor after Cleansing No -Primary Dressing Applied C Hydrogel ($) Other -Other Dressing hydrogel hydrogel -Primary Dressing Covered/Secured with Dry Gauze,Dry Dry Gauze & Gauze & Roll Roll Gauze, Gauze,Secured Secured with with Tape Tape Treatment Response Procedure Procedure Tolerated Well Tolerated Well Pain Scale: 0-10 Numeric Is Patient Pain Free? Yes Yes - Visit Discharge Discharge Condition Stable Stable Ambulatory Status Ambulatory Ambulatory, Walker Transportation Private Auto Private Auto Accompanied by daughter Medication Reconcilliation completed & No provided to patient/care provider Clinical Summary of Care Provided Yes Notes: knee walker Wound debrided: dorsal foot Laterality: Left Type of Debridement: Selective debridement Anesthesia Used: 5% Lidocaine Gel Depth: in the subcutaneous layer Percentage of wound debrided: 100 Instrument Used: #15 blade Tissue Removed: fibrous, devitalized tissue, biofilm, slough Severity: Limited To Skin Breakdown Amount of bleeding with debridement: Mild Bleeding Controlled with: Pressure Patient tolerated procedure well Assessment/Plan Assessment: Open surgical wound left dorsal foot. Chronic osteomyelitis left foot. Peripheral arterial occlusive disease with prior intervention in 2016 and recent 2019. Long-term use of Coumadin. Chronic DVT. Malnutrition suspected. Left transmetatarsal amputation with delayed healing Plan: I reviewed and discussed her case. Debridement was performed as noted in the clinical panel today. This was further covered with hydrogel and Adaptic. It is okay for her to use a cam walker at home but to remain nonweightbearing most of the time. To avoid excessive activity. We discussed that it is okay for her to put her foot down for partial weightbearing for transfers and for limited walking in house. One of the main purpose is wearing a cam walker is to reduce tension applied on the adjacent ulcer skin to help promote healing. She is also advised to be cautious and avoiding strap pressure over the ulcer site. She is previously known to infectious disease and input is greatly appreciated. She is not demonstrating appropriate compliance with a cam walker immobilization or smoking cessation. We discussed the accountability needed from her at home in order to see more progress. She refuses smoking cessation. . Her history of peripheral vascular disease with critical limb ischemia and prior intervention 2017 as noted. An updated arterial study was ordered previously to check her current status. The noninvasive arterial studies were completed on October 27, 2019 in which a left KEARA of 0.72 is noted without gross impairment of perfusion. I recommend referral to Dr. Gomez at this time and she is amendable to proceed. She did have recent surgical intervention and reports it went well. She missed her follow-up surgical appointment and she is advised to reschedule. Dr. Gomez's evaluation greatly appreciated. To maintain a healthy diet. We discussed the importance of appropriate nutrition to allow her body to heal. I also offered her nutrition referral. She has not been amenable to proceed yet. Her ongoing smoking was discussed today and this is likely a c ontribution to her lack of healing. She understands additional vascular and podiatric surgical intervention is not recommended. An amputation is recommended if failure continues or she can enter into a palliative care plan where she lives with the wound and the goal is to avoid infections. She will then return to the wound healing center in 2 weeks or call sooner if she has any questions or concerns. She elects to return to clinic in 1 month. She understands she is at risk for continued limb loss.
== END 2020-08-28 23:59 ==
LOC: WC 15:00
PROVIDERS: PCP Family Medicine; Visit Provider Podiatrist
DX: L97.524 Non-pressure chronic ulcer of other part of left foot with necrosis of bone (principal); M86.672 Other chronic osteomyelitis, left ankle and foot; S98.922A Partial traumatic amputation of left foot, level unspecified, initial encounter; X58.XXXA Exposure to other specified factors, initial encounter; Y93.9 Activity, unspecified; Y92.9 Unspecified place or not applicable; Y99.9 Unspecified external cause status; I73.9 Peripheral vascular disease, unspecified; Z91.19 Patient's noncompliance with other medical treatment and regimen; F17.210 Nicotine dependence, cigarettes, uncomplicated; Z79.01 Long term (current) use of anticoagulants; Z79.899 Other long term (current) drug therapy
CPT/HCPCS: 11042

== ENCOUNTER 2020-09-11 13:30 | Outpatient (RCR) | payer MEDICARE, BC, OTHER, SELFPAY ==
[2020-08-29 00:22] VITALS: BP 137/76; PULSE 80; RESP 16; TEMP 36.2
[2020-09-11 13:48] VITALS: BP 138/76; PULSE 77; RESP 18; TEMP 36.6; BMI 32.8
[2020-09-11 14:29] VITALS: BP 138/78
--- NOTE | 2020-09-11 14:54 | PN.PCM_ITS ---
(1) Chronic ulcer of left foot with necrosis of bone Status: Chronic Code(s): L97.524 - Non-pressure chronic ulcer of other part of left foot with necrosis of bone (2) Non-compliance Status: Chronic Code(s): Z91.19 - Patient's noncompliance with other medical treatment and regimen (3) Delayed wound healing Status: Chronic Code(s): T14.8XXD - Other injury of unspecified body region, subsequent encounter (4) Partial traumatic amputation of left foot Status: Chronic Code(s): S98.922A - Partial traumatic amputation of left foot, level unspecified, initial encounter (5) Smoking addiction Status: Chronic Code(s): F17.200 - Nicotine dependence, unspecified, uncomplicated (6) Malnutrition Status: Chronic Code(s): E46 - Unspecified protein-calorie malnutrition (7) Peripheral arterial occlusive disease Status: Chronic Code(s): I77.9 - Disorder of arteries and arterioles, unspecified Type of Wound Date of Service: 09/11/20 Chief Complaint: Follow-up on a left dorsal foot nonhealing ulcer History of Wound: This is a 55-year-old white female that in approximately December 2016 had chronic foot condition in which she previously underwent previous operating room debridement with bone biopsy and application of advanced wound healing product to left foot at [facility]. She denies fever, chill, nausea, vomiting. She had recent intervention with Dr. Gomez, vascular specialist. She continues to smoke approximately 13 cigarettes a day. She has been performing dressing changes with her daughter daily and tries to offload. She wants to continue on a palliative care plan at this time. Progress of Wound: Stable - Physical Exam Vital Signs Temp Pulse Resp BP 97.8 F 77 18 138/78 H 09/11/20 13:48 09/11/20 13:48 09/11/20 13:48 09/11/20 14:29 General: Alert, Oriented x3, Cooperative, No apparent distress HEENT: Atraumatic Extremities: No cyanosis, Capillary Refill Less than 3 Seconds, No Calf Tenderness, Diminished Peripheral Pulses, Edema Skin: Ulcer/ Wound - No purulence, erythema, streaking, odor, infection. Exposed bone is continued. Her amputation stumps remained stable without bogginess or fluctuance. Wound Measurements and Assessment WC - Nurse 1 - General Ulcer Measurement Start: 09/11/20 13:48 Freq: Status: Active Protocol: Activity Type Activity Date Activity User E-Sign Co-Sign Detail Recorded Client Recorded Date Recorded By Document 09/11/20 13:48 RB [id number] 09/11/20 13:52 RB 09/11/20 13:48 Wound Center Nurse 1 [Ulcer Assessment] 1. L foot dorsal -Combined with other wound No -Current Size (cm) - Length 0.6 -Current Size (cm) - Width 0.5 -Current Size (cm) - Depth 0.3 -Total Square Cm 0.30 -Tunneling No -Undermining/Tunneling No -Circular Undermining No -Exudate Amt Small -Exudate Type Serosanguineous -Wound Margin Thickened & Rolled Under -Granulation Amt Medium (34-66%) -Granulation Quality [place] -Slough/Fibrin Yes -Necrosis Amt Small (1-33%) -Necrotic Tissue Type Adherent Slough -Structure Exposed N/A -Texture (Shital-wound Skin Appearance) Assessed -Moisture (Shital-wound Skin Appearance Assessed, ) Maceration -Color (Shital-wound Skin Appearance) Assessed -Temperature (Shital-wound Skin No Abnormality Appearance) (Pt Warm) -Tenderness on Palpation (Shital-wound No Skin Appearance) -Ulcer Cleansing Wound Cleanser -Foul Odor after Cleansing No -Anesthetic Used 4% Lidocaine Solution WC - Nurse 2 - General Ulcer CM Notes Start: 09/11/20 13:48 Freq: Status: Active Protocol: Activity Type Activity Date Activity User E-Sign Co-Sign Detail Recorded Client Recorded Date Recorded By Document 09/11/20 14:20 LUCIA [id number] 09/11/20 14:21 09/11/20 14:20 Wound Center Nurse 2 [Procedure/Treatment] -Time 14:20 -Correct Patient Yes -Correct Side, Site, Position Yes -Correct Procedure Yes -Procedure Performed Yes -Type of Procedure Debridement -Clinical Debridement Subcutaneous -Tissue Removed Subcutaneous -Post Debridement (cm) - Length 0.6 -Post Debridement (cm) - Width 0.6 -Post Debridement (cm) - Depth 0.3 -Total Square (Post) (cm) 0.36 -Area of Debridement (cm) - Length 0.6 -Area of Debridement (cm) - Width 0.6 -Total Square (Area) (cm) 0.36 -Tunneling No -Undermining/Tunneling No -Circular Undermining No -Wound/Ulcer Outcome Not Healed -Ulcer Cleansing Rinsed/ Irrigated with Saline -Foul Odor after Cleansing No -Bioengineered Tissue No -Bleeding Controlled with Pressure -Offloading Yes -Type of Offloading Knee Walker -Treatment Response Procedure Tolerated Well -Debridement - Subq, 1st 20sq cm Yes [See Physician Procedure note for Specifics] Pain Scale: 0-10 Numeric [Pain] -Is Patient Pain Free? Yes - Nurse 3 - General Ulcer D/C NN Start: 09/11/20 13:48 Freq: Status: Active Protocol: Activity Type Activity Date Activity User E-Sign Co-Sign Detail Recorded Client Recorded Date Recorded By Document 09/11/20 14:29 RB [id number] 09/11/20 14:30 RB 09/11/20 14:29 Wound Care Nurse 3 [Wound Dressing] 1. L foot dorsal -Ulcer Cleansing Rinsed/ Irrigated with Saline -Other Dressing hydrogel -Primary Dressing Covered/Secured Dry Gauze,Dry with Gauze & Roll Gauze,Secured with Tape [Post Procedure Tolerated] -Treatment Response Procedure Tolerated Well Vital Signs [Blood Pressure] -Blood Pressure (90/60-120/80) 138/78 H -Blood Pressure Mean (mm Hg) 98 -Source Monitor -Position Semi-Fowlers -Blood Pressure Location Left Arm Pain Scale: 0-10 Numeric [Pain] -Is Patient Pain Free? Yes - Visit Discharge [Visit Discharge Information] -Discharge Condition Stable -Ambulatory Status Walker -Transportation Private Auto -Accompanied by daughter -Medication Reconcilliation completed No & provided to patient/care provider -Clinical Summary of Care Provided Yes -Notes: kneewaker Musculoskeletal: No Tenderness to Palpation of Joints or Extremities, Muscle Wa sting Neurological: - - Lack of normal epicritic sensation light touch Psych/Mental Status: Normal Affect, Appropriate Debridement Note Post-Debridement Measurements/Treatment - Nurse 2 - General Ulcer CM Notes Start: 09/11/20 13:48 Freq: Status: Active Protocol: Activity Type Activity Date Activity User E-Sign Co-Sign Detail Recorded Client Recorded Date Recorded By Document 09/11/20 14:20 JF [id number] 09/11/20 14:21 JF 09/11/20 14:20 Wound Center Nurse 2 1. L foot dorsal -Time 14:20 -Correct Patient Yes -Correct Side, Site, Position Yes -Correct Procedure Yes -Procedure Performed Yes -Type of Procedure Debridement -Clinical Debridement Subcutaneous -Tissue Removed Subcutaneous -Post Debridement (cm) - Length 0.6 -Post Debridement (cm) - Width 0.6 -Post Debridement (cm) - Depth 0.3 -Total Square (Post) (cm) 0.36 -Area of Debridement (cm) - Length 0.6 -Area of Debridement (cm) - Width 0.6 -Total Square (Area) (cm) 0.36 -Tunneling No -Undermining/Tunneling No -Circular Undermining No -Wound/Ulcer Outcome Not Healed -Ulcer Cleansing Rinsed/ Irrigated with Saline -Foul Odor after Cleansing No -Bioengineered Tissue No -Bleeding Controlled with Pressure -Offloading Yes -Type of Offloading Knee Walker -Treatment Response Procedure Tolerated Well -Debridement - Subq, 1st 20sq cm Yes Pain Scale: 0-10 Numeric Is Patient Pain Free? Yes WC - Nurse 3 - General Ulcer D/C NN Start: 09/11/20 13:48 Freq: Status: Active Protocol: Activity Type Activity Date Activity User E-Sign Co-Sign Detail Recorded Client Recorded Date Recorded By Document 09/11/20 14:29 RB [id number] 09/11/20 14:30 RB 09/11/20 14:29 Wound Care Nurse 3 1. L foot dorsal -Ulcer Cleansing Rinsed/ Irrigated with Saline -Other Dressing hydrogel -Primary Dressing Covered/Secured with Dry Gauze,Dry Gauze & Roll Gauze,Secured with Tape Treatment Response Procedure Tolerated Well Vital Signs Blood Pressure (90/60-120/80) 138/78 H Blood Pressure Mean (mm Hg) 98 Source Monitor Position Semi-Fowlers Blood Pressure Location Left Arm Pain Scale: 0-10 Numeric Is Patient Pain Free? Yes WC - Visit Discharge Discharge Condition Stable Ambulatory Status Walker Transportation Private Auto Accompanied by daughter Medication Reconcilliation completed & No provided to patient/care provider Clinical Summary of Care Provided Yes Notes: kneewaker Wound debrided: dorsal foot Laterality: Left Type of Debridement: Selective debridement Anesthesia Used: 5% Lidocaine Gel Depth: in the subcutaneous layer Percentage of wound debrided: 100 Instrument Used: 3mm curette Tissue Removed: fibrous, devitalized tissue, biofilm, slough Severity: Fat Layer Exposed - bone (non necrotic) exposed Amount of bleeding with debridement: Mild Bleeding Controlled with: Pressure Patient tolerated procedure well Assessment/Plan Active Problems Non-compliance (Chronic) Delayed wound healing (Chronic) Peripheral arterial occlusive disease (Chronic) Partial traumatic amputation of left foot (Chronic) Smoking addiction (Chronic) Malnutrition (Chronic) 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 Chronic osteomyelitis left foot. Peripheral arterial occlusive disease with prior intervention in 2016 and recent 2019. Long-term use of Coumadin. Chronic DVT. Malnutrition suspected. Left transmetatarsal amputation with delayed healing Plan: I reviewed and discussed her case. Debridement was performed as noted in the clinical panel today. This was further covered with hydrogel and Adaptic. It is okay for her to use a cam walker at home but to remain nonweightbearing most of the time. To avoid excessive activity. We discussed that it is okay for her to put her foot down for partial weightbearing for transfers and for limited walking in house. One of the main purpose is wearing a cam walker is to reduce tension applied on the adjacent ulcer skin to help promote healing. She is also advised to be cautious and avoiding strap pressure over the ulcer site. She is previously known to infectious disease and input is greatly appreciated. She is not demonstrating appropriate compliance with a cam walker immobilization or smoking cessation. We discussed the accountability needed from her at home in order to see more progress. She refuses smoking cessation. . Her history of peripheral vascular disease with critical limb ischemia and prior intervention 2017 as noted. An updated arterial study was ordered previously to check her current status. The noninvasive arterial studies were completed on October 27, 2019 in which a left KEARA of 0.72 is noted without gross impairment of perfusion. She did have recent surgical intervention and reports it went well. She missed her follow-up surgical appointment and she is advised to reschedule. Dr. Gomez's evaluation greatly appreciated. To maintain a healthy diet. We discussed the importance of appropriate nutrition to allow her body to heal. I also offered her nutrition referral. She has not been amenable to proceed yet. Her ongoing smoking was discussed today and this is likely a contribution to her lack of healing. She understands additional vascular and podiatric surgical intervention is not recommended. An amputation is recommende d if failure continues or she can enter into a palliative care plan where she lives with the wound and the goal is to avoid infections. She will then return to the wound healing center in 4 weeks or call sooner if she has any questions or concerns. She understands she is at risk for continued limb loss.
== END 2020-09-28 23:59 ==
LOC: WC 13:30
PROVIDERS: PCP Family Medicine; Visit Provider Podiatrist
DX: L97.524 Non-pressure chronic ulcer of other part of left foot with necrosis of bone (principal); E46 Unspecified protein-calorie malnutrition; F17.210 Nicotine dependence, cigarettes, uncomplicated; I73.9 Peripheral vascular disease, unspecified; M86.672 Other chronic osteomyelitis, left ankle and foot; Z79.01 Long term (current) use of anticoagulants; Z91.19 Patient's noncompliance with other medical treatment and regimen; T14.8XXD Other injury of unspecified body region, subsequent encounter; S98.922A Partial traumatic amputation of left foot, level unspecified, initial encounter; Z79.899 Other long term (current) drug therapy
CPT/HCPCS: 11042

== ENCOUNTER 2020-11-27 14:11 | Outpatient (RCR) | payer BC, OTHER, SELFPAY ==
[2020-09-29 00:13] VITALS: BP 138/78; PULSE 77; RESP 18; TEMP 36.6
[2020-11-27 14:31] VITALS: BP 146/87; PULSE 91; RESP 16; TEMP 36.1; BMI 32.8
--- NOTE | 2020-11-27 15:01 | PN.PCM_ITS ---
(1) Non-compliance Status: Chronic Code(s): Z91.19 - Patient's noncompliance with other medical treatment and regimen (2) Delayed wound healing Status: Chronic Code(s): T14.8XXD - Other injury of unspecified body region, subsequent encounter (3) Peripheral arterial occlusive disease Status: Chronic Code(s): I77.9 - Disorder of arteries and arterioles, unspecified (4) Partial traumatic amputation of left foot Status: Chronic Code(s): S98.922A - Partial traumatic amputation of left foot, level unspecified, initial encounter (5) Smoking addiction Status: Chronic Code(s): F17.200 - Nicotine dependence, unspecified, uncomplicated (6) Nonhealing nonsurgical wound with necrosis of bone Status: Chronic Code(s): T14.8XXA - Other injury of unspecified body region, initial encounter; M87.9 - Osteonecrosis, unspecified (7) Chronic ulcer of left foot with necrosis of bone Status: Chronic Code(s): L97.524 - Non-pressure chronic ulcer of other part of left foot with necrosis of bone Type of Wound Date of Service: 11/27/20 Chief Complaint: Follow-up on a left dorsal foot nonhealing ulcer History of Wound: This is a 55-year-old white female that in approximately December 2016 had chronic foot condition in which she previously underwent previous operating room debridement with bone biopsy and application of advanced wound healing product to left foot at [facility]. She denies fever, chill, nausea, vomiting. She had recent intervention with Dr. Gomez, vascular specialist. She has missed several appointments. She has been performing dressing changes with her daughter daily and tries to offload. However, it is noted she is walking in today with regular shoe gear around which is not advised. She wants to continue on a palliative care plan at this time. Progress of Wound: Improving - Physical Exam Vital Signs Temp Pulse Resp BP 97 F L 91 16 146/87 H 11/27/20 14:31 11/27/20 14:31 11/27/20 14:31 11/27/20 14:31 General: Alert, Oriented x3, Cooperative, No apparent distress HEENT: Atraumatic Extremities: No cyanosis, Capillary Refill Less than 3 Seconds, No Calf Tenderness, Diminished Peripheral Pulses, Edema - Decreased, - - Transmetatarsal amputation Skin: Ulcer/ Wound - No purulence, erythema, streaking, odor, infection. Exposed firm nondiscolored firm bone dorsal foot. Adjacent skin is hairless and atrophic, - - Reduce ulcer size noted Wound Measurements and Assessment - Nurse 1 - General Ulcer Measurement Start: 11/27/20 14:31 Freq: Status: Active Protocol: Activity Type Activity Date Activity User E-Sign Co-Sign Detail Recorded Client Recorded Date Recorded By Document 11/27/20 14:31 [facility] [id number] 11/27/20 14:35 [facility] 11/27/20 14:31 Wound Center Nurse 1 [Ulcer Assessment] #2- L DORSAL FOOT -Combined with other wound No -Current Size (cm) - Length 0.6 -Current Size (cm) - Width 0.4 -Current Size (cm) - Depth 0.3 -Total Square Cm 0.24 -Date of Last Picture (Recall this 11/27/20 field) -Photo Taken Yes -Epithelialization None Present -Tunneling No -Undermining/Tunneling No -Circular Undermining No -Exudate Amt Small -Exudate Type Serosanguineous -Wound Margin Thickened -Granulation Amt Small (1-33%) -Granulation Quality Red -Slough/Fibrin Yes -Necrosis Amt Large (67-100%) -Necrotic Tissue Type Adherent Slough -Texture (Shital-wound Skin Appearance) Assessed, Scarring -Moisture (Shital-wound Skin Appearance Assessed ) -Color (Shital-wound Skin Appearance) Assessed -Temperature (Shital-wound Skin No Abnormality Appearance) (Pt Warm) -Tenderness on Palpation (Shital-wound No Skin Appearance) -Ulcer Cleansing Rinsed/ Irrigated with Saline -Foul Odor after Cleansing No -Anesthetic Used 5% Lidocaine Gel - Nurse 2 - General Ulcer CM Notes Start: 11/27/20 14:31 Freq: Status: Active Protocol: Activity Type Activity Date Activity User E-Sign Co-Sign Detail Recorded Client Recorded Date Recorded By Document 11/27/20 14:44 [id number] 11/27/20 14:50 LUCIA 11/27/20 14:44 Wound Center Nurse 2 [Procedure/Treatment] -Time 14:49 -Correct Patient Yes -Correct Side, Site, Position Yes -Correct Procedure Yes -Procedure Performed Yes -Type of Procedure Debridement -Clinical Debridement Subcutaneous -Tissue Removed Subcutaneous -Post Debridement (cm) - Length 0.6 -Post Debridement (cm) - Width 0.5 -Post Debridement (cm) - Depth 0.4 -Total Square (Post) (cm) 0.30 -Area of Debridement (cm) - Length 0.6 -Area of Debridement (cm) - Width 0.5 -Total Square (Area) (cm) 0.30 -Tunneling No -Undermining/Tunneling No -Circular Undermining No -Wound/Ulcer Outcome Not Healed -Ulcer Cleansing Rinsed/ Irrigated with Saline -Foul Odor after Cleansing No -Bioengineered Tissue No -Bleeding Controlled with Pressure -Offloading No -Treatment Response Procedure Tolerated Well -Debridement - Subq, 1st 20sq cm Yes [See Physician Procedure note for Specifics] Pain Scale: 0-10 Numeric [Pain] -Is Patient Pain Free? Yes - Nurse 3 - General Ulcer D/C NN Start: 11/27/20 14:31 Freq: Status: Active Protocol: Activity Type Activity Date Activity User E-Sign Co-Sign Detail Recorded Client Recorded Date Recorded By Document 11/27/20 14:52 [facility] [id number] 11/27/20 14:52 [facility] 11/27/20 14:52 Wound Care Nurse 3 [Wound Dressing] #2- L DORSAL FOOT -Ulcer Cleansing Rinsed/ Irrigated with Saline -Foul Odor after Cleansing No -Primary Dressing Applied C Hydrogel ($) -Primary Dressing Covered/Secured Dry Gauze & with Roll Gauze, Secured with Tape [Post Procedure Tolerated] -Treatment Response Procedure Tolerated Well Pain Scale: 0-10 Numeric [Pain] -Is Patient Pain Free? Yes - Visit Discharge [Visit Discharge Information] -Discharge Condition Stable -Ambulatory Status Ambulatory -Transportation Private Auto Musculoskeletal: No Tenderness to Palpation of Joints or Extremities, Muscle Wasting Neurological: - - Lack of normal epicritic sensation Psych/Mental Status: Normal Affect, Appropriate Debridement Note Post-Debridement Measurements/Treatment - Nurse 2 - General Ulcer CM Notes Start: 11/27/20 14:31 Freq: Status: Active Protocol: Activity Type Activity Date Activity User E-Sign Co-Sign Detail Recorded Client Recorded Date Recorded By Document 11/27/20 14:44 [id number] 11/27/20 14:50 11/27/20 14:44 Wound Center Nurse 2 #2- L DORSAL FOOT -Time 14:49 -Correct Patient Yes -Correct Side, Site, Position Yes -Correct Procedure Yes -Procedure Performed Yes -Type of Procedure Debridement -Clinical Debridement Subcutaneous -Tissue Removed Subcutaneous -Post Debridement (cm) - Length 0.6 -Post Debridement (cm) - Width 0.5 -Post Debridement (cm) - Depth 0.4 -Total Square (Post) (cm) 0.30 -Area of Debridement (cm) - Length 0.6 -Area of Debridement (cm) - Width 0.5 -Total Square (Area) (cm) 0.30 -Tunneling No -Undermining/Tunneling No -Circular Undermining No -Wound/Ulcer Outcome Not Healed -Ulcer Cleansing Rinsed/ Irrigated with Saline -Foul Odor after Cleansing No -Bioengineered Tissue No -Bleeding Controlled with Pressure -Offloading No -Treatment Response Procedure Tolerated Well -Debridement - Subq, 1st 20sq cm Yes Pain Scale: 0-10 Numeric Is Patient Pain Free? Yes - Nurse 3 - General Ulcer D/C NN Start: 11/27/20 14:31 Freq: Status: Active Protocol: Activity Type Activity Date Activity User E-Sign Co-Sign Detail Recorded Client Recorded Date Recorded By Document 11/27/20 14:52 [facility] [id number] 11/27/20 14:52 [facility] 11/27/20 14:52 Wound Care Nurse 3 #2- L DORSAL FOOT -Ulcer Cleansing Rinsed/ Irrigated with Saline -Foul Odor after Cleansing No -Primary Dressing Applied C Hydrogel ($) -Primary Dressing Covered/Secured with Dry Gauze & Roll Gauze, Secured with Tape Treatment Response Procedure Tolerated Well Pain Scale: 0-10 Numeric Is Patient Pain Free? Yes - Visit Discharge Discharge Condition Stable Ambulatory Status Ambulatory Transportation Private Auto Wound debrided: dorsal foot Laterality: Left Type of Debridement: Excisional debridement Anesthesia Used: 5% Lidocaine Gel Depth: in the subcutaneous layer Percentage of wound debrided: 100 Instrument Used: #15 blade Tissue Removed: fibrous, devitalized subcutaneous, biofilm, slough Severity: Fat Layer Exposed Amount of bleeding with debridement: Mild Bleeding Controlled with: Pressure Patient tolerated procedure well Assessment/Plan Active Problems Non-compliance (Chronic) Delayed wound healing (Chronic) Peripheral arterial occlusive disease (Chronic) Partial traumatic amputation of left foot (Chronic) Smoking addiction (Chronic) Nonhealing nonsurgical wound with necrosis of bone (Chronic) 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 Chronic osteomyelitis left foot. Peripheral arterial occlusive disease with prior intervention in 2017 and recent 2019. Long-term use of Coumadin. Chronic DVT. Malnutrition suspected. Left transmetatarsal amputation with delayed healing Plan: I reviewed and discussed her case. Debridement was performed as noted in the clinical panel today. This was further covered with hydrogel and Adaptic. It is okay for her to use a cam walker at home but to remain nonweightbearing most of the time. To avoid walking and closed shoes because this will press directly on the ulcer site. To avoid excessive activity. We discussed that it is okay for her to put her foot down for partial weightbearing for transfers and for limited walking in house. One of the main purpose is wearing a cam walker is to reduce tension applied on the adjacent ulcer skin to help promote healing. She is also advised to be cautious and avoiding strap pressure over the ulcer site. She is previously known to infectious disease and she is reassured no infections are noted today. She is not demonstrating appropriate compliance with a cam walker immobilization or smoking cessation. We discussed the accountability needed from her at home in order to see more progress. She refuses smoking cessation. . Her history of peripheral vascular disease with critical limb ischemia and prior intervention 2017 as noted. An updated arterial study was ordered previously to check her current status. The noninvasive arterial studies were completed on October 27, 2019 in which a left KEARA of 0.72 is noted without gross impairment of perfusion. She did have recent surgical intervention and reports it went well. She missed her follow-up surgical appointment and she is advised to reschedule. Dr. Gomez's evaluation greatly appreciated. To maintain a healthy diet. We discussed the importance of appropriate nutrition to allow her body to heal. I also offered her nutrition referral. She has not been amenable to proceed yet. Her ongoing smoking was discussed today and this is likely a contribution to her lack of healing. She understands additional vascular and podiatric surgical intervention is not recommended. An amputation is recommended if failure continues or she can enter into a palliative care plan where she lives with the wound and the goal is to avoid infections. She will then return to the wound healing center in 4 weeks or call sooner if she has any questions or concerns. She understands she is at risk for continued limb loss.
== END 2020-11-28 23:59 ==
LOC: WC 14:11
PROVIDERS: PCP Family Medicine; Visit Provider Podiatrist
DX: I73.9 Peripheral vascular disease, unspecified (principal); Z91.19 Patient's noncompliance with other medical treatment and regimen; Z89.432 Acquired absence of left foot; F17.200 Nicotine dependence, unspecified, uncomplicated; L97.522 Non-pressure chronic ulcer of other part of left foot with fat layer exposed; M86.672 Other chronic osteomyelitis, left ankle and foot
CPT/HCPCS: 11042; 99213; G0463

== ENCOUNTER 2021-01-01 14:45 | Outpatient (RCR) | payer BC, OTHER, SELFPAY ==
[2020-11-29 00:06] VITALS: BP 146/87; PULSE 91; RESP 16; TEMP 36.1
[2021-01-01 14:52] VITALS: BP 128/89; PULSE 102; RESP 18; TEMP 36.9; BMI 32.8
--- NOTE | 2021-01-01 21:16 | PN.PCM_ITS ---
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 Status: Chronic Code(s): T14.8XXA - Other injury of unspecified body region, initial encounter; M87.9 - Osteonecrosis, unspecified (2) Non-compliance Status: Chronic Code(s): Z91.19 - Patient's noncompliance with other medical treatment and regimen (3) Delayed wound healing Status: Chronic Code(s): T14.8XXD - Other injury of unspecified body region, subsequent encounter (4) Peripheral arterial occlusive disease Status: Chronic Code(s): I77.9 - Disorder of arteries and arterioles, unspecified (5) Smoking addiction Status: Chronic Code(s): F17.200 - Nicotine dependence, unspecified, unc omplicated Type of Wound Date of Service: 01/01/21 Chief Complaint: Follow-up on a left dorsal foot nonhealing ulcer History of Wound: This is a 55-year-old white female that in approximately December 2016 had chronic foot condition in which she previously underwent previous operating room debridement with bone biopsy and application of advanced wound healing product to left foot at [facility]. She denies fever, chill, nausea, vomiting. She had recent intervention with Dr. Gomez, vascular specialist. She has missed several appointments. She has been performing dressing changes with her daughter daily and tries to offload. She wears a hightop shoe which reduces her ankle motion and has altered the laces so there is no pressure over the ulcer site. She wants to continue on a palliative care plan at this time. She is going to follow-up with her primary care physician within the next week and will be specifically working towards smoking cessation. Progress of Wound: Stable - Physical Exam Vital Signs Temp Pulse Resp BP 98.5 F 102 H 18 128/89 H 01/01/21 14:52 01/01/21 14:52 01/01/21 14:52 01/01/21 14:52 General: Alert, Oriented x3, Cooperative, No apparent distress Extremities: No cyanosis, No edema, Capillary Refill Less than 3 Seconds, No Calf Tenderness, Diminished Peripheral Pulses, - - Transmetatarsal amputation Skin: Ulcer/ Wound - No purulence, erythema, string, odor, infection. Exposed white firm bone. Atrophic adjacent skin Wound Measurements and Assessment WC - Nurse 1 - General Ulcer Measurement Start: 01/01/21 14:52 Freq: Status: Active Protocol: Activity Type Activity Date Activity User E-Sign Co-Sign Detail Recorded Client Recorded Date Recorded By Document 01/01/21 14:52 DL [id number] 01/01/21 14:58 DL 01/01/21 14:52 Wound Center Nurse 1 [Ulcer Assessment] #2- L DORSAL FOOT -Current Size (cm) - Length 0.7 -Current Size (cm) - Width 0.5 -Current Size (cm) - Depth 0.3 -Total Square Cm 0.35 -Photo Taken No -Exudate Amt Small -Exudate Type Serosanguineous -Wound Margin Thickened & Rolled Under -Granulation Amt None Present (0 %) -Necrosis Amt None Present (0 %) -Structure Exposed Bone -Texture (Shital-wound Skin Appearance) Scarring -Moisture (Shital-wound Skin Appearance No Abnormality ) -Color (Shital-wound Skin Appearance) Rubor -Temperature (Shital-wound Skin No Abnormality Appearance) (Pt Warm) -Tenderness on Palpation (Shital-wound No Skin Appearance) -Foul Odor after Cleansing No -Anesthetic Used 4% Lidocaine Solution WC - Nurse 2 - General Ulcer CM Notes Start: 01/01/21 14:52 Freq: Status: Active Protocol: Activity Type Activity Date Activity User E-Sign Co-Sign Detail Recorded Client Recorded Date Recorded By Document 01/01/21 15:06 LUCIA [id number] 01/01/21 15:09 LUCIA 01/01/21 15:06 Wound Center Nurse 2 [Procedure/Treatment] -Time 15:07 -Correct Patient Yes -Correct Side, Site, Position Yes -Correct Procedure Yes -Procedure Performed Yes -Type of Procedure Debridement -Clinical Debridement Epidermis / Dermis -Tissue Removed Epidermis, Dermis -Post Debridement (cm) - Length 0.7 -Post Debridement (cm) - Width 0.5 -Post Debridement (cm) - Depth 0.3 -Total Square (Post) (cm) 0.35 -Area of Debridement (cm) - Length 0.7 -Area of Debridement (cm) - Width 0.5 -Total Square (Area) (cm) 0.35 -Tunneling No -Undermining/Tunneling No -Circular Undermining No -Wound/Ulcer Outcome Not Healed -Ulcer Cleansing Rinsed/ Irrigated with Saline -Foul Odor after Cleansing No -Bioengineered Tissue No -Bleeding Controlled with Pressure -Offloading No -Treatment Response Procedure Tolerated Well -Debridement - Open, 1st 20sq cm Yes [See Physician Procedure note for Specifics] Pain Scale: 0-10 Numeric [Pain] -Is Patient Pain Free? Yes - Nurse 3 - General Ulcer D/C NN Start: 01/01/21 14:52 Freq: Status: Active Protocol: Activity Type Activity Date Activity User E-Sign Co-Sign Detail Recorded Client Recorded Date Recorded By Document 01/01/21 15:10 [id number] 01/01/21 15:13 01/01/21 15:10 Wound Care Nurse 3 [Wound Dressing] #2- L DORSAL FOOT -Ulcer Cleansing Rinsed/ Irrigated with Saline -Foul Odor after Cleansing No -Primary Dressing Applied C Hydrogel ($) -Primary Dressing Covered/Secured Dry Gauze, with Secured with Tape Pain Scale: 0-10 Numeric [Pain] -Is Patient Pain Free? Yes - Visit Discharge [Visit Discharge Information] -Discharge Condition Stable -Ambulatory Status Ambulatory -Transportation Private Auto -Medication Reconcilliation completed Yes & provided to patient/care provider -Clinical Summary of Care Provided Yes Musculoskeletal: Muscle Wasting Neurological: Sensory exam intact to light touch and pain Psych/Mental Status: Normal Affect, Appropriate Debridement Note Post-Debridement Measurements/Treatment - Nurse 2 - General Ulcer CM Notes Start: 01/01/21 14:52 Freq: Status: Active Protocol: Activity Type Activity Date Activity User E-Sign Co-Sign Detail Recorded Client Recorded Date Recorded By Document 01/01/21 15:06 LUCIA [id number] 01/01/21 15:09 01/01/21 15:06 Wound Center Nurse 2 #2- L DORSAL FOOT -Time 15:07 -Correct Patient Yes -Correct Side, Site, Position Yes -Correct Procedure Yes -Procedure Performed Yes -Type of Procedure Debridement -Clinical Debridement Epidermis / Dermis -Tissue Removed Epidermis, Dermis -Post Debridement (cm) - Length 0.7 -Post Debridement (cm) - Width 0.5 -Post Debridement (cm) - Depth 0.3 -Total Square (Post) (cm) 0.35 -Area of Debridement (cm) - Length 0.7 -Area of Debridement (cm) - Width 0.5 -Total Square (Area) (cm) 0.35 -Tunneling No -Undermining/Tunneling No -Circular Undermining No -Wound/Ulcer Outcome Not Healed -Ulcer Cleansing Rinsed/ Irrigated with Saline -Foul Odor after Cleansing No -Bioengineered Tissue No -Bleeding Controlled with Pressure -Offloading No -Treatment Response Procedure Tolerated Well -Debridement - Open, 1st 20sq cm Yes Pain Scale: 0-10 Numeric Is Patient Pain Free? Yes - Nurse 3 - General Ulcer D/C NN Start: 01/01/21 14:52 Freq: Status: Active Protocol: Activity Type Activity Date Activity User E-Sign Co-Sign Detail Recorded Client Recorded Date Recorded By Document 01/01/21 15:10 LUCIA [id number] 01/01/21 15:13 LUCIA 01/01/21 15:10 Wound Care Nurse 3 #2- L DORSAL FOOT -Ulcer Cleansing Rinsed/ Irrigated with Saline -Foul Odor after Cleansing No -Primary Dressing Applied C Hydrogel ($) -Primary Dressing Covered/Secured with Dry Gauze, Secured with Tape Pain Scale: 0-10 Numeric Is Patient Pain Free? Yes WC - Visit Discharge Discharge Condition Stable Ambulatory Status Ambulatory Transportation Private Auto Medication Reconcilliation completed & Yes provided to patient/care provider Clinical Summary of Care Provided Yes Wound debrided: dorsal foot Laterality: Left Type of Debridement: Selective debridement Anesthesia Used: 5% Lidocaine Gel Depth: in the subcutaneous layer Percentage of wound debrided: 100 Instrument Used: 5mm curette Tissue Removed: fibrous, devitalized tissues, biofilm, slough Severity: Fat Layer Exposed Amount of bleeding with debridement: Mild Bleeding Controlled with: Pressure Patient tolerated procedure well Assessment/Plan Active Problems Non-compliance (Chronic) Delayed wound healing (Chronic) Peripheral arterial occlusive disease (Chronic) Smoking addiction (Chronic) 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 Chronic osteomyelitis left foot. Peripheral arterial occlusive disease with prior intervention in 2017 and recent 2019. Long-term use of Coumadin. Chronic DVT. Malnutrition suspected. Left transmetatarsal amputation with delayed healing. Chronic smoking habits Plan: I reviewed and discussed her case. Debridement was performed as noted in the clinical panel today. This was further covered with hydrogel and Adaptic. It is okay for her to use a cam walker at home but to remain nonweightbearing most of the time. I evaluated her tight Shoe with her altered lacing technique and it appears to be pretty reasonable. To continue use. To avoid walking and other closed shoes because this will press directly on the ulcer site. To avoid excessive activity. She was previously known to infectious disease and she is reassured no infections are noted today. We discussed the accountability needed from her at home in order to see more progress. She refuses smoking cessation. She is going to discuss this with her primary care physician at her follow-up this week. . Her history of peripheral vascular disease with critical limb ischemia and prior intervention 2017 as noted. An updated arterial study was ordered previously to check her current status. The noninvasive arterial studies were completed on October 27, 2019 in which a left KEARA of 0.72 is noted without gross impairment of perfusion. She did have recent surgical intervention and reports it went well. She missed her follow-up surgical appointment and she is advised to reschedule. Dr. Gomez's evaluation greatly appreciated. To maintain a healthy diet. We discussed the importance of appropriate nutrition to allow her body to heal. I also offered her nutrition referral. She has not been amenable to proceed yet. Her ongoing smoking was discussed today and this is likely a contribution to her lack of healing. She understands additional vascular and podiatric surgical intervention is not recommended. An amputation is recommended if failure rajendra nues or she can enter into a palliative care plan where she lives with the wound and the goal is to avoid infections. She will then return to the wound healing center in 4 weeks or call sooner if she has any questions or concerns. She understands she is at risk for continued limb loss. Note: [employer] speech recognition metallurgical engineering technician software was used to create portions of this document. Sound-alike and misspelled words, as well as other metallurgical engineering technician errors may be contained in the documentation. The problems addressed require a moderate decision making level which includes one or more chronic illnesses (w/ exacerbation, progression, or side effects), two or more stable chronic illnesses, one undiagnosed new problem w/ uncertain prognosis, one acute illness with systemic symptoms, or one acute complicated injury. The medical decision making level is moderate. There is noted moderate risk of morbidity after considering this treatment plan and diagnostic data. Considerations were given to prescription management, decisions regarding surgical options, or social determinants of health.
== END 2021-01-26 23:59 ==
LOC: WC 14:45
PROVIDERS: PCP Family Medicine; Visit Provider Podiatrist
DX: L97.522 Non-pressure chronic ulcer of other part of left foot with fat layer exposed (principal); M86.672 Other chronic osteomyelitis, left ankle and foot; I73.9 Peripheral vascular disease, unspecified; Z79.01 Long term (current) use of anticoagulants; I82.509 Chronic embolism and thrombosis of unspecified deep veins of unspecified lower extremity; F17.200 Nicotine dependence, unspecified, uncomplicated; Z89.429 Acquired absence of other toe(s), unspecified side; Z91.19 Patient's noncompliance with other medical treatment and regimen
CPT/HCPCS: 97597

== ENCOUNTER 2021-01-29 15:00 | Outpatient (RCR) | payer BC, OTHER, SELFPAY ==
[2021-01-27 00:05] VITALS: BP 128/89; PULSE 102; RESP 18; TEMP 36.9
[2021-01-29 15:09] VITALS: BP 134/76; PULSE 87; RESP 18; TEMP 36.6; BMI 32.8
--- NOTE | 2021-01-29 16:31 | PN.PCM_ITS ---
(1) Chronic ulcer of left foot with necrosis of bone Status: Chronic Code(s): L97.524 - Non-pressure chronic ulcer of other part of left foot with necrosis of bone (2) Delayed wound healing Status: Chronic Code(s): T14.8XXD - Other injury of unspecified body region, subsequent encounter (3) Smoking addiction Status: Chronic Code(s): F17.200 - Nicotine dependence, unspecified, uncom plicated (4) Malnutrition Status: Chronic Code(s): E46 - Unspecified protein-calorie malnutrition Type of Wound Date of Service: 01/29/21 Chief Complaint: Follow-up on a left dorsal foot nonhealing ulcer History of Wound: This is a 55-year-old white female that in approximately December 2016 had chronic foot condition in which she previously underwent previous operating room debridement with bone biopsy and application of advanced wound healing product to left foot at [facility]. She denies fever, chill, nausea, vomiting. She had recent intervention with Dr. Gomez, vascular specialist. She has missed several appointments. She has been performing dressing changes with her daughter daily and tries to offload. She wears a hightop shoe which reduces her ankle motion and has altered the laces so there is no pressure over the ulcer site. She wants to continue on a palliative care plan at this time. She is going to follow-up with her primary care physician within the next week and will be specifically working towards smoking cessation. She was prescribed a nicotine patch however did not start use yet. She relates she enjoys smoking when she has anxiety. She previously saw a counselor for this and is no longer going. She has a dog that helps her control this feeling better. She relates she started smoking at age 7 and it is very hard for her to consider stopping. Progress of Wound: Stable - Physical Exam Vital Signs Temp Pulse Resp BP 98 F 87 18 134/76 H 01/29/21 15:09 01/29/21 15:09 01/29/21 15:01/29/21 15:09 General: Alert, Oriented x3, Cooperative, No apparent distress HEENT: Atraumatic Extremities: No cyanosis, No edema, Capillary Refill Less than 3 Seconds, No Calf Tenderness, Diminished Peripheral Pulses, - - transmetatarsal amputation Skin: Ulcer/ Wound - no purulence, no erythema, no streaking, no infection. adjacent skin is hairless and atrophic. bone noted in wound bed Wound Measurements and Assessment WC - Nurse 1 - General Ulcer Measurement Start: 01/29/21 15:09 Freq: Status: Active Protocol: Activity Type Activity Date Activity User E-Sign Co-Sign Detail Recorded Client Recorded Date Recorded By Document 01/29/21 15:09 RB [id number] 01/29/21 15:11 RB 01/29/21 15:09 Wound Center Nurse 1 [Ulcer Assessment] #2- L DORSAL FOOT -Combined with other wound No -Current Size (cm) - Length 0.5 -Current Size (cm) - Width 0.4 -Current Size (cm) - Depth 0.2 -Total Square Cm 0.20 -Tunneling No -Undermining/Tunneling No -Circular Undermining No -Exudate Amt Small -Exudate Type Serosanguineous -Wound Margin Thickened & Rolled Under -Granulation Amt Medium (34-66%) -Granulation Quality [place] -Slough/Fibrin Yes -Necrosis Amt Small (1-33%) -Necrotic Tissue Type Adherent Slough -Structure Exposed N/A -Texture (Shital-wound Skin Appearance) Assessed, Scarring -Moisture (Shital-wound Skin Appearance Assessed ) -Color (Shital-wound Skin Appearance) Assessed -Temperature (Shital-wound Skin No Abnormality Appearance) (Pt Warm) -Tenderness on Palpation (Shital-wound No Skin Appearance) -Ulcer Cleansing Wound Cleanser -Foul Odor after Cleansing No -Anesthetic Used 4% Lidocaine Solution WC - Nurse 2 - General Ulcer CM Notes Start: 01/29/21 15:09 Freq: Status: Active Protocol: Activity Type Activity Date Activity User E-Sign Co-Sign Detail Recorded Client Recorded Date Recorded By Document 01/29/21 15:17 LUCIA [id number] 01/29/21 15:20 LUCIA 01/29/21 15:17 Wound Center Nurse 2 [Procedure/Treatment] -Time 15:17 -Correct Patient Yes -Correct Side, Site, Position Yes -Correct Procedure Yes -Procedure Performed Yes -Type of Procedure Debridement -Clinical Debridement Subcutaneous -Tissue Removed Subcutaneous -Post Debridement (cm) - Length 0.6 -Post Debridement (cm) - Width 0.5 -Post Debridement (cm) - Depth 0.3 -Total Square (Post) (cm) 0.30 -Area of Debridement (cm) - Length 0.6 -Area of Debridement (cm) - Width 0.5 -Total Square (Area) (cm) 0.30 -Tunneling No -Undermining/Tunneling No -Circular Undermining No -Wound/Ulcer Outcome Not Healed -Ulcer Cleansing Rinsed/ Irrigated with Saline -Foul Odor after Cleansing No -Bioengineered Tissue No -Bleeding Controlled with Pressure -Offloading No -Treatment Response Procedure Tolerated Well -Debridement - Subq, 1st 20sq cm Yes [See Physician Procedure note for Specifics] Pain Scale: 0-10 Numeric [Pain] -Is Patient Pain Free? Yes - Nurse 3 - General Ulcer D/C NN Start: 01/29/21 15:09 Freq: Status: Active Protocol: Activity Type Activity Date Activity User E-Sign Co-Sign Detail Recorded Client Recorded Date Recorded By Document 01/29/21 15:23 LUCIA [id number] 01/29/21 15:23 JF 01/29/21 15:23 Wound Care Nurse 3 [Wound Dressing] #2- L DORSAL FOOT -Ulcer Cleansing Rinsed/ Irrigated with Saline -Negative Pressure Wound Therapy N/A -Primary Dressing Applied C Hydrogel ($) -Primary Dressing Covered/Secured Dry Gauze, with Secured with Tape Pain Scale: 0-10 Numeric [Pain] -Is Patient Pain Free? Yes - Visit Discharge [Visit Discharge Information] -Discharge Condition Stable -Ambulatory Status Ambulatory -Transportation Private Auto -Medication Reconcilliation completed Yes & provided to patient/care provider -Clinical Summary of Care Provided Yes Musculoskeletal: No Tenderness to Palpation of Joints or Extremities, Muscle Wasting Neurological: - - lack of normal epicritic sensation via light touch noted Psych/Mental Status: Normal Affect, Appropriate Debridement Note Post-Debridement Measurements/Treatment - Nurse 2 - General Ulcer CM Notes Start: 01/29/21 15:09 Freq: Status: Active Protocol: Activity Type Activity Date Activity User E-Sign Co-Sign Detail Recorded Client Recorded Date Recorded By Document 01/29/21 15:17 LUCIA [id number] 01/29/21 15:20 01/29/21 15:17 Wound Center Nurse 2 #2- L DORSAL FOOT -Time 15:17 -Correct Patient Yes -Correct Side, Site, Position Yes -Correct Procedure Yes -Procedure Performed Yes -Type of Procedure Debridement -Clinical Debridement Subcutaneous -Tissue Removed Subcutaneous -Post Debridement (cm) - Length 0.6 -Post Debridement (cm) - Width 0.5 -Post Debridement (cm) - Depth 0.3 -Total Square (Post) (cm) 0.30 -Area of Debridement (cm) - Length 0.6 -Area of Debridement (cm) - Width 0.5 -Total Square (Area) (cm) 0.30 -Tunneling No -Undermining/Tunneling No -Circular Undermining No -Wound/Ulcer Outcome Not Healed -Ulcer Cleansing Rinsed/ Irrigated with Saline -Foul Odor after Cleansing No -Bioengineered Tissue No -Bleeding Controlled with Pressure -Offloading No -Treatment Response Procedure Tolerated Well -Debridement - Subq, 1st 20sq cm Yes Pain Scale: 0-10 Numeric Is Patient Pain Free? Yes - Nurse 3 - General Ulcer D/C NN Start: 01/29/21 15:09 Freq: Status: Active Protocol: Activity Type Activity Date Activity User E-Sign Co-Sign Detail Recorded Client Recorded Date Recorded By Document 01/29/21 15:23 [id number] 01/29/21 15:23 01/29/21 15:23 Wound Care Nurse 3 #2- L DORSAL FOOT -Ulcer Cleansing Rinsed/ Irrigated with Saline -Negative Pressure Wound Therapy N/A -Primary Dressing Applied C Hydrogel ($) -Primary Dressing Covered/Secured with Dry Gauze, Secured with Tape Pain Scale: 0-10 Numeric Is Patient Pain Free? Yes - Visit Discharge Discharge Condition Stable Ambulatory Status Ambulatory Transportation Private Auto Medication Reconcilliation completed & Yes provided to patient/care provider Clinical Summary of Care Provided Yes Wound debrided: dorsal foot Laterality: Left Type of Debridement: Selective debridement Anesthesia Used: 5% Lidocaine Gel Depth: Down to and including healthy tissue Percentage of wound debrided: 100 Instrument Used: - - 2 mm curette Tissue Removed: fibrous, devitalized subcutaneous, biofilm, slough Severity: Fat Layer Exposed Amount of bleeding with debridement: Mild Bleeding Controlled with: Pressure Patient tolerated procedure well Assessment/Plan Active Problems Delayed wound healing (Chronic) Smoking addiction (Chronic) Malnutrition (Chronic) 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 Chronic osteomyelitis left foot. Peripheral arterial occlusive disease with prior intervention in 2017 and recent 2019. Long-term use of Coumadin. Chronic DVT. Malnutrition suspected. Left transmetatarsal amputation with delayed healing. Chronic smoking habits Plan: I reviewed and discussed her case. Debridement was performed as noted in the clinical panel today. This was further covered with hydrogel and Adaptic. It is okay for her to use a cam walker at home but to remain nonweightbearing most of the time. I evaluated her tight Shoe with her altered lacing technique and it appears to be pretty reasonable. To continue use. To avoid walking and other closed shoes because this will press directly on the ulcer site. To avoid excessive activity. She was previously known to infectious disease and she is reassured no infections are noted today. We discussed the accountability needed from her at home in order to see more progress. She refuses smoking cessation. She was encouraged to resume counseling. She has a nicotine patch p rescription and did not start the program yet. . Her history of peripheral vascular disease with critical limb ischemia and prior intervention 2017 as noted. An updated arterial study was ordered previously to check her current status. The noninvasive arterial studies were completed on October 27, 2019 in which a left KEARA of 0.72 is noted without gross impairment of perfusion. She did have prior surgical intervention and reports it went well. She missed her follow-up surgical appointment and she is advised to reschedule. Dr. Gomez's evaluation greatly appreciated. To maintain a healthy diet. We discussed the importance of appropriate nutrition to allow her body to heal. I also offered her nutrition referral. She has not been amenable to proceed yet. Her ongoing smoking was discussed today and this is likely a contribution to her lack of healing. She understands additional vascular and podiatric surgical intervention is not recommended. An amputation is recommended if failure continues or she can enter into a palliative care plan where she lives with the wound and the goal is to avoid infections. She will then return to the wound healing center in 4 weeks or call sooner if she has any questions or concerns. She understands she is at risk for continued limb loss. Note: [email or web address] speech recognition chief technologist software was used to create portions of this document. Sound-alike and misspelled words, as well as other chief technologist errors may be contained in the documentation. The problems addressed require a moderate decision making level which includes one or more chronic illnesses (w/ exacerbation, progression, or side effects), two or more stable chronic illnesses, one undiagnosed new problem w/ uncertain prognosis, one acute illness with systemic symptoms, or one acute complicated injury. The medical decision making level is moderate. There is noted moderate risk of morbidity after considering this treatment plan and diagnostic data. Considerations were given to prescription management, decisions regarding surgical options, or social determinants of health.
== END 2021-02-26 23:59 ==
LOC: WC 15:00
PROVIDERS: PCP Family Medicine; Visit Provider Podiatrist
DX: L97.522 Non-pressure chronic ulcer of other part of left foot with fat layer exposed (principal); M86.672 Other chronic osteomyelitis, left ankle and foot; F17.200 Nicotine dependence, unspecified, uncomplicated; Z86.718 Personal history of other venous thrombosis and embolism; Z89.429 Acquired absence of other toe(s), unspecified side
CPT/HCPCS: 11042

== ENCOUNTER 2021-03-05 15:00 | Outpatient (RCR) | payer BC, OTHER, SELFPAY ==
[2021-02-27 00:19] VITALS: BP 134/76; PULSE 87; RESP 18; TEMP 36.6
[2021-03-05 15:00] VITALS: BP 139/86; PULSE 81; TEMP 36.6; BMI 32.8
--- NOTE | 2021-03-05 16:56 | PN.PCM_ITS ---
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 Status: Chronic Code(s): T14.8XXA - Other injury of unspecified body region, initial encounter; M87.9 - Osteonecrosis, unspecified (5) Malnutrition Status: Chronic Code(s): E46 - Unspecified protein-calorie malnutrition Type of Wound Date of Service: 03/05/21 Chief Complaint: Follow-up on a left dorsal foot nonhealing ulcer History of Wound: This is a 56-year-old female that in approximately December 2016 had chronic foot condition in which she previously underwent previous operating room debridement with bone biopsy and application of advanced wound healing product to left foot at [facility]. She denies fever, chill, nausea, vomiting. She had recent intervention with Dr. Gomez, vascular specialist. She has missed several appointments. She has been performing dressing changes with her daughter daily and tries to offload. She wears a hightop shoe which reduces her ankle motion and has altered the laces so there is no pressure over the ulcer site. She wants to continue on a palliative care plan at this time. She is unable to quit smoking. She has been walking around the block for exercise relates her foot seems to be draining more since she has started walking. Progress of Wound: Stable - Physical Exam Vital Signs Temp Pulse Resp BP 97.9 F 81 18 139/86 H 03/05/21 15:00 03/05/21 15:00 02/27/21 00:19 03/05/21 15:00 General: Alert, Oriented x3, Cooperative, No apparent distress HEENT: Atraumatic Extremities: No cyanosis, No edema, Capillary Refill Less than 3 Seconds, No Calf Tenderness, Diminished Peripheral Pulses, - - Amputation foot Skin: Ulcer/ Wound - No purulence, erythema, string, odor, infection. Increased drainage and serosanguineous forming is noted. There is exposed bone and joint without discoloration or softness, - - Adjacent skin is hairless and atrophic Wound Measurements and Assessment - Nurse 1 - General Ulcer Measurement Start: 03/05/21 14:59 Freq: Status: Active Protocol: Activity Type Activity Date Activity User E-Sign Co-Sign Detail Recorded Client Recorded Date Recorded By Document 03/05/21 15:00 PRASHANTH [id number] 03/05/21 15:01 PRASHANTH 03/05/21 15:00 Wound Center Nurse 1 [Ulcer Assessment] #2- L DORSAL FOOT -Current Size (cm) - Length 0.3 -Current Size (cm) - Width 0.4 -Current Size (cm) - Depth 0.3 -Total Square Cm 0.12 -Exudate Amt Medium -Exudate Type Serosanguineous -Wound Margin Distinct, Outline Attached -Granulation Amt Medium (34-66%) -Granulation Quality Red -Necrosis Amt Medium (34-66%) -Necrotic Tissue Type Adherent Slough -Structure Exposed Bone -Texture (Shital-wound Skin Appearance) Assessed, Scarring -Moisture (Shital-wound Skin Appearance Assessed, ) Maceration -Color (Shital-wound Skin Appearance) No Abnormality, Assessed -Temperature (Shital-wound Skin No Abnormality Appearance) (Pt Warm) -Tenderness on Palpation (Shital-wound No Skin Appearance) -Ulcer Cleansing Rinsed/ Irrigated with Saline -Foul Odor after Cleansing Yes -Anesthetic Used 5% Lidocaine Gel - Nurse 2 - General Ulcer CM Notes Start: 03/05/21 14:59 Freq: Status: Active Protocol: Activity Type Activity Date Activity User E-Sign Co-Sign Detail Recorded Client Recorded Date Recorded By Document 03/05/21 15:19 LUCIA [id number] 03/05/21 15:21 LUCIA 03/05/21 15:19 Wound Center Nurse 2 [Procedure/Treatment] -Time 15:19 -Correct Patient Yes -Correct Side, Site, Position Yes -Correct Procedure Yes -Procedure Performed Yes -Type of Procedure Debridement -Clinical Debridement Subcutaneous -Tissue Removed Subcutaneous -Post Debridement (cm) - Length 0.4 -Post Debridement (cm) - Width 0.4 -Post Debridement (cm) - Depth 0.3 -Total Square (Post) (cm) 0.16 -Area of Debridement (cm) - Length 0.4 -Area of Debridement (cm) - Width 0.4 -Total Square (Area) (cm) 0.16 -Tunneling No -Undermining/Tunneling No -Circular Undermining No -Wound/Ulcer Outcome Not Healed -Ulcer Cleansing Rinsed/ Irrigated with Saline -Foul Odor after Cleansing No -Bioengineered Tissue No -Bleeding Controlled with Pressure -Offloading No -Treatment Response Procedure Tolerated Well -Debridement - Subq, 1st 20sq cm Yes [See Physician Procedure note for Specifics] Pain Scale: 0-10 Numeric [Pain] -Is Patient Pain Free? Yes - Nurse 3 - General Ulcer D/C NN Start: 03/05/21 14:59 Freq: Status: Active Protocol: Activity Type Activity Date Activity User E-Sign Co-Sign Detail Recorded Client Recorded Date Recorded By Document 03/05/21 15:30 RB [id number] 03/05/21 15:30 RB 03/05/21 15:30 Wound Care Nurse 3 [Wound Dressing] #2- L DORSAL FOOT -Other Dressing hydrogel -Primary Dressing Covered/Secured Dry Gauze, with Secured with Tape Pain Scale: 0-10 Numeric [Pain] -Is Patient Pain Free? Yes - Visit Discharge [Visit Discharge Information] -Discharge Condition Stable -Ambulatory Status Ambulatory -Transportation Private Auto -Medication Reconcilliation completed No & provided to patient/care provider -Clinical Summary of Care Provided Yes Musculoskeletal: No Tenderness to Palpation of Joints or Extremities, Muscle Wasting Neurological: - - Lack of epicritic sensation Psych/Mental Status: Normal Affect, Appropriate Debridement Note Post-Debridement Measurements/Treatment - Nurse 2 - General Ulcer CM Notes Start: 03/05/21 14:59 Freq: Status: Active Protocol: Activity Type Activity Date Activity User E-Sign Co-Sign Detail Recorded Client Recorded Date Recorded By Document 03/05/21 15:19 LUCIA [id number] 03/05/21 15:21 LUCIA 03/05/21 15:19 Wound Center Nurse 2 #2- L DORSAL FOOT -Time 15:19 -Correct Patient Yes -Correct Side, Site, Position Yes -Correct Procedure Yes -Procedure Performed Yes -Type of Procedure Debridement -Clinical Debridement Subcutaneous -Tissue Removed Subcutaneous -Post Debridement (cm) - Length 0.4 -Post Debridement (cm) - Width 0.4 -Post Debridement (cm) - Depth 0.3 -Total Square (Post) (cm) 0.16 -Area of Debridement (cm) - Length 0.4 -Area of Debridement (cm) - Width 0.4 -Total Square (Area) (cm) 0.16 -Tunneling No -Undermining/Tunneling No -Circular Undermining No -Wound/Ulcer Outcome Not Healed -Ulcer Cleansing Rinsed/ Irrigated with Saline -Foul Odor after Cleansing No -Bioengineered Tissue No -Bleeding Controlled with Pressure -Offloading No -Treatment Response Procedure Tolerated Well -Debridement - Subq, 1st 20sq cm Yes Pain Scale: 0-10 Numeric Is Patient Pain Free? Yes - Nurse 3 - General Ulcer D/C NN Start: 03/05/21 14:59 Freq: Status: Active Protocol: Activity Type Activity Date Activity User E-Sign Co-Sign Detail Recorded Client Recorded Date Recorded By Document 03/05/21 15:30 RB [id number] 03/05/21 15:30 RB 03/05/21 15:30 Wound Care Nurse 3 #2- L DORSAL FOOT -Other Dressing hydrogel -Primary Dressing Covered/Secured with Dry Gauze, Secured with Tape Pain Scale: 0-10 Numeric Is Patient Pain Free? Yes WC - Visit Discharge Discharge Condition Stable Ambulatory Status Ambulatory Transportation Private Auto Medication Reconcilliation completed & No provided to patient/care provider Clinical Summary of Care Provided Yes Wound debrided: foot Laterality: Left Type of Debridement: Selective debridement Anesthesia Used: 5% Lidocaine Gel Depth: in the subcutaneous layer Percentage of wound debrided: 100 Instrument Used: - - 1 mm curette Tissue Removed: fibrous, devitalized tissue, biofilm, slough Severity: Fat Layer Exposed Amount of bleeding with debridement: Mild Bleeding Controlled with: Pressure Patient tolerated procedure well Assessment/Plan Active Problems Non-compliance (Chronic) Delayed wound healing (Chronic) Smoking addiction (Chronic) 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 Chronic osteomyelitis left foot. Peripheral arterial occlusive disease with prior intervention in 2017 and recent 2019. Long-term use of Coumadin. Chronic DVT. Malnutrition suspected. Left transmetatarsal amputation with delayed healing. Chronic smoking habits Plan: I reviewed and discussed her case. Debridement was performed as noted in the clinical panel today. This was further covered with hydrogel and Adaptic. It is okay for her to use a cam walker at home but to remain nonweightbearing most of the time. It is okay to exercise however I advised her not to overdo it with the walking which is a high demand weightbearing activity causing bone and joint motion and is likely contributing to inflammation increase drainage of her wound. I evaluated her tight Shoe with her altered lacing technique and it appears to be pretty reasonable. To continue use. To avoid walking and other closed shoes because this will press directly on the ulcer site. To avoid excessive activity. She was previously known to infectious disease and she is reassured no infections are noted today. We discussed the accountability needed from her at home in order to see more progress. She refuses smoking ce ssation. She was encouraged to resume counseling. She has a nicotine patch prescription and did not start the program yet. . Her history of peripheral vascular disease with critical limb ischemia and prior intervention 2017 as noted. An updated arterial study was ordered previously to check her current status. The noninvasive arterial studies were completed on October 27, 2019 in which a left KEARA of 0.72 is noted without gross impairment of perfusion. She did have prior surgical intervention and reports it went well. She missed her follow-up surgical appointment and she is advised to reschedule. Dr. Goemz's evaluation greatly appreciated. To maintain a healthy diet. We discussed the importance of appropriate nutrition to allow her body to heal. I also offered her nutrition referral. She has not been amenable to proceed yet. Her ongoing smoking was discussed today and this is likely a contribution to her lack of healing. She understands additional vascular and podiatric surgical intervention is not recommended. An amputation is recommended if failure continues or she can enter into a palliative care plan where she lives with the wound and the goal is to avoid infections. She will then return to the wound healing center in 4 weeks or call sooner if she has any questions or concerns. She understands she is at risk for continued limb loss. Note: [employer] speech re cognition coil connector repairer software was used to create portions of this document. Sound-alike and misspelled words, as well as other coil connector repairer errors may be contained in the documentation. The medical decision making level is low. There is noted low risk of morbidity after considering this treatment plan and diagnostic data. The problems addressed require a low medical decision making level which includes two or more minor problems, a stable chronic illness, or an acute uncomplicated illness or injury. . 2020 macra: Medications and allergies were reviewed and reconciled. She does not have a living will on file. She is a current smoker and was advised on the importance of smoking cessation to permit healing potential. She denies falling with injuries this past year. Her body mass index is 32.8. Blood pressure is 139/86 today which is elevated. To follow-up with primary care physician. Diet and nutrition and exercise guidelines were reviewed to optimize wound healing and blood pressure elevation.
== END 2021-03-28 23:59 ==
LOC: WC 15:00
PROVIDERS: PCP Family Medicine; Visit Provider Podiatrist
DX: L97.524 Non-pressure chronic ulcer of other part of left foot with necrosis of bone (principal); M86.672 Other chronic osteomyelitis, left ankle and foot; I73.9 Peripheral vascular disease, unspecified; R03.0 Elevated blood-pressure reading, without diagnosis of hypertension; Z91.14 Patient's other noncompliance with medication regimen; F17.200 Nicotine dependence, unspecified, uncomplicated; Z79.01 Long term (current) use of anticoagulants; Z79.02 Long term (current) use of antithrombotics/antiplatelets; Z79.899 Other long term (current) drug therapy; Z86.718 Personal history of other venous thrombosis and embolism
CPT/HCPCS: 11042

== ENCOUNTER 2021-04-02 15:00 | Outpatient (RCR) | payer BC, OTHER, SELFPAY ==
[2021-03-29 00:21] VITALS: BP 139/86; PULSE 81; RESP 18; TEMP 36.6
[2021-04-02 15:13] VITALS: BP 108/56; PULSE 94; RESP 18; TEMP 36.1; BMI 32.8
--- NOTE | 2021-04-02 16:32 | PCM.WC.PN ---
History of Present Illness Date of Service: 04/02/21 Chief Complaint: Follow-up on a left dorsal foot nonhealing ulcer History of Wound: This is a 56-year-old female that in approximately December 2016 had chronic foot condition in which she previously underwent previous operating room debridement with bone biopsy and application of advanced wound healing product to left foot at [facility]. She denies fever, chill, nausea, vomiting. She had previous intervention with Dr. Gomez, vascular specialist. She has been performing dressing changes with her daughter daily and tries to offload. She wears a hightop shoe which reduces her ankle motion and has altered the laces so there is no pressure over the ulcer site. She wants to continue on a palliative care plan at this time. She is unable to quit smoking. She is considering a program with her PCP. She denies redness or odor. She asks about foot prosthetic options today. Objective Data Objective Data Vital Signs: Vital Signs Temp Pulse Resp BP 97 F L 94 18 108/56 L 04/02/21 15:13 04/02/21 15:13 04/02/21 15:13 04/02/21 15:13 Weight: 79.379 kg Body Mass Index (BMI) 32.8 Assessment & Plan Assessment/Plan (1) Delayed wound healing: (2) Peripheral arterial occlusive disease: (3) Malnutrition: (4) Chronic ulcer of left foot with necrosis of bone: PLAN: I reviewed and discussed her case.? Debridement was performed as noted in the clinical panel today in a selective manner.? This was further covered with hydrogel and Adaptic.? To wash foot with soap and water. To avoid soaking. It is okay for her to use a cam walker at home but to remain nonweightbearing most of the time.? It is okay to exercise however I advised her not to overdo it with the walking which is a high demand weightbearing activity causing bone and joint motion and is likely contributing to inflammation increase drainage of her wound.? I evaluated her tight Shoe with her altered lacing technique and it appears to be pretty reasonable.? To continue use.? To avoid walking and other closed shoes because this will press directly on the ulcer site.? To avoid excessive activity.? ? She was previously known to infectious disease and she is reassured no infections are noted today.? ? We discussed the accountability needed from her at home in order to see more progress.? She refuses smoking cessation. She was encouraged to resume counseling. She has a nicotine patch prescription and did not maintaine compliance with this part of her treatment plan. Her history of peripheral vascular disease with critical limb ischemia and prior intervention 2017 as noted.? An updated arterial study was ordered previously to check her current status.? The noninvasive arterial studies were completed on October 27, 2019 in which a left KEARA of 0.72 is noted without gross impairment of perfusion. ? She did have prior surgical intervention and reports it went well.? She missed her follow-up surgical appointment and she is advised to reschedule.? Dr. Gomez's evaluation greatly appreciated.? To maintain a healthy diet.? We discussed the importance of appropriate nutrition to allow her body to heal.? I also offered her nutrition referral.? She has not been amenable to proceed yet.? Her ongoing smoking was discussed today and this is likely a contribution to her lack of healing.? She understands additional vascular and podiatric surgical intervention is not recommended.? An amputation is recommended if failure continues or she can enter into a palliative care plan where she lives with the wound and the goal is to avoid infections.? She will then return to the wound healing center in 4 weeks or call sooner if she has any questions or concerns.? She understands she is at risk for continued limb loss.? Note: [employer] speech recognition manager of enterprise software was used to create portions of this document. Sound-alike and misspelled words, as well as other manager of enterprise errors may be contained in the documentation.? The medical decision making level is low.? There is noted low risk of morbidity after considering this treatment plan and diagnostic data.? The problems addressed require a low medical decision making level which includes two or more minor problems, a stable chronic illness, or an acute uncomplicated illness or injury.? .? 2020 macra:? Medications and allergies were reviewed and reconciled.? Blood pressure is 108/56 which is not elevated. Physical Exam Const alert and oriented x3 General Appearance: cooperative HEENT normocephalic Extremity Extremity Narrative: No calf tenderness Diminished pulses Muscle wasting noted Midfoot amputation Compartments remain soft to palpate General Extremity: edema and no tenderness to palpation of joints or extremities; Negative for cyanosis Skin Skin Narrative: no purulence, no streaking, no odor, no infection. The ulcer has exposed bone joints with serous and serosanguineous drainage noted. No necrosis, maceration or purulence General Skin Exam: Negative for erythema Neuro Neuro Narrative: lack of normal epicritic sensation via light touch is consistent with neuropathy status Psych cooperative and affect normal Debridement Note Debridement Note Post-Debridement Measurements and Additional Note: Predebridement left dorsal foot: 3 x 5 x 3 mm Post-Debridement Measurements/Treatment WC - Nurse 2 - General Ulcer CM Notes Start: 04/02/21 15:13 Freq: Status: Active Protocol: Activity Type Activity Date Activity User E-Sign Co-Sign Detail Recorded Client Recorded Date Recorded By Document 04/02/21 15:47 [id number] 04/02/21 15:50 04/02/21 15:47 Wound Center Nurse 2 #2- L DORSAL FOOT -Time 15:47 -Correct Patient Yes -Correct Side, Site, Position Yes -Correct Procedure Yes -Procedure Performed Yes -Type of Procedure Debridement -Clinical Debridement Subcutaneous -Tissue Removed Subcutaneous -Post Debridement (cm) - Length 0.3 -Post Debridement (cm) - Width 0.5 -Post Debridement (cm) - Depth 0.3 -Total Square (Post) (cm) 0.15 -Area of Debridement (cm) - Length 0.5 -Area of Debridement (cm) - Width 0.3 -Total Square (Area) (cm) 0.15 -Tunneling No -Undermining/Tunneling No -Circular Undermining No -Wound/Ulcer Outcome Not Healed -Ulcer Cleansing Rinsed/ Irrigated with Saline -Foul Odor after Cleansing No -Bioengineered Tissue No -Bleeding Controlled with Pressure -Type of Offloading Surgical Shoe -Treatment Response Procedure Tolerated Well -Debridement - Subq, 1st 20sq cm Yes Pain Scale: 0-10 Numeric Is Patient Pain Free? Yes - Nurse 3 - General Ulcer D/C NN Start: 04/02/21 15:13 Freq: Status: Active Protocol: Activity Type Activity Date Activity User E-Sign Co-Sign Detail Recorded Client Recorded Date Recorded By Document 04/02/21 15:59 [facility] [id number] 04/02/21 15:59 [facility] 04/02/21 15:59 Wound Care Nurse 3 #2- L DORSAL FOOT -Ulcer Cleansing Rinsed/ Irrigated with Saline -Foul Odor after Cleansing No -Primary Dressing Applied Other -Other Dressing hydrogel -Primary Dressing Covered/Secured with Dry Gauze, Secured with Tape Treatment Response Procedure Tolerated Well Pain Scale: 0-10 Numeric Is Patient Pain Free? Yes WC - Visit Discharge Discharge Condition Stable Ambulatory Status Ambulatory Transportation Private Auto Wound debrided: dorsal left foot Wound Grade/Stage: Type of Debridement: Selective debridement Anesthesia Used: 4% Lidocaine Solution Depth: Down to and including healthy tissue Percentage of wound debrided: 100 Instrument Used: #15 blade Tissue Removed: fibrous, devitalized superficial tissue, biofilm, slough Severity: Fat Layer Exposed Amount of bleeding with debridement: Mild Bleeding Controlled with: Pressure Patient tolerated procedure: Patient tolerated procedure well
== END 2021-04-28 23:59 ==
LOC: WC 15:00
PROVIDERS: PCP Family Medicine; Visit Provider Podiatrist
DX: L97.522 Non-pressure chronic ulcer of other part of left foot with fat layer exposed (principal); I73.9 Peripheral vascular disease, unspecified; F17.200 Nicotine dependence, unspecified, uncomplicated; Z79.01 Long term (current) use of anticoagulants; Z79.02 Long term (current) use of antithrombotics/antiplatelets; Z79.899 Other long term (current) drug therapy
CPT/HCPCS: 11042

== ENCOUNTER 2021-05-07 15:00 | Outpatient (RCR) | payer BC, OTHER, SELFPAY ==
[2021-04-29 00:12] VITALS: BP 108/56; PULSE 94; RESP 18; TEMP 36.1
[2021-05-07 15:02] VITALS: BP 136/91; PULSE 81; RESP 16; TEMP 37; BMI 32.8
--- NOTE | 2021-05-07 16:22 | PN.PCM_ITS ---
History of Present Illness Date of Service: 05/07/21 Chief Complaint: Follow-up on a left dorsal foot nonhealing ulcer History of Wound: This is a 56-year-old female that in approximately December 2016 had chronic foot condition in which she previously underwent previous operating room debridement with bone biopsy and application of advanced wound healing product to left foot at [facility]. She denies fever, chill, nausea, vomiting. She had previous intervention with Dr. Gomez, vascular specialist. She does report some intermittent increased drainage and admits she has been walking more. She wants to continue on a palliative care plan at this time. She is unable to quit smoking and continues to work on this with her primary care provider. She is considering a program with her PCP. She denies redness or odor. Progress of Wound: stable Objective Data Objective Data Vital Signs: Vital Signs Temp Pulse Resp BP 98.6 F 81 16 136/91 H 05/07/21 15:02 05/07/21 15:02 05/07/21 15:02 05/07/21 15:02 Oxygen Delivery Method Room Air Weight: 79.379 kg Body Mass Index (BMI) 32.8 Physical Exam Const alert and oriented x3 General Appearance: cooperative HEENT normocephalic Extremity normal capillary refill Extremity Narrative: no cyanosis, no calf tenderness, diminished pulses muscle wasting noted. no tenderness. left foot amputation compartments remain soft [place] ulcer scar tissue is noted without mobily of skin noted (consistent with prior exams) General Extremity: edema Skin Skin Narrative: no purulence, no erythema, no streaking, no odor, no infection. Adjacent skin is atrophic and hairless. There is exposed bone and joint without discoloration and this is consistent with prior exams. Neuro Neuro Narrative: lack of normal epicritic sensation via light touch consistent with neuropathy Debridement Note Debridement Note Post-Debridement Measurements and Additional Note: Post-Debridement Measurements/Treatment - Nurse 1 - General Ulcer Assessment Start: 05/07/21 15:02 Freq: Status: Active Protocol: NERISSA Activity Type Activity Date Activity User E-Sign Co-Sign Detail Recorded Client Recorded Date Recorded By Document 05/07/21 15:02 [facility] [id number] 05/07/21 15:08 [facility] 05/07/21 15:02 - Today's Visit Information Type of service Follow-up Visit (Physician/DYE TUB OPERATOR ) Arrival Mode Ambulatory Transfer Assistance None Patient Identification Verified (Name & Yes ) Patient Requires Transmission-Based No Precautions Height and Weight Body Mass Index (BMI) 32.8 BMI Classification Obese Vital Signs Temperature (97.8 F-99.1 F) 98.6 F Temperature Source Temporal Pulse Rate (60-100) 81 Pulse Location Monitor Respiratory Rate (12-18) 16 Respiratory rate source Observation Oxygen Delivery Method Room Air Blood Pressure (90/60-120/80) 136/91 H Blood Pressure Mean (mm Hg) 106 Source Monitor Position Sitting Blood Pressure Location Right Arm History Since Last Visit- (Skip if this is Patient's initial visit) Have you changed medications since your No last visit? Any new allergies or adverse reactions No Had a fall/change in ADL's that may No increase risk of falls Signs or symptoms of abuse and/or No neglect since last visit Have you been in the hospital since your No last visit? Has dressing in place as prescribed Yes Has compression in place as prescribed N/A Has offloadiing in place as prescribed No Experienced any changes in pain level or No management Left Footwear Regular Shoe Right Footwear Regular Shoe Pain Scale: 0-10 Numeric Is Patient Pain Free? Yes WC - Nurse 1 - General Ulcer Measurement Start: 05/07/21 15:02 Freq: Status: Active Protocol: Activity Type Activity Date Activity User E-Sign Co-Sign Detail Recorded Client Recorded Date Recorded By Document 05/07/21 15:02 [facility] [id number] 05/07/21 15:08 [facility] 05/07/21 15:02 Wound Center Nurse 1 #2- L DORSAL FOOT -Combined with other wound No -Current Size (cm) - Length 0.7 -Current Size (cm) - Width 0.6 -Current Size (cm) - Depth 0.2 -Total Square Cm 0.42 -Photo Taken No -Epithelialization None Present -Tunneling No -Undermining/Tunneling No -Circular Undermining No -Exudate Amt Small -Exudate Type Serosanguineous -Wound Margin Distinct, Outline Attached -Granulation Amt None Present (0 %) -Slough/Fibrin Yes -Necrosis Amt Large (67-100%) -Necrotic Tissue Type Adherent Slough -Structure Exposed Bone -Texture ([place]-wound Skin Appearance) Assessed, Scarring -Moisture ([place]-wound Skin Appearance) Assessed, Maceration,Dry/ Scaly -Color ([place]-wound Skin Appearance) Assessed -Temperature ([place]-wound Skin No Abnormality Appearance) (Pt Warm) -Tenderness on Palpation ([place]-wound No Skin Appearance) -Ulcer Cleansing Rinsed/ Irrigated with Saline -Foul Odor after Cleansing No -Anesthetic Used 5% Lidocaine Gel - Nurse 2 - General Ulcer CM Notes Start: 05/07/21 15:02 Freq: Status: Active Protocol: Activity Type Activity Date Activity User E-Sign Co-Sign Detail Recorded Client Recorded Date Recorded By Document 05/07/21 15:27 [id number] 05/07/21 15:30 05/07/21 15:27 Wound Center Nurse 2 -Time 15:28 -Correct Patient Yes -Correct Side, Site, Position Yes -Correct Procedure Yes -Procedure Performed Yes -Type of Procedure Debridement -Clinical Debridement Subcutaneous -Tissue Removed Subcutaneous -Post Debridement (cm) - Length 0.8 -Post Debridement (cm) - Width 0.6 -Post Debridement (cm) - Depth 0.2 -Total Square (Post) (cm) 0.48 -Area of Debridement (cm) - Length 0.8 -Area of Debridement (cm) - Width 0.6 -Total Square (Area) (cm) 0.48 -Tunneling No -Undermining/Tunneling No -Circular Undermining No -Wound/Ulcer Outcome Not Healed -Ulcer Cleansing Rinsed/ Irrigated with Saline -Foul Odor after Cleansing No -Bioengineered Tissue No -Bleeding Controlled with Pressure -Offloading No -Treatment Response Procedure Tolerated Well -Debridement - Subq, 1st 20sq cm Yes Pain Scale: 0-10 Numeric Is Patient Pain Free? Yes - Nurse 3 - General Ulcer D/C NN Start: 05/07/21 15:02 Freq: Status: Active Protocol: Activity Type Activity Date Activity User E-Sign Co-Sign Detail Recorded Client Recorded Date Recorded By Document 05/07/21 15:36 [facility] [id number] 05/07/21 15:37 [facility] 05/07/21 15:36 Wound Care Nurse 3 #2- L DORSAL FOOT -Ulcer Cleansing Rinsed/ Irrigated with Saline -Foul Odor after Cleansing No -Other Dressing hydrogel -Primary Dressing Covered/Secured with Dry Gauze, Secured with Tape Treatment Response Procedure Tolerated Well Pain Scale: 0-10 Numeric Is Patient Pain Free? Yes WC - Visit Discharge Discharge Condition Stable Ambulatory Status Ambulatory Transportation Private Auto Wound debrided: dorsal left foot Wound Grade/Stage: Type of Debridement: Selective debridement Anesthesia Used: 4% Lidocaine Solution Depth: Down to and including healthy tissue Percentage of wound debrided: 100 Instrument Used: #15 blade and - (1 mm curette) Tissue Removed: devitalized tissue biofilm, slough Severity: Fat Layer Exposed (bone and joint also exposed but not removed with debridement) Amount of bleeding with debridement: Mild ((scant)) Bleeding Controlled with: Pressure Patient tolerated procedure: Patient tolerated procedure well Assessment/Plan Assessment/Plan (1) Delayed wound healing: CODE(S): T14.8XXD - Other injury of unspecified body region, subsequent encounter (2) Peripheral arterial occlusive disease: CODE(S): I77.9 - Disorder of arteries and arterioles, unspecified (3) Smoking addiction: CODE(S): F17.200 - Nicotine dependence, unspecified, uncomplicated (4) Malnutrition: CODE(S): E46 - Unspecified protein-calorie malnutrition (5) Chronic ulcer of left foot with necrosis of bone: CODE(S): L97.524 - Non-pressure chronic ulcer of other part of left foot with necrosis of bone PLAN: I reviewed and discussed her case. Debridement was performed as noted in the clinical panel today in a selective manner. This was further covered with hydrogel and Adaptic. To wash foot with soap and water. To avoid soaking. It is okay for her to use a cam walker at home but to remain nonweightbearing most of the time. It is okay to exercise however I advised her not to overdo it with the walking which is a high demand weightbearing activity causing bone and joint motion and is likely contributing to inflammation increase drainage of her wound. Avoid direct pressure to her ulcer site. She was previously known to infectious disease and she is reassured no infections are noted today. To continue to monitor. She continues to struggle with smoking cessation. She was encouraged to resume counseling and to proceed forward with the previously discussed interventions. She is at risk for further amputation and delayed healing with tobacco product use. Her history of peripheral vascular disease with critical limb ischemia and prior intervention 2017 as noted. An updated arterial study was ordered previously to check her current status. The noninvasive arterial studies were completed on October 27, 2019 in which a left KEARA of 0.72 is noted without gross impairment of perfusion. She did have prior surgical intervention and reports it went well. She missed her follow-up surgical appointment and she is advised to reschedule. Dr. Gomez's evaluation greatly appreciated. She is advised to follow-up as recommended on a maintenance routine basis per vascular surgery. She missed her appointment and will need to get this rescheduled. To maintain a healthy diet. We discussed the importance of appropriate nutrition to allow her body to heal. She will then return to the wound healing center in 4 weeks or call sooner if she has any questions or concerns. She understands she is at risk for continued limb loss. To continue on palliative care program. She understands the alternative treatment options. Note: [employer] speech recognition laboratory tester software was used to create portions of this document. Sound-alike and misspelled words, as well as other laboratory tester errors may be contained in the documentation. The medical decision making level is low. There is noted low risk of morbidity after considering this treatment plan and diagnostic data. The problems addressed require a low medical decision making level which includes two or more minor problems, a stable chronic illness, or an acute uncomplicated illness or injury.
== END 2021-05-28 23:59 ==
LOC: WC 15:00
PROVIDERS: PCP Family Medicine; Visit Provider Podiatrist
DX: L97.524 Non-pressure chronic ulcer of other part of left foot with necrosis of bone (principal); I73.9 Peripheral vascular disease, unspecified; F17.200 Nicotine dependence, unspecified, uncomplicated; Z79.01 Long term (current) use of anticoagulants; Z79.899 Other long term (current) drug therapy
CPT/HCPCS: 11042

== ENCOUNTER → 2021-05-12 13:15 | Outpatient (CLI) | payer MEDICARE, BC, OTHER, SELFPAY ==
[2021-05-07 15:02] VITALS: BMI 32.8
--- NOTE | 2021-05-12 13:18 | ART_ITS ---
Reason For Study: Atherosclerosis Procedure A bilateral lower extremity continuous wave Doppler with analog waveform analysis and ankle brachial indexes. Left Segmental Pressures Left brachial= 117mmHg. Left posterior tibial artery = 80mmHg. Left dorsalis pedis artery = 87mmHg. The left dorsalis pedis waveforms are monophasic. The left posterior tibial artery waveforms are biphasic. Right Segmental Pressures Right brachial= 123mmHg. Right posterior tibial artery = 113mmHg. Right dorsalis pedis artery = 105mmHg. Right digit = 115 mmHg. The right dorsalis pedis waveforms are triphasic. The right posterior tibial artery waveforms are triphasic. Indices The right ankle brachial index by the dorsalis pedis is 0.85. The right ankle brachial index by the posterior tibial artery is 0.92. The right digital-brachial index is 0.93. The left ankle brachial index by the dorsalis pedis is 0.71. The left ankle brachial index by the posterior tibial artery is 0.65. VL/Ankle Brachial Index Interpretation Summary Right leg with no significant occlusive disease at rest with triphasic flow and an KEARA 0.92. Left leg with biphasic flow and an KEARA 0.71. Ordering Physician: Mario Gomez Referring Physician: Darion Forbes Performed By: Ninoska Umana RVT and Student
--- NOTE | 2021-05-12 13:19 | ADUL_ITS ---
Reason For Study: Atherosclerosis Left Velocities Ext Iliac Artery, dist = 285.2 cm./sec. Common Femoral Artery, mid = 135.2 cm./sec. Supf. Femoral Artery, prox = 159.3 cm./sec. Supf. Femoral Artery, mid = 115.4 cm./sec. Supf. Femoral Artery, dist = 69.5 cm./sec. Profunda Femoral Artery = 85.5 cm./sec. Popliteal Artery, proximal, = 54.8 cm./sec. Popliteal Artery, mid = 62.2 cm./sec. Popliteal Artery, distal = 47.9 cm./sec. Post. Tibial Artery, prox = 35.4 cm./sec. Post Tibial Artery, mid = 43.3 cm./sec. Post Tibial Artery, dist. = 29.3 cm./sec. Peroneal Artery, prox = 78 cm./sec. Peroneal Artery, mid = 100.2 cm./sec. Peroneal Artery,dist. = 80.6 cm./sec. Ant.Tibial Artery, prox = 33.9 cm./sec. JUAN mid-distal no flow noted. Procedure Exam performed in department. /US Art Duplex Unilat Lower Ext Interpretation Summary Moderate to severe stenosis left external iliac artery. Otherwise has good flow throughout the the left leg with no stenosis noted except for the distal anterior tibial artery th at is occluded. Ordering Physician: Mario Gomez Referring Physician: Darion Forbes Performed By: Ninoska Umana RVT and Student
--- NOTE | 2021-05-12 14:31 | RAD_ITS ---
INDICATION: LEFT FOOT ULCER EXAMINATION/TECHNIQUE: X-RAY - LEFT XR Foot Min 3 Views COMPARISON: None. FINDINGS: No acute fracture or malalignment. 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 Disuse osteopenia. Ulceration at the foot stump. No erosive changes. RAD/Foot min 3 Views IMPRESSION: No radiographic findings to suggest osteomyelitis. 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 Electronically Signed: Unruly Bermudez MD at 17:38 EDT Tel , Service support ,
== END ==
PROVIDERS: PCP Family Medicine; Referring Provider Surgery Vascular Surgery; Visit Provider Surgery Vascular Surgery
DX: Z48.812 Encounter for surgical aftercare following surgery on the circulatory system (principal); I70.245 Atherosclerosis of native arteries of left leg with ulceration of other part of foot; L97.929 Non-pressure chronic ulcer of unspecified part of left lower leg with unspecified severity; Z72.0 Tobacco use
CPT/HCPCS: 73630; 93922; 93926

== ENCOUNTER 2021-06-11 15:00 | Outpatient (RCR) | payer MEDICARE, BC, OTHER, SELFPAY ==
[2021-05-29 00:13] VITALS: BP 136/91; PULSE 81; RESP 16; TEMP 37
[2021-06-11 15:00] VITALS: BP 149/104; PULSE 86; RESP 16; TEMP 36.7; BMI 32.8
--- NOTE | 2021-06-11 23:00 | PCM.WC.PN ---
History of Present Illness Date of Service: 06/11/21 Chief Complaint: Follow-up on a left dorsal foot nonhealing ulcer History of Wound: This is a 56-year-old female that in approximately December 2016 had chronic foot condition in which she previously underwent previous operating room debridement with bone biopsy and application of advanced wound healing product to left foot at [facility]. She denies fever, chill, nausea, vomiting. She had previous intervention with Dr. Gomez, vascular specialist. She is scheduled to follow up at the end of May or early June in which Dr. Gomez recommended doing another angiogram with potential intervention. She does report some intermittent increased drainage and admits she has been walking more. She wants to continue on a palliative care plan at this time. She is unable to quit smoking and continues to work on this with her primary care provider. She is considering a program with her PCP. She denies redness or odor. Progress of Wound: Stable Objective Data Objective Data Vital Signs: Vital Signs Temp Pulse Resp BP 98.1 F 86 16 149/104 H 06/11/21 15:00 06/11/21 15:00 06/11/21 15:00 06/11/21 15:00 Oxygen Delivery Method Room Air Weight: 79.379 kg Body Mass Index (BMI) 32.8 Physical Exam Const alert and oriented x3 General Appearance: cooperative HEENT normocephalic Extremity normal capillary refill Extremity Narrative: no cyanosis, no calf tenderness, diminished pulses muscle wasting noted. no tenderness. left foot amputation compartments remain soft [place] ulcer scar tissue is noted without mobily of skin noted (consistent with prior exams) General Extremity: edema Skin Skin Narrative: no purulence, no erythema, no streaking, no odor, no infection. Adjacent skin is atrophic and hairless. There is exposed bone and joint without discoloration and this is consistent with prior exams. Neuro Neuro Narrative: lack of normal epicritic sensation via light touch consistent with neuropathy Debridement Note Debridement Note Post-Debridement Measurements and Additional Note: Post-Debridement Measurements/Treatment WC - Nurse 1 - General Ulcer Assessment Start: 06/11/21 14:58 Freq: Status: Active Protocol: NERISSA Activity Type Activity Date Activity User E-Sign Co-Sign Detail Recorded Client Recorded Date Recorded By Document 06/11/21 15:00 [facility] [id number] 06/11/21 15:04 [facility] 06/11/21 15:00 - Today's Visit Information Type of service Follow-up Visit (Physician/CARE PROFESSIONAL ) Arrival Mode Ambulatory Transfer Assistance None Patient Identification Verified (Name & Yes ) Patient Requires Transmission-Based No Precautions Height and Weight Body Mass Index (BMI) 32.8 BMI Classification Obese Vital Signs Temperature (97.8 F-99.1 F) 98.1 F Temperature Source Temporal Pulse Rate (60-100) 86 Pulse Location Monitor Respiratory Rate (12-18) 16 Respiratory rate source Observation Oxygen Delivery Method Room Air Blood Pressure (90/60-120/80) 149/104 H Blood Pressure Mean (mm Hg) 119 Source Monitor Position Sitting Blood Pressure Location Right Arm History Since Last Visit- (Skip if this is Patient's initial visit) Have you changed medications since your No last visit? Any new allergies or adverse reactions No Had a fall/change in ADL's that may No increase risk of falls Signs or symptoms of abuse and/or No neglect since last visit Have you been in the hospital since your No last visit? Has dressing in place as prescribed No Has compression in place as prescribed Yes Has offloadiing in place as prescribed No Experienced any changes in pain level or No management Left Footwear Regular Shoe Right Footwear Regular Shoe Pain Scale: 0-10 Numeric Is Patient Pain Free? Yes - Nurse 1 - General Ulcer Measurement Start: 06/11/21 14:58 Freq: Status: Active Protocol: Activity Type Activity Date Activity User E-Sign Co-Sign Detail Recorded Client Recorded Date Recorded By Document 06/11/21 15:00 [facility] [id number] 06/11/21 15:04 [facility] 06/11/21 15:00 Wound Center Nurse 1 #2- L DORSAL FOOT -Combined with other wound No -Current Size (cm) - Length 0.5 -Current Size (cm) - Width 0.4 -Current Size (cm) - Depth 0.3 -Total Square Cm 0.20 -Photo Taken No -Epithelialization None Present -Tunneling No -Undermining/Tunneling No -Circular Undermining No -Exudate Amt Small -Exudate Type Serosanguineous -Wound Margin Distinct, Outline Attached -Granulation Amt Large (67-100%) -Granulation Quality Red -Slough/Fibrin No -Necrosis Amt None Present (0 %) -Texture ([place]-wound Skin Appearance) Assessed, Scarring -Moisture ([place]-wound Skin Appearance) Assessed -Color ([place]-wound Skin Appearance) Assessed -Temperature ([place]-wound Skin No Abnormality Appearance) (Pt Warm) -Tenderness on Palpation ([place]-wound No Skin Appearance) -Ulcer Cleansing Rinsed/ Irrigated with Saline -Foul Odor after Cleansing No -Anesthetic Used 5% Lidocaine Gel WC - Nurse 2 - General Ulcer CM Notes Start: 06/11/21 14:58 Freq: Status: Active Protocol: Activity Type Activity Date Activity User E-Sign Co-Sign Detail Recorded Client Recorded Date Recorded By Document 06/11/21 18:34 PL [id number] 06/11/21 18:35 PL 06/11/21 18:34 Wound Center Nurse 2 -Time 15:11 -Correct Patient Yes -Correct Side, Site, Position Yes -Correct Procedure Yes -Procedure Performed Yes -Type of Procedure Debridement -Clinical Debridement Subcutaneous -Tissue Removed Subcutaneous -Post Debridement (cm) - Length 0.5 -Post Debridement (cm) - Width 0.4 -Post Debridement (cm) - Depth 0.3 -Total Square (Post) (cm) 0.20 -Area of Debridement (cm) - Length 0.5 -Area of Debridement (cm) - Width 0.4 -Total Square (Area) (cm) 0.20 -Tunneling No -Undermining/Tunneling No -Circular Undermining No -Wound/Ulcer Outcome Not Healed -Ulcer Cleansing Rinsed/ Irrigated with Saline -Foul Odor after Cleansing No -Bioengineered Tissue No -Bleeding Controlled with Pressure -Treatment Response Procedure Tolerated Well -Debridement - Subq, 1st 20sq cm Yes WC - Nurse 3 - General Ulcer D/C NN Start: 06/11/21 14:58 Freq: Status: Active Protocol: Activity Type Activity Date Activity User E-Sign Co-Sign Detail Recorded Client Recorded Date Recorded By Document 06/11/21 15:36 [facility] [id number] 06/11/21 15:37 [facility] 06/11/21 15:36 Wound Care Nurse 3 -Ulcer Cleansing Rinsed/ Irrigated with Saline -Foul Odor after Cleansing No -Primary Dressing Applied Other -Other Dressing hydrogel -Primary Dressing Covered/Secured with Dry Gauze, Secured with Tape Treatment Response Procedure Tolerated Well Pain Scale: 0-10 Numeric Is Patient Pain Free? Yes WC - Visit Discharge Discharge Condition Stable Ambulatory Status Ambulatory Transportation Private Auto Wound debrided: dorsal left foot Wound Grade/Stage: Type of Debridement: Selective debridement Anesthesia Used: 4% Lidocaine Solution Depth: in the subcutaneous layer Percentage of wound debrided: 100 Instrument Used: #15 blade Tissue Removed: fibrous, devitalized subcutaneous, biofilm, slough Severity: Fat Layer Exposed Amount of bleeding with debridement: Mild Bleeding Controlled with: Pressure Patient tolerated procedure: Patient tolerated procedure well Assessment/Plan Assessment/Plan (1) Delayed wound healing: CODE(S): T14.8XXD - Other injury of unspecified body region, subsequent encounter (2) Peripheral arterial occlusive disease: CODE(S): I77.9 - Disorder of arteries and arterioles, unspecified (3) Smoking addiction: CODE(S): F17.200 - Nicotine dependence, unspecified, uncomplicated (4) Malnutrition: CODE(S): E46 - Unspecified protein-calorie malnutrition (5) Chronic ulcer of left foot with necrosis of bone: CODE(S): L97.524 - Non-pressure chronic ulcer of other part of left foot with necrosis of bone PLAN: I reviewed and discussed her case. Debridement was performed as noted in the clinical panel today in a selective manner. This was further covered with hydrogel and Adaptic. To wash foot with soap and water. To avoid soaking. I reviewed her x-rays that was ordered during her last visit and there is no new osseous destruction, spurring or evidence of radiographic osteomyelitis. I also do not see any foreign body or other acute injuries. This was reviewed with her earlier today and the images were displayed. It is okay for her to use a cam walker at home but to remain nonweightbearing most of the time. It is okay to exercise however I advised her not to overdo it with the walking which is a high demand weightbearing activity causing bone and joint motion and is likely contributing to inflammation increase drainage of her wound. Avoid direct pressure to her ulcer site. She was previously known to infectious disease and she is reassured no infections are noted today. To continue to monitor. She continues to struggle with smoking cessation. She was encouraged to resume counseling and to proceed forward with the previously discussed interventions. She is at risk for further amputation and delayed healing with tobacco product use. Her history of peripheral vascular disease with critical limb ischemia and prior intervention 2017 as noted. An updated arterial study was ordered previously to check her current status. The noninvasive arterial studies were completed on October 27, 2019 in which a left KEARA of 0.72 is noted without gross impairment of perfusion. She did have prior surgical intervention and reports it went well. She missed her follow-up surgical appointment and she is advised to reschedule. Dr. Gomez's evaluation greatly appreciated. She is advised to follow-up as recommended on a maintenance routine basis per vascular surgery. Schedule and potential intervention including angiogram was recommended for the end of May or early June. To maintain a healthy diet. We discussed the importance of appropriate nutrition to allow her body to heal. She will then return to the wound healing center in 4 weeks or call sooner if she has any questions or concerns. She understands she is at risk for continued limb loss. To continue on palliative care program. She understands the alternative treatment options. Note: [employer] speech recognition gaming commissioner software was used to create portions of this document. Sound-alike and misspelled words, as well as other gaming commissioner errors may be contained in the documentation. The medical decision making level is low. There is noted low risk of morbidity after considering this treatment plan and diagnostic data. The problems addressed require a low medical decision making level which includes two or more minor problems, a stable chronic illness, or an acute uncomplicated illness or injury.
== END 2021-06-28 23:59 ==
LOC: WC 15:00
PROVIDERS: PCP Family Medicine; Visit Provider Podiatrist
DX: L97.524 Non-pressure chronic ulcer of other part of left foot with necrosis of bone (principal); I73.9 Peripheral vascular disease, unspecified; F17.200 Nicotine dependence, unspecified, uncomplicated; Z79.01 Long term (current) use of anticoagulants; Z79.02 Long term (current) use of antithrombotics/antiplatelets; Z79.899 Other long term (current) drug therapy
CPT/HCPCS: 11042; 97597

== ENCOUNTER 2021-07-16 15:04 | Outpatient (RCR) | payer BC, OTHER, SELFPAY ==
[2021-06-29 00:17] VITALS: BP 149/104; PULSE 86; RESP 16; TEMP 36.7
[2021-07-16 15:16] VITALS: BP 136/85; PULSE 68; RESP 18; TEMP 36.8; BMI 32.8
--- NOTE | 2021-07-16 15:47 | PN.PCM_ITS ---
History of Present Illness Date of Service: 07/16/21 Chief Complaint: Follow-up on a left dorsal foot nonhealing ulcer History of Wound: This is a 56-year-old female that in approximately December 2016 had chronic foot condition in which she previously underwent previous operating room debridement with bone biopsy and application of advanced wound healing product to left foot at [facility]. She denies fever, chill, nausea, vomiting. She had previous intervention with Dr. Gomez, vascular specialist. There is an additional angiogram with potential intervention planned however she needs to complete her updated echocardiogram in July prior to proceeding forward. She does report some intermittent increased drainage but denies increased drainage. She wants to continue on a palliative care plan at this time. She is unable to quit smoking and continues to work on this with her primary care provider. She is considering a program with her PCP. She denies redness or odor. She relates she recently transition out of the use of gabapentin and feels so much better. She has less fatigue and has been more active. She relates she can think better and make decisions better. Progress of Wound: Improving Objective Data Objective Data Vital Signs: Vital Signs Temp Pulse Resp BP 98.3 F 68 18 136/85 H 07/16/21 15:16 07/16/21 15:16 07/16/21 15:16 07/16/21 15:16 Weight: 79.379 kg Body Mass Index (BMI) 32.8 Physical Exam Const alert and oriented x3 General Appearance: cooperative HEENT normocephalic Extremity Extremity Narrative: No calf tenderness Diminished pulses Muscle wasting noted Transmetatarsal amputation stable General Extremity: edema and no tenderness to palpation of joints or extremities; Negative for cyanosis Skin Skin Narrative: no purulence, no streaking, no odor, no infection There is exposed bone. There is peripheral epithelialization and significant reduction in ulcer size is noted. The bone is firm and white. There are no local signs of infection. The adjacent skin is hairless, atrophic and with unchanged hyperpigmentation. There is no eschar or necrosis. General Skin Exam: Negative for erythema Neuro Neuro Narrative: lack of normal epicritic sensation via light touch is consistent with neuropathy status Psych cooperative and affect normal Debridement Note Debridement Note Post-Debridement Measurements and Additional Note: Post-Debridement Measurements/Treatment WC - Nurse 1 - General Ulcer Assessment Start: 07/16/21 15:15 Freq: Status: Active Protocol: .JUSTIN Activity Type Activity Date Activity User E-Sign Co-Sign Detail Recorded Client Recorded Date Recorded By Document 07/16/21 15:16 [id number] 07/16/21 15:17 07/16/21 15:16 - Today's Visit Information Type of service Follow-up Visit (Physician/HOUSEHOLD WORKER ) Arrival Mode Ambulatory Transfer Assistance None Patient Identification Verified (Name & Yes ) Patient Requires Transmission-Based No Precautions Height and Weight Body Mass Index (BMI) 32.8 BMI Classification Obese Vital Signs Temperature (97.8 F-99.1 F) 98.3 F Temperature Source Temporal Pulse Rate (60-100) 68 Pulse Location Monitor Respiratory Rate (12-18) 18 Respiratory rate source Observation Blood Pressure (90/60-120/80) 136/85 H Blood Pressure Mean (mm Hg) 102 Source Monitor Position Sitting Blood Pressure Location Right Arm History Since Last Visit- (Skip if this is Patient's initial visit) Have you changed medications since your No last visit? Any new allergies or adverse reactions No Had a fall/change in ADL's that may No increase risk of falls Signs or symptoms of abuse and/or No neglect since last visit Have you been in the hospital since your No last visit? Has dressing in place as prescribed Yes Has compression in place as prescribed No Has offloadiing in place as prescribed No Experienced any changes in pain level or No management Pain Scale: 0-10 Numeric Is Patient Pain Free? Yes - Nurse 1 - General Ulcer Measurement Start: 07/16/21 15:15 Freq: Status: Active Protocol: Activity Type Activity Date Activity User E-Sign Co-Sign Detail Recorded Client Recorded Date Recorded By Document 07/16/21 15:16 [id number] 07/16/21 15:17 07/16/21 15:16 Wound Center Nurse 1 #2- L DORSAL FOOT -Combined with other wound No -Current Size (cm) - Length 0.2 -Current Size (cm) - Width 0.4 -Current Size (cm) - Depth 0.3 -Total Square Cm 0.08 -Tunneling No -Undermining/Tunneling No -Circular Undermining No -Exudate Amt Medium -Exudate Type Serosanguineous -Wound Margin Thickened & Rolled Under -Granulation Amt Medium (34-66%) -Granulation Quality [place] -Slough/Fibrin Yes -Necrosis Amt Medium (34-66%) -Necrotic Tissue Type Adherent Slough -Structure Exposed Bone -Texture ([place]-wound Skin Appearance) Assessed -Moisture ([place]-wound Skin Appearance) Maceration -Color ([place]-wound Skin Appearance) Assessed -Temperature ([place]-wound Skin No Abnormality Appearance) (Pt Warm) -Tenderness on Palpation ([place]-wound No Skin Appearance) -Ulcer Cleansing Wound Cleanser -Foul Odor after Cleansing No -Anesthetic Used 4% Lidocaine Solution WC - Nurse 2 - General Ulcer CM Notes Start: 07/16/21 15:15 Freq: Status: Active Protocol: Activity Type Activity Date Activity User E-Sign Co-Sign Detail Recorded Client Recorded Date Recorded By Document 07/16/21 15:27 LUCIA [id number] 07/16/21 15:30 LUCIA 07/16/21 15:27 Wound Center Nurse 2 -Time 15:28 -Correct Patient Yes -Correct Side, Site, Position Yes -Correct Procedure Yes -Procedure Performed Yes -Type of Procedure Debridement -Clinical Debridement Subcutaneous -Tissue Removed Subcutaneous -Post Debridement (cm) - Length 0.3 -Post Debridement (cm) - Width 0.4 -Post Debridement (cm) - Depth 0.3 -Total Square (Post) (cm) 0.12 -Area of Debridement (cm) - Length 0.3 -Area of Debridement (cm) - Width 0.4 -Total Square (Area) (cm) 0.12 -Tunneling No -Undermining/Tunneling No -Circular Undermining No -Wound/Ulcer Outcome Not Healed -Ulcer Cleansing Rinsed/ Irrigated with Saline -Foul Odor after Cleansing No -Bioengineered Tissue No -Bleeding Controlled with Pressure -Offloading No -Treatment Response Procedure Tolerated Well -Debridement - Subq, 1st 20sq cm Yes Pain Scale: 0-10 Numeric Is Patient Pain Free? Yes WC - Nurse 3 - General Ulcer D/C NN Start: 07/16/21 15:15 Freq: Status: Active Protocol: Activity Type Activity Date Activity User E-Sign Co-Sign Detail Recorded Client Recorded Date Recorded By Document 07/16/21 15:34 RB [id number] 07/16/21 15:34 RB 07/16/21 15:34 Wound Care Nurse 3 #2- L DORSAL FOOT -Ulcer Cleansing Rinsed/ Irrigated with Saline -Primary Dressing Applied C Hydrogel ($), NonAdherent Contact Layer -Primary Dressing Covered/Secured with Dry Gauze, Secured with Tape Treatment Response Procedure Tolerated Well Pain Scale: 0-10 Numeric Is Patient Pain Free? Yes WC - Visit Discharge Discharge Condition Stable Ambulatory Status Ambulatory Transportation Private Auto Medication Reconcilliation completed & No provided to patient/care provider Clinical Summary of Care Provided Yes Wound debrided: Dorsal left foot Wound Grade/Stage: Type of Debridement: Excisional debridement Anesthesia Used: 4% Lidocaine Solution Depth: in the subcutaneous layer Percentage of wound debrided: 100 Instrument Used: #15 blade Tissue Removed: fibrous, devitalized subcutaneous, biofilm, slough Severity: Fat Layer Exposed Amount of bleeding with debridement: Mild Bleeding Controlled with: Pressure Patient tolerated procedure: Patient tolerated procedure well Assessment/Plan Assessment/Plan (1) Delayed wound healing: CODE(S): T14.8XXD - Other injury of unspecified body region, subsequent encounter (2) Peripheral arterial occlusive disease: CODE(S): I77.9 - Disorder of arteries and arterioles, unspecified (3) Smoking addiction: CODE(S): F17.200 - Nicotine dependence, unspecified, uncomplicated (4) Malnutrition: CODE(S): E46 - Unspecified protein-calorie malnutrition (5) Chronic ulcer of left foot with necrosis of bone: CODE(S): L97.524 - Non-pressure chronic ulcer of other part of left foot with necrosis of bone PLAN: I reviewed and discussed her case. Debridement was performed as noted in the clinical panel today in a selective manner. This was further covered with hydrogel and Adaptic. To wash foot with soap and water. To avoid soaking. I previously reviewed her x-rays that was ordered during her last visit and there is no new osseous destruction, spurring or evidence of radiographic osteomyelitis. I also do not see any foreign body or other acute injuries. This was reviewed with her earlier today and the images were displayed. It is okay for her to use a cam walker at home but to remain nonweightbearing most of the time. It is okay to exercise however I advised her not to overdo it with the walking which is a high demand weightbearing activity causing bone and joint motion and is likely contributing to inflammation increase drainage of her wound. Avoid direct pressure to her ulcer site. She was previously known to infectious disease and she is reassured no infections are noted today. To continue to monitor. She continues to struggle with smoking cessation. She was encouraged to resume counseling and to proceed forward with the previously discussed interventions. She is at risk for further amputation and delayed healing with tobacco product use. Her history of peripheral vascular disease with critical limb ischemia and prior intervention 2017 as noted. An updated arterial study was ordered previously to check her current status. The noninvasive arterial studies were completed on October 27, 2019 in which a left KEARA of 0.72 is noted without gross impairment of perfusion. She did have prior surgical intervention and reports it went well. She missed her follow-up surgical appointment and she is advised to res chedule. Dr. Gomez's evaluation greatly appreciated. She is advised to follow-up as recommended on a maintenance routine basis per vascular surgery. She is on track to have an updated angiogram with potential additional intervention but needs to get her echo test completed first. This is scheduled for July. She will then return to the wound healing center in 4 weeks or call sooner if s he has any questions or concerns. She understands she is at risk for continued limb loss. To continue on palliative care program. She understands the alternative treatment options. Note: [employer] speech recognition food and beverage attendant software was used to create portions of this document. Sound-alike and misspelled words, as well as other food and beverage attendant errors may be contained in the documentation. The medical decision making level is low. There is noted low risk of morbidity after considering this treatment plan and diagnostic data. The problems addressed require a low medical decision making level which includes two or more minor problems, a stable chronic illness, or an acute uncomplicated illness or injury.
== END 2021-07-29 23:59 ==
LOC: WC 15:04
PROVIDERS: PCP Family Medicine; Visit Provider Podiatrist
DX: L97.522 Non-pressure chronic ulcer of other part of left foot with fat layer exposed (principal); I73.9 Peripheral vascular disease, unspecified; F17.200 Nicotine dependence, unspecified, uncomplicated; Z79.01 Long term (current) use of anticoagulants; Z79.02 Long term (current) use of antithrombotics/antiplatelets; Z79.899 Other long term (current) drug therapy
CPT/HCPCS: 11042

== ENCOUNTER 2021-09-24 15:00 | Outpatient (RCR) | payer BC, OTHER, SELFPAY ==
[2021-07-30 00:22] VITALS: BP 136/85; PULSE 68; RESP 18; TEMP 36.8; BMI 32.8
[2021-09-24 15:07] VITALS: BP 132/85; PULSE 79; RESP 16; TEMP 36.6; BMI 32.8
--- NOTE | 2021-09-24 15:40 | PCM.WC.PN ---
History of Present Illness Date of Service: 09/24/21 Chief Complaint: Follow-up on a left dorsal foot nonhealing ulcer History of Wound: This is a 56-year-old female that in approximately December 2016 had chronic foot condition in which she previously underwent previous operating room debridement with bone biopsy and application of advanced wound healing product to left foot at [facility]. She denies fever, chill, nausea, vomiting. She had previous intervention with Dr. Gomez, vascular specialist. There is an additional angiogram with potential intervention planned however she needs to complete her updated echocardiogram. She did this and reports her cardiac status is stable and additional recommendations not recommended. She reports she was recently let go from the vascular office due to a billing issue. I advised her to call back and try to get this worked out so she can follow-up with her recommended intervention to save her limb. She does report some intermittent increased drainage that happened with recent increase in activity. She wants to continue on a palliative care plan at this time. She is unable to quit smoking and and reports she has recently been smoking more. She denies redness or odor. She relates her foot seems to be flattening more and there is some pinching on the outside of her foot. She relates some increased cracking and discomfort with movement. She denies a specific traumatic incident swelling or bruising. Progress of Wound: Stable and relatively unchanged Objective Data Objective Data Vital Signs: Vital Signs Temp Pulse Resp BP 97.8 F 79 16 132/85 H 09/24/21 15:07 09/24/21 15:07 09/24/21 15:07 09/24/21 15:07 Oxygen Delivery Method Room Air Weight: 79.379 kg Body Mass Index (BMI) 32.8 Physical Exam Const alert and oriented x3 General Appearance: cooperative HEENT normocephalic Extremity Extremity Narrative: No calf tenderness Diminished pulses Muscle wasting noted Transmetatarsal amputation stable Decreased medial arch and hindfoot valgus position flexible noted with nonweightbearing exam. Transverse plane increased motion with suspected lateral management. Negative anterior drawer test. No pain able patient to medial lateral malleoli or anterior ankle joint. No laxity, crepitus or pain with passive manipulation of the midfoot hindfoot or ankle of the left lower extremity. General Extremity: edema and no tenderness to palpation of joints or extremities; Negative for cyanosis Skin Skin Narrative: no purulence, no streaking, no odor, no infection There is exposed bone. There is peripheral epithelialization and significant reduction in ulcer size is noted. The bone is firm and white. There are no local signs of infection. The adjacent skin is hairless, atrophic and with unchanged hyperpigmentation. There is no eschar or necrosis. General Skin Exam: Negative for erythema Neuro Neuro Narrative: lack of normal epicritic sensation via light touch is consistent with neuropathy status Psych cooperative and affect normal Debridement Note Debridement Note Wound debrided: dorsal left foot Wound Grade/Stage: Type of Debridement: Selective debridement Anesthesia Used: 4% Lidocaine Solution Depth: Down to and including healthy tissue Percentage of wound debrided: 100 Instrument Used: #15 blade Tissue Removed: fibrous, devitalized subcutaneous, biofilm, slough Severity: Fat Layer Exposed Amount of bleeding with debridement: Mild Bleeding Controlled with: Pressure Patient tolerated procedure: Patient tolerated procedure well Post-Debridement Measurements and Additional Note: Post-Debridement Measurements/Treatment - Nurse 1 - General Ulcer Assessment Start: 09/24/21 15:06 Freq: Status: Active Protocol: NERISSA Activity Type Activity Date Activity User E-Sign Co-Sign Detail Recorded Client Recorded Date Recorded By Document 09/24/21 15:07 [facility] [id number] 09/24/21 15:12 [facility] 09/24/21 15:07 - Today's Visit Information Type of service Follow-up Visit (Physician/[facility] ) Arrival Mode Ambulatory Transfer Assistance None Patient Identification Verified (Name & Yes ) Patient Requires Transmission-Based No Precautions Height and Weight Body Mass Index (BMI) 32.8 BMI Classification Obese Vital Signs Temperature (97.8 F-99.1 F) 97.8 F Temperature Source Temporal Pulse Rate (60-100) 79 Pulse Location Monitor Respiratory Rate (12-18) 16 Respiratory rate source Observation Oxygen Delivery Method Room Air Blood Pressure (90/60-120/80) 132/85 H Blood Pressure Mean (mm Hg) 100 Source Monitor Position Sitting Blood Pressure Location Left Arm History Since Last Visit- (Skip if this is Patient's initial visit) Have you changed medications since your No last visit? Any new allergies or adverse reactions No Had a fall/change in ADL's that may No increase risk of falls Signs or symptoms of abuse and/or No neglect since last visit Have you been in the hospital since your No last visit? Has dressing in place as prescribed Yes Has compression in place as prescribed N/A Has offloadiing in place as prescribed N/A Experienced any changes in pain level or No management Left Footwear Regular Shoe Right Footwear Regular Shoe Pain Scale: 0-10 Numeric Is Patient Pain Free? Yes - Nurse 1 - General Ulcer Measurement Start: 09/24/21 15:06 Freq: Status: Active Protocol: Activity Type Activity Date Activity User E-Sign Co-Sign Detail Recorded Client Recorded Date Recorded By Document 09/24/21 15:07 [facility] [id number] 09/24/21 15:12 [facility] 09/24/21 15:07 Wound Center Nurse 1 #2- L DORSAL FOOT -Combined with other wound No -Current Size (cm) - Length 0.5 -Current Size (cm) - Width 0.5 -Current Size (cm) - Depth 0.3 -Total Square Cm 0.25 -Date of Last Picture (Recall this 09/24/21 field) -Photo Taken Yes -Epithelialization None Present -Tunneling No -Undermining/Tunneling No -Circular Undermining No -Exudate Amt Medium -Exudate Type Purulent -Wound Margin Distinct, Outline Attached -Granulation Amt Medium (34-66%) -Granulation Quality [place] -Slough/Fibrin Yes -Necrosis Amt Medium (34-66%) -Necrotic Tissue Type Adherent Slough -Structure Exposed Bone -Texture (Shital-wound Skin Appearance) Assessed, Scarring -Moisture (Shital-wound Skin Appearance) Assessed -Color (Shital-wound Skin Appearance) Assessed -Temperature (Shital-wound Skin No Abnormality Appearance) (Pt Warm) -Tenderness on Palpation (Shital-wound No Skin Appearance) -Ulcer Cleansing Rinsed/ Irrigated with Saline -Foul Odor after Cleansing No -Anesthetic Used 5% Lidocaine Gel - Nurse 2 - General Ulcer CM Notes Start: 09/24/21 15:06 Freq: Status: Active Protocol: Activity Type Activity Date Activity User E-Sign Co-Sign Detail Recorded Client Recorded Date Recorded By Document 09/24/21 15:30 [facility] [id number] 09/24/21 15:35 [facility] 09/24/21 15:30 Wound Center Nurse 2 -Time 15:30 -Correct Patient Yes -Correct Side, Site, Position Yes -Correct Procedure Yes -Procedure Performed Yes -Type of Procedure Debridement -Clinical Debridement Subcutaneous -Tissue Removed Dermis -Post Debridement (cm) - Length 0.5 -Post Debridement (cm) - Width 0.5 -Post Debridement (cm) - Depth 0.4 -Total Square (Post) (cm) 0.25 -Area of Debridement (cm) - Length 0.5 -Area of Debridement (cm) - Width 0.5 -Total Square (Area) (cm) 0.25 -Tunneling No -Undermining/Tunneling No -Circular Undermining No -Wound/Ulcer Outcome Not Healed -Ulcer Cleansing Rinsed/ Irrigated with Saline -Foul Odor after Cleansing No -Bioengineered Tissue No -Bleeding Controlled with Silver Nitrate -Type of Offloading Total Contact Cast (TCC) - Left ($) -Debridement - Subq, 1st 20sq cm Yes Pain Scale: 0-10 Numeric Is Patient Pain Free? Yes Assessment/Plan Assessment/Plan (1) Delayed wound healing: CODE(S): T14.8XXD - Other injury of unspecified body region, subsequent encounter (2) Peripheral arterial occlusive disease: CODE(S): I77.9 - Disorder of arteries and arterioles, unspecified (3) Smoking addiction: CODE(S): F17.200 - Nicotine dependence, unspecified, uncomplicated (4) Malnutrition: CODE(S): E46 - Unspecified protein-calorie malnutrition (5) Chronic ulcer of left foot with necrosis of bone: CODE(S): L97.524 - Non-pressure chronic ulcer of other part of left foot with necrosis of bone (6) Left foot pain: CODE(S): M79.672 - Pain in left foot (7) Pes planus of left foot: CODE(S): M21.42 - Flat foot [pes planus] (acquired), left foot (8) Difficulty in walking: CODE(S): R26.2 - Difficulty in walking, not elsewhere classified PLAN: I reviewed and discussed her case. Debridement was performed as noted in the clinical panel today in a selective manner. This was further covered with hydrogel and Adaptic. To wash foot with soap and water. To avoid soaking. I previously reviewed her x-rays that was ordered during her last visit and there is no new osseous destruction, spurring or evidence of radiographic osteomyelitis. I also do not see any foreign body or other acute injuries. This was reviewed with her earlier today and the images were displayed. Due to her increased foot pain and concern of deformity, an updated left foot x-ray was ordered. I will call her with results. It is okay for her to use a cam walker at home but to remain nonweightbearing most of the time. It is okay to exercise however I advised her not to overdo it with the walking which is a high demand weightbearing activity causing bone and joint motion and is likely contributing to inflammation increase drainage of her wound. Avoid direct pressure to her ulcer site. Pending her x-ray results, I also offered her ankle-foot orthotic brace such as a potential short articulating brace or other spring-loaded device. I also recommended toe filler with carbon fiber inlay. A prescription was provided and she was advised to go to [facility]. She was previously known to infectious disease and she is reassured no infections are noted today. To continue to monitor. She continues to struggle with smoking cessation. She was encouraged to resume counseling and to proceed forward with the previously discussed interventions. She is at risk for further amputation and delayed healing with tobacco product use. Her history of peripheral vascular disease with critical limb ischemia and prior intervention 2017 as noted. An updated arterial study was ordered previously to check her current status. The noninvasive arterial studies were completed on October 27, 2019 in which a left KEARA of 0.72 is noted without gross impairment of perfusion. She did have prior surgical intervention and reports it went well. She missed her follow-up surgical appointment and she is advised to reschedule. Dr. Gomez's evaluation greatly appreciated. She is advised to follow-up as recommended on a maintenance routine basis per vascular surgery. She is on track to have an updated angiogram with potential additional intervention but needs to get her echo test completed first. She reports this went well and I advised her to call vascular surgery office to get this scheduled and to work out any other conflicts. She will then return to the wound healing center in 4 weeks or call sooner if she has any questions or concerns. She understands she is at risk for continued limb loss. To continue on palliative care program. She understands the alternative treatment options. Note: [employer] speech recognition chief station engineer software was used to create portions of this document. Sound-alike and misspelled words, as well as other chief station engineer errors may be contained in the documentation. The medical decision making level is limited based on data including the review of prior external notes, review of a prior test, or ordering a test. The medical decision making level is low. There is noted risk of morbidity after considering this treatment plan and diagnostic data.
== END 2021-09-28 23:59 ==
LOC: WC 15:00
PROVIDERS: PCP Family Medicine; Visit Provider Podiatrist
DX: L97.522 Non-pressure chronic ulcer of other part of left foot with fat layer exposed (principal); I73.9 Peripheral vascular disease, unspecified; M21.42 Flat foot [pes planus] (acquired), left foot; R26.2 Difficulty in walking, not elsewhere classified; M79.672 Pain in left foot; E66.9 Obesity, unspecified; Z68.32 Body mass index [BMI] 32.0-32.9, adult; F17.200 Nicotine dependence, unspecified, uncomplicated
CPT/HCPCS: 11042; 29445; 97597

== ENCOUNTER 2021-10-22 15:00 | Outpatient (RCR) | payer BC, OTHER, SELFPAY ==
[2021-09-29 00:04] VITALS: BP 132/85; PULSE 79; RESP 16; TEMP 36.6; BMI 32.8
--- NOTE | 2021-10-15 16:40 | RAD_ITS ---
STUDY: X-RAY - LEFT FOOT CLINICAL: Female, 56 years old. Ulceration. Pain. TECHNIQUE: 3 view(s) of the foot. COMPARISON: 05/12/2021. FINDINGS: Stable osteopenia. Amputation of the first through fifth metatarsals at the bases unchanged. Stable soft tissue swelling at the amputation stumps. RAD/Foot min 3 Views IMPRESSION: Stable osteopenia with postsurgical changes. No bony erosion to suggest osteomyelitis. Electronically Signed: Victoriano Birmingham MD at 10:18 EST , Service support ,
[2021-10-22 14:57] VITALS: BP 127/81; PULSE 83; RESP 16; TEMP 36.3; BMI 32.8
--- NOTE | 2021-10-22 16:53 | PN.PCM_ITS ---
History of Present Illness Date of Service: 10/22/21 Chief Complaint: Follow-up on a left dorsal foot non healing ulcer History of Wound: This is a 56-year-old female that in approximately December 2016 had chronic foot condition in which she previously underwent previous operating room debridement with bone biopsy and application of advanced wound healing product to left foot at [facility]. She had previous intervention with Dr. Gomez, vascular specialist. There is an additional angiogram with potential intervention planned however she needs to complete her updated echocardiogram. She did this and reports her cardiac status is stable and additional recommendations not recommended. She wants to continue on a palliative care plan at this time. She is unable to quit smoking. She denies redness or odor. She denies fever, chill, nausea, vomiting. She is in the process of getting fitted for shoes in a brace and started the process. She had an updated foot x-ray performed like to go over the results. Progress of Wound: Stable Objective Data Objective Data Vital Signs: Vital Signs Temp Pulse Resp BP 97.4 F L 83 16 127/81 H 10/22/21 14:57 10/22/21 14:57 10/22/21 14:57 10/22/21 14:57 Weight: 79.379 kg Body Mass Index (BMI) 32.8 Physical Exam Const alert and oriented x3 General Appearance: cooperative HEENT normocephalic Extremity Extremity Narrative: No calf tenderness Diminished pulses Muscle wasting noted Transmetatarsal amputation stable Decreased medial arch and hindfoot valgus position flexible noted with nonweightbearing exam. Transverse plane increased motion with suspected lateral management. Negative anterior drawer test. No laxity, crepitus or pain with passive manipulation of the midfoot hindfoot or ankle of the left lower extremity. General Extremity: edema and no tenderness to palpation of joints or extremities; Negative for cyanosis Skin Skin Narrative: no purulence, no streaking, no odor, no infection There is exposed bone. There is peripheral epithelialization and significant reduction in ulcer size is noted. The bone is firm and white. There are no local signs of infection. The adjacent skin is hairless, atrophic and with unchanged hyperpigmentation. There is no eschar or necrosis. General Skin Exam: Negative for erythema Neuro Neuro Narrative: lack of normal epicritic sensation via light touch is consistent with neuropathy status Psych cooperative and affect normal Debridement Note Debridement Note Wound debrided: dorsal left foot Wound Grade/Stage: Type of Debridement: Excisional debridement Anesthesia Used: 4% Lidocaine Solution Depth: in the subcutaneous layer Percentage of wound debrided: 100 Instrument Used: #15 blade Tissue Removed: fibrous, devitalized subcutaneous, biofilm, slough Severity: Fat Layer Exposed Amount of bleeding with debridement: Mild Bleeding Controlled with: Pressure Patient tolerated procedure: Patient tolerated procedure well Post-Debridement Measurements and Additional Note: Post-Debridement Measurements/Treatment WC - Nurse 1 - General Ulcer Assessment Start: 10/22/21 14:57 Freq: Status: Active Protocol: NERISSA Activity Type Activity Date Activity User E-Sign Co-Sign Detail Recorded Client Recorded Date Recorded By Document 10/22/21 14:57 ML [id number] 10/22/21 15:00 ML 10/22/21 14:57 WC - Today's Visit Information Type of service Follow-up Visit (Physician/APPLICATION ADMINISTRATOR ) Arrival Mode Ambulatory Transfer Assistance None Patient Identification Verified (Name & Yes ) Patient Requires Transmission-Based No Precautions Safety Precautions NA Height and Weight Body Mass Index (BMI) 32.8 BMI Classification Obese Vital Signs Temperature (97.8 F-99.1 F) 97.4 F L Temperature Source Temporal Pulse Rate (60-100) 83 Pulse Location Monitor Respiratory Rate (12-18) 16 Respiratory rate source Observation Blood Pressure (90/60-120/80) 127/81 H Blood Pressure Mean (mm Hg) 96 Source Monitor Position Sitting Blood Pressure Location Left Arm History Since Last Visit- (Skip if this is Patient's initial visit) Have you changed medications since your No last visit? Any new allergies or adverse reactions No Had a fall/change in ADL's that may No increase risk of falls Signs or symptoms of abuse and/or No neglect since last visit Have you been in the hospital since your No last visit? Has dressing in place as prescribed Yes Has compression in place as prescribed N/A Has offloadiing in place as prescribed N/A Experienced any changes in pain level or No management Left Footwear Regular Shoe Right Footwear Regular Shoe Pain Scale: 0-10 Numeric Is Patient Pain Free? Yes SHANA - Nurse 1 - General Ulcer Measurement Start: 10/22/21 14:57 Freq: Status: Active Protocol: Activity Type Activity Date Activity User E-Sign Co-Sign Detail Recorded Client Recorded Date Recorded By Document 10/22/21 14:57 [id number] 10/22/21 15:00 ML 10/22/21 14:57 Wound Center Nurse 1 #2- L DORSAL FOOT -Current Size (cm) - Length 0.4 -Current Size (cm) - Width 0.5 -Current Size (cm) - Depth 0.3 -Total Square Cm 0.20 -Exudate Amt Medium -Exudate Type Serosanguineous -Wound Margin Distinct, Outline Attached -Granulation Amt Medium (34-66%) -Slough/Fibrin Yes -Necrosis Amt Medium (34-66%) -Necrotic Tissue Type Adherent Slough -Texture (Shital-wound Skin Appearance) Assessed -Moisture (Shital-wound Skin Appearance) Assessed -Color (Shital-wound Skin Appearance) Assessed -Temperature (Shital-wound Skin No Abnormality Appearance) (Pt Warm) -Tenderness on Palpation (Shital-wound No Skin Appearance) -Ulcer Cleansing Rinsed/ Irrigated with Saline -Foul Odor after Cleansing No -Anesthetic Used 4% Lidocaine Solution WC - Nurse 2 - General Ulcer CM Notes Start: 10/22/21 14:57 Freq: Status: Active Protocol: Activity Type Activity Date Activity User E-Sign Co-Sign Detail Recorded Client Recorded Date Recorded By Document 10/22/21 15:22 [id number] 10/22/21 15:25 10/22/21 15:22 Wound Center Nurse 2 -Time 15:23 -Correct Patient Yes -Correct Side, Site, Position Yes -Correct Procedure Yes -Procedure Performed Yes -Type of Procedure Debridement -Clinical Debridement Subcutaneous -Tissue Removed Subcutaneous -Post Debridement (cm) - Length 0.8 -Post Debridement (cm) - Width 0.7 -Post Debridement (cm) - Depth 0.4 -Total Square (Post) (cm) 0.56 -Area of Debridement (cm) - Length 0.8 -Area of Debridement (cm) - Width 0.7 -Total Square (Area) (cm) 0.56 -Tunneling No -Undermining/Tunneling No -Circular Undermining No -Wound/Ulcer Outcome Not Healed -Ulcer Cleansing Rinsed/ Irrigated with Saline -Foul Odor after Cleansing No -Bioengineered Tissue No -Bleeding Controlled with Pressure -Offloading No -Treatment Response Procedure Tolerated Well -Debridement - Subq, 1st 20sq cm Yes Pain Scale: 0-10 Numeric Is Patient Pain Free? Yes - Nurse 3 - General Ulcer D/C NN Start: 10/22/21 14:57 Freq: Status: Active Protocol: Activity Type Activity Date Activity User E-Sign Co-Sign Detail Recorded Client Recorded Date Recorded By Document 10/22/21 15:27 [id number] 10/22/21 15:28 LUCIA 10/22/21 15:27 Wound Care Nurse 3 #2- L DORSAL FOOT -Ulcer Cleansing Rinsed/ Irrigated with Saline -Foul Odor after Cleansing No -Primary Dressing Applied C Hydrogel ($) -Primary Dressing Covered/Secured with Dry Gauze, Secured with Tape Pain Scale: 0-10 Numeric Is Patient Pain Free? Yes WC - Visit Discharge Discharge Condition Stable Ambulatory Status Ambulatory Transportation Private Auto Medication Reconcilliation completed & Yes provided to patient/care provider Clinical Summary of Care Provided Yes Assessment/Plan Assessment/Plan (1) Delayed wound healing: CODE(S): T14.8XXD - Other injury of unspecified body region, subsequent encounter (2) Peripheral arterial occlusive disease: CODE(S): I77.9 - Disorder of arteries and arterioles, unspecified (3) Smoking addiction: CODE(S): F17.200 - Nicotine dependence, unspecified, uncomplicated (4) Malnutrition: CODE(S): E46 - Unspecified protein-calorie malnutrition (5) Chronic ulcer of left foot with necrosis of bone: CODE(S): L97.524 - Non-pressure chronic ulcer of other part of left foot with necrosis of bone (6) Left foot pain: CODE(S): M79.672 - Pain in left foot (7) Pes planus of left foot: CODE(S): M21.42 - Flat foot [pes planus] (acquired), left foot (8) Difficulty in walking: CODE(S): R26.2 - Difficulty in walking, not elsewhere classified PLAN: I reviewed and discussed her case. Debridement was performed as noted in the clinical panel today in a selective manner. This was further covered with hydrogel and Adaptic. To wash foot with soap and water. To avoid soaking. I previously reviewed her x-rays that was ordered during her last visit and there is no new osseous destruction, spurring or evidence of radiographic osteomyelitis. I also do not see any foreign body or other acute injuries. This was reviewed with her earlier today and the images were displayed. Due to her increased foot pain and concern of deformity, an updated left foot x-ray was ordered. There are no osseous changes, destruction, or acute injuries or foreign bodies noted. There is no exostosis adjacent to the ulcer site. Her amputation status remains unchanged. It is okay for her to use a cam walker at home but to remain nonweightbearing most of the time. It is okay to exercise however I advised her not to overdo it with the walking which is a high demand weightbearing activity causing bone and joint motion and is likely contributing to inflammation increase drainage of her wound. Avoid direct pressure to her ulcer site. Pending her x-ray results, I also offered her ankle-foot orthotic brace such as a potential short articulating brace or other spring-loaded device. I also recommended toe filler with carbon fiber inlay. A prescription was provided and she was advised to go to [facility]. She already started this process to get casted. Follow-up as scheduled. She was previously known to infectious disease and she is reassured no infections are noted today. To continue to monitor. She continues to struggle with smoking cessation. She was encouraged to resume counseling and to proceed forward with the previously discussed interventions. She is at risk for further amputation and delayed healing with tobacco product use. Her history of peripheral vascular disease with critical limb ischemia and prior intervention 2017 as noted. An updated arterial study was ordered previously to check her current status. The noninvasive arterial studies were completed on October 27, 2019 in which a left KEARA of 0.72 is noted without gross impairment of perfusion. She did have prior surgical intervention and reports it went well. She missed her follow-up surgical appointment and she is advised to reschedule. Dr. Gomez's evaluation greatly appreciated. She is advised to follow-up as recommended on a maintenance routine basis per vascular surgery. She is on track to have an updated angiogram with potential additional intervention but needs to get her echo test completed first. She reports this went well and I advised her to call vascular surgery office to get this scheduled and to work out any other conflicts. She will then return to the wound healing center in 4 weeks or call sooner if she has any questions or concerns. She understands she is at risk for continued limb loss. To continue on palliative care program. She understands the alternative treatment options. Note: [employer] speech recognition wind project manager software was used to create portions of this document. Sound-alike and misspelled words, as well as other wind project manager errors may be contained in the documentation.
== END 2021-10-28 23:59 ==
LOC: WC 15:00
PROVIDERS: PCP Family Medicine; Visit Provider Podiatrist
DX: L97.522 Non-pressure chronic ulcer of other part of left foot with fat layer exposed (principal); I73.9 Peripheral vascular disease, unspecified; M21.42 Flat foot [pes planus] (acquired), left foot; R26.2 Difficulty in walking, not elsewhere classified; M79.672 Pain in left foot; F17.200 Nicotine dependence, unspecified, uncomplicated; E66.9 Obesity, unspecified; Z68.32 Body mass index [BMI] 32.0-32.9, adult; Z79.01 Long term (current) use of anticoagulants; Z79.02 Long term (current) use of antithrombotics/antiplatelets; Z79.899 Other long term (current) drug therapy
CPT/HCPCS: 11042; 73630

== ENCOUNTER 2021-12-03 15:00 | Outpatient (RCR) | payer BC, OTHER, SELFPAY ==
[2021-10-29 00:11] VITALS: BP 127/81; PULSE 83; RESP 16; TEMP 36.3; BMI 32.8
[2021-12-03 15:14] VITALS: BP 106/76; PULSE 77; TEMP 36; BMI 32.8
--- NOTE | 2021-12-03 22:39 | PN.PCM_ITS ---
History of Present Illness Date of Service: 12/03/21 Chief Complaint: Follow-up on a left dorsal foot non healing ulcer History of Wound: This is a 56-year-old female that in approximately December 2016 had chronic foot condition in which she previously underwent previous operating room debridement with bone biopsy and application of advanced wound healing product to left foot at [facility] She had previous intervention with Dr. Gomez, vascular specialist. There is an additional angiogram with potential intervention planned however she needs to complete her updated echocardiogram. She did this and reports her cardiac status is stable and additional recommendations not recommended. She wants to continue on a palliative care plan at this time. She is unable to quit smoking. She denies redness or odor. She denies fever, chill, nausea, vomiting. She is in the process of getting fitted for shoes in a brace and started the process. Progress of Wound: stable Objective Data Objective Data Vital Signs: Vital Signs Temp Pulse Resp BP 96.8 F L 77 16 106/76 12/03/21 15:14 12/03/21 15:14 10/29/21 00:11 12/03/21 15:14 Weight: 79.379 kg Body Mass Index (BMI) 32.8 Physical Exam Const alert and oriented x3 General Appearance: cooperative HEENT normocephalic Extremity Extremity Narrative: No calf tenderness Diminished pulses Muscle wasting noted Transmetatarsal amputation stable Decreased medial arch and hindfoot valgus position flexible noted with nonweightbearing exam. Transverse plane increased motion with suspected lateral management. Negative anterior drawer test. No laxity, crepitus or pain with passive manipulation of the midfoot hindfoot or ankle of the left lower extremity. General Extremity: edema and no tenderness to palpation of joints or extremities; Negative for cyanosis Skin Skin Narrative: no purulence, no streaking, no odor, no infection There is exposed bone. There is peripheral epithelialization and significant reduction in ulcer size is noted. The bone is firm and white. There are no local signs of infection. The adjacent skin is hairless, atrophic and with unchanged hyperpigmentation. There is no eschar or necrosis. General Skin Exam: Negative for erythema Neuro Neuro Narrative: lack of normal epicritic sensation via light touch is consistent with neuropathy status Psych cooperative and affect normal Debridement Note Debridement Note Wound debrided: left foot Wound Grade/Stage: Type of Debridement: Selective debridement Anesthesia Used: 4% Lidocaine Solution Depth: in the subcutaneous layer Percentage of wound debrided: 100 Instrument Used: #15 blade Tissue Removed: fibrous, devitalized subcutaneous, biofilm, slough Severity: Fat Layer Exposed Amount of bleeding with debridement: Mild Bleeding Controlled with: Pressure Patient tolerated procedure: Patient tolerated procedure well Post-Debridement Measurements and Additional Note: Post-Debridement Measurements/Treatment - Nurse 1 - General Ulcer Assessment Start: 12/03/21 15:14 Freq: Status: Active Protocol: NERISSA Activity Type Activity Date Activity User E-Sign Co-Sign Detail Recorded Client Recorded Date Recorded By Document 12/03/21 15:14 CRIS [id number] 12/03/21 15:17 CRIS 12/03/21 15:14 WC - Today's Visit Information Type of service Follow-up Visit (Physician/GAS STATION ATTENDANT ) Arrival Mode Ambulatory Patient Identification Verified (Name & Yes ) Patient Requires Transmission-Based No Precautions Safety Precautions NA Height and Weight Body Mass Index (BMI) 32.8 BMI Classification Obese Vital Signs Temperature (97.8 F-99.1 F) 96.8 F L Temperature Source Temporal Pulse Rate (60-100) 77 Pulse Location Monitor Blood Pressure (90/60-120/80) 106/76 Blood Pressure Mean (mm Hg) 86 Source Monitor History Since Last Visit- (Skip if this is Patient's initial visit) Have you changed medications since your No last visit? Any new allergies or adverse reactions No Had a fall/change in ADL's that may No increase risk of falls Signs or symptoms of abuse and/or No neglect since last visit Have you been in the hospital since your No last visit? Has dressing in place as prescribed Yes Has compression in place as prescribed No Has offloadiing in place as prescribed Yes Experienced any changes in pain level or No management Left Footwear Surgical Shoe with pressure relief insole Right Footwear Regular Shoe - Nurse 1 - General Ulcer Measurement Start: 12/03/21 15:14 Freq: Status: Active Protocol: Activity Type Activity Date Activity User E-Sign Co-Sign Detail Recorded Client Recorded Date Recorded By Document 12/03/21 15:14 [email or web address] [id number] 12/03/21 15:17 CRIS 12/03/21 15:14 Wound Center Nurse 1 #2- L DORSAL FOOT -Combined with other wound No -Current Size (cm) - Length 0.5 -Current Size (cm) - Width 0.6 -Current Size (cm) - Depth 0.4 -Total Square Cm 0.30 -Photo Taken No -Epithelialization None Present -Tunneling No -Undermining/Tunneling No -Circular Undermining No -Exudate Amt Large -Exudate Type Yellow/Green -Wound Margin Distinct, Outline Attached -Granulation Amt None Present (0 %) -Granulation Quality N/A -Slough/Fibrin No -Necrosis Amt None Present (0 %) -Structure Exposed N/A -Moisture (Shital-wound Skin Appearance) Assessed,Dry/ Scaly -Color (Shital-wound Skin Appearance) No Abnormality, Assessed -Temperature (Shital-wound Skin No Abnormality Appearance) (Pt Warm) -Tenderness on Palpation (Shital-wound No Skin Appearance) -Ulcer Cleansing Rinsed/ Irrigated with Saline -Foul Odor after Cleansing No -Anesthetic Used 4% Lidocaine Solution SHANA - Nurse 2 - General Ulcer CM Notes Start: 12/03/21 15:14 Freq: Status: Active Protocol: Activity Type Activity Date Activity User E-Sign Co-Sign Detail Recorded Client Recorded Date Recorded By Document 12/03/21 15:43 [id number] 12/03/21 15:46 12/03/21 15:43 Wound Center Nurse 2 -Time 15:44 -Correct Patient Yes -Correct Side, Site, Position Yes -Correct Procedure Yes -Procedure Performed Yes -Type of Procedure Debridement -Clinical Debridement Epidermis / Dermis -Tissue Removed Epidermis, Dermis -Post Debridement (cm) - Length 0.5 -Post Debridement (cm) - Width 0.7 -Post Debridement (cm) - Depth 0.3 -Total Square (Post) (cm) 0.35 -Area of Debridement (cm) - Length 0.5 -Area of Debridement (cm) - Width 0.7 -Total Square (Area) (cm) 0.35 -Tunneling No -Undermining/Tunneling No -Circular Undermining No -Wound/Ulcer Outcome Not Healed -Ulcer Cleansing Rinsed/ Irrigated with Saline -Foul Odor after Cleansing No -Bioengineered Tissue No -Bleeding Controlled with Pressure -Offloading No -Treatment Response Procedure Tolerated Well -Debridement - Open, 1st 20sq cm Yes Pain Scale: 0-10 Numeric Is Patient Pain Free? Yes SHANA - Nurse 3 - General Ulcer D/C NN Start: 12/03/21 15:14 Freq: Status: Active Protocol: Activity Type Activity Date Activity User E-Sign Co-Sign Detail Recorded Client Recorded Date Recorded By Document 12/03/21 15:50 DL [id number] 12/03/21 15:51 DL 12/03/21 15:50 Wound Care Nurse 3 #2- L DORSAL FOOT -Ulcer Cleansing Rinsed/ Irrigated with Saline -Foul Odor after Cleansing No -Other Dressing hydrogel -Primary Dressing Covered/Secured with Dry Gauze, Secured with Tape Treatment Response Procedure Tolerated Well Pain Scale: 0-10 Numeric Is Patient Pain Free? 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 Debridement was performed as noted in the clinical panel today in a selective manner. This was further covered with hydrogel and Adaptic. To wash foot with soap and water. To avoid soaking. I previously reviewed her x-rays that was ordered during her last visit and there is no new osseous destruction, spurring or evidence of radiographic osteomyelitis. I also do not see any foreign body or other acute injuries. This was reviewed with her earlier today and the images were displayed. Due to her increased foot pain and concern of deformity, an updated left foot x-ray was ordered. There are no osseous changes, destruction, or acute injuries or foreign bodies noted. There is no exostosis adjacent to the ulcer site. Her amputation status remains unchanged. It is okay for her to use a cam walker at home but to remain nonweightbearing most of the time. It is okay to exercise however I advised her not to overdo it with the walking which is a high demand weightbearing activity causing bone and joint motion and is likely contributing to inflammation increase drainage of her wound. Avoid direct pressure to her ulcer site. Pending her x-ray results, I also offered her ankle-foot orthotic brace such as a potential short articulating brace or other spring-loaded device. I also recommended toe filler with carbon fiber inlay. She is currently getting the ankle-foot orthotic brace updated and modified will bring to her follow-up visit for evaluation. She was previously known to infectious disease and she is reassured no infections are noted today. To continue to monitor. She continues to struggle with smoking cessation. She was encouraged to resume counseling and to proceed forward with the previously discussed interventions. She is at risk for further amputation and delayed healing with tobacco product use. Her history of peripheral vascular disease with critical limb ischemia and prior intervention 2017 as noted. An updated arterial study was ordered previously to check her current status. The noninvasive arterial studies were completed on October 27, 2019 in which a left KEARA of 0.72 is noted without gross impairment of perfusion. She did have prior surgical intervention and reports it went well. She missed her follow-up surgical appointment and she is advised to reschedule. Dr. Gomez's evaluation greatly appreciated. She is advised to follow-up as recommended on a maintenance routine basis per vascular surgery. She is on track to have an updated angiogram with potential additional intervention but needs to get her echo test completed first. She reports this went well and I advised her to call vascular surgery office to get this scheduled and to work out any other conflicts. She will then return to the wound healing center in 4 weeks or call sooner if she has any questions or concerns. She understands she is at risk for continued limb loss. To continue on palliative care program. She understands the alternative treatment options. Note: [employer] speech recognition button inspector software was used to create portions of this document. Sound-alike and misspelled words, as well as other button inspector errors may be contained in the documentation. The medical decision making level is limited based on data including the review of prior external notes, review of a prior test, or ordering a test. The medical decision making level is low. There is noted low risk of morbidity after considering this treatment plan and diagnostic data.
== END 2021-12-29 23:59 ==
LOC: WC 15:00
PROVIDERS: PCP Family Medicine; Visit Provider Podiatrist
DX: L97.522 Non-pressure chronic ulcer of other part of left foot with fat layer exposed (principal); I77.9 Disorder of arteries and arterioles, unspecified; M21.42 Flat foot [pes planus] (acquired), left foot; M79.672 Pain in left foot; R26.2 Difficulty in walking, not elsewhere classified; F17.200 Nicotine dependence, unspecified, uncomplicated
CPT/HCPCS: 97597

== ENCOUNTER 2022-01-06 15:00 | Outpatient (RCR) | payer BC, OTHER, SELFPAY ==
[2021-12-30 00:05] VITALS: BP 106/76; PULSE 77; RESP 16; TEMP 36; BMI 32.8
[2022-01-06 15:03] VITALS: BP 136/76; PULSE 77; RESP 16; TEMP 36.6; BMI 32.8
--- NOTE | 2022-01-06 15:48 | PCM.WC.PN ---
History of Present Illness Date of Service: 01/06/22 Chief Complaint: Follow-up on a left dorsal foot non healing ulcer History of Wound: This is a 56-year-old female that in approximately December 2016 had chronic foot condition in which she previously underwent previous operating room debridement with bone biopsy and application of advanced wound healing product to left foot at [facility]. She had previous intervention with Dr. Gomez, vascular specialist. There is an additional angiogram with potential intervention planned however she needs to complete her updated echocardiogram. She did this and reports her cardiac status is stable and additional recommendations not recommended. She wants to continue on a palliative care plan at this time. She is unable to quit smoking. She denies redness or odor. She denies fever, chill, nausea, vomiting. She did not reschedule her vascular surgery appointment yet and did not call to try because she said she did not have time. She also has an ankle foot brace with a toe filler that she brought for evaluation today. She relates it is tight and she is not able to really Velcro her shoe. She has modification scheduled. She reports her foot drains a lot more when she is more active and asks if this is good. She relates she did have green drainage about 3 weeks ago and this has not been going on recently. Progress of Wound: Stable Objective Data Objective Data Vital Signs: Vital Signs Temp Pulse Resp BP 98 F 77 16 136/76 H 01/06/22 15:03 01/06/22 15:03 01/06/22 15:03 01/06/22 15:03 Oxygen Delivery Method Room Air Weight: 79.379 kg Body Mass Index (BMI) 32.8 Physical Exam Const alert and oriented x3 General Appearance: cooperative HEENT normocephalic Extremity Extremity Narrative: No calf tenderness Diminished pulses Muscle wasting noted Transmetatarsal amputation stable Decreased medial arch and hindfoot valgus position flexible noted with nonweightbearing exam. Transverse plane increased motion with suspected lateral management. Negative anterior drawer test. No laxity, crepitus or pain with passive manipulation of the midfoot hindfoot or ankle of the left lower extremity. General Extremity: edema and no tenderness to palpation of joints or extremities; Negative for cyanosis Skin Skin Narrative: no purulence, no streaking, no odor, no infection There is exposed bone and increased visualization of the midfoot joints without mobility noted. There is peripheral epithelialization and significant reduction in ulcer size is noted. The bone is firm and white. There are no local signs of infection. The adjacent skin is hairless, atrophic and with unchanged hyperpigmentation. There is no eschar or necrosis. The brace was evaluated with a toe filler and a hard anterior leg show in a sneaker with Velcro straps. General Skin Exam: Negative for erythema Neuro Neuro Narrative: lack of normal epicritic sensation via light touch is consistent with neuropathy status Psych cooperative and affect normal Debridement Note Debridement Note Wound debrided: Dorsal foot left Wound Grade/Stage: Type of Debridement: Selective debridement Anesthesia Used: 4% Lidocaine Solution Depth: in the subcutaneous layer Percentage of wound debrided: 100 Instrument Used: - (1 mm curette) Tissue Removed: fibrous, devitalized subcutaneous, biofilm, slough Severity: Fat Layer Exposed Amount of bleeding with debridement: Mild Bleeding Controlled with: Pressure Patient tolerated procedure: Patient tolerated procedure well Post-Debridement Measurements and Additional Note: Post-Debridement Measurements/Treatment - Nurse 1 - General Ulcer Assessment Start: 01/06/22 15:03 Freq: Status: Active Protocol: SHANA.JUSTIN Activity Type Activity Date Activity User E-Sign Co-Sign Detail Recorded Client Recorded Date Recorded By Document 01/06/22 15:03 [facility] [id number] 01/06/22 15:11 [facility] 01/06/22 15:03 - Today's Visit Information Type of service Follow-up Visit (Physician/CARE SERVICES MANAGER ) Arrival Mode Ambulatory Transfer Assistance None Patient Identification Verified (Name & Yes ) Patient Requires Transmission-Based No Precautions Height and Weight Body Mass Index (BMI) 32.8 BMI Classification Obese Vital Signs Temperature (97.8 F-99.1 F) 98 F Temperature Source Temporal Pulse Rate (60-100) 77 Pulse Location Monitor Respiratory Rate (12-18) 16 Respiratory rate source Observation Oxygen Delivery Method Room Air Blood Pressure (90/60-120/80) 136/76 H Blood Pressure Mean (mm Hg) 96 Source Monitor Position Sitting Blood Pressure Location Left Arm History Since Last Visit- (Skip if this is Patient's initial visit) Have you changed medications since your No last visit? Any new allergies or adverse reactions No Had a fall/change in ADL's that may No increase risk of falls Signs or symptoms of abuse and/or No neglect since last visit Have you been in the hospital since your No last visit? Has dressing in place as prescribed Yes Has compression in place as prescribed N/A Has offloadiing in place as prescribed Yes Experienced any changes in pain level or No management Left Footwear Custom Shoe Right Footwear Regular Shoe Pain Scale: 0-10 Numeric Is Patient Pain Free? Yes - Nurse 1 - General Ulcer Measurement Start: 01/06/22 15:03 Freq: Status: Active Protocol: Activity Type Activity Date Activity User E-Sign Co-Sign Detail Recorded Client Recorded Date Recorded By Document 01/06/22 15:03 [facility] [id number] 01/06/22 15:11 [facility] 01/06/22 15:03 Wound Center Nurse 1 #2- L DORSAL FOOT -Current Size (cm) - Length 0.5 -Current Size (cm) - Width 0.5 -Current Size (cm) - Depth 0.3 -Total Square Cm 0.25 -Date of Last Picture (Recall this 01/06/22 field) -Photo Taken Yes -Epithelialization None Present -Tunneling No -Undermining/Tunneling No -Circular Undermining No -Exudate Amt Medium -Exudate Type Serosanguineous -Wound Margin Distinct, Outline Attached -Granulation Amt Small (1-33%) -Granulation Quality Red -Slough/Fibrin Yes -Necrosis Amt Large (67-100%) -Necrotic Tissue Type Adherent Slough -Structure Exposed Bone -Texture (Shital-wound Skin Appearance) Assessed, Scarring -Moisture (Shital-wound Skin Appearance) Assessed, Maceration -Color (Shital-wound Skin Appearance) Assessed, Erythema,Palor -Temperature (Shital-wound Skin No Abnormality Appearance) (Pt Warm) -Tenderness on Palpation (Shital-wound No Skin Appearance) -Ulcer Cleansing Rinsed/ Irrigated with Saline -Foul Odor after Cleansing No -Anesthetic Used 5% Lidocaine Gel WC - Nurse 2 - General Ulcer CM Notes Start: 01/06/22 15:03 Freq: Status: Active Protocol: Activity Type Activity Date Activity User E-Sign Co-Sign Detail Recorded Client Recorded Date Recorded By Document 01/06/22 15:21 [id number] 01/06/22 15:22 01/06/22 15:21 Wound Center Nurse 2 -Time 15:22 -Correct Patient Yes -Correct Side, Site, Position Yes -Correct Procedure Yes -Procedure Performed Yes -Type of Procedure Debridement -Clinical Debridement Subcutaneous -Tissue Removed Subcutaneous -Post Debridement (cm) - Length 0.5 -Post Debridement (cm) - Width 0.5 -Post Debridement (cm) - Depth 0.4 -Total Square (Post) (cm) 0.25 -Area of Debridement (cm) - Length 0.5 -Area of Debridement (cm) - Width 0.5 -Total Square (Area) (cm) 0.25 -Tunneling No -Undermining/Tunneling No -Circular Undermining No -Wound/Ulcer Outcome Not Healed -Ulcer Cleansing Rinsed/ Irrigated with Saline -Foul Odor after Cleansing No -Bioengineered Tissue No -Bleeding Controlled with Pressure -Offloading No -Treatment Response Procedure Tolerated Well -Debridement - Subq, 1st 20sq cm Yes Pain Scale: 0-10 Numeric Is Patient Pain Free? Yes - Nurse 3 - General Ulcer D/C NN Start: 01/06/22 15:03 Freq: Status: Active Protocol: Activity Type Activity Date Activity User E-Sign Co-Sign Detail Recorded Client Recorded Date Recorded By Document 01/06/22 15:28 [id number] 01/06/22 15:29 01/06/22 15:28 Wound Care Nurse 3 #2- L DORSAL FOOT -Ulcer Cleansing Rinsed/ Irrigated with Saline -Foul Odor after Cleansing No -Primary Dressing Applied C Hydrogel ($) -Primary Dressing Covered/Secured with Dry Gauze, Secured with Tape Pain Scale: 0-10 Numeric Is Patient Pain Free? Yes - Visit Discharge Discharge Condition Stable Ambulatory Status Ambulatory Transportation Private Auto Medication Reconcilliation completed & Yes provided to patient/care provider Clinical Summary of Care Provided Yes Assessment/Plan Assessment/Plan (1) Delayed wound healing: CODE(S): T14.8XXD - Other injury of unspecified body region, subsequent encounter (2) Peripheral arterial occlusive disease: CODE(S): I77.9 - Disorder of arteries and arterioles, unspecified (3) Smoking addiction: CODE(S): F17.200 - Nicotine dependence, unspecified, uncomplicated (4) Malnutrition: CODE(S): E46 - Unspecified protein-calorie malnutrition (5) Chronic ulcer of left foot with necrosis of bone: CODE(S): L97.524 - Non-pressure chronic ulcer of other part of left foot with necrosis of bone (6) Left foot pain: CODE(S): M79.672 - Pain in left foot (7) Pes planus of left foot: CODE(S): M21.42 - Flat foot [pes planus] (acquired), left foot (8) Difficulty in walking: CODE(S): R26.2 - Difficulty in walking, not elsewhere classified PLAN: I reviewed and discussed her case. Debridement was performed as noted in the clinical panel today in a selective manner. This was further covered with hydrogel and gauze. her brace was evaluated and it appears to be appropriate. I do recommend however she follows up for modifications to see if this can possibly keep them down to avoid another to wash foot with soap and water. To avoid soaking. I previously reviewed her x-rays that was ordered during her last visit and there is no new osseous destruction, spurring or evidence of radiographic osteomyelitis. I also do not see any foreign body or other acute injuries. This was reviewed with her earlier today and the images were displayed. Due to her increased foot pain and concern of deformity, an updated left foot x-ray was ordered. There are no osseous changes, destruction, or acute injuries or foreign bodies noted. There is no exostosis adjacent to the ulcer site. Her amputation status remains unchanged. It is okay for her to use a cam walker at home but to remain nonweightbearing most of the time. It is okay to exercise however I advised her not to overdo it with the walking which is a high demand weightbearing activity causing bone and joint motion and is likely contributing to inflammation increase drainage of her wound. Avoid direct pressure to her ulcer site. Space to the dorsal foot ulcer site so she can further Velcro her shoe appropriately. She was previously known to infectious disease and she is reassured no infections are noted today. To continue to monitor. She continues to struggle with smoking cessation. She was encouraged to resume counseling and to proceed forward with the previously discussed interventions. She is at risk for further amputation and delayed healing with tobacco product use. Her history of peripheral vascular disease with critical limb ischemia and prior intervention 2017 as noted. An updated arterial study was ordered previously to check her current status. The noninvasive arterial studies were completed on October 27, 2019 in which a left KEARA of 0.72 is noted without gross impairment of perfusion. She did have prior surgical intervention and reports it went well. She missed her follow-up surgical appointment and she is advised to reschedule. Dr. Gomez's evaluation greatly appreciated. She is advised to follow-up as recommended on a maintenance routine basis per vascular surgery. She is on track to have an updated angiogram with potential additional intervention but needs to get her echo test completed first. She reports this went well and I advised her to call vascular surgery office to get this scheduled and to work out any other conflicts. It is noted she has not done this yet. She will then return to the wound healing center in 4 weeks or call sooner if she has any questions or concerns. She understands she is at risk for continued limb loss. To continue on palliative care program. She understands the alternative treatment options. Note: [employer] speech recognition mysql database administrator software was used to create portions of this document. Sound-alike and misspelled words, as well as other mysql database administrator errors may be contained in the documentation. The medical decision making level is low. There is noted low risk of morbidity after considering this treatment plan and diagnostic data. The problems addressed require a low medical decision making level which includes two or more minor problems, a stable chronic illness, or an acute uncomplicated illness or injury.
== END 2022-01-26 23:59 | disposition home or self-care (01) ==
LOC: WC 15:00
PROVIDERS: PCP Family Medicine; Visit Provider Podiatrist
DX: L97.522 Non-pressure chronic ulcer of other part of left foot with fat layer exposed (principal); I77.9 Disorder of arteries and arterioles, unspecified; R26.2 Difficulty in walking, not elsewhere classified; M21.42 Flat foot [pes planus] (acquired), left foot; M79.672 Pain in left foot; Z87.891 Personal history of nicotine dependence
CPT/HCPCS: 11042

== ENCOUNTER 2022-02-11 16:27 | Outpatient (RCR) | payer BC, OTHER, SELFPAY ==
[2022-01-27 00:13] VITALS: BP 136/76; PULSE 77; RESP 16; TEMP 36.6; BMI 32.8
[2022-02-11 15:41] VITALS: BP 136/78; PULSE 78; RESP 18; TEMP 36; BMI 32.8
--- NOTE | 2022-02-11 16:03 | PCM.WC.PN ---
History of Present Illness Chief Complaint: Follow-up on a left dorsal foot non healing ulcer History of Wound: This is a 56-year-old female that in approximately December 2016 had chronic foot condition in which she previously underwent previous operating room debridement with bone biopsy and application of advanced wound healing product to left foot at [facility]. She had previous intervention with Dr. Gomez, vascular specialist. There is an additional angiogram with potential intervention planned however she needs to complete her updated echocardiogram. She did this and reports her cardiac status is stable and additional recommendations not recommended. She wants to continue on a palliative care plan at this time. She is unable to quit smoking. She denies redness or odor. She denies fever, chill, nausea, vomiting. She did not reschedule her vascular surgery appointment yet and did not call to try because she said she did not have time. She also has an ankle foot brace with a toe filler that she brought for evaluation today. She relates it is tight and she is not able to really Velcro her shoe. She has modification scheduled. She reports her foot drains a lot more when she is more active and asks if this is good. She relates she did have green drainage about 3 weeks ago and this has not been going on recently. Objective Data Objective Data Vital Signs: Vital Signs Temp Pulse Resp BP 96.8 F L 78 18 136/78 H 02/11/22 15:41 02/11/22 15:41 02/11/22 15:41 02/11/22 15:41 Weight: 79.379 kg Body Mass Index (BMI) 32.8 Debridement Note Debridement Note Post-Debridement Measurements and Additional Note: Post-Debridement Measurements/Treatment - Nurse 1 - General Ulcer Assessment Start: 02/11/22 15:41 Freq: Status: Active Protocol: [email or web address].LOWEXT Activity Type Activity Date Activity User E-Sign Co-Sign Detail Recorded Client Recorded Date Recorded By Document 02/11/22 15:41 [id number] 02/11/22 15:46 02/11/22 15:41 - Today's Visit Information Type of service Follow-up Visit (Physician/SOLAR INSTALLATION CREW SUPERVISOR ) Arrival Mode Ambulatory Patient Identification Verified (Name & Yes ) Patient Requires Transmission-Based No Precautions Height and Weight Body Mass Index (BMI) 32.8 BMI Classification Obese Vital Signs Temperature (97.8 F-99.1 F) 96.8 F L Temperature Source Temporal Pulse Rate (60-100) 78 Pulse Location Monitor Respiratory Rate (12-18) 18 Respiratory rate source Observation Blood Pressure (90/60-120/80) 136/78 H Blood Pressure Mean (mm Hg) 97 Source Monitor Position Semi-Fowlers Blood Pressure Location Left Arm History Since Last Visit- (Skip if this is Patient's initial visit) Have you changed medications since your No last visit? Any new allergies or adverse reactions No Had a fall/change in ADL's that may No increase risk of falls Signs or symptoms of abuse and/or No neglect since last visit Have you been in the hospital since your No last visit? Has dressing in place as prescribed Yes Has compression in place as prescribed N/A Has offloadiing in place as prescribed N/A Experienced any changes in pain level or No management Left Footwear Regular Shoe Right Footwear Regular Shoe Pain Scale: 0-10 Numeric Is Patient Pain Free? Yes WC - Nurse 1 - General Ulcer Measurement Start: 02/11/22 15:41 Freq: Status: Active Protocol: Activity Type Activity Date Activity User E-Sign Co-Sign Detail Recorded Client Recorded Date Recorded By Document 02/11/22 15:41 [id number] 02/11/22 15:46 [email or web address] 02/11/22 15:41 Wound Center Nurse 1 #2- L DORSAL FOOT -Combined with other wound No -Current Size (cm) - Length 0.4 -Current Size (cm) - Width 0.3 -Current Size (cm) - Depth 0.4 -Total Square Cm 0.12 -Photo Taken Yes -Epithelialization Small 1-33% -Tunneling No -Undermining/Tunneling No -Circular Undermining No -Exudate Amt None Present -Exudate Type Serosanguineous -Wound Margin Flat & Intact -Granulation Amt Medium (34-66%) -Granulation Quality Red -Slough/Fibrin Yes -Necrosis Amt Medium (34-66%) -Necrotic Tissue Type Adherent Slough -Structure Exposed Bone -Texture (Shital-wound Skin Appearance) Assessed -Moisture (Shital-wound Skin Appearance) Assessed,Dry/ Scaly -Color (Shital-wound Skin Appearance) Assessed -Temperature (Shital-wound Skin No Abnormality Appearance) (Pt Warm) -Tenderness on Palpation (Shital-wound No Skin Appearance) -Ulcer Cleansing Rinsed/ Irrigated with Saline -Foul Odor after Cleansing No -Anesthetic Used 4% Lidocaine Solution Lower Limb Edema Present NA - Nurse 2 - General Ulcer CM Notes Start: 02/11/22 15:41 Freq: Status: Active Protocol: Activity Type Activity Date Activity User E-Sign Co-Sign Detail Recorded Client Recorded Date Recorded By Document 02/11/22 15:52 [id number] 02/11/22 15:57 02/11/22 15:52 Wound Center Nurse 2 #2- L DORSAL FOOT -Time 15:52 -Correct Patient Yes -Correct Side, Site, Position Yes -Correct Procedure Yes -Procedure Performed Yes -Type of Procedure Debridement -Clinical Debridement Subcutaneous -Tissue Removed Subcutaneous -Post Debridement (cm) - Length 0.4 -Post Debridement (cm) - Width 0.4 -Post Debridement (cm) - Depth 0.3 -Total Square (Post) (cm) 0.16 -Area of Debridement (cm) - Length 0.4 -Area of Debridement (cm) - Width 0.4 -Total Square (Area) (cm) 0.16 -Tunneling No -Undermining/Tunneling No -Circular Undermining No -Wound/Ulcer Outcome Not Healed -Ulcer Cleansing Rinsed/ Irrigated with Saline -Foul Odor after Cleansing No -Bioengineered Tissue No -Bleeding Controlled with Pressure -Offloading No -Treatment Response Procedure Tolerated Well -Debridement - Subq, 1st 20sq cm Yes Pain Scale: 0-10 Numeric Is Patient Pain Free? Yes - Nurse 3 - General Ulcer D/C NN Start: 02/11/22 15:41 Freq: Status: Active Protocol: Activity Type Activity Date Activity User E-Sign Co-Sign Detail Recorded Client Recorded Date Recorded By Document 02/11/22 15:58 [id number] 02/11/22 15:58 02/11/22 15:58 Wound Care Nurse 3 #2- L DORSAL FOOT -Ulcer Cleansing Rinsed/ Irrigated with Saline -Foul Odor after Cleansing No -Primary Dressing Applied C Hydrogel ($) -Primary Dressing Covered/Secured with Dry Gauze, Secured with Tape Pain Scale: 0-10 Numeric Is Patient Pain Free? Yes - Visit Discharge Discharge Condition Stable Ambulatory Status Ambulatory Transportation Private Auto Medication Reconcilliation completed & Yes provided to patient/care provider Clinical Summary of Care Provided Yes
--- NOTE | 2022-02-11 17:12 | PCM.WC.PN ---
History of Present Illness Date of Service: 02/11/22 Chief Complaint: Follow-up on a left dorsal foot non healing ulcer History of Wound: This is a 57-year-old female that in approximately December 2016 had chronic foot condition in which she previously underwent previous operating room debridement with bone biopsy and application of advanced wound healing product to left foot at [facility]. She had previous intervention with Dr. Gomez, vascular specialist. There is an additional angiogram with intervention planned now for this upcoming Wednesday. She has had significant delays in proceeding forward with this and is very anxious. She is unable to quit smoking. She denies redness or odor. She denies fever, chill, nausea, vomiting. Progress of Wound: Stable Objective Data Objective Data Vital Signs: Vital Signs Temp Pulse Resp BP 96.8 F L 78 18 136/78 H 02/11/22 15:41 02/11/22 15:41 02/11/22 15:41 02/11/22 15:41 Weight: 79.379 kg Body Mass Index (BMI) 32.8 Physical Exam Const alert and oriented x3 General Appearance: cooperative HEENT normocephalic Extremity Extremity Narrative: No calf tenderness Diminished pulses Muscle wasting noted Transmetatarsal amputation stable Decreased medial arch and hindfoot valgus position flexible noted with nonweightbearing exam. Transverse plane increased motion with suspected lateral management. Negative anterior drawer test. No laxity, crepitus or pain with passive manipulation of the midfoot hindfoot or ankle of the left lower extremity. General Extremity: edema and no tenderness to palpation of joints or extremities; Negative for cyanosis Skin Skin Narrative: no purulence, no streaking, no odor, no infection There is exposed bone and increased visualization of the midfoot joints without mobility noted. There is peripheral epithelialization and significant reduction in ulcer size is noted. The bone is firm and white. There are no local signs of infection. The adjacent skin is hairless, atrophic and with unchanged hyperpigmentation. There is no eschar or necrosis. General Skin Exam: Negative for erythema Neuro Neuro Narrative: lack of normal epicritic sensation via light touch is consistent with neuropathy status Psych cooperative and affect normal Debridement Note Debridement Note Wound debrided: Wound Grade/Stage: Type of Debridement: Selective debridement Anesthesia Used: 4% Lidocaine Solution Depth: in the subcutaneous layer Percentage of wound debrided: 100 Instrument Used: - (1mm curette) Tissue Removed: fibrous, devitalized subcutaneous, biofilm, slough Severity: Fat Layer Exposed Amount of bleeding with debridement: Mild Bleeding Controlled with: Pressure Patient tolerated procedure: Patient tolerated procedure well Post-Debridement Measurements and Additional Note: Post-Debridement Measurements/Treatment - Nurse 1 - General Ulcer Assessment Start: 02/11/22 15:41 Freq: Status: Active Protocol: NERISSA Activity Type Activity Date Activity User E-Sign Co-Sign Detail Recorded Client Recorded Date Recorded By Document 02/11/22 15:41 [id number] 02/11/22 15:46 LUCIA 02/11/22 15:41 WC - Today's Visit Information Type of service Follow-up Visit (Physician/SUPERVISOR [facility] ) Arrival Mode Ambulatory Patient Identification Verified (Name & Yes ) Patient Requires Transmission-Based No Precautions Height and Weight Body Mass Index (BMI) 32.8 BMI Classification Obese Vital Signs Temperature (97.8 F-99.1 F) 96.8 F L Temperature Source Temporal Pulse Rate (60-100) 78 Pulse Location Monitor Respiratory Rate (12-18) 18 Respiratory rate source Observation Blood Pressure (90/60-120/80) 136/78 H Blood Pressure Mean (mm Hg) 97 Source Monitor Position Semi-Fowlers Blood Pressure Location Left Arm History Since Last Visit- (Skip if this is Patient's initial visit) Have you changed medications since your No last visit? Any new allergies or adverse reactions No Had a fall/change in ADL's that may No increase risk of falls Signs or symptoms of abuse and/or No neglect since last visit Have you been in the hospital since your No last visit? Has dressing in place as prescribed Yes Has compression in place as prescribed N/A Has offloadiing in place as prescribed N/A Experienced any changes in pain level or No management Left Footwear Regular Shoe Right Footwear Regular Shoe Pain Scale: 0-10 Numeric Is Patient Pain Free? Yes [facility] Nurse 1 - General Ulcer Measurement Start: 02/11/22 15:41 Freq: Status: Active Protocol: Activity Type Activity Date Activity User E-Sign Co-Sign Detail Recorded Client Recorded Date Recorded By Document 02/11/22 15:41 JF [id number] 02/11/22 15:46 LUCIA 02/11/22 15:41 Wound Center Nurse 1 #2- L DORSAL FOOT -Combined with other wound No -Current Size (cm) - Length 0.4 -Current Size (cm) - Width 0.3 -Current Size (cm) - Depth 0.4 -Total Square Cm 0.12 -Photo Taken Yes -Epithelialization Small 1-33% -Tunneling No -Undermining/Tunneling No -Circular Undermining No -Exudate Amt None Present -Exudate Type Serosanguineous -Wound Margin Flat & Intact -Granulation Amt Medium (34-66%) -Granulation Quality Red -Slough/Fibrin Yes -Necrosis Amt Medium (34-66%) -Necrotic Tissue Type Adherent Slough -Structure Exposed Bone -Texture (Shital-wound Skin Appearance) Assessed -Moisture (Shital-wound Skin Appearance) Assessed,Dry/ Scaly -Color (Shital-wound Skin Appearance) Assessed -Temperature (Shital-wound Skin No Abnormality Appearance) (Pt Warm) -Tenderness on Palpation (Shital-wound No Skin Appearance) -Ulcer Cleansing Rinsed/ Irrigated with Saline -Foul Odor after Cleansing No -Anesthetic Used 4% Lidocaine Solution Lower Limb Edema Present NA WC - Nurse 2 - General Ulcer CM Notes Start: 02/11/22 15:41 Freq: Status: Active Protocol: Activity Type Activity Date Activity User E-Sign Co-Sign Detail Recorded Client Recorded Date Recorded By Document 02/11/22 15:52 LUCIA [id number] 02/11/22 15:57 02/11/22 15:52 Wound Center Nurse 2 #2- L DORSAL FOOT -Time 15:52 -Correct Patient Yes -Correct Side, Site, Position Yes -Correct Procedure Yes -Procedure Performed Yes -Type of Procedure Debridement -Clinical Debridement Subcutaneous -Tissue Removed Subcutaneous -Post Debridement (cm) - Length 0.4 -Post Debridement (cm) - Width 0.4 -Post Debridement (cm) - Depth 0.3 -Total Square (Post) (cm) 0.16 -Area of Debridement (cm) - Length 0.4 -Area of Debridement (cm) - Width 0.4 -Total Square (Area) (cm) 0.16 -Tunneling No -Undermining/Tunneling No -Circular Undermining No -Wound/Ulcer Outcome Not Healed -Ulcer Cleansing Rinsed/ Irrigated with Saline -Foul Odor after Cleansing No -Bioengineered Tissue No -Bleeding Controlled with Pressure -Offloading No -Treatment Response Procedure Tolerated Well -Debridement - Subq, 1st 20sq cm Yes Pain Scale: 0-10 Numeric Is Patient Pain Free? Yes - Nurse 3 - General Ulcer D/C NN Start: 02/11/22 15:41 Freq: Status: Active Protocol: Activity Type Activity Date Activity User E-Sign Co-Sign Detail Recorded Client Recorded Date Recorded By Document 02/11/22 15:58 [id number] 02/11/22 15:58 02/11/22 15:58 Wound Care Nurse 3 #2- L DORSAL FOOT -Ulcer Cleansing Rinsed/ Irrigated with Saline -Foul Odor after Cleansing No -Primary Dressing Applied C Hydrogel ($) -Primary Dressing Covered/Secured with Dry Gauze, Secured with Tape Pain Scale: 0-10 Numeric Is Patient Pain Free? Yes WC - Visit Discharge Discharge Condition Stable Ambulatory Status Ambulatory Transportation Private Auto Medication Reconcilliation completed & Yes provided to patient/care provider Clinical Summary of Care Provided Yes Assessment/Plan Assessment/Plan (1) Delayed wound healing: CODE(S): T14.8XXD - Other injury of unspecified body region, subsequent encounter (2) Peripheral arterial occlusive disease: CODE(S): I77.9 - Disorder of arteries and arterioles, unspecified (3) Smoking addiction: CODE(S): F17.200 - Nicotine dependence, unspecified, uncomplicated (4) Malnutrition: CODE(S): E46 - Unspecified protein-calorie malnutrition (5) Chronic ulcer of left foot with necrosis of bone: CODE(S): L97.524 - Non-pressure chronic ulcer of other part of left foot with necrosis of bone (6) Pes planus of left foot: CODE(S): M21.42 - Flat foot [pes planus] (acquired), left foot (7) Difficulty in walking: CODE(S): R26.2 - Difficulty in walking, not elsewhere classified PLAN: I reviewed and discussed her case. Debridement was performed as noted in the clinical panel today in a selective manner. This was further covered with hydrogel and gauze. her brace was evaluated and it appears to be appropriate. to wash foot with soap and water. To avoid soaking. I previously reviewed her x-rays and there was no new osseous destruction, spurring or evidence of radiographic osteomyelitis. I also did not see any foreign body or other acute injuries. This was reviewed with her earlier today and the images were displayed. Due to her increased foot pain and concern of deformity, an updated left foot x-ray was ordered. There are no osseous changes, destruction, or acute injuries or foreign bodies noted. There is no exostosis adjacent to the ulcer site. Her amputation status remains unchanged. It is okay for her to use a cam walker at home but to remain nonweightbearing most of the time. It is okay to exercise however I advised her not to overdo it with the walking which is a high demand weightbearing activity causing bone and joint motion and is likely contributing to inflammation increase drainage of her wound. Avoid direct pressure to her ulcer site. Space to the dorsal foot ulcer site so she can further Velcro her shoe appropriately. She was previously known to infectious disease and she is reassured no infections are noted today. To continue to monitor. She continues to struggle with smoking cessation. She was encouraged to resume counseling and to proceed forward with the previously discussed interventions. She is at risk for further amputation and delayed healing with tobacco product use. Her history of peripheral vascular disease with critical limb ischemia and prior intervention 2017 as noted. An updated arterial study was ordered previously to check her current status. The noninvasive arterial studies were completed on October 27, 2019 in which a left KEARA of 0.72 is noted without gross impairment of perfusion. She did have prior surgical intervention and reports it went well. Dr. Gomez's evaluation greatly appreciated. An additional intervention procedure is recommended and she is scheduled for this this upcoming Wednesday. She will then return to the wound healing center in 3 weeks or call sooner if she has any questions or concerns. She understands she is at risk for continued limb loss. Note: [email or web address] speech recognition clerical adviser software was used to create portions of this document. Sound-alike and misspelled words, as well as other clerical adviser errors may be contained in the documentation. The medical decision making level is low. There is noted low risk of morbidity after considering this treatment plan and diagnostic data. The problems addressed require a low medical decision making level which includes two or more minor problems, a stable chronic illness, or an acute uncomplicated illness or injury.
== END 2022-02-26 23:59 | disposition home or self-care (01) ==
LOC: WC 16:27
PROVIDERS: PCP Family Medicine; Visit Provider Podiatrist
DX: L97.522 Non-pressure chronic ulcer of other part of left foot with fat layer exposed (principal); I73.9 Peripheral vascular disease, unspecified; M21.42 Flat foot [pes planus] (acquired), left foot; R26.2 Difficulty in walking, not elsewhere classified; F17.200 Nicotine dependence, unspecified, uncomplicated; Z79.01 Long term (current) use of anticoagulants; Z79.02 Long term (current) use of antithrombotics/antiplatelets; Z79.899 Other long term (current) drug therapy
CPT/HCPCS: 11042

== ENCOUNTER 2022-03-04 15:00 | Outpatient (RCR) | payer BC, OTHER, SELFPAY ==
[2022-02-27 00:17] VITALS: BP 136/78; PULSE 78; RESP 18; TEMP 36; BMI 32.8
[2022-03-04 15:04] VITALS: BP 135/78; PULSE 76; RESP 18; TEMP 37.2; BMI 32.8
--- NOTE | 2022-03-04 15:31 | PCM.WC.PN ---
History of Present Illness Date of Service: 03/04/22 Chief Complaint: Follow-up on a left dorsal foot non healing ulcer History of Wound: This is a 57-year-old female that in approximately December 2016 had chronic foot condition in which she previously underwent previous operating room debridement with bone biopsy and application of advanced wound healing product to left foot at [facility]. She had previous intervention with Dr. Gomez, vascular specialist. There is an additional angiogram with intervention that was performed on 02-20-22. She is unable to quit smoking. She denies odor. She denies fever, chill, nausea, vomiting. Since her vascular procedure she reports some increased drainage swelling and skin discoloration adjacent to the ulcer site. She asked if this is normal. Progress of Wound: Stable with increased perfusion suspected Objective Data Objective Data Vital Signs: Vital Signs Temp Pulse Resp BP 98.9 F 76 18 135/78 H 03/04/22 15:04 03/04/22 15:04 03/04/22 15:04 03/04/22 15:04 Weight: 79.379 kg Body Mass Index (BMI) 32.8 Physical Exam Const alert and oriented x3 General Appearance: cooperative HEENT normocephalic Extremity Extremity Narrative: No calf tenderness Diminished pulses Muscle wasting noted Transmetatarsal amputation stable Decreased medial arch and hindfoot valgus position flexible noted with nonweightbearing exam. Transverse plane increased motion with suspected lateral management. Negative anterior drawer test. No laxity, crepitus or pain with passive manipulation of the midfoot hindfoot or ankle of the left lower extremity. General Extremity: edema and no tenderness to palpation of joints or extremities; Negative for cyanosis Skin Skin Narrative: no purulence, no streaking, no odor, no infection There is exposed bone and increased visualization of the midfoot joints without mobility noted. There is peripheral epithelialization and increased ulcer size noted with devitalized proximal margin. The bone is firm and white. There are no local signs of infection. The adjacent skin is hairless, atrophic and with unchanged hyperpigmentation. There is no eschar or necrosis. There is mild increase in drainage, edema, and capillary refill time is reduced adjacent to the ulcer suggesting improvement in local perfusion General Skin Exam: Negative for erythema Neuro Neuro Narrative: lack of normal epicritic sensation via light touch is consistent with neuropathy status Psych cooperative and affect normal Debridement Note Debridement Note Wound debrided: left dorsal foot Wound Grade/Stage: Type of Debridement: Excisional debridement Anesthesia Used: 4% Lidocaine Solution Depth: in the subcutaneous layer Percentage of wound debrided: 100 Instrument Used: - (nap- Naturally Attached [employer] ultrasound debridement instrument) Tissue Removed: fibrous, devitalized subcutaneous, biofilm, slough Severity: Fat Layer Exposed Amount of bleeding with debridement: Mild Bleeding Controlled with: Pressure Patient tolerated procedure: Patient tolerated procedure well Post-Debridement Measurements and Additional Note: Post-Debridement Measurements/Treatment SHANA - Nurse 1 - General Ulcer Assessment Start: 03/04/22 15:00 Freq: Status: Active Protocol: NERISSA Activity Type Activity Date Activity User E-Sign Co-Sign Detail Recorded Client Recorded Date Recorded By Document 03/04/22 15:04 DL [id number] 03/04/22 15:07 DL 03/04/22 15:04 WC - Today's Visit Information Type of service Follow-up Visit (Physician/VEHICLE OPERATOR ) Arrival Mode Ambulatory Transfer Assistance None Patient Identification Verified (Name & Yes ) Patient Requires Transmission-Based No Precautions Height and Weight Body Mass Index (BMI) 32.8 BMI Classification Obese Vital Signs Temperature (97.8 F-99.1 F) 98.9 F Temperature Source Temporal Pulse Rate (60-100) 76 Pulse Location Monitor Respiratory Rate (12-18) 18 Respiratory rate source Observation Blood Pressure (90/60-120/80) 135/78 H Blood Pressure Mean (mm Hg) 97 Source Monitor History Since Last Visit- (Skip if this is Patient's initial visit) Have you changed medications since your No last visit? Any new allergies or adverse reactions No Had a fall/change in ADL's that may No increase risk of falls Signs or symptoms of abuse and/or No neglect since last visit Have you been in the hospital since your No last visit? Has dressing in place as prescribed Yes Has compression in place as prescribed N/A Has offloadiing in place as prescribed N/A Experienced any changes in pain level or No management Pain Scale: 0-10 Numeric Is Patient Pain Free? Yes SHANA Nicole Nurse 1 - General Ulcer Measurement Start: 03/04/22 15:00 Freq: Status: Active Protocol: Activity Type Activity Date Activity User E-Sign Co-Sign Detail Recorded Client Recorded Date Recorded By Document 03/04/22 15:04 DL [id number] 03/04/22 15:07 DL 03/04/22 15:04 Wound Center Nurse 1 #2- L DORSAL FOOT -Current Size (cm) - Length 0.6 -Current Size (cm) - Width 0.5 -Current Size (cm) - Depth 0.8 -Total Square Cm 0.30 -Photo Taken No -Exudate Amt Medium -Exudate Type Serosanguineous -Wound Margin Distinct, Outline Attached -Granulation Amt Large (67-100%) -Granulation Quality Red -Necrosis Amt Small (1-33%) -Necrotic Tissue Type Adherent Slough -Structure Exposed N/A -Texture (Shital-wound Skin Appearance) Scarring -Moisture (Shital-wound Skin Appearance) No Abnormality -Color (Shital-wound Skin Appearance) No Abnormality -Temperature (Shital-wound Skin No Abnormality Appearance) (Pt Warm) -Tenderness on Palpation (Shital-wound No Skin Appearance) -Ulcer Cleansing Soap and Water -Foul Odor after Cleansing No -Anesthetic Used 4% Lidocaine Solution -Wound Comment(s) Assessment done by Myrtle Serrano, charted by Dlehr. SALDANA - Nurse 2 - General Ulcer CM Notes Start: 03/04/22 15:00 Freq: Status: Active Protocol: Activity Type Activity Date Activity User E-Sign Co-Sign Detail Recorded Client Recorded Date Recorded By Document 03/04/22 15:00 [id number] 03/04/22 15:10 03/04/22 15:00 Wound Center Nurse 2 -Time 15:00 -Correct Patient Yes -Correct Side, Site, Position Yes -Correct Procedure Yes -Procedure Performed Yes -Type of Procedure Debridement -Clinical Debridement Subcutaneous -Tissue Removed Subcutaneous -Post Debridement (cm) - Length 1.2 -Post Debridement (cm) - Width 0.8 -Post Debridement (cm) - Depth 0.7 -Total Square (Post) (cm) 0.96 -Area of Debridement (cm) - Length 1.2 -Area of Debridement (cm) - Width 0.8 -Total Square (Area) (cm) 0.96 -Tunneling No -Undermining/Tunneling No -Circular Undermining No -Wound/Ulcer Outcome Not Healed -Ulcer Cleansing Rinsed/ Irrigated with Saline -Bioengineered Tissue No -Bleeding Controlled with Pressure -Treatment Response Procedure Tolerated Well -Offloading No -Debridement - Subq, 1st 20sq cm Yes Pain Scale: 0-10 Numeric Is Patient Pain Free? Yes WC - Nurse 3 - General Ulcer D/C NN Start: 03/04/22 15:00 Freq: Status: Active Protocol: Activity Type Activity Date Activity User E-Sign Co-Sign Detail Recorded Client Recorded Date Recorded By Document 03/04/22 15:17 [facility] [id number] 03/04/22 15:18 [facility] 03/04/22 15:17 Wound Care Nurse 3 #2- L DORSAL FOOT -Ulcer Cleansing Rinsed/ Irrigated with Saline -Foul Odor after Cleansing No -Primary Dressing Applied Aquacel AG 2x2 -Primary Dressing Covered/Secured with Dry Gauze, Secured with Tape -Other Covering DRSG PER MW RN -Aquacel AG 2x2 1 Treatment Response Procedure Tolerated Well Pain Scale: 0-10 Numeric Is Patient Pain Free? Yes WC - Visit Discharge Discharge Condition Stable Ambulatory Status Ambulatory Transportation Private Auto Assessment/Plan Assessment/Plan (1) Delayed wound healing: CODE(S): T14.8XXD - Other injury of unspecified body region, subsequent encounter (2) Peripheral arterial occlusive disease: CODE(S): I77.9 - Disorder of arteries and arterioles, unspecified (3) Smoking addiction: CODE(S): F17.200 - Nicotine dependence, unspecified, uncomplicated (4) Malnutrition: CODE(S): E46 - Unspecified protein-calorie malnutrition (5) Chronic ulcer of left foot with necrosis of bone: CODE(S): L97.524 - Non-pressure chronic ulcer of other part of left foot with necrosis of bone (6) Pes planus of left foot: CODE(S): M21.42 - Flat foot [pes planus] (acquired), left foot (7) Difficulty in walking: CODE(S): R26.2 - Difficulty in walking, not elsewhere classified PLAN: I reviewed and discussed her case. Debridement was performed as noted in the clinical panel today. Verbal consent was obtained to perform ultrasound guided saline misonix debridement. This was performed according to standard protocol she tolerated this well. This was further covered with Aquacel Ag and gauze. To wash foot with soap and water. To avoid soaking. To change dressing daily. It is okay for her to use a cam walker at home but to remain nonweightbearing most of the time. It is okay to exercise however I advised her not to overdo it with the walking which is a high demand weightbearing activity causing bone and joint motion and is likely contributing to inflammation increase drainage of her wound. Avoid direct pressure to her ulcer site. Space to the dorsal foot ulcer site so she can further Velcro her shoe appropriately. She was previously known to infectious disease and she is reassured no infections are noted today. To continue to monitor. She continues to struggle with smoking cessation. She was encouraged to resume counseling and to proceed forward with the previously discussed interventions. She is at risk for further amputation and delayed healing with tobacco product use. Her history of peripheral vascular disease with critical limb ischemia and prior intervention 2017 as noted. An updated arterial study was ordered previously to check her current status. The noninvasive arterial studies were completed on October 27, 2019 in which a left KEARA of 0.72 is noted without gross impairment of perfusion. She had a recent updated vascular procedure on 02-20-[address] Gomez including ultrasound-guided access retrograde right common femoral artery, aortogram with left iliofemoral angiogram, left leg angiogram with catheter placement into the distal third order tibial peroneal trunk with closure. The peroneal artery was widely patent all the way through with direct collateral into the posterior tibial artery filling into the plantar aspect of the foot. The anterior tibial artery and the posterior tibial artery were occluded throughout. There is brisk flow through the collateral and either other tibials was not recanalized. There is reported to be maximum perfusion at this time for her case. We discussed expected clinical changes with recent after revascularization include increased swelling even color changes to the limb and increased drainage and even sometimes discomfort. She will then return to the wound healing center in 1 week or call sooner if she has any questions or concerns. She understands she is at risk for continued limb loss. Note: [employer] speech recognition sheet metal duct installer apprentice software was used to create portions of this document. Sound-alike and misspelled words, as well as other sheet metal duct installer apprentice errors may be contained in the documentation. The medical decision making level is low. There is noted low risk of morbidity after considering this treatment plan and diagnostic data. The problems addressed require a low medical decision making level which includes two or more minor problems, a stable chronic illness, or an acute uncomplicated illness or injury. 20 minutes was spent on this encounter. This included face to face and non face to face care including preparing for the visit, reviewing the history, performing the exam, counseling and providing education to the patient, family, or caregiver, ordering medications/test/ procedures if indicated as documented, communicating with other healthcare providers, documenting information in the medical record, interpreting / sharing this information when indicated as documented, and care coordination. The medical decision making level is limited based on data including the review of prior external notes, review of a prior test, or ordering a test.
== END 2022-03-28 23:59 | disposition home or self-care (01) ==
LOC: WC 15:00
PROVIDERS: PCP Family Medicine; Visit Provider Podiatrist
DX: L97.522 Non-pressure chronic ulcer of other part of left foot with fat layer exposed (principal); I73.9 Peripheral vascular disease, unspecified; R26.2 Difficulty in walking, not elsewhere classified; M21.42 Flat foot [pes planus] (acquired), left foot; F17.200 Nicotine dependence, unspecified, uncomplicated; Z79.01 Long term (current) use of anticoagulants; Z79.02 Long term (current) use of antithrombotics/antiplatelets; Z79.899 Other long term (current) drug therapy
CPT/HCPCS: 11042